=== PATIENT | male | born 1970 | race Caucasian/White ===

== ENCOUNTER → 2019-08-14 13:15 | Outpatient (CLI) | payer MEDICAID, SELFPAY ==
[2019-08-14 17:27] LABS: Hemoglobin 7.7 g/dL (13.0-16.5); Mean Corp Hgb Conc 30.8 g/dL (32-36); Mean Corpuscular Hgb 27.2 pg (27.0-32.0); Mean Corpuscular Volume 88.3 fL (80-94); Mean Platelet Vol. 11.1 fl (6.2-12.0); Platelet Count 224 K/mm3 (150-450); RBC Distribution Width CV 14.1 % (11.6-14.6); RBC Distribution Width SD 45.6 fl (35.1-43.9); Red Blood Count 2.83 M/mm3 (4.6-6.2); White Blood Count 7.7 K/mm3 (4.4-11.0)
[2019-08-14 17:51] LABS: Vitamin D,25 Hydroxy 19.1 ng/mL (29.95-100.01)
[2019-08-14 18:09] LABS: Albumin, Serum 2.4 g/dL (3.2-5.0); BUN 74 mg/dL (7-18); BUN/Creat Ratio 8.9 RATIO (10-20); Chloride 113 mmol/L (98-107); Creatinine, Serum 8.29 mg/dL (0.70-1.30); EST Glomerular Filtration Rate 7 mL/min (>60); Est Glom Filt Rate - Afr Amer 9 mL/min (>60); Ferritin 419 ng/mL (26-388); Glucose 91 mg/dL (74-106); Iron 36 ug/dL (65-175); Iron Binding Capacity,Total 151 ug/dL (250-450); Phosphorus 7.5 mg/dL (2.5-4.9); Potassium 6.1 mmol/L (3.5-5.1); Sodium Level 139 mmol/L (136-145)
== END ==
PROVIDERS: Visit Provider Internal Medicine Nephrology
DX: N18.5 Chronic kidney disease, stage 5 (principal); E55.9 Vitamin D deficiency, unspecified
CPT/HCPCS: 36415; 80069; 82306; 82728; 83540; 83550; 83970; 85027

== ENCOUNTER → 2019-08-15 | Outpatient (CLI) | payer MEDICAID, SELFPAY ==
[2019-08-15 12:51] LABS: Protein, Urine (Random) 621.5 mg/dL (<11.9); Protein:Creat Ratio 10552 mg/g CRE (0-200)
== END | disposition home or self-care (01) ==
LOC: LABSPEC 09:26
PROVIDERS: PCP Internal Medicine; Visit Provider Internal Medicine Nephrology
DX: N18.5 Chronic kidney disease, stage 5 (principal)
CPT/HCPCS: 82570; 84156

== ENCOUNTER → 2019-08-22 09:40 | Outpatient (CLI) | payer MEDICAID, SELFPAY ==
--- NOTE | 2019-08-22 09:43 | VDUE_ITS ---
Reason For Study: Pre op, CKD Right Arm Left Arm Right cephalic vein is compressible. Left cephalic vein is compressible. Right Cephalic Vein at the shoulder Left Cephalic Vein at the shoulder measures .51 x .53 cm. measures .64 x .67 cm. Right Cephalic Vein mid bicep measures .53 Left Cephalic Vein at mid bicep measures .67 x .6 cm. x .64 cm. Right Cephalic Vein above antecub Left Cephalic Vein above antecub measures .59 measures .45 x .51 cm. x .62 cm. Right Cephalic Vein below antecub Left Cephalic Vein below antecub measures .36 measures .29 x .3 cm. x .35 cm. Right Cephalic Vein in the forearm Left Cephalic Vein in the forearm measures .3 x .29 cm. measures .33 x .36 cm. Right Cephalic Vein at the wrist measures .13 Left Cephalic Vein at the wrist measures .31 x .16 cm. x .32 cm. Right basilic vein is compressible. Left basilic vein is compressible. Right Basilic Vein mid bicep measures .5 Basilic vein at bicep measures .4 x .4 cm. x .52 cm. Basilic vein above antecub measures .36 x .37 Right Basilic Vein above antecub measures .43 cm. x .43 cm. Basilic vein below antecub measures .15 x .16 Right Basilic Vein below antecub measures .14 cm. x .16 cm. Basilic vein in the forearm measures .16 Right Basilic Vein in the forearm x .16 cm. measures .27 x .29 cm. Basilic vein at the wrist measures .16 x .14 Right Basilic Vein at the wrist measures .25 cm. x .27 cm. Brachial Art .41 x .4 cm. Brachial Art .41 x .4 cm. Brachial Art 114.0 cm/s. Brachial Art 89.4 cm/s. Radial Art .19 x .22 cm. Radial Art .23 x .29 cm. Radial Art 112.2 cm/s. Radial Art 119.8 cm/s. Interpretation Summary Patent and compressible bilateral upper extremity cephalic and basilic veins with dimensions as noted. Small right cephalic vein at the wrist Small bilateral forearm basilic veins Adequate bilateral brachial artery diameter and flow. Adequate right radial artery slightly small on the left Ordering Physician: Osman Tarango Performed By: Nathan Ordoñez RVT ?
[2019-08-22 11:35] LABS: Albumin, Serum 2.3 g/dL (3.2-5.0); BUN 79 mg/dL (7-18); BUN/Creat Ratio 8.6 RATIO (10-20); Calcium,Total 7.4 mg/dL (8.5-10.1); Chloride 114 mmol/L (98-107); Creatinine, Serum 9.23 mg/dL (0.70-1.30); EST Glomerular Filtration Rate 7 mL/min (>60); Est Glom Filt Rate - Afr Amer 8 mL/min (>60); Glucose 126 mg/dL (74-106); Phosphorus 8.2 mg/dL (2.5-4.9); Potassium 6.6 mmol/L (3.5-5.1); Sodium Level 142 mmol/L (136-145)
[2019-08-22 11:55] LABS: Hepatitis B Surface Antigen Non-Reactive (Nonreactive)
== END ==
PROVIDERS: Internal Medicine Nephrology; PCP Internal Medicine; Referring Provider Surgery; Visit Provider Surgery
DX: Z01.818 Encounter for other preprocedural examination (principal); N18.5 Chronic kidney disease, stage 5; I77.0 Arteriovenous fistula, acquired
CPT/HCPCS: 36415; 80069; 87340; 93970

== ENCOUNTER 2019-08-22 13:29 | Inpatient (IN) | payer MEDICAID, SELFPAY ==
[2019-08-22] VITALS (21 sets, daily range): BP systolic 127–183; BP diastolic 38–87; PULSE 60–71; RESP 7–20; TEMP 36.4–36.6; O2SAT 13–99; BMI 49.3
--- NOTE | 2019-08-22 13:52 | EKG12_ITS ---
Test Reason : Blood Pressure : / mmHG Vent. Rate : 065 BPM Atrial Rate : 065 BPM P-R Int : 000 ms QRS Dur : 106 ms QT Int : 430 ms P-R-T Axes : 000 -34 048 degrees QTc Int : 447 ms Normal sinus rhythm Left axis deviation , LAHB Low voltage QRS Cannot rule out Anterior infarct , age undetermined Abnormal ECG Confirmed by ANJANA ALFORD ([id number]), map editor FAY PINTO ([id number]) on 08/26/2019 3:45:22 PM Referred By: RENAE Confirmed By:ANJANA ALFORD
--- NOTE | 2019-08-22 13:55 | NURSING ---
NO OLD EKGS
[2019-08-22 14:30] LABS: Anion Gap 7 (5-15); BUN 77 mg/dL (7-18); BUN/Creat Ratio 8.3 RATIO (10-20); Calcium,Total 7.5 mg/dL (8.5-10.1); Chloride 114 mmol/L (98-107); Creatinine, Serum 9.33 mg/dL (0.70-1.30); EST Glomerular Filtration Rate 6 mL/min (>60); Est Glom Filt Rate - Afr Amer 8 mL/min (>60); Estimated Creatinine Clearance 11.89 ml/min; Glucose 129 mg/dL (74-106); Sodium Level 140 mmol/L (136-145)
--- NOTE | 2019-08-22 14:30 | ED.RN ---
critical labs taken demond yang and reported to dr. ybarra
--- NOTE | 2019-08-22 14:38 | HP.PCM_ITS ---
History of Present Illness Date of Admission: 08/22/19 Chief Complaint: hyperkalemia The patient is a 49 year old M with a past medical history of hypertension, diabetes and CKD stage V. Patient has not yet on dialysis. Was admitted through the ED on 08/22/2019 on account of abnormal labs. Patient states his insurance broker tried admitted him last week because of elevated potassium but he did not want to come in as he felt fine. He had labs done 1 day prior to admission and was also referred to general surgery for vein mapping which he had done today. His insurance broker called him today because his labs done yesterday showed potassium of 6.6 and so she asked him to come into the ED. He had no complaints and felt very well. He denied any dizziness, lightheadedness, palpitations, chest pain, nausea or vomiting and did admit to chronic diarrhea which he does not know the cause of. In the ED, vitals were essentially stable. He was saturating at 97% on room air. Labs done showed potassium of 7 with creatinine of 9.33 and bicarb of 19 as well as chloride of 114. CBC was not done. He has been admitted to be managed for hyperkalemia and ESRD, needing emergent dialysis. [] Past Medical History Allergies No Known Allergies Allergy (Verified 08/22/19 13:34) Home Medications: Ambulatory Orders Medication Instructions Recorded Amlodipine [Norvasc] 10 mg PO DAILY 08/22/19 Aspirin [Aspir-Low] 81 mg PO DAILY 08/22/19 Calcium Acetate 2 PO TID 08/22/19 Carvedilol 25 mg PO BID 08/22/19 Ergocalciferol (Vitamin D2) 50,000 unit PO QWEEK 08/22/19 [Vitamin D2] Insulin Glargine,Hum.rec.anlog 10 unit SQ QHS 08/22/19 [Basaglar Kwikpen U-100] Insulin Lispro 2 - 16 unit SQ ACHS 08/22/19 Levothyroxine [Synthroid] 50 mcg PO DAILY 08/22/19 Pantoprazole Sodium 40 mg PO DAILY 08/22/19 Pregabalin [Lyrica] 100 mg PO BID 08/22/19 Sodium Bicarbonate 650 mg PO TID 08/22/19 hydrALAZINE [Apresoline] 25 mg PO TID 08/22/19 Surgical History: no surgical history Psychiatric History: No pertinent psych hx Lives: Alone Smoking Status: Never smoker Tobacco Use: Non-smoker Alcohol: None Drugs: None - *Family History Maternal History Items: No pertinent history Paternal History Items: No pertinent history Sibling History Items: Diabetes - sister has diabetes Review of Systems Constitutional: Denies: Chills, Fever, Malaise, Weakness, Weight Change Eyes: Denies: Blurred vision HEENT: Denies: Head Aches, Sinus Congestion, Sinus Drainage Cardiovascular: Denies: Chest Pain, Palpitations Respiratory: Denies: Cough, Shortness of Breath, Shortness of breath at rest, Shortness of breath upon exertion, Sputum production Gastrointestinal: Reports: Diarrhea - this is chronic. Denies: Abdominal Pain, Nausea, Vomiting Genitourinary: Denies: Dysuria Musculoskeletal: Denies: Joint Pain, Joint Tenderness Skin: Denies: Rash, Wounds Neurological: Denies: Numbness, Tingling, Focal weakness Psychiatric: Denies: Anxiety, Depression, Homicidal Ideations, Suicidal Ideations Hematologic/ Lymphatic: Denies: Easy Bruising, Easy Bleeding VTE Information - Inpt Only VTE Present on Admission: No VTE Pharm Prophylaxis ordered?: Yes - Physical Exam Vitals/I&O's: Vital Signs Temp Pulse Resp BP Pulse Ox 98 F 66 12 127/38 H 97 08/22/19 13:32 08/22/19 13:32 08/22/19 13:32 08/22/19 13:32 08/22/19 13:32 Oxygen Delivery Method Room Air Weight: 405 lb 3.354 oz Body Mass Index (BMI) 49.3 General: Alert, Oriented x3, Cooperative, No apparent distress, - - super morbid obesity HEENT: Atraumatic, PERRLA, EOMI, Normocephalic Oral: Dry Mucosa Neck: Supple, No JVD, Negative Carotid Bruits Lungs: Clear to auscultation, Normal air movement, No rhonchi, No wheeze, No rales Cardiovascular: Regular rate, Regular Rhythm, Normal S1, Normal S2, No murmurs Abdomen: Bowel Sounds Present, Soft, Non Tender, Non-Distended, No Hepato- splenomegaly Extremities: No clubbing, No cyanosis, No edema, Capillary Refill Less than 3 S econds Skin: No rashes, No breakdown Musculoskeletal: No Tenderness to Palpation of Joints or Extremities Lymphatic: No Cervical, Supraclavicular, or Inguinal Adenopathy Neurological: Cranial nerves II-XII grossly intact, Neuro grossly intact Psych/Mental Status: Normal Affect, Appropriate, Alert and oriented to time, place, person, mood and affect Laboratory Results 08/22/19 13:50: Sodium 140, Potassium 7.0 H*, Chloride 114 H, Carbon Dioxide 19.0 L, Anion Gap 7, BUN 77 H, Creatinine 9.33 H*, Estim Creat Clear Calc 11.89, Est GFR (MDRD) Af Amer 8 L, Est GFR (MDRD) Non-Af 6 L, BUN/Creatinine Ratio 8.3 L, Glucose 129 H, Calcium 7.5 L Current Medications Sodium Bicarbonate 50 meq/ (Dextrose) 1,050 mls @ 100 mls/hr IV .[id number] RASHIDA Stop: 08/23/19 00:59 Assessment/Plan 49-year-old admitted with complaint of abnormal labs and found to have hyperkalemia. 1. hyperkalemia * Potassium is 7. Potassium was 6.6 earlier today. * Has a history of CKD stage V and is due to have vein mapping which was done today. He has an old fistula in which was placed at [facility] but he has never used it. Is currently nonfunctional according to his insurance broker. * Patient given potassium depleting cocktail and Kayexalate in the ED. EKG showed junctional rhythm with no acute ST changes. * * Admit to ICU. Start consult placed to nephrology. I discussed the case with Dr. Shaw on phone and patient to get tunneled dialysis catheter today. We will keep n.p.o. * 2. ESRD * Patient's potassium is 9.33. He does have a history of CKD stage V and had a fistula put in at [facility] sometime back but it has never been used. He had vein mapping done today in anticipation of dialysis. However I think he has progressed to ESRD and needs emergent dialysis. * Nephrology consulted. * Will check kidney ultrasound. * on sodium bicarb * 3. Anemia: * Hemoglobin was 7.7 on 08/14/2019. * Iron panel showed elevated ferritin of 419 with low iron level of 36 and total iron-binding capacity which was low at 151. * This is indicative of anemia of chronic disease likely due to ESRD. * Will check CBC today. * 4. hypertension: On amlodipine and carvedilol as well as hydralazine. IV hydralazine PRN. 5. Type 2 diabetes mellitus: On Lantus 10 units nightly. Insulin sliding scale. Accu-Cheks AC at bedtime. 6. Hypothyroidism: On Synthroid DVT prophylaxis: Lovenox Code Visit Inpatient E&M: 19372 Init Hosp L3
[2019-08-22] MEDS: Albuterol 2.5 MG/3 ML VIAL.NEB. INHALATION (14:39)
--- NOTE | 2019-08-22 14:39 | ED.VISSUMM ---
- ER Visit Summary Date of Service: 08/22/19 Chief Complaint: [High potassium] History of Present Illness: The patient is a 49 M [presents the emergency department complaint of elevated potassium. 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 Patient has had some mild nausea today but otherwise really has no complaints. He is not currently on dialysis. Patient does have history of diabetes as well as hypertension and hypothyroidism. Patient denies any chest pain or shortness of breath.] Physical Examination: [HEENT-PERRLA, EOMI. Cranial nerves II through XII grossly intact. TMs clear. Mucous membranes moist. No adenopathy. Cardiovascular-regular rate and rhythm without murmur or ectopy Lungs-clear to auscultation, chest wall stable without crepitus or subcu emphysema Abdomen-normoactive bowel sounds, soft, nontender, no rebound or rigidity, no peritoneal signs. Extremities-intact ?4, normal range of motion, normal pulses, atraumatic] Test Results: [EKG obtained on arrival showed junctional rhythm with a ventricular rate of 65 bpm with no acute ST segment changes. No significantly peaked T waves noted. And no QT prolongation noted. Chemistries obtained showed an elevated potassium of 7.0. 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 Patient was started on calcium chloride as well as sodium bicarb as well as insulin and dextrose and Kayexalate. Patient also given an albuterol aerosol. Case was discussed with hospitalist will evaluate patient for admission to ICU] Treatment Plan: [Admit to ICU] Disposition: [Admit] Impression: [Hyperkalemia Chronic renal failure] This note was generated with [employer] software. It may contain incorrect words, spelling, and punctuation that were not noted in review of the chart prior to signing ED Disposition - Plan for ED Patient: Referrals: Laura Daly MD [Primary Care Provider] -
--- NOTE | 2019-08-22 14:43 | NURSING ---
ICU 1 KORAM HYPERKALEMIA, NIELS ON CKD
[2019-08-22] MEDS: Calcium Chloride 1 GM/10 ML Syringe IV (14:44)
[2019-08-22] MEDS: Dextrose 10%-Water 250 ML 999 ML IV (15:46)
[2019-08-22] MEDS: Heparin 10,000 UNITS/10 ML Vial 10000 UNITS (16:00)
[2019-08-22] MEDS: Bupiv/Epi 0.25% 30 ML Vial (16:01)
--- NOTE | 2019-08-22 16:01 | CON.PCM_ITS ---
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 Patient had elevated potassium of 7.0 as well as elevated creatinine 9.33. Patient states previously he had left lower arm fistula created several years ago: however he never needed to use it and currently it is nonfunctional. Patient never had dialysis. Patient denies feeling fatigued or any nausea/vomiting/abdominal pain. Past Medical History Allergies No Known Allergies Allergy (Verified 08/22/19 13:34) Home Medications: Ambulatory Orders Medication Instructions Recorded Amlodipine [Norvasc] 10 mg PO DAILY 08/22/19 Aspirin [Aspir-Low] 81 mg PO DAILY 08/22/19 Carvedilol 25 mg PO BID 08/22/19 Ergocalciferol (Vitamin D2) 50,000 unit PO WE 08/22/19 [Vitamin D2] Insulin Glargine,Hum.rec.anlog 10 unit SQ QHS 08/22/19 [Basaglar Kwikpen U-100] Insulin Lispro 15 unit SQ ACHS 08/22/19 Levothyroxine [Synthroid] 50 mcg PO DAILY 08/22/19 Pantoprazole Sodium 40 mg PO DAILY 08/22/19 Pregabalin [Lyrica] 100 mg PO BID 08/22/19 Sodium Bicarbonate 650 mg PO TID 08/22/19 hydrALAZINE [Apresoline] 25 mg PO TID 08/22/19 Surgical History: - - toe amputation Psychiatric History: No pertinent psych hx Lives: Alone Smoking Status: Never smoker Tobacco Use: Non-smoker, Secondhand Alcohol: None Drugs: None - *Family History Maternal History Items: No pertinent history Paternal History Items: No pertinent history Sibling History Items: Diabetes - sister has diabetes Review of Systems Constitutional: Denies: Anorexia, Fever Eyes: Denies: Blurred vision HEENT: Denies: Difficulty Swallowing Cardiovascular: Denies: Chest Pain Respiratory: Denies: Shortness of Breath Gastrointestinal: Denies: Abdominal Pain Genitourinary: Denies: Dysuria Psychiatric: Denies: Anxiety Hematologic/ Lymphatic: Denies: Easy Bleeding - Physical Exam Vitals/I&O's: Vital Signs Temp Pulse Resp BP Pulse Ox 98 F 71 16 127/38 H 97 08/22/19 13:32 08/22/19 14:39 08/22/19 14:39 08/22/19 13:32 08/22/19 13:32 Oxygen Delivery Method Room Air Weight: 405 lb 3.354 oz Body Mass Index (BMI) 49.3 General: Alert, Cooperative, No apparent distress HEENT: Atraumatic Neck: Supple, Trachea Midline Lungs: Normal air movement Cardiovascular: Regular rate Abdomen: Soft, Non Tender, Non-Distended Extremities: Edema, - - Right lower arm near the wrist, incision and previous fistula, no thrill Neurological: Cranial nerves II-XII grossly intact Psych/Mental Status: Normal Affect Laboratory Results 08/22/19 13:50: Sodium 140, Potassium 7.0 H*, Chloride 114 H, Carbon Dioxide 19.0 L, Anion Gap 7, BUN 77 H, Creatinine 9.33 H*, Estim Creat Clear Calc 11.89, Est GFR (MDRD) Af Amer 8 L, Est GFR (MDRD) Non-Af 6 L, BUN/Creatinine Ratio 8.3 L, Glucose 129 H, Calcium 7.5 L Current Medications Sodium Bicarbonate 50 meq/ (Dextrose) 1,050 mls @ 100 mls/hr IV .[id number] RASHIDA Stop: 08/23/19 00:59 Last Admin: 08/22/19 15:23 Dose: 100 mls/hr Documented by: Dextrose (Dextrose 10%-Water) 250 mls @ 999 mls/hr IV .Q16M PRN; Protocol PRN Reason: HYPOGLYCEMIA Last Admin: 08/22/19 15:46 Dose: 999 mls/hr Documented by: Sodium Chloride () 10 - 40 ml IV UD PRN PRN Reason: SALINE FLUSH Assessment/Plan 49-year-old male with acute kidney injury on chronic renal failure 1. Plan to place right tunneled dialysis catheter in the OR today. Did discuss the procedure with the patient including but not limited to risk of bleeding, infection, malfunction of the catheter need for replacement, injury to the vessel. Patient no further questions this time. Patient is scheduled for this afternoon. Poppy Robertson M.D. Pager: [phone] [facility] [address] [place] [address], [facility], [address] [place] [address] Office: [phone] Code Visit Inpatient E&M: 68359 Init Hosp L1
--- NOTE | 2019-08-22 16:09 | NURSING ---
S[facility]
[2019-08-22] MEDS: Insulin Lispro 5 UNIT in Syringe 0 ML IV (16:21)
[2019-08-22 16:30] LABS: Bedside Glucose 173 mg/dL (70-110)
[2019-08-22 16:50] LABS: Bedside Glucose 125 mg/dL (70-110)
--- NOTE | 2019-08-22 17:54 | PCM.OPRPT ---
Report of Operation Date of Procedure: 08/22/19 Pre-Operative Diagnosis: Chronic renal failure Post-Operative Diagnosis: Same Surgery/Procedure Performed:: Insertion of the right tunneled dialysis catheter Type of Anesthesia:: Local MAC Anesthesiologist: Rei Mena Special Medications: Ancef 3 g IV x1 Specimen's removed: None Estimated Blood Loss (mL): 10 cc Fluids Replaced: 700 cc Description of Procedure: After informed consent was given, the patient was brought to the operating room and placed in the supine position. Appropriate time out protocol was followed. He was then given IV conscious sedation for anesthesia. The patient's right upper chest and neck were then prepped with a surgical skin preparation and sterile surgical drapes were placed. After proper landmarks were ascertained, the skin at the upper right chest area was then infiltrated with 1:1 mixture of 1% lidocaine with epinephrine and 0.5% maricaine. A needle trocar was then inserted into the right internal jugular vein with ultrasound guidance-multiple vessels were viewed with u/s and the right IJ was chosen-- and there was good aspiration of venous blood. A wire was then threaded into the needle trocar and this was visualized under fluoroscopy to ensure that the wire was in the superior vena cava. Once this was done, then the needle trocar was removed. A small incision was made with an 11 blade knife at the wire entrance site. The dilator x2 with the introducer sheath attached was then placed over the wire into the right internal jugular vein via the Seldinger technique and this was visualized under fluoroscopy. Next the introducer and sheath were in proper position as visualized by fluoroscopy. The location of the cuffed was estimated on the skin, an incision was made with a 15 blade scalpel. The 14.5 Fr x23 cm Palindrome dual lumen (Lot [id number] reference [id number]) was tunneled from the chest incision to the right neck incision. The sheath was removed. The catheter was placed through the introducer and was positioned with its tip at the junction of the superior vena cava and the right atrium as visualized under fluoroscopy. The cuff of the catheter was in the subcutaneous tissue. The catheter flushed and kenia well with saline. Catheter was also flushed with 2 cc of 1-10,000 of heparin. Hemostasis was assured. Silver dressing was placed at the catheter exit site. Catheter was secured with 3-0 nylon sutures. The neck incision was sutured with interrupted 3-0 Vicryl interrupted sutures x2 and Steri-Strips were placed. A large OpSite was placed over the catheter site and a small OpSite over the neck incision. The patient tolerated the procedure well. Implants Used: 14.5 Fr x23 cm Palindrome dual lumen (Lot [id number] reference [id number]) Grafts/Implants Used: 14.5 Fr x23 cm Palindrome dual lumen (Lot [id number] reference [id number]) - Complications none Code Visit - Procedures Cardiovascular CF Procedures [id number]: [id number] Insert tunneled cv cath
--- NOTE | 2019-08-22 18:00 | RAD_ITS ---
STUDY: X-RAY CHEST REASON FOR EXAM: Male, 49 years old. HEMODIALYSIS CATH PLACEMENT, POST OP TECHNIQUE: Frontal view COMPARISON: None. FINDINGS: Right sided venous line with tip at the distal SVC. The lungs are not fully expanded. There is no demonstrated pleural abnormality. Mild cardiomegaly. Normal mediastinum and patel. Normal visualized pulmonary arteries. Normal visualized aortic arch and descending thoracic aorta. Normal visualized thoracic spine. Normal visualized ribs, clavicles, and shoulders. There is no demonstrated abnormality of the visualized soft tissue structures of the upper abdomen. RAD/CXR for Line Placement IMPRESSION: Mild cardiomegaly. Electronically Signed: Roland Recio DO at 18:46 EST Tel [phone], Service support ,
[2019-08-22 18:51] LABS: Bedside Glucose 123 mg/dL (70-110)
--- NOTE | 2019-08-22 21:17 | PCM.CONS.R ---
Consultation - Renal 08/22/19 PCP/ Referring MD: Requesting physician: [] Primary care physician: Laura Daly MD Reason for Consultation:: ESRD, hyperkalemia - History of Present Illness History of Present Illness: The patient is a 49 year old super morbidly obese M new to my practice with initial consult in office on 08/14/19 for CKD Stage 5 due to diabetes, hypertension. He relocated to [place] in February after kicked out of cousin's house in [place]. His renal care was at [facility]. He had a left forearm fistula placed by Dr. Bray in [place] that failed to mature. He is disabled due to morbid obesity and relies on his inserter promotional item to drive him to his dr larry, groceries and brick picker his prescriptions. This had delayed taking his prescriptions. Potassium elevated at 6.6 prior to admission. He refused to come in to ER because he states he felt fine. Creatinine at 6.8 on 05/15/19 with potassium 5.6. Lisinopril was discontinued. Creatinine on admit 9.33 with potassium of 7 and metabolic acidosis, hyperphosphatemia. He had no complaints and felt very well. He denied any dizziness, lightheadedness, palpitations, chest pain, nausea or vomiting. He is scheduled for tunneled dialysis catheter placement today and initiate dialysis tonight for emergent dialysis. - Allergies Allergies: Allergies No Known Allergies Allergy (Verified 08/22/19 13:34) - Current Medications Current Medications: Current Medications Albuterol Sulfate (Ventolin Aerosols) 2.5 mg INHALATION Q2H PRN PRN PRN Reason: SOB/Wheezing Amlodipine Besylate (Norvasc) 10 mg PO DAILY [facility] Aspirin (Ecotrin) 81 mg PO DAILYCM RASHIDA Carvedilol (Coreg) 25 mg PO BID [facility] Enoxaparin Sodium (Lovenox) 30 mg SC DAILY@0600 [facility] Ergocalciferol (Vitamin D) 50,000 unit PO WE RASHIDA Glucagon () 1 mg IM .X1 PRN PRN Reason: Hypoglycemia Hydralazine HCl (Apresoline) 25 mg PO TID RASHIDA Sodium Bicarbonate 50 meq/ (Dextrose) 1,050 mls @ 100 mls/hr IV .[id number] RASHIDA Stop: 08/23/19 00:59 Last Admin: 08/22/19 15:23 Dose: 100 mls/hr Documented by: Dextrose (Dextrose 10%-Water) 250 mls @ 999 mls/hr IV .Q16M PRN; Protocol PRN Reason: HYPOGLYCEMIA Insulin Glargine (Lantus (Bk)) 10 units SC QHS RASHIDA Insulin Human Lispro (Humalog Kwikpen ([facility])) 15 unit SC 0800,1200,1700 RASHIDA Insulin Human Lispro (Humalog Kwikpen ([facility])) 0 unit SC Q6 RASHIDA; Protocol Last Admin: 08/22/19 18:47 Dose: Not Given Documented by: Levothyroxine Sodium (Synthroid) 50 mcg PO DAILY@0600 R[facility] Pantoprazole Sodium (Protonix) 40 mg PO DAILY [facility] Pregabalin (Lyrica) 100 mg PO BID R[facility] Sodium Chloride () 10 - 40 ml IV UD PRN PRN Reason: SALINE FLUSH - Past Surgical History Surgical History: - - toe amputation, failed left forearm AVF - Social History Marital Status: Single Smoking Status: Never smoker Alcohol: None Drugs: None - Family History Maternal History Items: No pertinent history Paternal History Items: No pertinent history Sibling History Items: Diabetes - sister has diabetes Review of Systems Constitutional: Reports: Weakness, Fatigue. Denies: Anorexia, Chills, Fever Cardiovascular: Reports: Edema - mild. Denies: Chest Pain, Syncope Respiratory: Denies: Cough, Shortness of Breath Gastrointestinal: Denies: Abdominal Pain, Nausea, Vomiting Genitourinary: Denies: Dysuria Musculoskeletal: Denies: Arm Pain, Neck Pain Skin: Denies: Rash Neurological: Denies: Confusion, Tremor, Seizures Psychiatric: Reports: Depression. Denies: Anxiety Hematologic/ Lymphatic: Reports: Anemia - Physical Exam Vitals/I&O's: Vital Signs Temp Pulse Resp BP Pulse Ox 97.9 F 62 7 L 177/60 H 98 08/22/19 20:31 08/22/19 21:00 08/22/19 21:00 08/22/19 21:00 08/22/19 21:00 Oxygen Delivery Method Room Air Weight: 183.8 kg Body Mass Index (BMI) 49.3 Intake and Output for Last 24 Hours 08/20/19 08/21/19 08/22/19 23:59 23:59 23:59 Intake Total 250 / 250 Output Total 0 / 0 Balance 250 / 250 General: Alert, Oriented x3, Cooperative, No apparent distress HEENT: PERRLA, EOMI Oral: Dry Mucosa Neck: Supple Lungs: Clear to auscultation Cardiovascular: Regular rate, No rub noted Abdomen: Bowel Sounds Present, Soft, Non Tender, Obese Extremities: No edema Skin: No rashes Psych/Mental Status: Normal Affect, Appropriate, Alert and oriented to time, place, person, mood and affect Laboratory Results 08/22/19 13:50: Sodium 140, Potassium 7.0 H*, Chloride 114 H, Carbon Dioxide 19.0 L, Anion Gap 7, BUN 77 H, Creatinine 9.33 H*, Estim Creat Clear Calc 11.89, Est GFR (MDRD) Af Amer 8 L, Est GFR (MDRD) Non-Af 6 L, BUN/Creatinine Ratio 8.3 L, Glucose 129 H, Calcium 7.5 L 08/22/19 15:59: POC Glucose 173 H 08/22/19 16:44: POC Glucose 125 H 08/22/19 18:46: POC Glucose 123 H Clinical Impression(s) from Imaging Studies Chest X-Ray 08/22/19 18:00 IMPRESSION: Mild cardiomegaly. Electronically Signed: Roland Recio DO at 18:46 EST Tel [phone], Service support , Current Medications Albuterol Sulfate (Ventolin Aerosols) 2.5 mg INHALATION Q2H PRN PRN PRN Reason: SOB/Wheezing Amlodipine Besylate (Norvasc) 10 mg PO DAILY [facility] Aspirin (Ecotrin) 81 mg PO DAILYCM [facility] Carvedilol (Coreg) 25 mg PO BID [facility] Enoxaparin Sodium (Lovenox) 30 mg SC DAILY@0600 [facility] Ergocalciferol (Vitamin D) 50,000 unit PO WE RASHIDA Glucagon () 1 mg IM .X1 PRN PRN Reason: Hypoglycemia Hydralazine HCl (Apresoline) 25 mg PO TID RASHIDA Sodium Bicarbonate 50 meq/ (Dextrose) 1,050 mls @ 100 mls/hr IV .[id number] RASHIDA Stop: 08/23/19 00:59 Last Admin: 08/22/19 15:23 Dose: 100 mls/hr Documented by: Dextrose (Dextrose 10%-Water) 250 mls @ 999 mls/hr IV .Q16M PRN; Protocol PRN Reason: HYPOGLYCEMIA Insulin Glargine (Lantus (Bk)) 10 units SC QHS RASHIDA Insulin Human Lispro (Humalog Kwikpen (Bk)) 15 unit SC 0800,1200,1700 RASHIDA Insulin Human Lispro (Humalog Kwikpen (Bk)) 0 unit SC Q6 RASHIDA; Protocol Last Admin: 08/22/19 18:47 Dose: Not Given Documented by: Levothyroxine Sodium (Synthroid) 50 mcg PO DAILY@0600 R[facility] Pantoprazole Sodium (Protonix) 40 mg PO DAILY [facility] Pregabalin (Lyrica) 100 mg PO BID R[facility]IDA Sodium Chloride () 10 - 40 ml IV UD PRN PRN Reason: SALINE FLUSH Assessment/Plan 1. ESRD HD today and tomorrow after tunneled dialysis catheter placement. Will need outpt chronic dialysis arranged prior to discharge. Failed left AVF. Refer to Dr. Tarango for revision. VM done as outpt 2. Hyperkalemia correct with dialysis 3. Metabolic acidosis correct with dialysis 4. Hyperphosphatemia, PTH stable 5. iron def anemia iv iron with dialysis. prbc 6. DM2 7. HTN 8. Severe morbid obesity 9. Debilitation 10 Depression
[2019-08-22] MEDS: hydrALAZINE 25 MG Tablet PO (21:36)
[2019-08-22] MEDS: Carvedilol 25 MG Tablet PO (21:36)
[2019-08-22] MEDS: Pregabalin 50 MG Capsule 100 MG PO (21:39)
[2019-08-22 21:45] LABS: Bedside Glucose 110 mg/dL (70-110)
[2019-08-22 23:41] LABS: Bedside Glucose 106 mg/dL (70-110)
[2019-08-23] VITALS (25 sets, daily range): BP systolic 126–181; BP diastolic 50–99; PULSE 63–73; RESP 8–20; TEMP 36.3–36.8; O2SAT 93–98
[2019-08-23] MEDS: Metoprolol Tartrate 5 MG/5 ML Vial IV (02:12)
[2019-08-23] MEDS: 0.9% Saline Lock 10 ML Syringe IV ×2 (02:17→05:06)
[2019-08-23 04:19] LABS: Absolute Lymphocyte Count 0.93 X10^3/uL (0.83-4.51); Absolute Neutrophil Count 4.6 X10^3/uL (2.0-7.7); Basophil# 0.05 X10^3/uL; Basophil% 0.8 % (0-1); Eosinophil# 0.46 X10^3/uL; Hematocrit 21.1 % (40-54); Hemoglobin 6.7 g/dL (13.0-16.5); Lymphocyte # 0.93 X10^3/ul (4.0); Lymphocyte % 14.1 % (19-41); Mean Corp Hgb Conc 31.8 g/dL (32-36); Mean Corpuscular Hgb 28.2 pg (27.0-32.0); Mean Corpuscular Volume 88.7 fL (80-94); Mean Platelet Vol. 11.2 fl (6.2-12.0); Monocyte# 0.58 X10^3/uL; Monocyte% 8.8 % (0-10); NRBC Flagged by Analyzer 0 % (0-5); Neutrophil # 4.55 X10^3/uL (2.7-7.7); Neutrophil % 68.7 % (47-70); Platelet Count 143 K/mm3 (150-450); RBC Distribution Width CV 13.3 % (11.6-14.6); RBC Distribution Width SD 43.3 fl (35.1-43.9); Red Blood Count 2.38 M/mm3 (4.6-6.2); White Blood Count 6.6 K/mm3 (4.4-11.0)
[2019-08-23 04:36] LABS: Albumin, Serum 2.2 g/dL (3.2-5.0); BUN 53 mg/dL (7-18); BUN/Creat Ratio 7.9 RATIO (10-20); Calcium,Total 7.5 mg/dL (8.5-10.1); Chloride 108 mmol/L (98-107); Creatinine, Serum 6.73 mg/dL (0.70-1.30); EST Glomerular Filtration Rate 9 mL/min (>60); Est Glom Filt Rate - Afr Amer 11 mL/min (>60); Estimated Creatinine Clearance 16.04 ml/min; Glucose 114 mg/dL (74-106); Phosphorus 5.9 mg/dL (2.5-4.9); Potassium 4.7 mmol/L (3.5-5.1); Sodium Level 139 mmol/L (136-145)
[2019-08-23] MEDS: Levothyroxine 50 MCG Tablet PO (05:04)
[2019-08-23] MEDS: hydrALAZINE 25 MG Tablet PO ×3 (05:04→21:37)
[2019-08-23 05:16] LABS: Bedside Glucose 112 mg/dL (70-110)
[2019-08-23] MEDS: Aspirin E.C. 81 MG Tablet PO (08:19)
[2019-08-23] MEDS: Pantoprazole Sodium 40 MG Tablet PO (08:19)
[2019-08-23] MEDS: Pregabalin 50 MG Capsule 100 MG PO ×2 (08:23→21:37)
--- NOTE | 2019-08-23 09:02 | PN_ITS ---
Reason for Visit: Patient seen and examined. He had an uneventful night and had no complaints. He had tunnel dialysis catheter put in yesterday and had dialysis with removal of fluid. Hemoglobin dropped to 6.7 and he has been transfused with 1 unit of packed red blood cells. Labs and vitals reviewed. Potassium was 7 on admission and is down to 4.7 now. Creatinine is also down to 6.73. Vitals/I&O's: Vital Signs Temp Pulse Resp BP Pulse Ox 97.3 F L 64 16 158/62 H 97 08/23/19 07:56 08/23/19 08:00 08/23/19 07:56 08/23/19 07:56 08/23/19 07:56 Oxygen Delivery Method Room Air Weight: 393 lb 15.457 oz Body Mass Index (BMI) 49.3 Intake and Output for Last 24 Hours 08/21/19 08/22/19 08/23/19 23:59 23:59 23:59 Intake Total 1195 / 1195 956.67 / 956.67 Output Total 0 / 0 500 / 500 Balance 1195 / 1195 456.67 / 456.67 General: Alert, Oriented x3, Cooperative, No apparent distress, - - super morbid obesity HEENT: Atraumatic, PERRLA, EOMI, Normocephalic Oral: Dry Mucosa Neck: Supple, No JVD, Negative Carotid Bruits Lungs: Clear to auscultation, Normal air movement, No rhonchi, No wheeze, No rales Cardiovascular: Regular rate, Regular Rhythm, Normal S1, Normal S2, No murmurs Abdomen: Bowel Sounds Present, Soft, Non Tender, Non-Distended, No Hepato- splenomegaly Extremities: No clubbing, No cyanosis, No edema, Capillary Refill Less than 3 Seconds Skin: No rashes, No breakdown Musculoskeletal: No Tenderness to Palpation of Joints or Extremities,tunneled dialysis catheter in place on chest Lymphatic: No Cervical, Supraclavicular, or Inguinal Adenopathy Neurological: Cranial nerves II-XII grossly intact, Neuro grossly intact Psych/Mental Status: Normal Affect, Appropriate, Alert and oriented to time, place, person, mood and affect Laboratory Results 08/22/19 13:50: Sodium 140, Potassium 7.0 H*, Chloride 114 H, Carbon Dioxide 19.0 L, Anion Gap 7, BUN 77 H, Creatinine 9.33 H*, Estim Creat Clear Calc 11.89, Est GFR (MDRD) Af Amer 8 L, Est GFR (MDRD) Non-Af 6 L, BUN/Creatinine Ratio 8.3 L, Glucose 129 H, Calcium 7.5 L 08/22/19 15:59: POC Glucose 173 H 08/22/19 16:44: POC Glucose 125 H 08/22/19 18:46: POC Glucose 123 H 08/22/19 21:32: POC Glucose 110 08/22/19 23:36: POC Glucose 106 08/23/19 04:07: WBC 6.6, RBC 2.38 L, Hgb 6.7 L, Hct 21.1 L, MCV 88.7, MCH 28.2, MCHC 31.8 L, RDW Std Deviation 43.3, RDW Coeff of Baljit 13.3, Plt Count 143 L, MPV 11.2, Immature Gran % (Auto) 0.600, Neut % (Auto) 68.7, Lymph % (Auto) 14.1 L, [place] % (Auto) 8.8, Eos % (Auto) 7.0 H, Baso % (Auto) 0.8, Absolute Neuts (auto) 4.6, Absolute Lymphs (auto) 0.93, Nucleated RBC % 0 08/23/19 04:07: Sodium 139, Potassium 4.7, Chloride 108 H, Carbon Dioxide 26.0, BUN 53 H, Creatinine 6.73 H, Estim Creat Clear Calc 16.04, Est GFR (MDRD) Af Amer 11 L, Est GFR (MDRD) Non-Af 9 L, BUN/Creatinine Ratio 7.9 L, Glucose 114 H, Calcium 7.5 L, Phosphorus 5.9 H, Albumin 2.2 L 08/23/19 04:58: Blood Type A POSITIVE, Antibody Screen NEGATIVE, Crossmatch See Detail 08/23/19 04:59: Crossmatch See Detail 08/23/19 05:08: POC Glucose 112 H Diagnostic Data Chest X-Ray 08/22/19 18:00 IMPRESSION: Mild cardiomegaly. Electronically Signed: Roland Recio DO at 18:46 EST Tel [phone], Service support , Current Medications Albuterol Sulfate (Ventolin Aerosols) 2.5 mg INHALATION Q2H PRN PRN PRN Reason: SOB/Wheezing Amlodipine Besylate (Norvasc) 10 mg PO DAILY [facility] Aspirin (Ecotrin) 81 mg PO DAILYCM [facility] Last Admin: 08/23/19 08:19 Dose: 81 mg Documented by: Carvedilol (Coreg) 25 mg PO BID [facility] Last Admin: 08/22/19 21:36 Dose: 25 mg Documented by: Enoxaparin Sodium (Lovenox) 30 mg SC DAILY@0600 [facility] Last Admin: 08/23/19 05:09 Dose: Not Given Documented by: Ergocalciferol (Vitamin D) 50,000 unit PO [facility] Glucagon () 1 mg IM .X1 PRN PRN Reason: Hypoglycemia Hydralazine HCl (Apresoline) 25 mg PO TID [facility] Last Admin: 08/23/19 05:04 Dose: 25 mg Documented by: Hydralazine HCl (Apresoline Iv) 10 mg IV Q4H PRN PRN PRN Reason: SBP > 160 Dextrose (Dextrose 10%-Water) 250 mls @ 999 mls/hr IV .Q16M PRN; Protocol PRN Reason: HYPOGLYCEMIA Sodium Chloride () 500 mls @ 15 mls/hr IV PRN PRN PRN Reason: Blood Transfusion Insulin Glargine (Lantus (B[facility])) 10 units SC QHS [facility] Last Admin: 08/22/19 21:37 Dose: 10 u Documented by: Insulin Human Lispro (Humalog Kwikpen ([facility])) 15 unit SC 0800,1200,1700 [facility] Last Admin: 08/23/19 08:19 Dose: Not Given Documented by: Insulin Human Lispro (Humalog Kwikpen ([facility])) 0 unit SC Q6 [facility]; Protocol Last Admin: 08/23/19 05:09 Dose: Not Given Documented by: Levothyroxine Sodium (Synthroid) 50 mcg PO DAILY@0600 [facility] Last Admin: 08/23/19 05:04 Dose: 50 mcg Documented by: Metoprolol Tartrate (Lopressor (Beta Carlos)) 5 mg IV Q6H PRN PRN PRN Reason: SBP > 160, hold for HR < 60 Last Admin: 08/23/19 02:12 Dose: 5 mg Documented by: Pantoprazole Sodium (Protonix) 40 mg PO DAILY [facility] Last Admin: 08/23/19 08:19 Dose: 40 mg Documented by: Pregabalin (Lyrica) 100 mg PO BID [facility] Last Admin: 08/23/19 08:23 Dose: 100 mg Documented by: Sodium Chloride () 10 - 40 ml IV UD PRN PRN Reason: SALINE FLUSH Last Admin: 08/23/19 05:06 Dose: 20 ml Documented by: STROKE Vital Signs/Narrative: Vital Signs Temp Pulse Resp BP BP Pulse Ox 08/23/19 08:00 64 08/23/19 07:56 97.3 F L 65 16 158/62 H 97 08/23/19 07:00 64 13 157/58 H 93 08/23/19 06:56 97.6 F L 63 14 154/64 H 94 08/23/19 06:41 97.5 F L 64 12 150/71 H 97 08/23/19 06:00 63 8 L 149/61 H 97 08/23/19 05:04 64 153/62 H Medical Necessity - Tobacco Use Smoking Status: Never smoker Tobacco Use: Non-smoker, Secondhand Assessment/Plan 1. hyperkalemia due to ESRD * Potassium is down to 4.6 today. Had dialysis yesterday. * Nephrology on board. * 2. ESRD * Tunneled dialysis catheter emergently please yesterday he had 1 session of dialysis. * On bicarb drip. Will consider stopping today. * Nephrology on board. * Patient's potassium is 9.33. He does have a history of CKD stage V and had a fistula put in at [facility] sometime back but it has never been used. He had vein mapping done today in anticipation of dialysis. However I think he has progressed to ESRD and needs emergent dialysis. * Nephrology consulted. * Will check kidney ultrasound. * on sodium bicarb * 3. Acute on chronic Anemia: * Hb is down to 6.7 today; was 7.7 yesterday * Iron panel showed elevated ferritin of 419 with low iron level of 36 and total iron-binding capacity which was low at 151. * This is indicative of anemia of chronic disease likely due to ESRD. * being transfused one unit of PRBCs * will monitor Hb. * 4. hypertension: On amlodipine and carvedilol as well as hydralazine. IV hydralazine PRN. 5. Type 2 diabetes mellitus: On Lantus 10 units nightly. Insulin sliding scale. Accu-Cheks AC at bedtime. 6. Hypothyroidism: On Synthroid DVT prophylaxis: SCDs. DC lovenox o/a of anemia. Disposition: transfer to PCU today Code Visit Inpatient E&M: 31073 Subs Hosp L2
--- NOTE | 2019-08-23 09:51 | PCM.PN.SRG ---
Subjective: Patient did get dialysis last night and is getting dialysis again this morning. - Physical Exam Vitals/I&O's: Vital Signs Temp Pulse Resp BP Pulse Ox 97.3 F L 64 16 158/62 H 97 08/23/19 07:56 08/23/19 08:00 08/23/19 07:56 08/23/19 07:56 08/23/19 07:56 Oxygen Delivery Method Room Air Weight: 393 lb 15.457 oz Body Mass Index (BMI) 49.3 Intake and Output for Last 24 Hours 08/21/19 08/22/19 08/23/19 23:59 23:59 23:59 Intake Total 1195 / 1195 956.67 / 956.67 Output Total 0 / 0 500 / 500 Balance 1195 / 1195 456.67 / 456.67 General: Alert, Oriented x3, Cooperative, No apparent distress Abdomen: Soft, Non Tender, Non-Distended, Obese Skin: - - Right chest tunneled dialysis catheter in place and dressed. Laboratory Results 08/22/19 13:50: Sodium 140, Potassium 7.0 H*, Chloride 114 H, Carbon Dioxide 19.0 L, Anion Gap 7, BUN 77 H, Creatinine 9.33 H*, Estim Creat Clear Calc 11.89, Est GFR (MDRD) Af Amer 8 L, Est GFR (MDRD) Non-Af 6 L, BUN/Creatinine Ratio 8.3 L, Glucose 129 H, Calcium 7.5 L 08/22/19 15:59: POC Glucose 173 H 08/22/19 16:44: POC Glucose 125 H 08/22/19 18:46: POC Glucose 123 H 08/22/19 21:32: POC Glucose 110 08/22/19 23:36: POC Glucose 106 08/23/19 04:07: WBC 6.6, RBC 2.38 L, Hgb 6.7 L, Hct 21.1 L, MCV 88.7, MCH 28.2, MCHC 31.8 L, RDW Std Deviation 43.3, RDW Coeff of Baljit 13.3, Plt Count 143 L, MPV 11.2, Immature Gran % (Auto) 0.600, Neut % (Auto) 68.7, Lymph % (Auto) 14.1 L, Daniels % (Auto) 8.8, Eos % (Auto) 7.0 H, Baso % (Auto) 0.8, Absolute Neuts (auto) 4.6, Absolute Lymphs (auto) 0.93, Nucleated RBC % 0 08/23/19 04:07: Sodium 139, Potassium 4.7, Chloride 108 H, Carbon Dioxide 26.0, BUN 53 H, Creatinine 6.73 H, Estim Creat Clear Calc 16.04, Est GFR (MDRD) Af Amer 11 L, Est GFR (MDRD) Non-Af 9 L, BUN/Creatinine Ratio 7.9 L, Glucose 114 H, Calcium 7.5 L, Phosphorus 5.9 H, Albumin 2.2 L 08/23/19 04:58: Blood Type A POSITIVE, Antibody Screen NEGATIVE, Crossmatch See Detail 08/23/19 04:59: Crossmatch See Detail 08/23/19 05:08: POC Glucose 112 H Current Medications Albuterol Sulfate (Ventolin Aerosols) 2.5 mg INHALATION Q2H PRN PRN PRN Reason: SOB/Wheezing Amlodipine Besylate (Norvasc) 10 mg PO DAILY [facility]S [facility] Aspirin (Ecotrin) [facility] Last Admin: 08/23/19 08:19 Dose: 81 mg Documented by: Carvedilol (Coreg) 25 mg PO BID [facility] 234 BEDS AT [facility] Last Admin: 08/22/19 21:36 Dose: 25 mg Documented by: Ergocalciferol (Vitamin D) 50,000 unit PO WE COUNTS INCLUDE 234 BEDS AT [facility] Glucagon () 1 mg IM .X1 PRN PRN Reason: Hypoglycemia Hydralazine HCl (Apresoline) 25 mg PO TID [facility] 234 BEDS AT [facility] Last Admin: 08/23/19 05:04 Dose: 25 mg Documented by: Hydralazine HCl (Apresoline Iv) 10 mg IV Q4H PRN PRN PRN Reason: SBP > 160 Dextrose (Dextrose 10%-Water) 250 mls @ 999 mls/hr IV .Q16M PRN; Protocol PRN Reason: HYPOGLYCEMIA Sodium Chloride () 500 mls @ 15 mls/hr IV PRN PRN PRN Reason: Blood Transfusion Insulin Glargine (Lantus ([facility])) 10 units SC QHS COUNTS INCLUDE 234 BEDS AT [facility] Last Admin: 08/22/19 21:37 Dose: 10 u Documented by: Insulin Human Lispro (Humalog Kwikpen ([facility])) 15 unit SC 0800,1200,1700 COUNTS INCLUDE 234 BEDS AT [facility] Last Admin: 08/23/19 08:19 Dose: Not Given Documented by: Insulin Human Lispro (Humalog Kwikpen ([facility])) 0 unit SC Q6 [facility] 234 BEDS AT [facility]; Protocol Last Admin: 08/23/19 05:09 Dose: Not Given Documented by: Levothyroxine Sodium (Synthroid) 50 mcg PO DAILY@0600 [facility] 234 BEDS AT [facility] Last Admin: 08/23/19 05:04 Dose: 50 mcg Documented by: Metoprolol Tartrate (Lopressor (Beta Carlos)) 5 mg IV Q6H PRN PRN PRN Reason: SBP > 160, hold for HR < 60 Last Admin: 08/23/19 02:12 Dose: 5 mg Documented by: Pantoprazole Sodium (Protonix) 40 mg PO DAILY [facility] 234 BEDS AT [facility] Last Admin: 08/23/19 08:19 Dose: 40 mg Documented by: Pregabalin (Lyrica) 100 mg PO BID [facility] 234 BEDS AT [facility] Last Admin: 08/23/19 08:23 Dose: 100 mg Documented by: Sodium Chloride () 10 - 40 ml IV UD PRN PRN Reason: SALINE FLUSH Last Admin: 08/23/19 05:06 Dose: 20 ml Documented by: Medical Necessity - Tobacco Use Smoking Status: Never smoker Tobacco Use: Non-smoker, Secondhand Assessment/Plan 49-year-old male with acute kidney injury on chronic renal failure s/p tunneled dialysis catheter 1. Pt did receive dialysis last night with no issues and is receiving again this morning. Call with any further concerns. Poppy Robertson M.D. Pager: [phone] [facility] [address] [place] [address], [facility], [address] [place] [id number] Office: [phone]
--- NOTE | 2019-08-23 11:45 | CASEMGMT ---
SOCIAL WORK INFORMANT: MICHAEL STEINBERG REASON FOR REFERRAL: RESOURCES MET WITH PATIENT IN ROOM. INTRODUCED ROLE AND REASON FOR REFERRAL. INFORMED PATIENT THIS WORKER DISCUSSED PATIENT'S NEEDS WITH CASE MICHAEL LOPEZ AND WILL ASSIST WITH NEEDS FOR HOME GOING. PATIENT REPORTS LIVES HOME ALONE AND WISHES TO RETURN HOME UPON DISCHARGE. PATIENT REPORTS CONCERNS WITH TRANSPORTATION TO/FROM DIALYSIS. INFORMED PATIENT THAT THIS WORKER WILL FOLLOW UP WITH HOME HEALTH CLINICIAN THROUGH [facility] TO DISCUSS TRANSPORTATION NEEDS, MEALS ON WHEELS AND DME. INQUIRED ABOUT ADVANCED DIRECTIVES, PATIENT REPORTS BELIEVES TO HAVE THEM ALREADY COMPLETED. BLANK COPY PROVIDED ALONG WITH RACK CARD IF NEEDED AND INFORMED ABLE TO COMPLETE DURING ADMISSION. PATIENT STATES DOES NOT WANT PEOPLE CLEANING THE HOME, BUT WOULD BE OPEN TO SOMEONE COMING IN TO ASSIST WITH MEDICATIONS. INFORMED HOME HEALTH CLINICIAN WILL SET UP HOME HEALTH. PATIENT VERBALIZED UNDERSTANDING. CALL TO [facility]. WORKER UNABLE TO TRANSFER CALL TO PATIENT'S HOME HEALTH CLINICIAN, [facility] [place] WORKER REPORTS WILL SEND DETAILED MESSAGE TO [facility]EM[facility] TO UPDATE ON PATIENT'S NEEDS AND TO CALL THIS WORKER BACK. CALL BACK INFORMATION PROVIDED. AWAITING CALL BACK FROM PATIENT'S [facility] HOME HEALTH CLINICIAN AT THIS TIME. WILL CONTINUE TO FOLLOW. MONIKA DEGROOT, HOME HEALTH SPECIALIST.
--- NOTE | 2019-08-23 12:15 | CASEMGMT ---
Addendum entered by August Abrams 08/23/19 17:06: 1630: Call received from Karol @ [employer] [facility]. She states they have received the referral for OP dialysis and they are reviewing. She states they have received all the necessary paperwork needed at this time. She was provided with UTILITIES AND MAINTENANCE SUPERVISOR CM, Orin Hopkins's phone number to contact on Monday, as she will be the CM for pt at that time. 1654: Call received from [facility] ([facility]). They stated they are unable to accept pt at this time d/t capacity. Addendum entered by August Abrams 08/23/19 16:20: 1215: Referral packet also faxed to [facility] after on-line Portal referral completed. Hep B surface antigen results faxed as well as CXR confirmation of Tunneled dialysis catheter. Dialysis nurse at bedside states will draw Heb B core antibody and Heb B surface antibodies today as well. Original Note: RN CM JACKSCREW WORKER CM to room to meet with patient for initial transition planning/care coordination assessment. RN CM introduced self and role at [facility]. Pt voices understanding and consents to assessment at this time. Pt resting in bed in no distress at this time, receiving dialysis. Pt is A/O at this time and answers all questions appropriately. Care providers, pharmacy, and demographics verified/updated at this time. PCP: Dr Daly Specialists: Dr Colin Bhatti Pharmacy: [facility] Retail Insurance: [employer] Prescription Benefit: Yes Living Will/HPOA: Thinks he may have completed Healthcare POA paperwork, but he is not sure. States if he has, it is his sister, but states she is not doing well. Pt made aware if he wishes to complete new/updated POA paperwork that SW can assist with this. He states is now sure that he wishes to at this time. Instructed to ask talk with SW if he decides he wishes to do them. He voices understanding. LNOK: 2 siblings: brother and sister Living Arrangements: Lives alone in an apartment. States he is W/C bound--that he can stand/pivot, but otherwise gets around in a W/C. States he is able to bath/dress himself and manages home tasks. States if he needs any help, that his cyber forensics analyst or other people from the spiritism can help him. States his cyber forensics analyst assists with getting groceries. may be interested in Meals on Wheels if I can pick my own meals. has never applied for Waiver program and is not sure if he would want aide assistance even if he qualifies. States he would be agreeable to talking with SW to see what may be available and for resources. Transportation: Air Launch Weapons Technician or other people from his spiritism. States his cyber forensics analyst usually takes him to doctor appts, gets groceries for him, and picks up his prescriptions. States has used transportation services through [id number]. Pt states if he needs transportation to dialysis as early as Monday and if it is not able to be arranged through [employer], that I can find someone to take me if it is necessary, stating either his cyber forensics analyst or someone from the spiritism could take him. DME: Has: Glucometer, shower chair, BSC, Hospital bed, rails/grab bars, W/C. is interested in getting an electric W/C and that he has discussed this with his PCP. He states his PCP instructed him to talk with his Development And Housing Director. Pt states he has a Welder [employer] Fab through [employer] but he does not remember her name. [facility] Operator name is: Josiah Park [facility] agent states they will send an e-mail to Josiah Thompson to inform her pt has been admitted to [facility], but they stated they are not able to give this RN CM a phone number to contact her at. Pt states no need for further DME at this time. HHC/SNF: Hx of SNF in [place] but does not remember the name. has never had HHC in the past, but is interested in HHC at discharge. Given list of local HHC agencies in network with [facility]. Pt states no preference. Call placed to both [facility] and S and referral made. They were both made aware anticipate discharge date is Monday08/26/19. Referral packets faxed to both agencies. Awaiting call back with acceptance. Dialysis: Pt will need OP dialysis at discharge. Pt states no preference of dialysis centers, but prefers to come to [place] location. [facility] via On-line Portal. Call also placed to [facility] and spoke to [place]. She was made aware of new referral. She was also made aware pt may need assistance with transportation. She states they will inform their SW @ [facility] to see if she can assist. Pt wishes to return home and states has no concerns with going home at time of discharge. CM to follow for discharge planning/needs. Pt voices no further concerns/needs at this time. Advised pt to ask for CM if any further questions/concerns/needs arise. Voices understanding. PLAN: Home w/HHC. Awaiting acceptance from either [facility] or [facility]. New OP dialysis--referral has been sent to [facility]. SW referral: Spoke with DARREL Montano, and DARREL Jarquin. Meals on wheels, limited support, emotional support, transportation concerns, possible Waiver program/aide services, and may be interested in completing new AD. Arnav CHOU RN CM
[2019-08-23 12:16] LABS: Bedside Glucose 96 mg/dL (70-110)
[2019-08-23] MEDS: Acetaminophen 325 MG Tablet 650 MG PO (12:56)
[2019-08-23 13:15] LABS: Hepatitis B Surface Antibody Non-Reactive
[2019-08-23] MEDS: Heparin 10,000 UNITS/10 ML Vial IV (14:06)
[2019-08-23] MEDS: amLODIPine 10 MG Tablet PO (14:07)
[2019-08-23] MEDS: Carvedilol 25 MG Tablet PO ×2 (14:07→21:37)
--- NOTE | 2019-08-23 14:10 | DIALYSIS ---
HD X 3.5 HRS ON 2K BATH. RAN PT EVEN. VITALS STABLE THRU OUT. GIVEN #1 DOSE OF VENOFER FROM 10 DOSES ORDERED. RIJ CATH WITH GOOD FLOWS. REPORT TO [facility] [place]
--- NOTE | 2019-08-23 15:23 | NURSING ---
PATIENT TRANSFERRED TO PCU REPORT CALLED TO [facility] TECHNOLOGY PROFESSOR PT LEFT UNIT AT 1500
[2019-08-23 16:41] LABS: Bedside Glucose 83 mg/dL (70-110)
[2019-08-23 22:31] LABS: Bedside Glucose 96 mg/dL (70-110)
[2019-08-24] VITALS (14 sets, daily range): BP systolic 129–177; BP diastolic 34–66; PULSE 72–81; RESP 14–16; TEMP 36.6–37.3; O2SAT 93–99
[2019-08-24] MEDS: Levothyroxine 50 MCG Tablet PO (05:32)
[2019-08-24] MEDS: hydrALAZINE 25 MG Tablet PO ×2 (05:32→22:46)
[2019-08-24 08:02] LABS: Absolute Lymphocyte Count 1.03 X10^3/uL (0.83-4.51); Absolute Neutrophil Count 4.2 X10^3/uL (2.0-7.7); Basophil# 0.04 X10^3/uL; Basophil% 0.6 % (0-1); Eosinophil# 0.31 X10^3/uL; Hematocrit 22.7 % (40-54); Hemoglobin 7.2 g/dL (13.0-16.5); Lymphocyte # 1.03 X10^3/ul (4.0); Lymphocyte % 16.7 % (19-41); Mean Corp Hgb Conc 31.7 g/dL (32-36); Mean Corpuscular Hgb 27.9 pg (27.0-32.0); Mean Platelet Vol. 11.6 fl (6.2-12.0); Monocyte# 0.54 X10^3/uL; Monocyte% 8.8 % (0-10); NRBC Flagged by Analyzer 0 % (0-5); Neutrophil # 4.22 X10^3/uL (2.7-7.7); Neutrophil % 68.6 % (47-70); Platelet Count 146 K/mm3 (150-450); RBC Distribution Width CV 13.1 % (11.6-14.6); Red Blood Count 2.58 M/mm3 (4.6-6.2); White Blood Count 6.2 K/mm3 (4.4-11.0)
[2019-08-24 08:21] LABS: BUN 34 mg/dL (7-18); BUN/Creat Ratio 6.2 RATIO (10-20); Calcium,Total 7.4 mg/dL (8.5-10.1); Chloride 109 mmol/L (98-107); Creatinine, Serum 5.47 mg/dL (0.70-1.30); EST Glomerular Filtration Rate 12 mL/min (>60); Est Glom Filt Rate - Afr Amer 14 mL/min (>60); Estimated Creatinine Clearance 19.74 ml/min; Glucose 92 mg/dL (74-106); Potassium 4.5 mmol/L (3.5-5.1); Sodium Level 141 mmol/L (136-145)
[2019-08-24 08:46] LABS: Bedside Glucose 87 mg/dL (70-110)
[2019-08-24 10:40] LABS: Hepatitis B Core Ab Total Negative (Negative)
[2019-08-24] MEDS: Pantoprazole Sodium 40 MG Tablet PO (11:05)
[2019-08-24] MEDS: Pregabalin 50 MG Capsule 100 MG PO ×2 (11:05→22:49)
[2019-08-24] MEDS: Carvedilol 25 MG Tablet PO ×2 (11:05→22:46)
[2019-08-24] MEDS: Folic Acid/Vitamin B Comp W-C 1 Capsule 1 CAP PO (11:14)
[2019-08-24] MEDS: Calcium Acetate 667 MG Capsule PO ×2 (11:21→17:18)
[2019-08-24 11:55] LABS: Bedside Glucose 101 mg/dL (70-110)
--- NOTE | 2019-08-24 11:57 | PN_ITS ---
Subjective: Patient seen and examined. He had an uneventful night. He had dialysis yesterday with removal of 900 mls of fluid. Patient does not yet have a raudel lysis chair set up in the outpatient community and also does not have transport set up. Labs and vitals reviewed. Globin is 7.2 today. He received 1 unit of packed red blood cells yesterday. Vitals/I&O's: Vital Signs Temp Pulse Resp BP Pulse Ox 99.1 F 72 15 158/48 H 93 08/24/19 11:18 08/24/19 11:18 08/24/19 11:18 08/24/19 11:18 08/24/19 11:18 Oxygen Delivery Method Room Air Weight: 396 lb 13.313 oz Body Mass Index (BMI) 49.3 Intake and Output for Last 24 Hours 08/22/19 08/23/19 08/24/19 23:59 23:59 23:59 Intake Total 1195 / 1195 1866.67 / 1866.67 240 / 240 Output Total 0 / 0 1250 / 1250 900 / 900 Balance 1195 / 1195 616.67 / 616.67 -660 / -660 General: Alert, Oriented x3, Cooperative, No apparent distress, - - super morbid obesity HEENT: Atraumatic, PERRLA, EOMI, Normocephalic Oral: Dry Mucosa Neck: Supple, No JVD, Negative Carotid Bruits Lungs: Clear to auscultation, Normal air movement, No rhonchi, No wheeze, No rales Cardiovascular: Regular rate, Regular Rhythm, Normal S1, Normal S2, No murmurs Abdomen: Bowel Sounds Present, Soft, Non Tender, Non-Distended, No Hepato- splenomegaly Extremities: No clubbing, No cyanosis, No edema, Capillary Refill Less than 3 Seconds Skin: No rashes, No breakdown Musculoskeletal: No Tenderness to Palpation of Joints or Extremities,tunneled dialysis catheter in place on chest Lymphatic: No Cervical, Supraclavicular, or Inguinal Adenopathy Neurological: Cranial nerves II-XII grossly intact, Neuro grossly intact Psych/Mental Status: Normal Affect, Appropriate, Alert and oriented to time, place, person, mood and affect Laboratory Results 08/23/19 12:13: POC Glucose 96 08/23/19 12:20: Hep Bs Antibody Non-Reactive 08/23/19 12:20: Hep B Core Total Ab Negative 08/23/19 16:32: POC Glucose 83 08/23/19 21:40: POC Glucose 96 08/24/19 06:24: WBC 6.2, RBC 2.58 L, Hgb 7.2 L, Hct 22.7 L, MCV 88.0, MCH 27.9, MCHC 31.7 L, RDW Std Deviation 42.0, RDW Coeff of Baljit 13.1, Plt Count 146 L, MPV 11.6, Immature Gran % (Auto) 0.300, Neut % (Auto) 68.6, Lymph % (Auto) 16.7 L, Brooks % (Auto) 8.8, Eos % (Auto) 5.0, Baso % (Auto) 0.6, Absolute Neuts (auto) 4.2, Absolute Lymphs (auto) 1.03, Nucleated RBC % 0 08/24/19 06:24: Sodium 141, Potassium 4.5, Chloride 109 H, Carbon Dioxide 25.0, BUN 34 H, Creatinine 5.47 H, Estim Creat Clear Calc 19.74, Est GFR (MDRD) Af Amer 14 L, Est GFR (MDRD) Non-Af 12 L, BUN/Creatinine Ratio 6.2 L, Glucose 92, Calcium 7.4 L, Phosphorus 5.0 H, Albumin 2.0 L 08/24/19 08:35: POC Glucose 87 08/24/19 11:16: POC Glucose 101 Current Medications Acetaminophen (Tylenol) 650 mg PO Q6H PRN PRN PRN Reason: HEADACHE Last Admin: 08/23/19 12:56 Dose: 650 mg Documented by: Albuterol Sulfate (Ventolin Aerosols) 2.5 mg INHALATION Q2H PRN PRN PRN Reason: SOB/Wheezing Amlodipine Besylate (Norvasc) 10 mg PO DAILY [facility] Last Admin: 08/23/19 14:07 Dose: 10 mg Documented by: Calcium Acetate (Phoslo Gel Cap) 667 mg PO TIDCM [facility] Last Admin: 08/24/19 11:21 Dose: 667 mg Documented by: Carvedilol (Coreg) 25 mg PO BID [facility] Last Admin: 08/24/19 11:05 Dose: 25 mg Documented by: Ergocalciferol (Vitamin D) 50,000 unit PO WE [facility] Glucagon () 1 mg IM .X1 PRN PRN Reason: Hypoglycemia Hydralazine HCl (Apresoline) 25 mg PO TID [facility] Last Admin: 08/24/19 05:32 Dose: 25 mg Documented by: Hydralazine HCl (Apresoline Iv) 10 mg IV Q4H PRN PRN PRN Reason: SBP > 160 Dextrose (Dextrose 10%-Water) 250 mls @ 999 mls/hr IV .Q16M PRN; Protocol PRN Reason: HYPOGLYCEMIA Sodium Chloride () 500 mls @ 15 mls/hr IV PRN PRN PRN Reason: Blood Transfusion Insulin Glargine (Lantus ([facility])) 10 units SC QHS [facility] Last Admin: 08/23/19 21:41 Dose: Not Given Documented by: Insulin Human Lispro (Humalog Kwikpen ([facility])) 15 unit SC 0800,1200,1700 [facility] Last Admin: 08/24/19 08:40 Dose: Not Given Documented by: Insulin Human Lispro (Humalog Kwikpen ([facility])) 0 unit SC ACHS [facility]; Protocol Last Admin: 08/24/19 11:17 Dose: Not Given Documented by: Levothyroxine Sodium (Synthroid) 50 mcg PO DAILY@0600 [facility] Last Admin: 08/24/19 05:32 Dose: 50 mcg Documented by: Metoprolol Tartrate (Lopressor (Beta Carlos)) 5 mg IV Q6H PRN PRN PRN Reason: SBP > 160, hold for HR < 60 Last Admin: 08/23/19 02:12 Dose: 5 mg Documented by: Multivit/Ca Carb/B Cmplx/FA/Prenat (Nephrocaps, Renaphro) 1 capsule PO DAILY [facility] Last Admin: 08/24/19 11:14 Dose: 1 capsule Documented by: Pantoprazole Sodium (Protonix) 40 mg PO DAILY [facility] Last Admin: 08/24/19 11:05 Dose: 40 mg Documented by: Pregabalin (Lyrica) 100 mg PO BID [facility] Last Admin: 08/24/19 11:05 Dose: 100 mg Documented by: Sodium Chloride () 10 - 40 ml IV UD PRN PRN Reason: SALINE FLUSH Last Admin: 08/23/19 05:06 Dose: 20 ml Documented by: STROKE Vital Signs/Narrative: Vital Signs Temp Pulse Resp BP Pulse Ox 02/15/20 11:18 99.1 F 72 15 158/48 H 93 08/24/19 08:44 98.8 F 81 14 133/46 H 93 Medical Necessity - Tobacco Use Smoking Status: Never smoker Tobacco Use: Non-smoker, Secondhand Assessment/Plan 1. hyperkalemia due to ESRD * Potassium is down to 4.5 today. Resolved with dialysis. * Nephrology on board. * 2. ESRD * has had 2 sessions of dialysis. * nephrology on board * was initially on bicarb drip, which has now been dc'd/ * on oral bicarb supplement * 3. Acute on chronic Anemia: * s/p transfusion of 1 unit of PRBC. Hb today is 7.2. * will monitor * due to ESRD * will monitor H&H * 4. hypertension: On amlodipine and carvedilol as well as hydralazine. IV hydralazine PRN. 5. Type 2 diabetes mellitus: On Lantus 10 units nightly. Insulin sliding scale. Accu-Cheks AC at bedtime. 6. Hypothyroidism: On Synthroid DVT prophylaxis: SCDs. DC lovenox o/a of anemia. Dispostion: * Patient is does not have a chair set up in an outpatient dialysis unit and also does not have transportation. This is being arranged by case management. Until that is set up, patient cannot be discharged home. Code Visit Inpatient E&M: 20686 Subs Hosp L2
--- NOTE | 2019-08-24 12:22 | CM.UR ---
Dr. Shaw asked if patient could be discharged today. contacted [facility] however was told I would have to wait for admission team to return on Monday. Dr. Shaw is concerned about non-compliance. Concerned that patient will have transportation to dialysis. Explained that we can talk to [facility] regarding getting rides. Also explained that the nurse has talked to him and he will consider going to a SNF. Dr. Shaw said that she talked to Dr. Escobar and that he will just have to stay until Monday. Riki Kerr RN, [facility].
--- NOTE | 2019-08-24 14:30 | PN.RENAL_ITS ---
Subjective: Denied any complaints of shortness of breath, nausea, vomiting, chest pain. Patient has been tolerating his hemodialysis. Await placement for chronic hemodialysis as outpatient along with transportation. We will arrange for third hemodialysis treatment later today. - Physical Exam Vitals/I&O's: Vital Signs Temp Pulse Resp BP Pulse Ox 99.1 F 72 15 158/48 H 93 08/24/19 11:18 08/24/19 11:18 08/24/19 11:18 08/24/19 11:18 08/24/19 11:18 Oxygen Delivery Method Room Air Weight: 180 kg Body Mass Index (BMI) 49.3 Intake and Output for Last 24 Hours 08/22/19 08/23/19 08/24/19 23:59 23:59 23:59 Intake Total 1195 / 1195 1866.67 / 1866.67 960 / 960 Output Total 0 / 0 1250 / 1250 900 / 900 Balance 1195 / 1195 616.67 / 616.67 60 / 60 General: Alert, Oriented x3, Cooperative, No apparent distress Lungs: Clear to auscultation Cardiovascular: Regular rate Abdomen: Bowel Sounds Present, Soft, Obese Extremities: No edema Psych/Mental Status: Alert and oriented to time, place, person, mood and affect Laboratory Results 08/23/19 12:20: Hep B Core Total Ab Negative 08/23/19 16:32: POC Glucose 83 08/23/19 21:40: POC Glucose 96 08/24/19 06:24: WBC 6.2, RBC 2.58 L, Hgb 7.2 L, Hct 22.7 L, MCV 88.0, MCH 27.9, MCHC 31.7 L, RDW Std Deviation 42.0, RDW Coeff of Baljit 13.1, Plt Count 146 L, MPV 11.6, Immature Gran % (Auto) 0.300, Neut % (Auto) 68.6, Lymph % (Auto) 16.7 L, Hale % (Auto) 8.8, Eos % (Auto) 5.0, Baso % (Auto) 0.6, Absolute Neuts (auto) 4.2, Absolute Lymphs (auto) 1.03, Nucleated RBC % 0 08/24/19 06:24: Sodium 141, Potassium 4.5, Chloride 109 H, Carbon Dioxide 25.0, BUN 34 H, Creatinine 5.47 H, Estim Creat Clear Calc 19.74, Est GFR (MDRD) Af Amer 14 L, Est GFR (MDRD) Non-Af 12 L, BUN/Creatinine Ratio 6.2 L, Glucose 92, Calcium 7.4 L, Phosphorus 5.0 H, Albumin 2.0 L 08/24/19 08:35: POC Glucose 87 08/24/19 11:16: POC Glucose 101 Current Medications Acetaminophen (Tylenol) 650 mg PO Q6H PRN PRN PRN Reason: HEADACHE Last Admin: 08/23/19 12:56 Dose: 650 mg Documented by: Albuterol Sulfate (Ventolin Aerosols) 2.5 mg INHALATION Q2H PRN PRN PRN Reason: SOB/Wheezing Amlodipine Besylate (Norvasc) 10 mg PO DAILY [facility] Last Admin: 08/23/19 14:07 Dose: 10 mg Documented by: Calcium Acetate (Phoslo Gel Cap) 667 mg PO TIDCM [facility] Last Admin: 08/24/19 11:21 Dose: 667 mg Documented by: Carvedilol (Coreg) 25 mg PO BID [facility] Last Admin: 08/24/19 11:05 Dose: 25 mg Documented by: Ergocalciferol (Vitamin D) 50,000 unit PO [facility] Glucagon () 1 mg IM .X1 PRN PRN Reason: Hypoglycemia Hydralazine HCl (Apresoline) 25 mg PO TID [facility] Last Admin: 08/24/19 05:32 Dose: 25 mg Documented by: Hydralazine HCl (Apresoline Iv) 10 mg IV Q4H PRN PRN PRN Reason: SBP > 160 Dextrose (Dextrose 10%-Water) 250 mls @ 999 mls/hr IV .Q16M PRN; Protocol PRN Reason: HYPOGLYCEMIA Sodium Chloride () 500 mls @ 15 mls/hr IV PRN PRN PRN Reason: Blood Transfusion Insulin Glargine (Lantus ([facility])) 10 units SC QHS [facility] Last Admin: 08/23/19 21:41 Dose: Not Given Documented by: Insulin Human Lispro (Humalog Kwikpen ([facility])) 15 unit SC 0800,1200,1700 [facility] Last Admin: 08/24/19 13:37 Dose: Not Given Documented by: Insulin Human Lispro (Humalog Kwikpen ([facility])) 0 unit SC ACHS [facility]; Protocol Last Admin: 08/24/19 11:17 Dose: Not Given Documented by: Levothyroxine Sodium (Synthroid) 50 mcg PO DAILY@0600 [facility] Last Admin: 08/24/19 05:32 Dose: 50 mcg Documented by: Metoprolol Tartrate (Lopressor (Beta Carlos)) 5 mg IV Q6H PRN PRN PRN Reason: SBP > 160, hold for HR < 60 Last Admin: 08/23/19 02:12 Dose: 5 mg Documented by: Multivit/Ca Carb/B Cmplx/FA/Prenat (Nephrocaps, Renaphro) 1 capsule PO DAILY [facility] Last Admin: 08/24/19 11:14 Dose: 1 capsule Documented by: Pantoprazole Sodium (Protonix) 40 mg PO DAILY [facility] Last Admin: 08/24/19 11:05 Dose: 40 mg Documented by: Pregabalin (Lyrica) 100 mg PO BID [facility] Last Admin: 08/24/19 11:05 Dose: 100 mg Documented by: Sodium Chloride () 10 - 40 ml IV UD PRN PRN Reason: SALINE FLUSH Last Admin: 08/23/19 05:06 Dose: 20 ml Documented by: Medical Necessity - Tobacco Use Smoking Status: Never smoker Tobacco Use: Non-smoker, Secondhand Assessment/Plan 1. ESRD HD today #3. Tolerated hemodialysis well past 2 days. Await arrangements for outpatient hemodialysis at [facility]. Will need outpt chronic dialysis arranged prior to discharge. Failed left AVF. Refer to Dr. Tarango for revision. VM done as outpt 2. Hyperkalemia due to renal failure resolved 3. Metabolic acidosis resolved 4. Hyperphosphatemia, start binders 5. iron def anemia iv iron with dialysis. prbc 6. DM2 primary care management 7. HTN stable 8. Severe morbid obesity 9. Debilitation 10 Depression Discussed with primary team, nursing staff.
[2019-08-24 17:30] LABS: Bedside Glucose 114 mg/dL (70-110)
[2019-08-24 22:45] LABS: Bedside Glucose 106 mg/dL (70-110)
[2019-08-24] MEDS: Heparin 10,000 UNITS/10 ML Vial 10000 UNITS IV (22:46)
[2019-08-25] VITALS (13 sets, daily range): BP systolic 148–195; BP diastolic 46–78; PULSE 69–80; RESP 16–17; TEMP 36.7–36.9; O2SAT 94–97
[2019-08-25] MEDS: Levothyroxine 50 MCG Tablet PO (05:13)
[2019-08-25] MEDS: hydrALAZINE 25 MG Tablet PO ×3 (05:13→21:27)
[2019-08-25 05:52] LABS: Absolute Lymphocyte Count 1.01 X10^3/uL (0.83-4.51); Absolute Neutrophil Count 4.1 X10^3/uL (2.0-7.7); Basophil# 0.03 X10^3/uL; Basophil% 0.5 % (0-1); Eosinophil# 0.25 X10^3/uL; Eosinophils% 4.1 % (0-5); Hematocrit 23.4 % (40-54); Hemoglobin 7.3 g/dL (13.0-16.5); Lymphocyte # 1.01 X10^3/ul (4.0); Lymphocyte % 16.6 % (19-41); Mean Corp Hgb Conc 31.2 g/dL (32-36); Mean Corpuscular Hgb 27.5 pg (27.0-32.0); Mean Corpuscular Volume 88.3 fL (80-94); Mean Platelet Vol. 11.5 fl (6.2-12.0); Monocyte# 0.65 X10^3/uL; Monocyte% 10.7 % (0-10); NRBC Flagged by Analyzer 0 % (0-5); Neutrophil # 4.12 X10^3/uL (2.7-7.7); Neutrophil % 67.6 % (47-70); Platelet Count 125 K/mm3 (150-450); RBC Distribution Width CV 12.8 % (11.6-14.6); RBC Distribution Width SD 41.3 fl (35.1-43.9); Red Blood Count 2.65 M/mm3 (4.6-6.2); White Blood Count 6.1 K/mm3 (4.4-11.0)
[2019-08-25 06:38] LABS: Anion Gap 6 (5-15); BUN 26 mg/dL (7-18); BUN/Creat Ratio 5.8 RATIO (10-20); Calcium,Total 7.6 mg/dL (8.5-10.1); Chloride 106 mmol/L (98-107); Creatinine, Serum 4.51 mg/dL (0.70-1.30); EST Glomerular Filtration Rate 15 mL/min (>60); Est Glom Filt Rate - Afr Amer 18 mL/min (>60); Estimated Creatinine Clearance 23.94 ml/min; Glucose 119 mg/dL (74-106); Potassium 4.3 mmol/L (3.5-5.1); Sodium Level 139 mmol/L (136-145)
[2019-08-25] MEDS: Calcium Acetate 667 MG Capsule PO ×3 (09:19→16:28)
[2019-08-25] MEDS: Carvedilol 25 MG Tablet PO ×2 (09:19→21:27)
[2019-08-25] MEDS: Pregabalin 50 MG Capsule 100 MG PO ×2 (09:20→21:31)
[2019-08-25] MEDS: Pantoprazole Sodium 40 MG Tablet PO (09:21)
[2019-08-25] MEDS: Folic Acid/Vitamin B Comp W-C 1 Capsule 1 CAP PO (09:21)
[2019-08-25] MEDS: amLODIPine 10 MG Tablet PO (09:21)
[2019-08-25 10:01] LABS: Bedside Glucose 126 mg/dL (70-110)
--- NOTE | 2019-08-25 12:02 | PCM.PN.HOSP ---
Subjective: Patient seen and examined. He has no complaints this morning. He had an anxiety attack overnight. He however felt better this morning. He denied fever, chills, nausea or vomiting or diarrhea. He had dialysis yesterday. Patient now says that he wants to go to a rehab facility as he was unable to walk. Vitals/I&O's: Vital Signs Temp Pulse Resp BP Pulse Ox 98.4 F 78 17 157/46 H 94 08/25/19 09:00 08/25/19 09:00 08/25/19 09:00 08/25/19 09:00 08/25/19 09:00 Oxygen Delivery Method Room Air Weight: 389 lb 12.436 oz Body Mass Index (BMI) 49.3 Intake and Output for Last 24 Hours 08/23/19 08/24/19 08/25/19 23:59 23:59 23:59 Intake Total 1866.67 / 1866.67 1620 / 1620 240 / 240 Output Total 1250 / 1250 1900 / 1900 900 / 900 Balance 616.67 / 616.67 -280 / -280 -660 / -660 General: Alert, Oriented x3, Cooperative, No apparent distress, - - super morbid obesity HEENT: Atraumatic, PERRLA, EOMI, Normocephalic Oral: Dry Mucosa Neck: Supple, No JVD, Negative Carotid Bruits Lungs: Clear to auscultation, Normal air movement, No rhonchi, No wheeze, No rales Cardiovascular: Regular rate, Regular Rhythm, Normal S1, Normal S2, No murmurs Abdomen: Bowel Sounds Present, Soft, Non Tender, Non-Distended, No Hepato-splenomegaly Extremities: No clubbing, No cyanosis, No edema, Capillary Refill Less than 3 Seconds Skin: No rashes, No breakdown Musculoskeletal: No Tenderness to Palpation of Joints or Extremities,tunneled dialysis catheter in place on chest Lymphatic: No Cervical, Supraclavicular, or Inguinal Adenopathy Neurological: Cranial nerves II-XII grossly intact, Neuro grossly intact Psych/Mental Status: Normal Affect, Appropriate, Alert and oriented to time, place, person, mood and affect Laboratory Results 08/24/19 17:14: POC Glucose 114 H 08/24/19 22:42: POC Glucose 106 08/25/19 05:10: Sodium 139, Potassium 4.3, Chloride 106, Carbon Dioxide 27.0, Anion Gap 6, BUN 26 H, Creatinine 4.51 H, Estim Creat Clear Calc 23.94, Est GFR (MDRD) Af Amer 18 L, Est GFR (MDRD) Non-Af 15 L, BUN/Creatinine Ratio 5.8 L, Glucose 119 H, Calcium 7.6 L 08/25/19 05:10: WBC 6.1, RBC 2.65 L, Hgb 7.3 L, Hct 23.4 L, MCV 88.3, MCH 27.5, MCHC 31.2 L, RDW Std Deviation 41.3, RDW Coeff of Baljit 12.8, Plt Count 125 L, MPV 11.5, Immature Gran % (Auto) 0.500, Neut % (Auto) 67.6, Lymph % (Auto) 16.6 L, Cook % (Auto) 10.7 H, Eos % (Auto) 4.1, Baso % (Auto) 0.5, Absolute Neuts (auto) 4.1, Absolute Lymphs (auto) 1.01, Nucleated RBC % 0 08/25/19 08:56: POC Glucose 126 H Diagnostic Data Chest X-Ray 08/22/19 18:00 IMPRESSION: Mild cardiomegaly. Electronically Signed: Roland Recio DO at 18:46 EST Tel [phone], Service support , Current Medications Acetaminophen (Tylenol) 650 mg PO Q6H PRN PRN PRN Reason: HEADACHE Last Admin: 08/23/19 12:56 Dose: 650 mg Documented by: Albuterol Sulfate (Ventolin Aerosols) 2.5 mg INHALATION Q2H PRN PRN PRN Reason: SOB/Wheezing Amlodipine Besylate (Norvasc) 10 mg PO DAILY [facility] Last Admin: 08/25/19 09:21 Dose: 10 mg Documented by: Calcium Acetate (Phoslo Gel Cap) 667 mg PO TIDCM [facility] Last Admin: 08/25/19 09:19 Dose: 667 mg Documented by: Carvedilol (Coreg) 25 mg PO BID [facility] Last Admin: 08/25/19 09:19 Dose: 25 mg Documented by: Ergocalciferol (Vitamin D) 50,000 unit PO WE [facility] Glucagon () 1 mg IM .X1 PRN PRN Reason: Hypoglycemia Hydralazine HCl (Apresoline) 25 mg PO TID [facility] Last Admin: 08/25/19 05:13 Dose: 25 mg Documented by: Hydralazine HCl (Apresoline Iv) 10 mg IV Q4H PRN PRN PRN Reason: SBP > 160 Dextrose (Dextrose 10%-Water) 250 mls @ 999 mls/hr IV .Q16M PRN; Protocol PRN Reason: HYPOGLYCEMIA Sodium Chloride () 500 mls @ 15 mls/hr IV PRN PRN PRN Reason: Blood Transfusion Insulin Glargine (Lantus (Bk)) 10 units SC QHS [facility] Last Admin: 08/24/19 22:47 Dose: Not Given Documented by: Insulin Human Lispro (Humalog Kwikpen (Bk)) 15 unit SC 0800,1200,1700 [facility] Last Admin: 08/25/19 08:59 Dose: Not Given Documented by: Insulin Human Lispro (Humalog Kwikpen (Bk)) 0 unit SC ACHS [facility]; Protocol Last Admin: 08/25/19 08:59 Dose: Not Given Documented by: Levothyroxine Sodium (Synthroid) 50 mcg PO DAILY@0600 [facility] Last Admin: 08/25/19 05:13 Dose: 50 mcg Documented by: Metoprolol Tartrate (Lopressor (Beta Carlos)) 5 mg IV Q6H PRN PRN PRN Reason: SBP > 160, hold for HR < 60 Last Admin: 08/23/19 02:12 Dose: 5 mg Documented by: Multivit/Ca Carb/B Cmplx/FA/Prenat (Nephrocaps, Renaphro) 1 capsule PO DAILY [facility] Last Admin: 08/25/19 09:21 Dose: 1 capsule Documented by: Pantoprazole Sodium (Protonix) 40 mg PO DAILY [facility] Last Admin: 08/25/19 09:21 Dose: 40 mg Documented by: Pregabalin (Lyrica) 100 mg PO BID [facility] Last Admin: 08/25/19 09:20 Dose: 100 mg Documented by: Sodium Chloride () 10 - 40 ml IV UD PRN PRN Reason: SALINE FLUSH Last Admin: 08/23/19 05:06 Dose: 20 ml Documented by: STROKE Vital Signs/Narrative: Vital Signs Temp Pulse Resp BP Pulse Ox 08/25/19 09:00 98.4 F 78 17 157/46 H 94 Medical Necessity - Tobacco Use Smoking Status: Never smoker Tobacco Use: Non-smoker, Secondhand Assessment/Plan 1. hyperkalemia due to ESRD Potassium is down to 4.3 today. Resolved with dialysis. Nephrology on board. 2. ESRD has had 3 sessions of dialysis. nephrology on board on oral bicarb supplement 3. Acute on chronic Anemia: s/p transfusion of 1 unit of PRBC. Hb today is 7.23 will monitor due to ESRD will monitor H&H; transfuse if Hb<7 4. hypertension: On amlodipine and carvedilol as well as hydralazine. IV hydralazine PRN.BP fairly controlled. BP aim is <130/80 5. Type 2 diabetes mellitus: On Lantus 10 units nightly. Insulin sliding scale. Accu-Cheks AC at bedtime. 6. Hypothyroidism: On Synthroid DVT prophylaxis: SCDs. DC lovenox o/a of anemia. Disposition: Patient is does not have a chair set up in an outpatient dialysis unit and also does not have transportation. This is being arranged by case management. Until that is set up, patient cannot be discharged home. Patient is however now saying he wants to go to a rehab facility, as he was not able to walk with PT. Code Visit Inpatient E&M: 92752 Subs Hosp L2
[2019-08-25 12:30] LABS: Bedside Glucose 125 mg/dL (70-110)
[2019-08-25] MEDS: 0.9% Saline Lock 10 ML Syringe IV ×2 (14:39→21:28)
[2019-08-25 16:35] LABS: Bedside Glucose 119 mg/dL (70-110)
[2019-08-26] VITALS (13 sets, daily range): BP systolic 133–176; BP diastolic 44–68; PULSE 69–74; RESP 15–18; TEMP 36.3–37.1; O2SAT 93–94
[2019-08-26 01:30] LABS: Bedside Glucose 121 mg/dL (70-110)
[2019-08-26 05:08] LABS: Anion Gap 8 (5-15); BUN 30 mg/dL (7-18); BUN/Creat Ratio 5.7 RATIO (10-20); Calcium,Total 7.9 mg/dL (8.5-10.1); Chloride 106 mmol/L (98-107); Creatinine, Serum 5.22 mg/dL (0.70-1.30); EST Glomerular Filtration Rate 13 mL/min (>60); Est Glom Filt Rate - Afr Amer 15 mL/min (>60); Estimated Creatinine Clearance 20.68 ml/min; Glucose 118 mg/dL (74-106); Potassium 4.2 mmol/L (3.5-5.1); Sodium Level 140 mmol/L (136-145)
[2019-08-26] MEDS: Levothyroxine 50 MCG Tablet PO (05:16)
[2019-08-26] MEDS: hydrALAZINE 25 MG Tablet PO (05:16)
[2019-08-26 06:45] LABS: Bedside Glucose 107 mg/dL (70-110)
[2019-08-26] MEDS: Calcium Acetate 667 MG Capsule PO (08:07)
[2019-08-26 08:20] LABS: Bedside Glucose 102 mg/dL (70-110)
[2019-08-26] MEDS: Folic Acid/Vitamin B Comp W-C 1 Capsule 1 CAP PO (09:57)
[2019-08-26] MEDS: Carvedilol 25 MG Tablet PO ×2 (09:57→21:24)
[2019-08-26] MEDS: Pregabalin 50 MG Capsule 100 MG PO ×2 (09:58→21:50)
[2019-08-26] MEDS: amLODIPine 10 MG Tablet PO (09:59)
[2019-08-26] MEDS: Pantoprazole Sodium 40 MG Tablet PO (09:59)
--- NOTE | 2019-08-26 10:00 | CASEMGMT ---
Addendum entered by Orin Hopkins 08/26/19 11:07: This RN CM received schedule letter for pt's dialysis with a chair time of MWF at 1210. Original to pt and copy to chart at this time. Pt aware of monday to be first date of OP dialysis and pt states he will set up provide a ride at this time and states no concerns with doing this at this time. Pt is updated that [facility] can take pt at this time and that this RN CM will notify them of discharge, voices understanding. Pt voices no further questions/concerns/needs at this time. Cherie RN MARYAN Addendum entered by rOin Hopkins 08/26/19 10:04: Per note from Dr. Escobar and César RN MARYAN, pt was interested in SNF over the weekend. This RN CM to room and list of in-network SNF's provided to pt but pt declines SNF at this time and states 'I am strong enough to go home.' Pt states that he should be able to set up [id number] for his first dialysis OP. Cherie RN MARYAN Original Note: Call to [place] at [facility] and she states that she is working on chair time for pt at this time and that pt's insurance approval is still pending at this time. [place] states she will call this RN CM back when either of these is obtained. Dr. Shaw then states to this RN CM that pt will have a chair time MWF at 1130. This RN CM to update pt so that pt can work on ride for monday for his first OP dialysis treatment, voices understanding. Dr. Shaw states that she will dialyze pt today and then he can be discharged once insurance approves pt's OP dialysis. Call to [facility] and they state they are able to take pt at discharge for SN, PT/OT at this time. This RN CM to call [place] back when discharge finalized, voices understanding. Cherie SERRANO CM
--- NOTE | 2019-08-26 10:10 | PCM.PN.REN ---
- Physical Exam Vitals/I&O's: Vital Signs Temp Pulse Resp BP Pulse Ox 98.7 F 72 16 170/68 H 93 08/26/19 08:14 08/26/19 08:14 08/26/19 08:14 08/26/19 08:14 08/26/19 08:14 Oxygen Delivery Method Room Air Weight: 177.9 kg Body Mass Index (BMI) 49.3 Intake and Output for Last 24 Hours 08/24/19 08/25/19 08/26/19 23:59 23:59 23:59 Intake Total 1620 / 1620 1200 / 1320 210 / 210 Output Total 1900 / 1900 900 / 900 700 / 700 Balance -280 / -280 300 / 420 -490 / -490 Laboratory Results 08/23/19 04:59: Crossmatch See Detail 08/25/19 12:06: POC Glucose 125 H 08/25/19 16:25: POC Glucose 119 H 08/25/19 21:24: POC Glucose 121 H 08/26/19 04:10: Sodium 140, Potassium 4.2, Chloride 106, Carbon Dioxide 26.0, Anion Gap 8, BUN 30 H, Creatinine 5.22 H, Estim Creat Clear Calc 20.68, Est GFR (MDRD) Af Amer 15 L, Est GFR (MDRD) Non-Af 13 L, BUN/Creatinine Ratio 5.7 L, Glucose 118 H, Calcium 7.9 L 08/26/19 06:42: POC Glucose 107 08/26/19 08:03: POC Glucose 102 Current Medications Acetaminophen (Tylenol) 650 mg PO Q6H PRN PRN PRN Reason: HEADACHE Last Admin: 08/23/19 12:56 Dose: 650 mg Documented by: Albuterol Sulfate (Ventolin Aerosols) 2.5 mg INHALATION Q2H PRN PRN PRN Reason: SOB/Wheezing Amlodipine Besylate (Norvasc) 10 mg PO DAILY [facility] Last Admin: 08/26/19 09:59 Dose: 10 mg Documented by: Calcium Acetate (Phoslo Gel Cap) 667 mg PO TIDCM [facility] Last Admin: 08/26/19 08:07 Dose: 667 mg Documented by: Carvedilol (Coreg) 25 mg PO BID [facility] Last Admin: 08/26/19 09:57 Dose: 25 mg Documented by: Ergocalciferol (Vitamin D) 50,000 unit PO WE [facility] Glucagon () 1 mg IM .X1 PRN PRN Reason: Hypoglycemia Hydralazine HCl (Apresoline) 25 mg PO TID [facility] Last Admin: 08/26/19 05:16 Dose: 25 mg Documented by: Hydralazine HCl (Apresoline Iv) 10 mg IV Q4H PRN PRN PRN Reason: SBP > 160 Dextrose (Dextrose 10%-Water) 250 mls @ 999 mls/hr IV .Q16M PRN; Protocol PRN Reason: HYPOGLYCEMIA Sodium Chloride () 500 mls @ 15 mls/hr IV PRN PRN PRN Reason: Blood Transfusion Insulin Glargine (Lantus (Bkc)) 10 units SC QHS [facility] Last Admin: 08/25/19 21:28 Dose: Not Given Documented by: Insulin Human Lispro (Humalog Kwikpen (Bkc)) 15 unit SC 0800,1200,1700 [facility] Last Admin: 08/26/19 08:03 Dose: Not Given Documented by: Insulin Human Lispro (Humalog Kwikpen (Bkc)) 0 unit SC ACHS [facility]; Protocol Last Admin: 08/26/19 08:03 Dose: Not Given Documented by: Levothyroxine Sodium (Synthroid) 50 mcg PO DAILY@0600 [facility] Last Admin: 08/26/19 05:16 Dose: 50 mcg Documented by: Metoprolol Tartrate (Lopressor (Beta Carlos)) 5 mg IV Q6H PRN PRN PRN Reason: SBP > 160, hold for HR < 60 Last Admin: 08/23/19 02:12 Dose: 5 mg Documented by: Multivit/Ca Carb/B Cmplx/FA/Prenat (Nephrocaps, Renaphro) 1 capsule PO DAILY [facility] Last Admin: 08/26/19 09:57 Dose: 1 capsule Documented by: Pantoprazole Sodium (Protonix) 40 mg PO DAILY [facility] Last Admin: 08/26/19 09:59 Dose: 40 mg Documented by: Pregabalin (Lyrica) 100 mg PO BID [facility] Last Admin: 08/26/19 09:58 Dose: 100 mg Documented by: Sodium Chloride () 10 - 40 ml IV UD PRN PRN Reason: SALINE FLUSH Last Admin: 08/25/19 21:28 Dose: 20 ml Documented by: Medical Necessity - Tobacco Use Smoking Status: Never smoker Tobacco Use: Non-smoker, Secondhand
--- NOTE | 2019-08-26 10:10 | PCM.PN.REN ---
Subjective: Denies chest pain or shortness of breath. Patient stating he is going home instead of to rehab. Last dialysis was Monday without incident. Patient has chronic dialysis arranged at [facility] Monday, Monday, Fridays at 11:30 AM. Await approval from care source for outpatient dialysis. We will arrange hemodialysis for today prior to discharge. - Physical Exam Vitals/I&O's: Vital Signs Temp Pulse Resp BP Pulse Ox 98.7 F 72 16 170/68 H 93 08/26/19 08:14 08/26/19 08:14 08/26/19 08:14 08/26/19 08:14 08/26/19 08:14 Oxygen Delivery Method Room Air Weight: 177.9 kg Body Mass Index (BMI) 49.3 Intake and Output for Last 24 Hours 08/24/19 08/25/19 08/26/19 23:59 23:59 23:59 Intake Total 1620 / 1620 1200 / 1320 210 / 210 Output Total 1900 / 1900 900 / 900 700 / 700 Balance -280 / -280 300 / 420 -490 / -490 General: Alert, Oriented x3, Cooperative, No apparent distress Lungs: Clear to auscultation Cardiovascular: Regular rate Abdomen: Bowel Sounds Present, Soft, Non Tender, Non-Distended, Obese Extremities: - - Mild pedal edema Psych/Mental Status: Normal Affect, Appropriate, Alert and oriented to time, place, person, mood and affect Laboratory Results 08/23/19 04:59: Crossmatch See Detail 08/25/19 12:06: POC Glucose 125 H 08/25/19 16:25: POC Glucose 119 H 08/25/19 21:24: POC Glucose 121 H 08/26/19 04:10: Sodium 140, Potassium 4.2, Chloride 106, Carbon Dioxide 26.0, Anion Gap 8, BUN 30 H, Creatinine 5.22 H, Estim Creat Clear Calc 20.68, Est GFR (MDRD) Af Amer 15 L, Est GFR (MDRD) Non-Af 13 L, BUN/Creatinine Ratio 5.7 L, Glucose 118 H, Calcium 7.9 L 08/26/19 06:42: POC Glucose 107 08/26/19 08:03: POC Glucose 102 Current Medications Acetaminophen (Tylenol) 650 mg PO Q6H PRN PRN PRN Reason: HEADACHE Last Admin: 08/23/19 12:56 Dose: 650 mg Documented by: Albuterol Sulfate (Ventolin Aerosols) 2.5 mg INHALATION Q2H PRN PRN PRN Reason: SOB/Wheezing Amlodipine Besylate (Norvasc) 10 mg PO DAILY [facility] Last Admin: 08/26/19 09:59 Dose: 10 mg Documented by: Calcium Acetate (Phoslo Gel Cap) 667 mg PO TIDCM [facility] Last Admin: 08/26/19 08:07 Dose: 667 mg Documented by: Carvedilol (Coreg) 25 mg PO BID [facility] Last Admin: 08/26/19 09:57 Dose: 25 mg Documented by: Ergocalciferol (Vitamin D) 50,000 unit PO [facility] Glucagon () 1 mg IM .X1 PRN PRN Reason: Hypoglycemia Hydralazine HCl (Apresoline) 25 mg PO TID [facility] Last Admin: 08/26/19 05:16 Dose: 25 mg Documented by: Hydralazine HCl (Apresoline Iv) 10 mg IV Q4H PRN PRN PRN Reason: SBP > 160 Dextrose (Dextrose 10%-Water) 250 mls @ 999 mls/hr IV .Q16M PRN; Protocol PRN Reason: HYPOGLYCEMIA Sodium Chloride () 500 mls @ 15 mls/hr IV PRN PRN PRN Reason: Blood Transfusion Insulin Glargine (Lantus (Bkc)) 10 units SC QHS [facility] Last Admin: 08/25/19 21:28 Dose: Not Given Documented by: Insulin Human Lispro (Humalog Kwikpen (Bkc)) 15 unit SC 0800,1200,1700 [facility] Last Admin: 08/26/19 08:03 Dose: Not Given Documented by: Insulin Human Lispro (Humalog Kwikpen (Bkc)) 0 unit SC ACHS [facility]; Protocol Last Admin: 08/26/19 08:03 Dose: Not Given Documented by: Levothyroxine Sodium (Synthroid) 50 mcg PO DAILY@0600 [facility] Last Admin: 08/26/19 05:16 Dose: 50 mcg Documented by: Metoprolol Tartrate (Lopressor (Beta Carlos)) 5 mg IV Q6H PRN PRN PRN Reason: SBP > 160, hold for HR < 60 Last Admin: 08/23/19 02:12 Dose: 5 mg Documented by: Multivit/Ca Carb/B Cmplx/FA/Prenat (Nephrocaps, Renaphro) 1 capsule PO DAILY [facility] Last Admin: 08/26/19 09:57 Dose: 1 capsule Documented by: Pantoprazole Sodium (Protonix) 40 mg PO DAILY [facility] Last Admin: 08/26/19 09:59 Dose: 40 mg Documented by: Pregabalin (Lyrica) 100 mg PO BID [facility] Last Admin: 08/26/19 09:58 Dose: 100 mg Documented by: Sodium Chloride () 10 - 40 ml IV UD PRN PRN Reason: SALINE FLUSH Last Admin: 08/25/19 21:28 Dose: 20 ml Documented by: Medical Necessity - Tobacco Use Smoking Status: Never smoker Tobacco Use: Non-smoker, Secondhand Assessment/Plan 1. ESRD HD today. Has chronic spot at [facility] [place] unit Monday, Monday, Monday. #3. Refer to Dr. Tarango for revision. 2. iron def anemia iv iron with dialysis. 3. DM2 primary care management 4. HTN stable 5. Severe morbid obesity 6. Debilitation 7. Hyperphosphatemia continue phosphate binders
--- NOTE | 2019-08-26 11:01 | CM.ED ---
SOCIAL WORK RECEIVED CALL FROM CANDIDA WITH [facility]. PER CANDIDA, SPOKE WITH PATIENT THIS MORNING AND DISCUSSED OPTIONS FOR TRANSPORTATION TO AND FROM DIALYSIS. PATIENT WILL UTILIZE [id number] AND DJFS. [facility] ATTEMPTED TO DISCUSS WAIVER AND PATIENT DECLINED NEEDS FOR WAIVER. [facility] WILL BE FOLLOWING UP WITH PATIENT ONCE HOME TO ENSURE TRANSPORTATION IS ARRANGED. Phylicia ZAMORA, FAMILY CONSUMER SCIENTIST, SERVICE CENTER COORDINATOR.
[2019-08-26 11:26] LABS: Bedside Glucose 125 mg/dL (70-110)
--- NOTE | 2019-08-26 12:09 | PN_ITS ---
Patient Problems: Active and Suspected Problems Diabetes mellitus type 2 in obese (Acute) Metabolic acidosis (Acute) Hyperkalemia (Acute) ESRD (end stage renal disease) on dialysis (Acute) Reason for Visit: Follow-up on NIELS Subjective: Patient was seen and examined. He denied any new complaints. Discussed with nephrology, patient would have dialysis today. Patient's dialysis will be later and he would like to discharge in a.m. Denies any chest pain or dizziness or palpitations. Objective: Physical exam: Vitals/I&O's: Vital Signs Temp Pulse Resp BP Pulse Ox 98.7 F 72 16 170/68 H 93 08/26/19 08:14 08/26/19 08:14 08/26/19 08:14 08/26/19 08:14 08/26/19 08:14 Oxygen Delivery Method Room Air Weight: 177.9 kg Body Mass Index (BMI) 49.3 Intake and Output for Last 24 Hours 08/24/19 08/25/19 08/26/19 23:59 23:59 23:59 Intake Total 1620 / 1620 1200 / 1320 410 / 410 Output Total 1900 / 1900 900 / 900 700 / 700 Balance -280 / -280 300 / 420 -290 / -290 General: Alert, Oriented x3, Cooperative, No apparent distress, - - Morbidly obese HEENT: Atraumatic, PERRLA, EOMI, Normocephalic Oral: Moist Mucosa Neck: Supple, - - right sided tunneled dialysis catheter Lungs: Clear to auscultation, Normal air movement Cardiovascular: Regular rate, Regular Rhythm, Normal S1, Normal S2, No murmurs Abdomen: Bowel Sounds Present, Soft, Non Tender, Non-Distended, No Hepato- splenomegaly Extremities: Edema - bilateral pedal edema +1-2 Skin: No rashes, No breakdown Musculoskeletal: No Tenderness to Palpation of Joints or Extremities Lymphatic: No Cervical, Supraclavicular, or Inguinal Adenopathy Neurological: Cranial nerves II-XII grossly intact, Neuro grossly intact Psych/Mental Status: Normal Affect, Appropriate Laboratory Results 08/23/19 04:59: Crossmatch See Detail 08/25/19 12:06: POC Glucose 125 H 08/25/19 16:25: POC Glucose 119 H 08/25/19 21:24: POC Glucose 121 H 08/26/19 04:10: Sodium 140, Potassium 4.2, Chloride 106, Carbon Dioxide 26.0, Anion Gap 8, BUN 30 H, Creatinine 5.22 H, Estim Creat Clear Calc 20.68, Est GFR (MDRD) Af Amer 15 L, Est GFR (MDRD) Non-Af 13 L, BUN/Creatinine Ratio 5.7 L, Glucose 118 H, Calcium 7.9 L 08/26/19 06:42: POC Glucose 107 08/26/19 08:03: POC Glucose 102 08/26/19 11:23: POC Glucose 125 H Current Medications Acetaminophen (Tylenol) 650 mg PO Q6H PRN PRN PRN Reason: HEADACHE Last Admin: 08/23/19 12:56 Dose: 650 mg Documented by: Albuterol Sulfate (Ventolin Aerosols) 2.5 mg INHALATION Q2H PRN PRN PRN Reason: SOB/Wheezing Amlodipine Besylate (Norvasc) 10 mg PO DAILY [facility] Last Admin: 08/26/19 09:59 Dose: 10 mg Documented by: Calcium Acetate (Phoslo Gel Cap) 667 mg PO TIDCM [facility] Last Admin: 08/26/19 11:50 Dose: Not Given Documented by: Carvedilol (Coreg) 25 mg PO BID [facility] Last Admin: 08/26/19 09:57 Dose: 25 mg Documented by: Ergocalciferol (Vitamin D) 50,000 unit PO [facility] Glucagon () 1 mg IM .X1 PRN PRN Reason: Hypoglycemia Hydralazine HCl (Apresoline) 25 mg PO TID [facility] Last Admin: 08/26/19 05:16 Dose: 25 mg Documented by: Hydralazine HCl (Apresoline Iv) 10 mg IV Q4H PRN PRN PRN Reason: SBP > 160 Dextrose (Dextrose 10%-Water) 250 mls @ 999 mls/hr IV .Q16M PRN; Protocol PRN Reason: HYPOGLYCEMIA Sodium Chloride () 500 mls @ 15 mls/hr IV PRN PRN PRN Reason: Blood Transfusion Insulin Glargine (Lantus ([facility])) 10 units SC QHS [facility] Last Admin: 08/25/19 21:28 Dose: Not Given Documented by: Insulin Human Lispro (Humalog Kwikpen ([facility])) 15 unit SC 0800,1200,1700 [facility] Last Admin: 08/26/19 11:50 Dose: Not Given Documented by: Insulin Human Lispro (Humalog Kwikpen (Bkc)) 0 unit SC ACHS [facility]; Protocol Last Admin: 08/26/19 11:50 Dose: Not Given Documented by: Levothyroxine Sodium (Synthroid) 50 mcg PO DAILY@0600 [facility] Last Admin: 08/26/19 05:16 Dose: 50 mcg Documented by: Metoprolol Tartrate (Lopressor (Beta Carlos)) 5 mg IV Q6H PRN PRN PRN Reason: SBP > 160, hold for HR < 60 Last Admin: 08/23/19 02:12 Dose: 5 mg Documented by: Multivit/Ca Carb/B Cmplx/FA/Prenat (Nephrocaps, Renaphro) 1 capsule PO DAILY [facility] Last Admin: 08/26/19 09:57 Dose: 1 capsule Documented by: Pantoprazole Sodium (Protonix) 40 mg PO DAILY [facility] Last Admin: 08/26/19 09:59 Dose: 40 mg Documented by: Pregabalin (Lyrica) 100 mg PO BID [facility] Last Admin: 08/26/19 09:58 Dose: 100 mg Documented by: Sodium Chloride () 10 - 40 ml IV UD PRN PRN Reason: SALINE FLUSH Last Admin: 08/25/19 21:28 Dose: 20 ml Documented by: STROKE Vital Signs/Narrative: Vital Signs Temp Pulse Resp BP Pulse Ox 08/26/19 08:14 98.7 F 72 16 170/68 H 93 Medical Necessity - Tobacco Use Smoking Status: Never smoker Tobacco Use: Non-smoker, Secondhand Assessment/Plan All Active Problems Diabetes mellitus type 2 in obese (Acute) Metabolic acidosis (Acute) Hyperkalemia (Acute) ESRD (end stage renal disease) on dialysis (Acute) 1. Hyperkalemia, h/o CKD stage V, now ESRD, resolved after dialysis 2. ESRD, new to HD, s/p Right tunneled dialysis catheter, outpatient dialysis arranged. Dialysis today and subsequently - 3. Acute on CKD, s/p 1 unit pRBC, repeat CBCD in am 4. Hypertension, fairly uncontrolled, on amlodipine 10mg, carvedilol 85 mg twice daily, hydralazine 25 mg 3 times daily We will increase hydralazine to 50 mg 3 times daily, continue to monitor blood pressure 5. Type 2 DM , blood sugars are controlled on Lantus 10 units nightly, blood glucose checks with insulin sliding scale 6. Hypothyroidism, continue on Synthroid 7. DVT prophylaxis with SCDs Code Visit Inpatient E&M: 58341 Subs Hosp L2
[2019-08-26 16:55] LABS: Bedside Glucose 120 mg/dL (70-110)
--- NOTE | 2019-08-26 19:51 | DIALYSIS ---
hemodialysis completed x 4 hrs. no fluid removal. Access via right chest tunneled HD cath. Pt abisai well. See HD flowsheet on chart.
[2019-08-26] MEDS: Heparin 10,000 UNITS/10 ML Vial IV (21:25)
[2019-08-26] MEDS: hydrALAZINE 50 MG Tablet PO (21:29)
[2019-08-26 21:35] LABS: Bedside Glucose 101 mg/dL (70-110)
[2019-08-27 02:53] VITALS: PULSE 72
[2019-08-27 03:20] VITALS: BP 151/76; PULSE 74; RESP 18; TEMP 36.9; O2SAT 94
[2019-08-27 05:25] VITALS: BP 158/70; PULSE 73; RESP 18; TEMP 36.8; O2SAT 93
[2019-08-27 05:29] VITALS: BP 158/70; PULSE 73
[2019-08-27] MEDS: Levothyroxine 50 MCG Tablet PO (05:29)
[2019-08-27] MEDS: hydrALAZINE 50 MG Tablet PO (05:29)
[2019-08-27 06:03] LABS: Absolute Lymphocyte Count 1.02 X10^3/uL (0.83-4.51); Absolute Neutrophil Count 4.8 X10^3/uL (2.0-7.7); Basophil# 0.05 X10^3/uL; Basophil% 0.7 % (0-1); Eosinophil# 0.44 X10^3/uL; Eosinophils% 6.3 % (0-5); Hematocrit 22.6 % (40-54); Hemoglobin 7.2 g/dL (13.0-16.5); Lymphocyte # 1.02 X10^3/ul (4.0); Lymphocyte % 14.5 % (19-41); Mean Corp Hgb Conc 31.9 g/dL (32-36); Mean Corpuscular Volume 87.9 fL (80-94); Mean Platelet Vol. 11.2 fl (6.2-12.0); Monocyte# 0.65 X10^3/uL; Monocyte% 9.2 % (0-10); NRBC Flagged by Analyzer 0 % (0-5); Neutrophil # 4.83 X10^3/uL (2.7-7.7); Neutrophil % 68.6 % (47-70); Platelet Count 125 K/mm3 (150-450); RBC Distribution Width CV 12.6 % (11.6-14.6); RBC Distribution Width SD 40.8 fl (35.1-43.9); Red Blood Count 2.57 M/mm3 (4.6-6.2)
[2019-08-27 06:32] LABS: Albumin, Serum 2.1 g/dL (3.2-5.0); BUN 18 mg/dL (7-18); BUN/Creat Ratio 4.9 RATIO (10-20); Calcium,Total 7.6 mg/dL (8.5-10.1); Chloride 104 mmol/L (98-107); Creatinine, Serum 3.67 mg/dL (0.70-1.30); EST Glomerular Filtration Rate 19 mL/min (>60); Est Glom Filt Rate - Afr Amer 23 mL/min (>60); Estimated Creatinine Clearance 29.42 ml/min; Glucose 98 mg/dL (74-106); Phosphorus 3.4 mg/dL (2.5-4.9); Potassium 3.7 mmol/L (3.5-5.1); Sodium Level 140 mmol/L (136-145)
[2019-08-27 07:05] VITALS: PULSE 77
[2019-08-27 07:15] VITALS: BP 148/58; PULSE 75; RESP 16; TEMP 37.1; O2SAT 96
--- NOTE | 2019-08-27 07:17 | DCINST_ITS ---
- Discharge Diagnoses Current Active Problems: Current Active and Chronic Problems Diabetes mellitus type 2 in obese (Acute) Metabolic acidosis (Acute) Hyperkalemia (Acute) ESRD (end stage renal disease) on dialysis (Acute) Reason(s) for Visit for Discharge Instructions: Hyperkalemia You will use the following diet at home:: Renal (restricted protein/sodium) Your food should be the consistency of: Regular Your liquids should be the consistency of: Regular/Thin Discharge Activity: Return to Normal Activity Instructions: Hemodialysis, Eating a Low Potassium Diet, Hyperkalemia Additional Instructions: Take all your medications as prescribed. Follow-up with dialysis as scheduled. Allergies/Adverse Reactions: Allergies No Known Allergies Allergy (Verified 08/22/19 13:34) Medications to take at Discharge Amlodipine [Norvasc] 10 mg PO DAILY 08/22/19 Aspirin [Aspir-Low] 81 mg PO DAILY 08/22/19 Carvedilol 25 mg PO BID 08/22/19 Ergocalciferol (Vitamin D2) [Vitamin D2] 50,000 unit PO WE 08/22/19 Insulin Glargine,Hum.rec.anlog [Basaglar Kwikpen U-100] 10 unit SQ QHS 08/22/19 Insulin Lispro 15 unit SQ ACHS 08/22/19 Levothyroxine [Synthroid] 50 mcg PO DAILY 08/22/19 Pantoprazole Sodium 40 mg PO DAILY 08/22/19 Pregabalin [Lyrica] 100 mg PO BID 08/22/19 Calcium Acetate [Phoslo Gel Cap] 667 mg PO TIDCM 30 Days #90 cap 08/27/19 Folic Acid/Vitamin B Comp W-C [Nephrocaps, Renaphro] 1 cap PO DAILY 30 Days #30 cap 08/27/19 hydrALAZINE [Apresoline] 50 mg PO TID 30 Days #90 tab 08/27/19 The following prescriptions were given: hydrALAZINE [Apresoline] 50 mg PO TID 30 Days #90 tab [facility]: [id number] Folic Acid/Vitamin B Comp W-C [Nephrocaps, Renaphro] 1 cap PO DAILY 30 Days #30 cap [facility] Calcium Acetate [Phoslo Gel Cap] 667 mg PO TIDCM 30 Days #90 cap Transmission Status: Pending to [facility] Primary Care Physician: Laura Daly MD [Primary Care Provider] - Please follow up with your Primary Care Physician in: within 1-2 weeks Test Results: Test results from this visit will be discussed in further detail at your follow- up appointment, if applicable. Please Follow Up With: Laura Daly MD Please Follow Up With: Osman Tarango MD When: as scheduled or within 2 weeks Proposed Discharge Date: 08/27/19
--- NOTE | 2019-08-27 07:23 | DS.PCM_ITS ---
Discharge Date and Diagnosis Date of Admission: 08/22/19 Date of Discharge: 08/27/19 - Primary Discharge Diagnosis Active and Suspected Problems Hyperkalemia NIELS/ESRD, new to HD Uncontrolled Hypertension - Secondary Discharge Diagnosis CKD stage V Hypothyroidism Hypertension Type 2 DM Hospital Course and Treatment Imaging Results: Clinical Impression(s) from Imaging Studies Chest X-Ray 08/22/19 18:00 IMPRESSION: Mild cardiomegaly. Electronically Signed: Roland Recio DO at 18:46 EST Tel [phone], Service support , Nephrology Operations: None Procedures: - - tunneled dialysis catheter Summary of Care Provided: The patient is a 49 year old M with past medical history of hypertension, type II DM, CKD stage V, not yet on dialysis who was admitted on 08/22/19 on account of abnormal labs. Patient had previously seen general surgery for vein mapping as his previous fistula was not working. He was admitted with an outpatient potassium level of 6.6. His potassium on admission was 7. His creatinine was 9.33, bicarb was 19, chloride was 114. Patient received emergent dialysis after getting a tunneled dialysis catheter. He continued to receive 3 more hemodialysis sessions in the hospital making a total of 4. Patient had an outpatient dialysis chair established for him. His potassium at discharge was 3.7. He received 1 unit of packed RBC for hemoglobin that dropped to 6.7. Subsequently, his hemoglobin stayed stable at 7.2. His hepatitis B panel was negative. Patient had his blood pressure medications changed. He was discharged on increased dose of hydralazine 50 mg 3 times daily as well as amlodipine and carvedilol. He will follow-up with general surgery as scheduled. Subjective: On the day of discharge, patient was seen and examined. He had no new complaints. No acute events overnight. Objective: Physical exam: General: Alert, Oriented x3, Cooperative, No apparent distress, - - Morbidly obese HEENT: Atraumatic, PERRLA, EOMI, Normocephalic Oral: Moist Mucosa Neck: Supple, - - right sided tunneled dialysis catheter Lungs: Clear to auscultation, Normal air movement Cardiovascular: Regular rate, Regular Rhythm, Normal S1, Normal S2, No murmurs Abdomen: Bowel Sounds Present, Soft, Non Tender, Non-Distended, No Hepato- splenomegaly Extremities: Edema - bilateral pedal edema +1-2 Skin: No rashes, No breakdown Musculoskeletal: No Tenderness to Palpation of Joints or Extremities Lymphatic: No Cervical, Supraclavicular, or Inguinal Adenopathy Neurological: Cranial nerves II-XII grossly intact, Neuro grossly intact Psych/Mental Status: Normal Affect, Appropriate - Physical Exam Vitals/I&O's: Vital Signs Temp Pulse Resp BP Pulse Ox 98.2 F 73 18 158/70 H 93 08/27/19 05:25 08/27/19 05:29 08/27/19 05:25 08/27/19 05:29 08/27/19 05:25 Oxygen Delivery Method Room Air Weight: 176.7 kg Body Mass Index (BMI) 49.3 Intake and Output for Last 24 Hours 08/25/19 08/26/19 08/27/19 23:59 23:59 23:59 Intake Total 1200 / 1320 560 / 560 50 / 50 Output Total 900 / 900 1500 / 1500 0 / 0 Balance 300 / 420 -940 / -940 50 / 50 Laboratory Results 08/23/19 04:59: Crossmatch See Detail 08/23/19 12:20: Hep Bs Antigen Pending 08/26/19 08:03: POC Glucose 102 08/26/19 11:23: POC Glucose 125 H 08/26/19 16:50: POC Glucose 120 H 08/26/19 21:21: POC Glucose 101 08/27/19 05:40: WBC 7.0, RBC 2.57 L, Hgb 7.2 L, Hct 22.6 L, MCV 87.9, MCH 28.0, MCHC 31.9 L, RDW Std Deviation 40.8, RDW Coeff of Baljit 12.6, Plt Count 125 L, MPV 11.2, Immature Gran % (Auto) 0.700, Neut % (Auto) 68.6, Lymph % (Auto) 14.5 L, [place] % (Auto) 9.2, Eos % (Auto) 6.3 H, Baso % (Auto) 0.7, Absolute Neuts (auto) 4.8, Absolute Lymphs (auto) 1.02, Nucleated RBC % 0 08/27/19 05:40: Sodium 140, Potassium 3.7, Chloride 104, Carbon Dioxide 30.0, BUN 18, Creatinine 3.67 H, Estim Creat Clear Calc 29.42, Est GFR (MDRD) Af Amer 23 L, Est GFR (MDRD) Non-Af 19 L, BUN/Creatinine Ratio 4.9 L, Glucose 98, Calcium 7.6 L, Phosphorus 3.4, Albumin 2.1 L Current Medications Acetaminophen (Tylenol) 650 mg PO Q6H PRN PRN PRN Reason: HEADACHE Last Admin: 08/23/19 12:56 Dose: 650 mg Documented by: Albuterol Sulfate (Ventolin Aerosols) 2.5 mg INHALATION Q2H PRN PRN PRN Reason: SOB/Wheezing Amlodipine Besylate (Norvasc) 10 mg PO DAILY [facility] Last Admin: 08/26/19 09:59 Dose: 10 mg Documented by: Calcium Acetate (Phoslo Gel Cap) 667 mg PO TIDCM [facility] Last Admin: 08/26/19 17:03 Dose: Not Given Documented by: Carvedilol (Coreg) 25 mg PO BID [facility] Last Admin: 08/26/19 21:24 Dose: 25 mg Documented by: Ergocalciferol (Vitamin D) 50,000 unit PO [facility] Glucagon () 1 mg IM .X1 PRN PRN Reason: Hypoglycemia Hydralazine HCl (Apresoline Iv) 10 mg IV Q4H PRN PRN PRN Reason: SBP > 160 Hydralazine HCl (Apresoline) 50 mg PO TID [facility] Last Admin: 08/27/19 05:29 Dose: 50 mg Documented by: Dextrose (Dextrose 10%-Water) 250 mls @ 999 mls/hr IV .Q16M PRN; Protocol PRN Reason: HYPOGLYCEMIA Sodium Chloride () 500 mls @ 15 mls/hr IV PRN PRN PRN Reason: Blood Transfusion Insulin Glargine (Lantus (Bkc)) 10 units SC QHS [facility] Last Admin: 08/26/19 21:47 Dose: Not Given Documented by: Insulin Human Lispro (Humalog Kwikpen (Bkc)) 15 unit SC 0800,1200,1700 [facility] Last Admin: 08/26/19 17:03 Dose: Not Given Documented by: Insulin Human Lispro (Humalog Kwikpen (Bkc)) 0 unit SC ACHS [facility]; Protocol Last Admin: 08/26/19 21:47 Dose: Not Given Documented by: Levothyroxine Sodium (Synthroid) 50 mcg PO DAILY@0600 [facility] Last Admin: 08/27/19 05:29 Dose: 50 mcg Documented by: Metoprolol Tartrate (Lopressor (Beta Carlos)) 5 mg IV Q6H PRN PRN PRN Reason: SBP > 160, hold for HR < 60 Last Admin: 08/23/19 02:12 Dose: 5 mg Documented by: Multivit/Ca Carb/B Cmplx/FA/Prenat (Nephrocaps, Renaphro) 1 capsule PO DAILY [facility] Last Admin: 08/26/19 09:57 Dose: 1 capsule Documented by: Pantoprazole Sodium (Protonix) 40 mg PO DAILY [facility] Last Admin: 08/26/19 09:59 Dose: 40 mg Documented by: Pregabalin (Lyrica) 100 mg PO BID [facility] Last Admin: 08/26/19 21:50 Dose: 100 mg Documented by: Sodium Chloride () 10 - 40 ml IV UD PRN PRN Reason: SALINE FLUSH Last Admin: 08/25/19 21:28 Dose: 20 ml Documented by: Discharge Diet: Low fat/ Low Cholesterol, 2000 mg Sodium Diet, Carb Control Diet Discharge Activity: Return to Normal Activity Home Medications: Medications to take at Discharge Amlodipine [Norvasc] 10 mg PO DAILY 08/22/19 Aspirin [Aspir-Low] 81 mg PO DAILY 08/22/19 Carvedilol 25 mg PO BID 08/22/19 Ergocalciferol (Vitamin D2) [Vitamin D2] 50,000 unit PO WE 08/22/19 Insulin Glargine,Hum.rec.anlog [Basaglar Kwikpen U-100] 10 unit SQ QHS 08/22/19 Insulin Lispro 15 unit SQ ACHS 08/22/19 Levothyroxine [Synthroid] 50 mcg PO DAILY 08/22/19 Pantoprazole Sodium 40 mg PO DAILY 08/22/19 Pregabalin [Lyrica] 100 mg PO BID 08/22/19 Calcium Acetate [Phoslo Gel Cap] 667 mg PO TIDCM 30 Days #90 cap 08/27/19 Folic Acid/Vitamin B Comp W-C [Nephrocaps, Renaphro] 1 cap PO DAILY 30 Days #30 cap 08/27/19 hydrALAZINE [Apresoline] 50 mg PO TID 30 Days #90 tab 08/27/19 Following Prescrptions Were Given to Patient: hydrALAZINE [Apresoline] 50 mg PO TID 30 Days #90 tab Transmission Status: Received by [facility] Folic Acid/Vitamin B Comp W-C [Nephrocaps, Renaphro] 1 cap PO DAILY 30 Days #30 cap Transmission Status: Received by [facility] Calcium Acetate [Phoslo Gel Cap] 667 mg PO TIDCM 30 Days #90 cap Transmission Status[facility] Primary Care Physician: Laura Daly MD [Primary Care Provider] - Please follow up with your Primary Care Physician in: within 1-2 weeks Please Follow Up With: Laura Daly MD Please Follow Up With: Osman Tarango MD When: as scheduled or within 2 weeks Patient Instructions: Hemodialysis, Hyperkalemia, Eating a Low Potassium Diet Disposition: Home Minutes spent on discharge:: 40 Patient Condition:: Stable Medical Necessity - Tobacco Use Smoking Status: Never smoker Tobacco Use: Non-smoker, Secondhand Meaningful Use Info Meaningful Use Diagnoses (Choose all that apply): None applicable Code Visit Inpatient E&M: 35587 Disch Hosp
[2019-08-27] MEDS: Calcium Acetate 667 MG Capsule PO (08:15)
[2019-08-27 08:40] LABS: Bedside Glucose 106 mg/dL (70-110)
--- NOTE | 2019-08-27 09:58 | PHA.DC.MC ---
Pharmacy Service has performed discharge medication reconciliation and counseling for this patient. 1. NEPHROCAP 1 CAPSULE PO DAILY 2. CALCIUM ACETATE 667MG PO TIDCM The patient's discharge medication list was reviewed for discrepancies and discrepancies were resolved. Home Medications Amlodipine [Norvasc] 10 mg PO DAILY 08/22/19 Aspirin [Aspir-Low] 81 mg PO DAILY 08/22/19 Carvedilol 25 mg PO BID 08/22/19 Ergocalciferol (Vitamin D2) [Vitamin D2] 50,000 unit PO WE 08/22/19 Insulin Glargine,Hum.rec.anlog [Basaglar Kwikpen U-100] 10 unit SQ QHS 08/22/19 Insulin Lispro 15 unit SQ ACHS 08/22/19 Levothyroxine [Synthroid] 50 mcg PO DAILY 08/22/19 Pantoprazole Sodium 40 mg PO DAILY 08/22/19 Pregabalin [Lyrica] 100 mg PO BID 08/22/19 Calcium Acetate [Phoslo Gel Cap] 667 mg PO TIDCM 30 Days #90 cap 08/27/19 Folic Acid/Vitamin B Comp W-C [Nephrocaps, Renaphro] 1 cap PO DAILY 30 Days #30 cap 08/27/19 hydrALAZINE [Apresoline] 50 mg PO TID 30 Days #90 tab 08/27/19 The patient was counseled on the following discharge medications and changes in medications for homegoing were reviewed. The Reason for Use, instructions for use, and potential side effects were reviewed for all new medications. The patient's questions regarding all of their medications were answered. The patient was able to verbally demonstrate an understanding of their discharge medications.
--- NOTE | 2019-08-27 10:07 | CASEMGMT ---
Addendum entered by Orin Hopkins 08/27/19 10:10: Call to [place] at [facility] and she is aware of pt discharge. She states that financials are still 'pending' but pt is end stage and admissions already sent schedule letter to this RN CM which usually means that pt is set up and ready to go. [place] states she will notify this RN CM once she gets the official ok. Pt states that he has his ride set up for dialysis tomorrow and that HHC is set to come out on . Cherie SERRANO CM Original Note: Call to [facility] to notify of pt discharge and D/C instructions and last progress note faxed to [facility] at this time. Cherie SERRANO CM
[2019-08-27] MEDS: amLODIPine 10 MG Tablet PO (10:31)
[2019-08-27] MEDS: Carvedilol 25 MG Tablet PO (10:31)
[2019-08-27] MEDS: Pantoprazole Sodium 40 MG Tablet PO (10:33)
[2019-08-27 10:34] LABS: Hepatitis B Surface Antigen Non-Reactive (Nonreactive)
[2019-08-27] MEDS: Folic Acid/Vitamin B Comp W-C 1 Capsule 1 CAP PO (10:34)
[2019-08-27] MEDS: Pregabalin 50 MG Capsule 100 MG PO (10:37)
== END 2019-08-27 11:44 | disposition home health service (06) | DRG 468 ==
LOC: ED 14:21 → ICU 14:52 → PCU 08-23 14:57
PROVIDERS: Internal Medicine Nephrology; Surgery; Admitting Provider Student in an Organized Health Care Education/Training Program; Emergency Provider Emergency Medicine; PCP Internal Medicine; Visit Provider Internal Medicine
PROC: 0JH63XZ Insertion of Tunneled Vascular Access Device into Chest Subcutaneous Tissue and Fascia, Percutaneous Approach (ICD-10-PCS; principal; 2019-08-22 16:30)
DX: E11.22 Type 2 diabetes mellitus with diabetic chronic kidney disease (principal); I12.0 Hypertensive chronic kidney disease with stage 5 chronic kidney disease or end stage renal disease; N17.9 Acute kidney failure, unspecified; E87.5 Hyperkalemia; N18.6 End stage renal disease; E03.9 Hypothyroidism, unspecified; Z68.42 Body mass index [BMI] 45.0-49.9, adult; D50.9 Iron deficiency anemia, unspecified; E66.01 Morbid (severe) obesity due to excess calories; E87.2 Acidosis; E83.39 Other disorders of phosphorus metabolism; F32.9 Major depressive disorder, single episode, unspecified; R53.81 Other malaise; T82.898A Other specified complication of vascular prosthetic devices, implants and grafts, initial encounter; Z79.4 Long term (current) use of insulin; Z01.818 Encounter for other preprocedural examination; I77.0 Arteriovenous fistula, acquired
CPT/HCPCS: 36415; 71045; 76000; 80048; 80069; 82962; 85025; 86704; 86706; 86850; 86900; 86901; 86920; 86922; 87340; 90937; 93005; 93970; 94640; 97110; 97162; 97166; 97530; 97535; 97802; 97803; 99285; J1756; J7030; P9016; A4216; G0257

== ENCOUNTER 2019-09-26 09:39 | Emergency (ER) | payer MEDICAID, SELFPAY ==
[2019-09-26 09:12] VITALS: BMI 49.3
[2019-09-26 09:40] VITALS: BP 77/67; PULSE 73; RESP 15; TEMP 36.8; O2SAT 100; BMI 44.1
[2019-09-26 09:46] VITALS: BP 112/76; PULSE 72; RESP 16; O2SAT 100
--- NOTE | 2019-09-26 09:46 | RAD_ITS ---
STUDY: X-RAY CHEST REASON FOR EXAM: Male, 49 years old. WEAKNESS TECHNIQUE: Single AP portable view of the chest. COMPARISON: Comparison is made with prior study dated August 22, 2019. FINDINGS: A right-sided double-J catheter seen with the tip in the proximal portion of the superior vena cava. This is unchanged. Stable elevation of the right hemidiaphragm. There is no demonstrated pleural abnormality. There is mild cardiac enlargement. Normal mediastinum and patel. Normal visualized pulmonary arteries. Normal visualized aortic arch and descending thoracic aorta. Normal visualized thoracic spine. Normal visualized ribs, clavicles, and shoulders. There is no demonstrated abnormality of the visualized soft tissue structures of the upper abdomen. RAD/Chest 1 View (Portable) IMPRESSION: No acute abnormality is seen. There has been no change since prior study. Electronically Signed: Triston Bermudez, at 10:22 EDT , Service support ,
--- NOTE | 2019-09-26 09:47 | EKG12_ITS ---
Test Reason : Blood Pressure : / mmHG Vent. Rate : 067 BPM Atrial Rate : 067 BPM P-R Int : 172 ms QRS Dur : 110 ms QT Int : 472 ms P-R-T Axes : 062 001 061 degrees QTc Int : 498 ms Normal sinus rhythm Prolonged QT Abnormal ECG Confirmed by ANJANA ALFORD ([id number]), mapping editor MARCIAL FREITAS ([id number]) on 09/30/2019 11:04:29 AM Referred By: SLIM Confirmed By:ANJANA ALFORD
--- NOTE | 2019-09-26 09:51 | ED.DCSUM_ITS ---
History of Present Illness Chief Complaint: Hypotension Narrative: Patient was seen in the outpatient environment by his surgeon for possible new fistula, he was found to be hypotensive. He felt lightheaded and dizzy. He tells me that when he sits in his wheelchair for long periods of time he does get lightheaded and dizzy, he has a history of chronic orthostasis, he was transported to the office and had to sit in the chair for prolonged period of time. He has no fever chills. He has no chest pain or shortness of breath. He has no cough or congestion. Past Medical History - Allergies and Home Meds Allergies/Adverse Reactions: Allergies No Known Allergies Allergy (Verified 09/26/19 11:35) Primary Care Physician: Laura Daly MD [Primary Care Provider] - Past Medical History: - - Patient has a significant past medical history, he has end-stage renal disease hypertension hypercholesterolemia. It was reviewed in his chart. Surgical History: - - toe amputation, failed left forearm AVF Smoking Status: Never smoker - Family History Maternal Family History: Reports: No pertinent history Paternal Family History: Reports: No pertinent history Sibling Family History: Reports: Diabetes - sister has diabetes Review of Systems General: Denies: Fever Eyes: Denies: Visual changes - bilaterally ENT: Denies: Rhinorrhea, Sore throat Cardiovascular: Denies: Chest pain, Palpitations, Heart racing Respiratory: Denies: Dyspnea, Cough Gastrointestinal: Denies: Abdominal pain, Nausea, Vomiting Genitourinary: Denies: Dysuria Musculoskeletal: Denies: Myalgias, Arthralgias Skin: Denies: Rash Neurological: Reports: - - Lightheadedness. No vertigo or disequilibrium Hematologic: Denies: Easy bruising Physical Exam Vital Signs/Narrative: Vital Signs Temp Pulse Resp BP Pulse Ox 09/26/19 09:46 72 16 112/76 100 09/26/19 09:40 98.3 F 73 15 77/67 L 100 General: Well nourished Eyes: Negative for: Pale conjunctiva ENT: Moist mucous membranes Neck: Supple Cardiovascular: Regular rate, Regular rhythm Respiratory: No distress, CTA bilaterally Abdomen: Soft, Nontender Back: Nontender. Negative for: Normal Inspection Extremities: Negative for: Nontender, No edema Skin: Normal color. Negative for: Pallor Neurological: Normal Strength, Normal Sensation Psychological: Normal affect Diagnostic/Tx/Re-eval - Rhythm Strip Rhythm Strip: Sinus Rhythm Rate: 67 Ectopy: None - EKG Initial EKG Interpretation: Sinus Rhythm, - - Normal sinus rhythm. Normal VT. Prolonged QTc interval. Nonspecific ST changes. Interpreted by emergency doctor. - Medical Decision Making Patient was given gentle hydration. He significantly improved his blood pressure is back to normal he appears well and he has a normal work-up. He tells me this is chronic and recurrent for him and wants to be discharged. He appears quite reliable I am comfortable with his discharge. If anything worsens he is to return. Patient was seen by me during peak influenza as well as the coronavirus outbreak. It is an epidemic. It is in National state of emergency. Emergency departments are full. The hospitals are full. There is quite a bit of a risk in all patients presenting to the emergency department. However per [facility] protocol all attempts were made by myself as well as the staff to keep the contamination level down. I was fully mask and gloved the entire time in the patient's presence. Patient may benefit from more testing however at this time it would be riskier to either get more testing or to get admitted to the hospital. The patient has normal vital signs appears well and can get the rest of the testing done in the outpatient environment which would be much safer for the patient. ED Disposition - Plan for ED Patient: Disposition: Home or Assisted Living Diagnosis: Orthostatic hypotension Instructions: HYPOTENSION, Orthostatic Referrals: Laura Daly MD [Primary Care Provider] - 3-5 Days
[2019-09-26 10:00] VITALS: BP 119/75; PULSE 68; RESP 19; O2SAT 100
[2019-09-26 10:11] LABS: Absolute Lymphocyte Count 1.97 X10^3/uL (0.83-4.51); Basophil# 0.05 X10^3/uL; Basophil% 0.5 % (0-1); Eosinophils% 3.3 % (0-5); Hematocrit 31.2 % (40-54); Hemoglobin 10.1 g/dL (13.0-16.5); Lymphocyte # 1.97 X10^3/ul (4.0); Lymphocyte % 21.5 % (19-41); Mean Corp Hgb Conc 32.4 g/dL (32-36); Mean Corpuscular Hgb 28.5 pg (27.0-32.0); Mean Corpuscular Volume 87.9 fL (80-94); Monocyte# 0.72 X10^3/uL; Monocyte% 7.9 % (0-10); NRBC Flagged by Analyzer 0 % (0-5); Neutrophil # 5.99 X10^3/uL (2.7-7.7); Neutrophil % 65.5 % (47-70); Platelet Count 144 K/mm3 (150-450); RBC Distribution Width CV 14.9 % (11.6-14.6); RBC Distribution Width SD 46.8 fl (35.1-43.9); Red Blood Count 3.55 M/mm3 (4.6-6.2); White Blood Count 9.2 K/mm3 (4.4-11.0)
[2019-09-26 10:25] LABS: ALB/GLOB Ratio 0.5 RATIO (0.9-2.4); AST(SGOT) 36 U/L (15-37); Alanine Aminotransfer ALT/SGPT 47 U/L (16-61); Albumin, Serum 2.8 g/dL (3.2-5.0); Alkaline Phosphatase 112 U/L (45-117); Anion Gap 11 (5-15); BUN 35 mg/dL (7-18); BUN/Creat Ratio 8.2 RATIO (10-20); Calcium,Total 8.4 mg/dL (8.5-10.1); Chloride 100 mmol/L (98-107); Creatinine, Serum 4.26 mg/dL (0.70-1.30); EST Glomerular Filtration Rate 16 mL/min (>60); Est Glom Filt Rate - Afr Amer 19 mL/min (>60); Estimated Creatinine Clearance 23.97 ml/min; Globulin 5.1 g/dL (2.2-4.2); Glucose 188 mg/dL (74-106); Potassium 3.3 mmol/L (3.5-5.1); Protein, Total 7.9 g/dL (6.4-8.2); Sodium Level 137 mmol/L (136-145)
[2019-09-26 11:00] VITALS: BP 189/81; PULSE 64; RESP 20; O2SAT 90
[2019-09-26 12:17] VITALS: BP 161/71; PULSE 80; RESP 18; O2SAT 96
== END 2019-09-26 12:37 | disposition home or self-care (01) ==
PROVIDERS: Emergency Provider Emergency Medicine; PCP Internal Medicine
DX: I95.1 Orthostatic hypotension (principal); I12.0 Hypertensive chronic kidney disease with stage 5 chronic kidney disease or end stage renal disease; N18.6 End stage renal disease; Z99.2 Dependence on renal dialysis; E78.00 Pure hypercholesterolemia, unspecified; Z79.82 Long term (current) use of aspirin; Z79.899 Other long term (current) drug therapy
CPT/HCPCS: 71045; 80053; 85025; 93005; 99283; J7030; J7050; A4216

== ENCOUNTER 2019-12-04 09:06 | Observation (INO) | payer MEDICAID, SELFPAY ==
[2019-12-04] VITALS (16 sets, daily range): BP systolic 146–221; BP diastolic 44–98; PULSE 76–89; RESP 10–18; TEMP 36.5–36.9; O2SAT 93–100; BMI 44.4; BMI 46.0
--- NOTE | 2019-12-04 09:18 | CT_ITS ---
STUDY: CT BRAIN WITHOUT CONTRAST REASON FOR EXAM: Male, 49 years old. Pt stated difficulty swallowing, hx thyroiditis, hypothyroidism, htn, reflux RADIATION DOSAGE (If Supplied By Facility): CTDIvol = ( 60.81 ) mGy, DLP = ( 1135.50 ) mGycm TECHNIQUE: Transaxial CT imaging of the brain was performed without administration of intravenous contrast material. Individualized dose optimization techniques were used for this CT. COMPARISON: No relevant priors. FINDINGS: Multiple small calcific densities are seen within the scalp. Normal calvarium. Normal size ventricles and extra-axial spaces for the patient''s age. Normal white matter tracts of the cerebral hemispheres. Normal basal ganglia and thalami. Normal brainstem. Normal cerebellum. There is no intracranial hemorrhage. There are no findings of an acute ischemic infarction. Normal visualized paranasal sinuses. CT/Brain/Head without Contrast IMPRESSION: Normal unenhanced CT scan of the brain. Multiple rounded calcific densities are seen within the scalp. Electronically Signed: Triston Bermudez, at 10:50 EDT , Service support ,
--- NOTE | 2019-12-04 09:18 | CT_ITS ---
STUDY: CT CHEST WITHOUT CONTRAST REASON FOR EXAM: Male, 49 years old. Pt stated difficulty swallowing, hx thyroiditis, hypothyroidism, htn, rel flux RADIATION DOSAGE (If Supplied By Facility): CTDIvol = ( 24.62 ) mGy, DLP = ( 1084.81 ) mGycm TECHNIQUE: Transaxial imaging was performed without the administration of intravenous contrast material. Multiplanar coronal and sagittal images were reformatted. Individualized dose optimization techniques were used for this CT. COMPARISON: None. FINDINGS: A right-sided catheter is seen with the tip in the superior vena cava. The lungs are normal. There is no demonstrated pleural abnormality. There are calcifications of the coronary arteries. Normal mediastinum. Normal hilar regions. Normal unenhanced pulmonary arteries. There is atherosclerotic calcification of the aortic arch . Normal osseous structures. There is no demonstrated abnormality of the visualized upper abdomen. CT/Chest without Contrast IMPRESSION: Normal unenhanced CT Chest examination. Electronically Signed: Triston Bermudez, at 10:52 EDT , Service support ,
--- NOTE | 2019-12-04 09:18 | EKG12_ITS ---
Test Reason : NEURO SX Blood Pressure : / mmHG Vent. Rate : 080 BPM Atrial Rate : 080 BPM P-R Int : 174 ms QRS Dur : 106 ms QT Int : 440 ms P-R-T Axes : 058 -58 062 degrees QTc Int : 507 ms Normal sinus rhythm Left anterior fascicular block Possible Anterolateral infarct , age undetermined Prolonged QT Abnormal ECG Confirmed by ANJANA ALFORD ([id number]), mapping editor FAY PINTO ([id number]) on 12/09/2019 10:54:33 AM Referred By: ARUN Confirmed By:ANJANA ALFORD
--- NOTE | 2019-12-04 09:19 | ED.DCSUM_ITS ---
History of Present Illness Chief Complaint: Neuro S/Sx Detail of Chief Complaint: Difficulty swallowing Informant: Patient Onset: Days - 2 days Current Severity: Mild Maximum Severity: Moderate Narrative: Patient reports difficulty swallowing for the past 2 days. He states it feels like food is getting caught and he cannot swallow it down. He does not necessarily furthers anything stuck in his throat. He has not been able to take his medication the past 2 days because of this. He has chronic neuropathy in his arms and legs and denies any change in his chronic paresthesias. He denies any new weakness. He denies fever, chills, or recent illness. He is on dialysis and had to end his dialysis session early 2 days ago. He is due for dialysis again today. - Past Medical History (1) Diabetes mellitus type 2 in obese Status: Chronic (2) ESRD (end stage renal disease) on dialysis Status: Chronic Past Medical History - Allergies and Home Meds Allergies/Adverse Reactions: Allergies No Known Allergies Allergy (Verified 09/26/19 11:35) Primary Care Physician: Laura Daly MD [Primary Care Provider] - Prior records reviewed: Yes Surgical History: - - toe amputation, failed left forearm AVF Smoking Status: Never smoker - Family History Maternal Family History: Reports: No pertinent history Paternal Family History: Reports: No pertinent history Sibling Family History: Reports: Diabetes - sister has diabetes Review of Systems General: Denies: Chills, Fever Eyes: Denies: Visual changes - bilaterally ENT: Denies: Bilateral ear pain Cardiovascular: Denies: Chest pain Respiratory: Denies: Dyspnea, Cough Gastrointestinal: Denies: Abdominal pain, Nausea, Vomiting, Diarrhea Genitourinary: Denies: Dysuria Musculoskeletal: Denies: Extremity Pain Skin: Denies: Rash Neurological: Reports: Parasthesia - Chronic paresthesias secondary to neuropathy. Denies: Headache Allergy: Denies: Uticaria Physical Exam Vital Signs/Narrative: Vital Signs Temp Pulse Resp BP Pulse Ox 12/04/19 09:08 98.4 F 89 18 187/57 H 100 12/04/19 09:06 98.4 F 89 18 187/57 H 100 Inital Vital Signs reviewed: Yes General: Well nourished, Well developed Head: Normocephalic ENT: Moist mucous membranes, - - Tolerating secretions at this time. Speaks with a strong voice. Neck: Supple Cardiovascular: Regular rate, Regular rhythm Respiratory: No distress, CTA bilaterally Abdomen: Soft, Nontender Neurological: Alert, Oriented x3, - - Strength and sensation in the extremities. No facial droop. Normal sensation. Psychological: Normal affect Diagnostic/Tx/Re-eval Impressions Brain CT 12/04/19 09:18 IMPRESSION: Normal unenhanced CT scan of the brain. Multiple rounded calcific densities are seen within the scalp. Electronically Signed: Triston Bermudez, at 10:50 EDT , Service support , Chest CT 12/04/19 09:18 IMPRESSION: Normal unenhanced CT Chest examination. Electronically Signed: Triston Bermudez, at 10:52 EDT , Service support , Soft Tissue Neck CT 12/04/19 09:19 IMPRESSION: Atherosclerotic calcifications as described. A right-sided catheter is seen within the superior vena cava. Electronically Signed: Triston Bermudez, at 11:00 EDT , Service support , 12/04/19 09:18 Brain/Head without Contrast [CT] Stat CT Chest [Chest without Contrast] [CT] Stat 12/04/19 09:19 CT Neck [Soft Tissue Neck without Contr] [CT] Stat Laboratory Results 12/04/19 12/04/19 12/04/19 09:30 09:30 09:30 WBC 9.6 RBC 4.33 L Hgb 12.4 L Hct 37.8 L MCV 87.3 MCH 28.6 MCHC 32.8 RDW Std Deviation 44.2 H RDW Coeff of Baljit 13.9 Plt Count 301 MPV 9.6 Immature Gran % (Auto) 1.000 H Neut % (Auto) 72.8 H Lymph % (Auto) 17.1 L [place] % (Auto) 7.1 Eos % (Auto) 1.5 Baso % (Auto) 0.5 Absolute Neuts (auto) 7.0 Absolute Lymphs (auto) 1.64 Nucleated RBC % 0 Sodium 138 Potassium 3.6 Chloride 101 Carbon Dioxide 26.0 Anion Gap 11 BUN 37 H Creatinine 7.15 H Estim Creat Clear Calc 14.28 Est GFR (MDRD) Af Amer 11 L Est GFR (MDRD) Non-Af 9 L BUN/Creatinine Ratio 5.2 L Glucose 149 H Calcium 9.2 POC Glucose 148 H - EKG Initial EKG Interpretation: Sinus Rhythm - Sinus at 80 with no acute ischemia. - Medical Decision Making After I left the room to enter the patient's orders he told the nurse that he had just come from the [facility] where he had an MRI of his brain. I was able to get reports from MRI and MRA of his brain that was performed this morning. There is a suspected high-grade focal stenosis of the left SOLAR PROJECT MANAGER P1 P2 segment with distal reconstitution. There is no evidence of acute infarct. I spoke with Dr. Hooper, neurology at [facility]. He reviewed the images. He states that because there is reconstitution and collateral flow this is not the cause of the patient's current symptoms. He does not feel the patient needs to be transferred to their facility. He will require admission for a swallow evaluation and further work-up. It was noted by nursing staff that the patient does have evidence of sleep apnea while here in the emergency room. This may be contributing to the patient's headaches that he has been complaining of as well. ED Disposition - Plan for ED Patient: Disposition: Acute Care Hospital [facility] Diagnosis: Difficulty swallowing Referrals: Laura Daly MD [Primary Care Provider] -
--- NOTE | 2019-12-04 09:19 | CT_ITS ---
STUDY: CT SOFT TISSUE NECK WITHOUT CONTRAST REASON FOR EXAM: Male, 49 years old. Pt stated difficulty swallowing, hx thyroiditis, hypothyroidism, htn, relflux RADIATION DOSAGE (If Supplied By Facility): CTDIvol = ( 15.12 ) mGy, DLP = ( 436.12 ) mGycm TECHNIQUE: The patient was scanned in a multi-detector CT scanner. High resolution transaxial imaging was performed without the administration of intravenous contrast material. Sagittal and coronal images were reconstructed. Individualized dose optimization techniques were used for this CT. COMPARISON: None. FINDINGS: Dense atherosclerotic calcifications of the vertebral arteries as well as the carotid arteries bilaterally. Normal bilateral parotid glands. Normal bilateral economic history teacher spaces. Normal bilateral parapharyngeal spaces. Normal bilateral carotid spaces. Normal bilateral sublingual and submandibular glands and spaces. Normal visualized nasopharynx. Normal retropharyngeal space. Normal perivertebral space. Normal visualized bilateral faucial tonsils. The visualized tongue, tongue base and oropharynx are normal. There are minimally enlarged lymph nodes of the neck, with preservation of normal hunter architecture, consistent with a reactive lymph hyperplasia. There is no demonstrated solid or cystic mass lesion. Normal epiglottis, bilateral vallecula and hypopharynx. The pre-epiglottic and paraglottic adipose spaces are normal. Normal visualized bilateral piriform sinuses, aryepiglottic folds, vocal cords, and arytenoid-cricoid articulations. Normal subglottic trachea. Normal bilateral lobes of the thyroid gland. Normal visualized pulmonary apices. Normal visualized paranasal sinuses. Normal visualized cervical spine. CT/Soft Tissue Neck without Contr IMPRESSION: Atherosclerotic calcifications as described. A right-sided catheter is seen within the superior vena cava. Electronically Signed: Triston Bermudez, at 11:00 EDT , Service support ,
[2019-12-04 09:35] LABS: Absolute Lymphocyte Count 1.64 X10^3/uL (0.83-4.51); Basophil# 0.05 X10^3/uL; Basophil% 0.5 % (0-1); Bedside Glucose 148 mg/dL (70-110); Eosinophil# 0.14 X10^3/uL; Eosinophils% 1.5 % (0-5); Hematocrit 37.8 % (40-54); Hemoglobin 12.4 g/dL (13.0-16.5); Lymphocyte # 1.64 X10^3/ul (4.0); Lymphocyte % 17.1 % (19-41); Mean Corp Hgb Conc 32.8 g/dL (32-36); Mean Corpuscular Hgb 28.6 pg (27.0-32.0); Mean Corpuscular Volume 87.3 fL (80-94); Mean Platelet Vol. 9.6 fl (6.2-12.0); Monocyte# 0.68 X10^3/uL; Monocyte% 7.1 % (0-10); NRBC Flagged by Analyzer 0 % (0-5); Neutrophil # 6.98 X10^3/uL (2.7-7.7); Neutrophil % 72.8 % (47-70); Platelet Count 301 K/mm3 (150-450); RBC Distribution Width CV 13.9 % (11.6-14.6); RBC Distribution Width SD 44.2 fl (35.1-43.9); Red Blood Count 4.33 M/mm3 (4.6-6.2); White Blood Count 9.6 K/mm3 (4.4-11.0)
[2019-12-04 09:52] LABS: Anion Gap 11 (5-15); BUN 37 mg/dL (7-18); BUN/Creat Ratio 5.2 RATIO (10-20); Calcium,Total 9.2 mg/dL (8.5-10.1); Chloride 101 mmol/L (98-107); Creatinine, Serum 7.15 mg/dL (0.70-1.30); EST Glomerular Filtration Rate 9 mL/min (>60); Est Glom Filt Rate - Afr Amer 11 mL/min (>60); Estimated Creatinine Clearance 14.28 ml/min; Glucose 149 mg/dL (74-106); Potassium 3.6 mmol/L (3.5-5.1); Sodium Level 138 mmol/L (136-145)
--- NOTE | 2019-12-04 11:46 | NURSING ---
1115 CALLED 'S OFFICE AND LEFT MESSAGE [id number] CALLED TRANSFER LINE AND THEY WILL [facility] ADMINISTRATOR
--- NOTE | 2019-12-04 12:47 | NURSING ---
PCU DIFFICULTY SWALLOWING OBS VALDO
--- NOTE | 2019-12-04 13:53 | HP.PCM_ITS ---
<Silva Curtis - Last Filed: 12/04/19 14:24> Problem List (1) Difficulty swallowing Status: Acute (2) Diabetes mellitus type 2 in obese Status: Chronic (3) ESRD (end stage renal disease) on dialysis Status: Chronic (4) Hypertension Status: Chronic (5) GERD (gastroesophageal reflux disease) Status: Chronic (6) Hypothyroidism Status: Chronic History of Present Illness Date of Admission: 12/04/19 Chief Complaint: Difficulty swallowing. The patient is a 49 year old M who presents emergency room due to difficulty swallowing. Patient reports this began suddenly last Monday. He states he ate popcorn earlier in the day without difficulty and later that day was unable to swallow. He states he tried different textures and it does not make a difference. He denies painful swallowing. He is able to get some liquids down after multiple attempts. He denies recent weight loss. Patient reports intermittent headache for 1 week prior to onset of difficulty swallowing. He states pain was on the right side of his head from his hinduism and extending to the back of his head. He reports the right side of his face and head was painful to touch. Patient also reports voice changes and states he has had trouble talking which today is improved. He denies history of difficulty swallowing. Patient reports chronic GERD however it is well treated with PPI. He has a past medical history of end-stage renal disease, hypertension, hypothyroidism, type 2 diabetes mellitus, GERD, morbid obesity. Past Medical History Past Medical History (Chronic Problems): Chronic Problems Hypertension (Chronic) GERD (gastroesophageal reflux disease) (Chronic) Hypothyroidism (Chronic) Diabetes mellitus type 2 in obese (Chronic) ESRD (end stage renal disease) on dialysis (Chronic) Allergies No Known Allergies Allergy (Verified 09/26/19 11:35) Home Medications: Ambulatory Orders Medication Instructions Recorded Aspirin [Aspir-Low] 81 mg PO DAILY 08/22/19 Carvedilol 25 mg PO BID 08/22/19 Ergocalciferol (Vitamin D2) 50,000 unit PO WE 08/22/19 [Vitamin D2] Insulin Glargine,Hum.rec.anlog 10 unit SQ QHS 08/22/19 [Basaglar Kwikpen U-100] Insulin Lispro unit SQ ACHS 08/22/19 Levothyroxine [Synthroid] 50 mcg PO DAILY 08/22/19 Pantoprazole Sodium 40 mg PO DAILY 08/22/19 Pregabalin [Lyrica] 100 mg PO BID 08/22/19 Surgical History: - - toe amputation, failed left forearm AVF, dental Psychiatric History: No pertinent psych hx Lives: Alone Smoking Status: Never smoker Tobacco Use: Non-smoker Alcohol: None Drugs: None - *Family History Maternal History Items: COPD Paternal History Items: - - Never knew my father Sibling History Items: Diabetes - sister has diabetes Review of Systems Constitutional: Denies: Chills, Fever, Weight Change HEENT: Reports: Difficulty Swallowing, Head Aches. Denies: Sinus Congestion, Sinus Drainage, Sore Throat Cardiovascular: Denies: Chest Pain, Palpitations Respiratory: Denies: Cough, Shortness of breath at rest, Sputum production Gastrointestinal: Denies: Abdominal Pain, Nausea, Vomiting Genitourinary: Denies: Dysuria Musculoskeletal: Denies: Joint Pain, Joint Tenderness Skin: Denies: Rash, Wounds Neurological: Denies: Numbness, Tingling, Focal weakness Psychiatric: Denies: Anxiety, Depression, Homicidal Ideations, Suicidal Ideations Hematologic/ Lymphatic: Denies: Easy Bruising, Easy Bleeding VTE Information - Inpt Only VTE Present on Admission: No VTE Mechan Device Prophylaxis: None VTE Pharm Prophylaxis ordered?: Yes Patient Problems: Active and Suspected Problems Difficulty swallowing (Acute) - Physical Exam Vitals/I&O's: Vital Signs Temp Pulse Resp BP Pulse Ox 98.1 F 80 16 154/98 H 100 12/04/19 13:26 12/04/19 13:26 12/04/19 13:26 12/04/19 13:26 12/04/19 13:26 Oxygen Flow Rate (L/min) 2 Oxygen Delivery Method Room Air Weight: 348 lb 9.6 oz Body Mass Index (BMI) 46.0 Finger Stick Blood Glucose 148 General: Alert, Oriented x3, Cooperative HEENT: Atraumatic, PERRLA, EOMI, Normocephalic, - - Left eye exotropia, present at Oral: Dry Mucosa Neck: Supple, No JVD, Negative Carotid Bruits Lungs: Clear to auscultation, Normal air movement, - - Right chest temporary dialysis catheter Cardiovascular: Regular rate, Regular Rhythm, Normal S1, Normal S2, No murmurs Abdomen: Bowel Sounds Present, Soft, Non Tender Extremities: No clubbing, No cyanosis, No edema, Capillary Refill Less than 3 Seconds Skin: No rashes, No breakdown Musculoskeletal: No Tenderness to Palpation of Joints or Extremities Neurological: Cranial nerves II-XII grossly intact, Neuro grossly intact Psych/Mental Status: Normal Affect, Appropriate Laboratory Results 12/04/19 09:30: WBC 9.6, RBC 4.33 L, Hgb 12.4 L, Hct 37.8 L, MCV 87.3, MCH 28.6, MCHC 32.8, RDW Std Deviation 44.2 H, RDW Coeff of Baljit 13.9, Plt Count 301, MPV 9.6, Immature Gran % (Auto) 1.000 H, Neut % (Auto) 72.8 H, Lymph % (Auto) 17.1 L , [place] % (Auto) 7.1, Eos % (Auto) 1.5, Baso % (Auto) 0.5, Absolute Neuts (auto) 7.0, Absolute Lymphs (auto) 1.64, Nucleated RBC % 0 12/04/19 09:30: Sodium 138, Potassium 3.6, Chloride 101, Carbon Dioxide 26.0, Anion Gap 11, BUN 37 H, Creatinine 7.15 H, Estim Creat Clear Calc 14.28, Est GFR (MDRD) Af Amer 11 L, Est GFR (MDRD) Non-Af 9 L, BUN/Creatinine Ratio 5.2 L, Glucose 149 H, Calcium 9.2 12/04/19 09:30: POC Glucose 148 H Current Medications Sodium Chloride () 250 mls @ 15 mls/hr IV .[id number] PRN PRN Reason: Saline Flush Sodium Chloride () 250 mls @ 15 mls/hr IV .[id number] PRN PRN Reason: Additional IVPB Infusion Sodium Chloride () 10 - 40 ml IV UD PRN PRN Reason: SALINE FLUSH Assessment/Plan All Active Problems Difficulty swallowing (Acute) 1. Dysphagia-unclear etiology. MRA/MRI of brain completed today by [facility] due to thunderclap headache. Impression read as no evidence of acute infarction, intracranial hemorrhage or intracranial mass lesion. 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 Suspected high-grade focal stenosis l eft REINFORCING STEEL ERECTOR P1/P2 segment with distal reconstitution. ER physician spoke with [facility] neurology who states that because there is reconstitution and collateral flow, this is likely not the cause of patient's current symptoms and there was no acute infarct on MRI. Speech therapy consulted. Failed bedside swallow eval. Esophagram ordered. N.p.o. pending further swallow eval. Chest CT normal. Soft tissue neck CT unremarkable. 2. End-stage renal disease-follows with Dr. Shaw. Right chest temporary dialysis catheter placed recently. 3. Type 2 diabetes [id number] with sliding scale insulin. Continue home scheduled insulin regimen. Check hemoglobin A1c. 4. Hypertension-elevated on admission. 5. Hypothyroidism-continue Synthroid regimen. 6. Morbid obesity- encouraged diet and lifestyle modifications. 7. GERD- continue PPI. DVT prophylaxis- heparin sc This patient was seen by YELITZA Fernandez under the supervision of Dr. Verduzco. <Rei Verduzco - Last Filed: 12/04/19 14:52> History of Present Illness The patient is a 49 year old M reports trouble swallowing since this past Monday. States that it started after he ate popcorn and then without trouble swallowing. States that he is not even been able to tolerate liquids. States that he feels that something getting stuck. Patient's history is can inconsistent because he stated that he had some Salsberry steak in the midst of this and felt he just got stuck. Is never had anything like this before. Stated when he came in here he is having trouble talking where he was stuttering but had no other focal deficits. Patient had an MRI performed at as outpatient and there was some narrowing but the emergency room physician spoke with neurologist at [facility] and stated that would not of been contributing to his symptoms. Patient had MRI as outpatient for migraines which she gets commonly particular with dialysis. [] Past Medical History Allergies No Known Allergies Allergy (Verified 09/26/19 11:35) Surgical History: - Psychiatric History: No pertinent psych hx Lives: Alone Smoking Status: Never smoker Tobacco Use: Non-smoker Alcohol: None Drugs: None - *Family History Maternal History Items: COPD Paternal History Items: - Sibling History Items: Diabetes Review of Systems Constitutional: Denies: Chills, Fever, Weight Change HEENT: Reports: Difficulty Swallowing, Head Aches. Denies: Sinus Congestion, Sinus Drainage, Sore Throat Cardiovascular: Denies: Chest Pain Respiratory: Denies: Cough, Shortness of breath at rest, Sputum production Gastrointestinal: Denies: Abdominal Pain, Nausea, Vomiting Genitourinary: Denies: Dysuria Musculoskeletal: Denies: Joint Pain, Joint Tenderness Skin: Denies: Rash, Wounds Neurological: Denies: Focal weakness, Numbness, Tingling Psychiatric: Denies: Anxiety, Depression, Homicidal Ideations, Suicidal Ideations Hematologic/ Lymphatic: Denies: Easy Bruising, Easy Bleeding Comment: All review of systems were negative except as mentioned above in the history of present illness and the other review of systems. VTE Information - Inpt Only VTE Present on Admission: No VTE Mechan Device Prophylaxis: None VTE Pharm Prophylaxis ordered?: Yes - Physical Exam Vitals/I&O's: Vital Signs Temp Pulse Resp BP Pulse Ox 36.7 C 78 16 154/98 H 100 12/04/19 13:26 12/04/19 13:57 12/04/19 13:26 12/04/19 13:26 12/04/19 13:26 Oxygen Flow Rate (L/min) 2 Oxygen Delivery Method Room Air Weight: 158.122 kg Body Mass Index (BMI) 46.0 Finger Stick Blood Glucose 148 General: Alert, Cooperative HEENT: Atraumatic, Normocephalic, - Oral: Dry Mucosa Neck: No JVD, No Nodes Lungs: Clear to auscultation, Normal air movement, - Cardiovascular: Regular rate, Regular Rhythm, Normal S1, Normal S2, No murmurs Abdomen: Bowel Sounds Present, Soft, Non Tender Extremities: No edema, No Calf Tenderness Skin: No rashes, No breakdown Neurological: Cranial nerves II-XII grossly intact, Deep Tendon Reflexes 2+/4 and Symmetrical Psych/Mental Status: Normal Affect, Appropriate Laboratory Results 12/04/19 09:30: WBC 9.6, RBC 4.33 L, Hgb 12.4 L, Hct 37.8 L, MCV 87.3, MCH 28.6, MCHC 32.8, RDW Std Deviation 44.2 H, RDW Coeff of Baljit 13.9, Plt Count 301, MPV 9.6, Immature Gran % (Auto) 1.000 H, Neut % (Auto) 72.8 H, Lymph % (Auto) 17.1 L , [place] % (Auto) 7.1, Eos % (Auto) 1.5, Baso % (Auto) 0.5, Absolute Neuts (auto) 7.0, Absolute Lymphs (auto) 1.64, Nucleated RBC % 0 12/04/19 09:30: Sodium 138, Potassium 3.6, Chloride 101, Carbon Dioxide 26.0, Anion Gap 11, BUN 37 H, Creatinine 7.15 H, Estim Creat Clear Calc 14.28, Est GFR (MDRD) Af Amer 11 L, Est GFR (MDRD) Non-Af 9 L, BUN/Creatinine Ratio 5.2 L, Glucose 149 H, Calcium 9.2 12/04/19 09:30: POC Glucose 148 H Current Medications Aspirin (Ecotrin) 81 mg PO DAILY@0800 RASHIDA Carvedilol (Coreg) 25 mg PO BID RASHIDA Dextrose (D50w Syringe) 0 gm IV X1 PRN; Protocol PRN Reason: Hypoglycemia Ergocalciferol (Vitamin D) 50,000 unit PO WE RASHIDA Glucagon () 1 mg IM .X1 PRN PRN Reason: Hypoglycemia Sodium Chloride () 250 mls @ 15 mls/hr IV .[id number] PRN PRN Reason: Saline Flush Sodium Chloride () 250 mls @ 15 mls/hr IV .[id number] PRN PRN Reason: Additional IVPB Infusion Insulin Glargine (Lantus (Bkc)) 10 units SC QHS RASHIDA Insulin Human Lispro (Humalog Kwikpen (Bkc)) 0 unit SC TIDAC RASHIDA; Protocol Levothyroxine Sodium (Synthroid) 50 mcg PO DAILY@0600 RASHIDA Pantoprazole Sodium (Protonix) 40 mg PO DAILY RASHIDA Pregabalin (Lyrica) 100 mg PO BID RASHIDA Sodium Chloride () 10 - 40 ml IV UD PRN PRN Reason: SALINE FLUSH Assessment/Plan Patient seen and examined independently. Data reviewed. I agree with the above note by the nurse practitioner. 1. Dysphagia: I doubt any kind of neurologic process is contributing to this as he has no other focal deficits. Patient states he had some trouble speaking earlier but is having more stuttering and may been more anxiety induced. It sounds more mechanical such as something in his esophagus whether not to be stricture or some irritation. No evidence of any thrush so I doubt patient would have Sangeeta esophagitis. Plan is for the patient to see speech therapy and perform an esophagram. May need to have general surgery see him for possible EGD. 2. End-stage renal disease: Sees Dr. Shaw. Patient is on dialysis every Monday. He is due for his dialysis today and discussed with Dr. Shaw. 3. Advanced care planning: Patient wishes to be full CODE STATUS. OBSV E&M: 24901 Initial observation care L3
[2019-12-04] MEDS: Ketorolac 15 MG/ML Vial IV (15:36)
[2019-12-04] MEDS: 0.9% Saline Lock 10 ML Syringe IV ×2 (15:37→21:44)
--- NOTE | 2019-12-04 16:10 | CON.PCM_ITS ---
Consultation - Renal 12/04/19 PCP/ Referring MD: Requesting physician: [] Primary care physician: Dr. Laura Daly MD Reason for Consultation:: ESRD HD MWF - History of Present Illness History of Present Illness: The patient is a 49 year old obese M with ESRD due to diabetes, hypertension started HD during last hospitalization in August 2019 with TDC admitted as observation from ER for difficulty swallowing liquids or pills since Monday morning prior to dialysis. He has been incapacitated from his severe migraines, unable to tolerate his dialysis. He has been shortening his treatments and skipping treatments. He was referred to [facility] headache clinic with Dr. Rei Alves DO who started him on amitriptyline 10mg qhs, depakote 500mg qhs and rizatriptan/naratriptan for migraines. He had an MRI/MRA ordered by [facility]. CT head, neck done in ED as well. Reports/findings noted. Labs reviewed. HD today on 3K. - Allergies Allergies: Allergies No Known Allergies Allergy (Verified 09/26/19 11:35) - Current Medications Current Medications: Current Medications Carvedilol (Coreg) 25 mg PO BID [facility] Dextrose (D50w Syringe) 0 gm IV X1 PRN; Protocol PRN Reason: Hypoglycemia Ergocalciferol (Vitamin D) 50,000 unit PO WE [facility] Glucagon () 1 mg IM .X1 PRN PRN Reason: Hypoglycemia Sodium Chloride () 250 mls @ 15 mls/hr IV .[id number] PRN PRN Reason: Saline Flush Sodium Chloride () 250 mls @ 15 mls/hr IV .[id number] PRN PRN Reason: Additional IVPB Infusion Insulin Glargine (Lantus (Bkc)) 10 units SC QHS [facility] Insulin Human Lispro (Humalog Kwikpen (Bkc)) 0 unit SC TIDAC [facility]; Protocol Levothyroxine Sodium (Synthroid) 50 mcg PO DAILY@0600 [facility] Pantoprazole Sodium (Protonix) 40 mg PO DAILY [facility] Pregabalin (Lyrica) 100 mg PO BID [facility] Sodium Chloride () 10 - 40 ml IV UD PRN PRN Reason: SALINE FLUSH Last Admin: 12/04/19 15:37 Dose: 10 ml Documented by: - Past Medical History Past Medical History (Chronic Problems): Chronic Problems Hypertension (Chronic) GERD (gastroesophageal reflux disease) (Chronic) Hypothyroidism (Chronic) Diabetes mellitus type 2 in obese (Chronic) ESRD (end stage renal disease) on dialysis (Chronic) - Past Surgical History Surgical History: - - Social History Smoking Status: Never smoker Alcohol: None Drugs: None - Family History Maternal History Items: COPD Paternal History Items: - Sibling History Items: Diabetes Review of Systems Constitutional: Reports: Anorexia, Weakness. Denies: Chills, Fever HEENT: Reports: Difficulty Swallowing, Head Aches Cardiovascular: Denies: Chest Pain Respiratory: Denies: Cough, Shortness of Breath Gastrointestinal: Reports: Nausea. Denies: Vomiting Musculoskeletal: Denies: Joint swelling Skin: Denies: Rash Neurological: Reports: Balance problems, - - gen weakness chronic, uses wheelchair Psychiatric: Reports: Anxiety, Depression Hematologic/ Lymphatic: Reports: Anemia Patient Problems: Active and Suspected Problems Difficulty swallowing (Acute) - Physical Exam Vitals/I&O's: Vital Signs Temp Pulse Resp BP Pulse Ox 98.1 F 78 16 154/98 H 100 12/04/19 13:26 12/04/19 13:57 12/04/19 13:26 12/04/19 13:26 12/04/19 13:26 Oxygen Flow Rate (L/min) 2 Oxygen Delivery Method Room Air Weight: 158.122 kg Body Mass Index (BMI) 46.0 Finger Stick Blood Glucose 148 General: Alert, Oriented x3, Cooperative, - - in discomfort from headache Oral: Dry Mucosa Lungs: Clear to auscultation Cardiovascular: Regular rate Abdomen: Bowel Sounds Present, Soft, Non Tender, Obese Extremities: No edema Musculoskeletal: Muscle Wasting - BLE Psych/Mental Status: - - in pain from [place], Alert and oriented to time, place, person, mood and affect Laboratory Results 12/04/19 09:30: WBC 9.6, RBC 4.33 L, Hgb 12.4 L, Hct 37.8 L, MCV 87.3, MCH 28.6, MCHC 32.8, RDW Std Deviation 44.2 H, RDW Coeff of Baljit 13.9, Plt Count 301, MPV 9.6, Immature Gran % (Auto) 1.000 H, Neut % (Auto) 72.8 H, Lymph % (Auto) 17.1 L , Howard % (Auto) 7.1, Eos % (Auto) 1.5, Baso % (Auto) 0.5, Absolute Neuts (auto) 7.0, Absolute Lymphs (auto) 1.64, Nucleated RBC % 0 12/04/19 09:30: Sodium 138, Potassium 3.6, Chloride 101, Carbon Dioxide 26.0, Anion Gap 11, BUN 37 H, Creatinine 7.15 H, Estim Creat Clear Calc 14.28, Est GFR (MDRD) Af Amer 11 L, Est GFR (MDRD) Non-Af 9 L, BUN/Creatinine Ratio 5.2 L, Glucose 149 H, Calcium 9.2 12/04/19 09:30: POC Glucose 148 H Clinical Impression(s) from Imaging Studies Brain CT 12/04/19 09:18 IMPRESSION: Normal unenhanced CT scan of the brain. Multiple rounded calcific densities are seen within the scalp. Electronically Signed: Triston Bermudez at 10:50 EDT , Service support , Chest CT 12/04/19 09:18 IMPRESSION: Normal unenhanced CT Chest examination. Electronically Signed: Triston Bermudez at 10:52 EDT , Service support , Soft Tissue Neck CT 12/04/19 09:19 IMPRESSION: Atherosclerotic calcifications as described. A right-sided catheter is seen within the superior vena cava. Electronically Signed: Triston Bermudez at 11:00 EDT , Service support , Current Medications Carvedilol (Coreg) 25 mg PO BID [facility] Dextrose (D50w Syringe) 0 gm IV X1 PRN; Protocol PRN Reason: Hypoglycemia Ergocalciferol (Vitamin D) 50,000 unit PO WE [facility] Glucagon () 1 mg IM .X1 PRN PRN Reason: Hypoglycemia Sodium Chloride () 250 mls @ 15 mls/hr IV .[id number] PRN PRN Reason: Saline Flush Sodium Chloride () 250 mls @ 15 mls/hr IV .[id number] PRN PRN Reason: Additional IVPB Infusion Insulin Glargine (Lantus (Bkc)) 10 units SC QHS R[facility]IDA Insulin Human Lispro (Humalog Kwikpen (Bkc)) 0 unit SC TIDAC R[facility]IDA; Protocol Levothyroxine Sodium (Synthroid) 50 mcg PO DAILY@0600 [facility] Pantoprazole Sodium (Protonix) 40 mg PO DAILY [facility] Pregabalin (Lyrica) 100 mg PO BID [facility] Sodium Chloride () 10 - 40 ml IV UD PRN PRN Reason: SALINE FLUSH Last Admin: 12/04/19 15:37 Dose: 10 ml Documented by: Assessment/Plan All Active Problems Difficulty swallowing (Acute) 1/ ESRD HD today and qMWF 2. Severe migraines followed by [facility] clinic 3. Dysphagia w/u per primary service 4. HTN BP elevated, unable to swallow medications 5. Anemia hgb stable >11. Hold DEEDEE on dialysis 6. Hyperphosphatemia likely due to not taking binders. Check phos. Has not eaten since Monday
[2019-12-04] MEDS: Aspirin 300 MG Suppository RECTAL (16:58)
[2019-12-04 17:05] LABS: Bedside Glucose 88 mg/dL (70-110)
[2019-12-04 18:58] LABS: Phosphorus 5.3 mg/dL (2.5-4.9)
[2019-12-04] MEDS: Heparin 10,000 UNITS/10 ML Vial IV (20:30)
--- NOTE | 2019-12-04 20:36 | DIALYSIS ---
HD X 4 HRS OFF 36 MIN EARLY DUE TO VENOUS CHAMBER WITH CLOTS AND HIGH TMP. +200ML uf PT C/O HEADACHE POST TX. SUSANA SERRANO AWARE vitals stable
[2019-12-04 21:26] LABS: Bedside Glucose 86 mg/dL (70-110)
[2019-12-04] MEDS: hydrALAZINE 20 MG/ML Vial 5 MG IV (21:44)
[2019-12-05] VITALS (14 sets, daily range): BP systolic 133–181; BP diastolic 48–76; PULSE 81–99; RESP 16–19; TEMP 36.8–37; O2SAT 94–97; BMI 46.0
[2019-12-05] MEDS: hydrALAZINE 20 MG/ML Vial 5 MG IV ×2 (04:00→15:45)
[2019-12-05] MEDS: 0.9% Saline Lock 10 ML Syringe IV ×4 (04:00→17:14)
[2019-12-05 06:41] LABS: Bedside Glucose 89 mg/dL (70-110)
--- NOTE | 2019-12-05 08:00 | RAD_ITS ---
STUDY: X-RAY - ESOPHAGUS (BARIUM SWALLOW) WITH FLUOROSCOPY REASON FOR EXAM: Male, 49 years old. DIFFICULTY SWALLOWING, DISCOMFORT IN THROAT TECHNIQUE: 10 view(s) of the esophagus were obtained following swallowing of barium. FLUOROSCOPY TIME (if supplied): (1:20) minutes/seconds COMPARISON: None. FINDINGS: There is no demonstrated esophageal foreign body. The esophagus is dilated. There is irregular peristaltic activity of the entire esophagus. There is evidence of gastroesophageal reflux. Findings suggestive of chalasia of the distal gastroesophageal. Normal visualized aortic arch and descending thoracic aorta. Normal visualized pulmonary parenchyma. Normal visualized junction. Osseous structures of the thorax. RAD/Esophagus Single Contrast IMPRESSION: Decreased peristaltic activity of the esophagus with the gastroesophageal reflux. Chalasia of the distal esophagus should be ruled out. Electronically Signed: Triston Bermudez, at 10:11 EDT , Service support ,
[2019-12-05] MEDS: dexAMETHasone 10 MG/ML Vial IV (10:13)
--- NOTE | 2019-12-05 11:52 | PN.RENAL_ITS ---
Patient Problems: Active and Suspected Problems Difficulty swallowing (Acute) Subjective: still with migraines, remains NPO. Barium swallow showed chalasia - Physical Exam Vitals/I&O's: Vital Signs Temp Pulse Resp BP Pulse Ox 98.6 F 81 16 156/48 H 95 12/05/19 09:42 12/05/19 09:42 12/05/19 09:42 12/05/19 09:42 12/05/19 09:42 Oxygen Flow Rate (L/min) 2 Oxygen Delivery Method Room Air Weight: 152.6 kg Body Mass Index (BMI) 46.0 Finger Stick Blood Glucose 148 Intake and Output for Last 24 Hours 12/03/19 12/04/19 12/05/19 23:59 23:59 23:59 Intake Total 100 / 100 0 / 0 Balance 100 / 100 0 / 0 General: Alert, Oriented x3, - Lungs: Clear to auscultation Cardiovascular: Regular rate Extremities: No edema Psych/Mental Status: Depressed, Alert and oriented to time, place, person, mood and affect Laboratory Results 12/04/19 09:30: Phosphorus 5.3 H 12/04/19 16:57: POC Glucose 88 12/04/19 21:17: POC Glucose 86 12/05/19 06:37: POC Glucose 89 Current Medications Carvedilol (Coreg) 25 mg PO BID [facility] Last Admin: 12/05/19 11:01 Dose: Not Given Documented by: Dextrose (D50w Syringe) 0 gm IV X1 PRN; Protocol PRN Reason: Hypoglycemia Ergocalciferol (Vitamin D) 50,000 unit PO [facility] Last Admin: 12/04/19 17:06 Dose: Not Given Documented by: Glucagon () 1 mg IM .X1 PRN PRN Reason: Hypoglycemia Hydralazine HCl (Apresoline Iv) 5 mg IV Q6H PRN PRN PRN Reason: for SBP>170 Last Admin: 12/05/19 04:00 Dose: 5 mg Documented by: Sodium Chloride () 250 mls @ 15 mls/hr IV .[id number] PRN PRN Reason: Saline Flush Sodium Chloride () 250 mls @ 15 mls/hr IV .[id number] PRN PRN Reason: Additional IVPB Infusion Insulin Glargine (Lantus (Bkc)) 10 units SC QHS [facility] Last Admin: 12/04/19 21:42 Dose: Not Given Documented by: Insulin Human Lispro (Humalog Kwikpen (Bkc)) 0 unit SC TIDAC [facility]; Protocol Last Admin: 12/05/19 06:38 Dose: Not Given Documented by: Levothyroxine Sodium (Synthroid) 50 mcg PO DAILY@0600 [facility] Last Admin: 12/05/19 05:27 Dose: Not Given Documented by: Ondansetron HCl (Zofran) 4 mg IV Q6H PRN PRN PRN Reason: NAUSEA Pantoprazole Sodium (Protonix) 40 mg PO DAILY [facility] Last Admin: 12/05/19 11:01 Dose: Not Given Documented by: Pregabalin (Lyrica) 100 mg PO BID [facility] Last Admin: 12/05/19 11:01 Dose: Not Given Documented by: Promethazine HCl (Phenergan) 6.25 mg IV Q6H PRN PRN PRN Reason: NAUSEA/VOMITING Sodium Chloride () 10 - 40 ml IV UD PRN PRN Reason: SALINE FLUSH Last Admin: 12/05/19 10:13 Dose: 10 ml Documented by: Medical Necessity - Tobacco Use Smoking Status: Never smoker Tobacco Use: Non-smoker Assessment/Plan All Active Problems Difficulty swallowing (Acute) 1/ ESRD HD qMWF. Dialyzed last night 2. Severe migraines followed by [facility] headache clinic. Resume depakote, amitriptyline when taking po 3. Dysphagia w/u per primary service. Barium swallow today showed chalasia 4. HTN BP elevated, unable to swallow medications 5. Anemia hgb stable
[2019-12-05] MEDS: Ondansetron 4 MG/2 ML Vial IV (12:41)
[2019-12-05 12:46] LABS: Bedside Glucose 135 mg/dL (70-110)
--- NOTE | 2019-12-05 14:18 | PN_ITS ---
<Raffi Thompson - Last Filed: 12/05/19 14:18> Patient Problems: Active and Suspected Problems Difficulty swallowing (Acute) Reason for Visit: swallowing difficulty Subjective: Pt with decreased peristalsis on swallow study. He c/o nausea and migraine. No SOB/cough/fever/chills. Vitals/I&O's: Vital Signs Temp Pulse Resp BP Pulse Ox 98.6 F 81 16 156/48 H 95 12/05/19 09:42 12/05/19 09:42 12/05/19 09:42 12/05/19 09:42 12/05/19 09:42 Oxygen Flow Rate (L/min) 2 Oxygen Delivery Method Room Air Weight: 336 lb 6.806 oz Body Mass Index (BMI) 46.0 Finger Stick Blood Glucose 148 Intake and Output for Last 24 Hours 12/03/19 12/04/19 12/05/19 23:59 23:59 23:59 Intake Total 100 / 100 0 / 0 Balance 100 / 100 0 / 0 General: Alert, Oriented x3, Cooperative HEENT: Atraumatic, PERRLA, EOMI, Normocephalic Neck: Supple, No JVD, Negative Carotid Bruits Lungs: Clear to auscultation, Normal air movement Cardiovascular: Regular rate, No murmurs Abdomen: Bowel Sounds Present, Soft, Non Tender Extremities: No edema, Capillary Refill Less than 3 Seconds Skin: No rashes, No breakdown Musculoskeletal: No Tenderness to Palpation of Joints or Extremities Neurological: Cranial nerves II-XII grossly intact Psych/Mental Status: Normal Affect, Appropriate, Alert and oriented to time, place, person, mood and affect Laboratory Results 12/04/19 09:30: Phosphorus 5.3 H 12/04/19 16:57: POC Glucose 88 12/04/19 21:17: POC Glucose 86 12/05/19 06:37: POC Glucose 89 12/05/19 12:36: POC Glucose 135 H Current Medications Carvedilol (Coreg) 25 mg PO BID [facility] Last Admin: 12/05/19 11:01 Dose: Not Given Documented by: Dextrose (D50w Syringe) 0 gm IV X1 PRN; Protocol PRN Reason: Hypoglycemia Ergocalciferol (Vitamin D) 50,000 unit PO WE [facility] Last Admin: 12/04/19 17:06 Dose: Not Given Documented by: Glucagon () 1 mg IM .X1 PRN PRN Reason: Hypoglycemia Hydralazine HCl (Apresoline Iv) 5 mg IV Q6H PRN PRN PRN Reason: for SBP>170 Last Admin: 12/05/19 04:00 Dose: 5 mg Documented by: Sodium Chloride () 250 mls @ 15 mls/hr IV .[id number] PRN PRN Reason: Saline Flush Sodium Chloride () 250 mls @ 15 mls/hr IV .[id number] PRN PRN Reason: Additional IVPB Infusion Insulin Glargine (Lantus ([facility])) 10 units SC QHS [facility] Last Admin: 12/04/19 21:42 Dose: Not Given Documented by: Insulin Human Lispro (Humalog Kwikpen ([facility])) 0 unit SC TIDAC [facility]; Protocol Last Admin: 12/05/19 12:58 Dose: Not Given Documented by: Levothyroxine Sodium (Synthroid) 50 mcg PO DAILY@0600 [facility] Last Admin: 12/05/19 05:27 Dose: Not Given Documented by: Ondansetron HCl (Zofran) 4 mg IV Q6H PRN PRN PRN Reason: NAUSEA Last Admin: 12/05/19 12:41 Dose: 4 mg Documented by: Pantoprazole Sodium (Protonix) 40 mg PO DAILY [facility] Last Admin: 12/05/19 11:01 Dose: Not Given Documented by: Pregabalin (Lyrica) 100 mg PO BID [facility] Last Admin: 12/05/19 11:01 Dose: Not Given Documented by: Promethazine HCl (Phenergan) 6.25 mg IV Q6H PRN PRN PRN Reason: NAUSEA/VOMITING Sodium Chloride () 10 - 40 ml IV UD PRN PRN Reason: SALINE FLUSH Last Admin: 12/05/19 12:41 Dose: 10 ml Documented by: Medical Necessity - Tobacco Use Smoking Status: Never smoker Tobacco Use: Non-smoker Assessment/Plan All Active Problems Difficulty swallowing (Acute) 1. Difficulty swallowing - o/p MRI brain neg for stroke. Decreased peristalsis on imaging today. ST following. No suspicion for aspiration pna at this time. Pt has been made NPO today due to severe dysphagia. Pt will need o/p referral to GI. Probable chalasia unclear etiology. 2. Severe, recurrent Migraine- received IV decadron, toradol, antiemetics. this is complicated by inability to have PO intake at this time. Pt is supposed to be on depakote, elavil as o/p/.. He follows migraine specialist as an o/p. 3. DMt2 with morbid obesity - SSI, lantus. 4. ESRD - dialysis per Dr. Shaw. 5. Hypothyroidism - synthroid 6. GERD - PPI. 7. HTN - prn hydralazine DVT ppx: heparin This patient was seen by Raffi Thompson PA-C under the supervision of Dr. Verduzco <Rei Verduzco - Last Filed: 12/05/19 15:11> Vitals/I&O's: Vital Signs Temp Pulse Resp BP Pulse Ox 37.0 C 81 16 156/48 H 95 12/05/19 09:42 12/05/19 09:42 12/05/19 09:42 12/05/19 09:42 12/05/19 09:42 Oxygen Flow Rate (L/min) 2 Oxygen Delivery Method Room Air Weight: 152.6 kg Body Mass Index (BMI) 46.0 Finger Stick Blood Glucose 148 Intake and Output for Last 24 Hours 12/03/19 12/04/19 12/05/19 23:59 23:59 23:59 Intake Total 100 / 100 0 / 0 Balance 100 / 100 0 / 0 General: Alert, Cooperative HEENT: Atraumatic, Normocephalic Lungs: Clear to auscultation, Normal air movement, No rhonchi, No wheeze Cardiovascular: Regular rate, No murmurs Abdomen: Bowel Sounds Present, Soft, Non Tender Extremities: No edema, No Calf Tenderness Psych/Mental Status: Normal Affect, Appropriate Laboratory Results 12/04/19 09:30: Phosphorus 5.3 H 12/04/19 16:57: POC Glucose 88 12/04/19 21:17: POC Glucose 86 12/05/19 06:37: POC Glucose 89 12/05/19 12:36: POC Glucose 135 H Current Medications Carvedilol (Coreg) 25 mg PO BID [facility] Last Admin: 12/05/19 11:01 Dose: Not Given Documented by: Dextrose (D50w Syringe) 0 gm IV X1 PRN; Protocol PRN Reason: Hypoglycemia Ergocalciferol (Vitamin D) 50,000 unit PO WE [facility] Last Admin: 12/04/19 17:06 Dose: Not Given Documented by: Glucagon () 1 mg IM .X1 PRN PRN Reason: Hypoglycemia Heparin Sodium (Porcine) (Heparin Na) 5,000 unit SC Q8 [facility] Hydralazine HCl (Apresoline Iv) 5 mg IV Q6H PRN PRN PRN Reason: for SBP>170 Last Admin: 12/05/19 04:00 Dose: 5 mg Documented by: Sodium Chloride () 250 mls @ 15 mls/hr IV .[id number] PRN PRN Reason: Saline Flush Sodium Chloride () 250 mls @ 15 mls/hr IV .[id number] PRN PRN Reason: Additional IVPB Infusion Pantoprazole Sodium 40 mg/ (Sodium Chloride) 110 mls @ 330 mls/hr IV Q24 [facility] Insulin Glargine (Lantus (Bkc)) 10 units SC QHS [facility] Last Admin: 12/04/19 21:42 Dose: Not Given Documented by: Insulin Human Lispro (Humalog Kwikpen (Bkc)) 0 unit SC TIDAC [facility]; Protocol Last Admin: 12/05/19 12:58 Dose: Not Given Documented by: Levothyroxine Sodium (Synthroid) 50 mcg PO DAILY@0600 [facility] Last Admin: 12/05/19 05:27 Dose: Not Given Documented by: Ondansetron HCl (Zofran) 4 mg IV Q6H PRN PRN PRN Reason: NAUSEA Last Admin: 12/05/19 12:41 Dose: 4 mg Documented by: Pregabalin (Lyrica) 100 mg PO BID [facility] Last Admin: 12/05/19 11:01 Dose: Not Given Documented by: Promethazine HCl (Phenergan) 6.25 mg IV Q6H PRN PRN PRN Reason: NAUSEA/VOMITING Sodium Chloride () 10 - 40 ml IV UD PRN PRN Reason: SALINE FLUSH Last Admin: 12/05/19 12:41 Dose: 10 ml Documented by: Assessment/Plan Patient seen and examined independently. Data reviewed. I agree with the above note by the physician horticultural nursery assistant. 1. Dysphagia: * I doubt any kind of neurologic process is contributing to this as he has no other focal deficits. Patient states he had some trouble speaking earlier but is having more stuttering and may been more anxiety induced. * Esophogram showed possible chalasia at distal esophagus * Initiate SL NTG before meals to see if helps 2. Migraine * has been started on Depakote and amytriptiline by his headache neurologist, Dr. Alves. * Will give 1 x dose of 10 g of dexamethasone. 3. End-stage renal disease: Sees Dr. Shaw. Patient is on dialysis every Monday. He is due for his dialysis today and discussed with Dr. Shaw. 4. Advanced care planning: Patient wishes to be full CODE STATUS. OBSV E&M: [id number] Subsequent observation care L2
--- NOTE | 2019-12-05 14:19 | SP.MBSS_ITS ---
Primary/Secondary Diagnosis: pharyngoesophageal dysphagia (R13.12) Referring Physician: Dr. Jina Verduzco Medical History: Patient is a 49/m with pmhx of DM2, HTN, ESRD, GERD, and hypothyroidism. Patient presented to [facility] ED on 12/04/2019 with difficult swallowing. Patient reported no change in swallowing function given different viscosities of PO intake. Patient denies pain with swallowing. Patient is edentulous and does not wear dentures at home. Patient's voice is hoarse with patient reporting recent change in vocal quality with difficulty swallowing. Reason for Referral: difficulty swallowing Current Diet: NPO Dentition: Edentulous Mental Status: WNL Respiratory Status: oxygenating on room air Previous Modified Barium Swallow: N/A Study Findings: This patient was seen for a Modified Barium Swallow on 12/05/2019. This study was recorded in the lateral view and images were sent to PACs for storage.The following consistencies were presented to this patient for analysis of oropharyngeal swallow function: thin liquid, nectar thick liquid, pudding, and a cookie. Oral Phase Labial seal: no labial escape Tongue control during bolus hold: escape to lateral buccal cavity/floor of mouth Bolus preparation/mastication: disorganized chewing/mashing with solid pieces of bolus unchewed Bolus transport/lingual motion: slowed tongue motion Oral residue: residue collection on oral structures Pharyngeal Phase Initiation of pharyngeal swallow: bolus head in pyriforms Soft palate elevation: no bolus between soft palate and pharyngeal wall Laryngeal elevation: partial superior movement of thyroid cartilage/partial approximation of arytenoids cartilage to epiglottic petiole Anterior hyoid excursion:partial anterior movement Epiglottic movement: complete inversion Laryngeal vestibule closure at height of swallow: incomplete; narrow column of air/contrast in laryngeal vestibule none Pharyngeal stripping wave: present-diminished Pharyngoesophageal segment opening: minimal distension and minimal duration; marked obstruction of flow Tongue base retraction: narrow column of contrast between tongue base and posterior pharyngeal wall Pharyngeal residue: collection of residue within or on pharyngeal structures Esophageal Phase Esophageal bolus clearance in the upright position:esophageal retention with retrograde backflow through pharyngoesophageal segment (PES) Penetration-Aspiration Scale 1 = does not enter airway 2 = enters airway/above vocal folds/ejected 3 = enters airway/above vocal folds/not ejected 4 = enters airway/contacts vocal folds/ejected 5 = enters airway/contacts vocal folds/not ejected 6 = enters airway/below vocal folds/ejected 7 = enters airway/below vocal folds/not ejected despite effort 8 = enters airway/below vocal folds/no effort Penetration-Aspiration Scale Score: 1) thin liquids via teaspoon = 1 2) thin liquids via small single sip from cup = 2 3) thin liquids via large single sip from cup = 2 4) thin liquids via sequential sips from cup= 8 5) nectar thick liquids via single small sip from cup = 8 6) honey thick liquids via single small sip from cup= 5 7) pudding = 5 8) thin liquids via sequential sips via straw = 8 9) cookie= 8 Diagnosis: moderate-severe pharyngoesophageal dysphagia (R13.14) Impression: Patient presented with silent aspiration of thin liquids, nectar liquids and Monica Doone cookie from refuxed contents pooling and coming back up through pharyngoesophageal segment with all three. Highly suspect esophageal dysmotility (Barium x-ray pending). Despite whole piece of Monica Doone cookie spilling to valleculae, patient reported no sensation of food getting stuck. Patient found to take multiple swallows to clear pharyngeal residue with almost all trials times unsuccessfully as food and liquid were not moving with gravity rather noting to reflux up through pharyngoesophageal segment. Will recommend NPO status with plan to follow up with re-assessment of swallow function. Recommendations Diet: NPO Need for Skilled Speech Therapy Services: continued skilled ST intervention recommended to determine presence/degree of aspiration and determine least restrictive means of hydration/nutrition without aspiration. ADDITIONAL COMMENTS/RECOMMENDATIONS: Results of Modified Barium Swallow (MBS) study reviewed with the patient following evaluation with patient demonstrating understanding and agreement with plan.
[2019-12-05 16:10] LABS: Bedside Glucose 161 mg/dL (70-110)
[2019-12-05] MEDS: Nitroglycerin (INPATIENT USE) 0.4 MG TAB.SUBL SUBLINGUAL (17:23)
[2019-12-05] MEDS: Heparin Injection (Vial) 5,000 UNIT/ML VIAL 5000 UNIT SC (21:43)
[2019-12-05 21:51] LABS: Bedside Glucose 175 mg/dL (70-110)
[2019-12-06] VITALS (19 sets, daily range): BP systolic 101–172; BP diastolic 51–93; PULSE 69–94; RESP 16–18; TEMP 36.5–36.8; O2SAT 93–100; BMI 46.0
[2019-12-06] MEDS: Heparin Injection (Vial) 5,000 UNIT/ML VIAL 5000 UNIT SC ×3 (05:24→21:41)
[2019-12-06 06:46] LABS: Anion Gap 15 (5-15); BUN 33 mg/dL (7-18); BUN/Creat Ratio 5.4 RATIO (10-20); Calcium,Total 8.8 mg/dL (8.5-10.1); Chloride 98 mmol/L (98-107); Creatinine, Serum 6.12 mg/dL (0.70-1.30); EST Glomerular Filtration Rate 10 mL/min (>60); Est Glom Filt Rate - Afr Amer 13 mL/min (>60); Estimated Creatinine Clearance 16.68 ml/min; Glucose 158 mg/dL (74-106); Sodium Level 136 mmol/L (136-145)
[2019-12-06] MEDS: Nitroglycerin (INPATIENT USE) 0.4 MG TAB.SUBL SUBLINGUAL ×2 (06:50→12:31)
[2019-12-06 06:55] LABS: Bedside Glucose 140 mg/dL (70-110)
[2019-12-06] MEDS: 0.9% Saline Lock 10 ML Syringe IV ×3 (09:10→17:13)
[2019-12-06] MEDS: Ondansetron 4 MG/2 ML Vial IV ×2 (09:10→17:13)
--- NOTE | 2019-12-06 11:55 | CASEMGMT ---
According to the [facility] website, the following are in-network tertiary facilities: [facility], [facility], [place], [facility], [facility], [place], [facility], and . Cherie SERRANO CM
[2019-12-06 12:56] LABS: Bedside Glucose 134 mg/dL (70-110)
--- NOTE | 2019-12-06 13:08 | PCM.PN.HOSP ---
<Raffi Thompson - Last Filed: 12/06/19 13:08> Patient Problems: Active and Suspected Problems Difficulty swallowing (Acute) Reason for Visit: dysphagia Subjective: Pt resting comfortably in bed NAD. Migraine resolved this AM. Still some residual nausea. No cough or SOB. No fever/chills. Pt failed swallow test with ST today after nitro. Vitals/I&O's: Vital Signs Temp Pulse Resp BP Pulse Ox 98.0 F 91 17 144/68 H 96 12/06/19 08:55 12/06/19 12:31 12/06/19 08:55 12/06/19 12:31 12/06/19 08:55 Oxygen Flow Rate (L/min) 2 Oxygen Delivery Method Room Air Weight: 321 lb 10.471 oz Body Mass Index (BMI) 46.0 Finger Stick Blood Glucose 148 Intake and Output for Last 24 Hours 12/04/19 12/05/19 12/06/19 23:59 23:59 23:59 Intake Total 100 / 100 110 / 110 Output Total 0 / 0 0 / 0 Balance 100 / 100 110 / 110 General: Alert, Oriented x3, Cooperative HEENT: Atraumatic, PERRLA, EOMI, Normocephalic Neck: Supple, No JVD, Negative Carotid Bruits Lungs: Clear to auscultation, Normal air movement Cardiovascular: Regular rate, No murmurs Abdomen: Bowel Sounds Present, Soft, Non Tender, Obese Extremities: No edema, Capillary Refill Less than 3 Seconds Skin: No rashes, No breakdown Musculoskeletal: No Tenderness to Palpation of Joints or Extremities Neurological: Cranial nerves II-XII grossly intact Psych/Mental Status: Normal Affect, Appropriate Laboratory Results 12/05/19 16:03: POC Glucose 161 H 12/05/19 21:45: POC Glucose 175 H 12/06/19 06:01: Sodium 136, Potassium 4.0, Chloride 98, Carbon Dioxide 23.0, Anion Gap 15, BUN 33 H, Creatinine 6.12 H, Estim Creat Clear Calc 16.68, Est GFR (MDRD) Af Amer 13 L, Est GFR (MDRD) Non-Af 10 L, BUN/Creatinine Ratio 5.4 L, Glucose 158 H, Calcium 8.8 12/06/19 06:43: POC Glucose 140 H 12/06/19 11:24: POC Glucose 134 H Current Medications Carvedilol (Coreg) 25 mg PO BID [facility] Last Admin: 12/06/19 08:49 Dose: Not Given Documented by: Dextrose (D50w Syringe) 0 gm IV X1 PRN; Protocol PRN Reason: Hypoglycemia Ergocalciferol (Vitamin D) 50,000 unit PO WE [facility] Last Admin: 12/04/19 17:06 Dose: Not Given Documented by: Glucagon () 1 mg IM .X1 PRN PRN Reason: Hypoglycemia Heparin Sodium (Porcine) (Heparin Na) 5,000 unit SC Q8 [facility] Last Admin: 12/06/19 05:24 Dose: 5,000 unit Documented by: Hydralazine HCl (Apresoline Iv) 5 mg IV Q6H PRN PRN PRN Reason: for SBP>170 Last Admin: 12/05/19 15:45 Dose: 5 mg Documented by: Sodium Chloride () 250 mls @ 15 mls/hr IV .[id number] PRN PRN Reason: Saline Flush Sodium Chloride () 250 mls @ 15 mls/hr IV .[id number] PRN PRN Reason: Additional IVPB Infusion Pantoprazole Sodium 40 mg/ (Sodium Chloride) 110 mls @ 330 mls/hr IV Q24 [facility] Last Admin: 12/06/19 11:25 Dose: 330 mls/hr Documented by: Insulin Glargine (Lantus (Bkc)) 10 units SC QHS [facility] Last Admin: 12/05/19 21:49 Dose: Not Given Documented by: Insulin Human Lispro (Humalog Kwikpen (Bkc)) 0 unit SC TIDAC [facility]; Protocol Last Admin: 12/06/19 11:24 Dose: Not Given Documented by: Levothyroxine Sodium (Synthroid) 50 mcg PO DAILY@0600 [facility] Last Admin: 12/06/19 05:26 Dose: Not Given Documented by: Nitroglycerin (Nitrostat) 0.4 mg SUBLINGUAL TIDAC [facility] Last Admin: 12/06/19 12:31 Dose: 0.4 mg Documented by: Ondansetron HCl (Zofran) 4 mg IV Q6H PRN PRN PRN Reason: NAUSEA Last Admin: 12/06/19 09:10 Dose: 4 mg Documented by: Pregabalin (Lyrica) 100 mg PO BID [facility] Last Admin: 12/06/19 08:49 Dose: Not Given Documented by: Promethazine HCl (Phenergan) 6.25 mg IV Q6H PRN PRN PRN Reason: NAUSEA/VOMITING Sodium Chloride () 10 - 40 ml IV UD PRN PRN Reason: SALINE FLUSH Last Admin: 12/06/19 11:26 Dose: 10 ml Documented by: STROKE Vital Signs/Narrative: Vital Signs Pulse BP 12/06/19 12:31 91 144/68 H Medical Necessity - Tobacco Use Smoking Status: Never smoker Tobacco Use: Non-smoker Assessment/Plan All Active Problems Difficulty swallowing (Acute) 1. Difficulty swallowing - o/p MRI brain neg for stroke. Decreased peristalsis on imaging today. ST following. No suspicion for aspiration pna at this time. Pt has been made NPO today due to severe dysphagia. Pt will need referral to GI i/p vs o/p to be determined. Probable chalasia unclear etiology. -Pt states GI saw him at [facility] 3-4 years ago and he was diagnosed with nerve dysfunction of the distal esophagus. -trial nitro pre meals -consult neuro -NPO day # 2 -unable to obtain NCS/EMG here as inpatient. 2. Severe, recurrent Migraine - Migraine from yesterday is resolved. this is complicated by inability to have PO intake at this time. Pt is supposed to be on depakote, elavil as o/p, however he remains npo so he cannot restart these at this time. He follows migraine specialist as an o/p. 3. DMt2 with morbid obesity - SSI. hold lantus (npo) 4. ESRD - dialysis per Dr. Shaw. 5. Hypothyroidism - synthroid 6. GERD - PPI. 7. HTN - prn hydralazine DVT ppx: heparin This patient was seen by Raffi Thompson PA-C under the supervision of Dr. Verduzco <Rei Verduzco - Last Filed: 12/06/19 13:26> Vitals/I&O's: Vital Signs Temp Pulse Resp BP Pulse Ox 36.7 C 91 17 144/68 H 96 12/06/19 08:55 12/06/19 12:31 12/06/19 08:55 12/06/19 12:31 12/06/19 08:55 Oxygen Flow Rate (L/min) 2 Oxygen Delivery Method Room Air Weight: 145.9 kg Body Mass Index (BMI) 46.0 Finger Stick Blood Glucose 148 Intake and Output for Last 24 Hours 12/04/19 12/05/19 12/06/19 23:59 23:59 23:59 Intake Total 100 / 100 110 / 110 130 / 130 Output Total 0 / 0 0 / 0 Balance 100 / 100 110 / 110 130 / 130 General: Alert, Cooperative, - - seak voice HEENT: Atraumatic, Normocephalic Lungs: Clear to auscultation, Normal air movement, No rhonchi, No wheeze Cardiovascular: Regular rate, Regular Rhythm, Normal S1, Normal S2 Abdomen: Bowel Sounds Present, Soft, Non Tender, Non-Distended Laboratory Results 12/05/19 16:03: POC Glucose 161 H 12/05/19 21:45: POC Glucose 175 H 12/06/19 06:01: Sodium 136, Potassium 4.0, Chloride 98, Carbon Dioxide 23.0, Anion Gap 15, BUN 33 H, Creatinine 6.12 H, Estim Creat Clear Calc 16.68, Est GFR (MDRD) Af Amer 13 L, Est GFR (MDRD) Non-Af 10 L, BUN/Creatinine Ratio 5.4 L, Glucose 158 H, Calcium 8.8 12/06/19 06:43: POC Glucose 140 H 12/06/19 11:24: POC Glucose 134 H Current Medications Carvedilol (Coreg) 25 mg PO BID [facility] Last Admin: 12/06/19 08:49 Dose: Not Given Documented by: Dextrose (D50w Syringe) 0 gm IV X1 PRN; Protocol PRN Reason: Hypoglycemia Ergocalciferol (Vitamin D) 50,000 unit PO WE [facility] Last Admin: 12/04/19 17:06 Dose: Not Given Documented by: Glucagon () 1 mg IM .X1 PRN PRN Reason: Hypoglycemia Heparin Sodium (Porcine) (Heparin Na) 5,000 unit SC Q8 [facility] Last Admin: 12/06/19 05:24 Dose: 5,000 unit Documented by: Hydralazine HCl (Apresoline Iv) 5 mg IV Q6H PRN PRN PRN Reason: for SBP>170 Last Admin: 12/05/19 15:45 Dose: 5 mg Documented by: Sodium Chloride () 250 mls @ 15 mls/hr IV .[id number] PRN PRN Reason: Saline Flush Sodium Chloride () 250 mls @ 15 mls/hr IV .[id number] PRN PRN Reason: Additional IVPB Infusion Pantoprazole Sodium 40 mg/ (Sodium Chloride) 110 mls @ 330 mls/hr IV Q24 [facility] Last Infusion: 12/06/19 11:50 Dose: Infused Documented by: Insulin Human Lispro (Humalog Kwikpen (Bkc)) 0 unit SC TIDAC [facility]; Protocol Last Admin: 12/06/19 11:24 Dose: Not Given Documented by: Levothyroxine Sodium (Synthroid) 50 mcg PO DAILY@0600 [facility] Last Admin: 12/06/19 05:26 Dose: Not Given Documented by: Nitroglycerin (Nitrostat) 0.4 mg SUBLINGUAL TIDAC [facility] Last Admin: 12/06/19 12:31 Dose: 0.4 mg Documented by: Ondansetron HCl (Zofran) 4 mg IV Q6H PRN PRN PRN Reason: NAUSEA Last Admin: 12/06/19 09:10 Dose: 4 mg Documented by: Pregabalin (Lyrica) 100 mg PO BID [facility] Last Admin: 12/06/19 08:49 Dose: Not Given Documented by: Promethazine HCl (Phenergan) 6.25 mg IV Q6H PRN PRN PRN Reason: NAUSEA/VOMITING Sodium Chloride () 10 - 40 ml IV UD PRN PRN Reason: SALINE FLUSH Last Admin: 12/06/19 11:26 Dose: 10 ml Documented by: STROKE Vital Signs/Narrative: Vital Signs Pulse BP 12/06/19 12:31 91 144/68 H 12/06/19 11:00 91 Assessment/Plan Patient seen and examined independently. Data reviewed. I agree with the above note by the physician dietary assistant. 1. Dysphagia: I am now concerned, given his silent aspiration, that there maybe something neurologic occurring (ALS, etc.) Esophogram showed possible chalasia at distal esophagus Initiate SL NTG before meals to see if helps continue speech therapy continue NPO unable to do EMG/NCT at this time at this facility 2. Migraine has been started on Depakote and amytriptiline by his headache neurologist, Dr. Alves. Improved after decadron, he is concerned it may recur with HD. 3. End-stage renal disease: Sees Dr. Shaw. Patient is on dialysis every Monday. He is due for his dialysis today and discussed with Dr. Shaw. 4. Advanced care planning: Patient wishes to be full CODE STATUS. Inpatient E&M: 54046 Subs Hosp L2
--- NOTE | 2019-12-06 13:51 | PCM.PN.REN ---
Patient Problems: Active and Suspected Problems Difficulty swallowing (Acute) Subjective: still not able to swallow pills, water, or even his saliva since Monday last week. Occasional cough. Denied SOB, edema. No effect with sl nitro. Will need transferred for management of chalasia. Migraine headache stable. Seen at start of dialysis. - Physical Exam Vitals/I&O's: Vital Signs Temp Pulse Resp BP Pulse Ox 98.0 F 91 17 144/68 H 96 12/06/19 08:55 12/06/19 12:31 12/06/19 08:55 12/06/19 12:31 12/06/19 08:55 Oxygen Flow Rate (L/min) 2 Oxygen Delivery Method Room Air Weight: 145.9 kg Body Mass Index (BMI) 46.0 Finger Stick Blood Glucose 148 Intake and Output for Last 24 Hours 12/04/19 12/05/19 12/06/19 23:59 23:59 23:59 Intake Total 100 / 100 110 / 110 130 / 130 Output Total 0 / 0 0 / 0 Balance 100 / 100 110 / 110 130 / 130 General: Alert, Oriented x3, Cooperative Neck: Supple Lungs: Clear to auscultation Cardiovascular: Regular rate Abdomen: Soft, Obese Extremities: No edema Musculoskeletal: Muscle Wasting, - - gen weakness Neurological: - - no tremor Psych/Mental Status: Normal Affect, Appropriate, Alert and oriented to time, place, person, mood and affect Laboratory Results 12/05/19 16:03: POC Glucose 161 H 12/05/19 21:45: POC Glucose 175 H 12/06/19 06:01: Sodium 136, Potassium 4.0, Chloride 98, Carbon Dioxide 23.0, Anion Gap 15, BUN 33 H, Creatinine 6.12 H, Estim Creat Clear Calc 16.68, Est GFR (MDRD) Af Amer 13 L, Est GFR (MDRD) Non-Af 10 L, BUN/Creatinine Ratio 5.4 L, Glucose 158 H, Calcium 8.8 12/06/19 06:43: POC Glucose 140 H 12/06/19 11:24: POC Glucose 134 H Current Medications Carvedilol (Coreg) 25 mg PO BID [facility] Last Admin: 12/06/19 08:49 Dose: Not Given Documented by: Dextrose (D50w Syringe) 0 gm IV X1 PRN; Protocol PRN Reason: Hypoglycemia Ergocalciferol (Vitamin D) 50,000 unit PO WE [facility] Last Admin: 12/04/19 17:06 Dose: Not Given Documented by: Glucagon () 1 mg IM .X1 PRN PRN Reason: Hypoglycemia Heparin Sodium (Porcine) (Heparin Na) 5,000 unit SC Q8 [facility] Last Admin: 12/06/19 05:24 Dose: 5,000 unit Documented by: Hydralazine HCl (Apresoline Iv) 5 mg IV Q6H PRN PRN PRN Reason: for SBP>170 Last Admin: 12/05/19 15:45 Dose: 5 mg Documented by: Sodium Chloride () 250 mls @ 15 mls/hr IV .[id number] PRN PRN Reason: Saline Flush Sodium Chloride () 250 mls @ 15 mls/hr IV .[id number] PRN PRN Reason: Additional IVPB Infusion Pantoprazole Sodium 40 mg/ (Sodium Chloride) 110 mls @ 330 mls/hr IV Q24 [facility] Last Infusion: 12/06/19 11:50 Dose: Infused Documented by: Insulin Human Lispro (Humalog Kwikpen (Bkc)) 0 unit SC TIDAC [facility]; Protocol Last Admin: 12/06/19 11:24 Dose: Not Given Documented by: Levothyroxine Sodium (Synthroid) 50 mcg PO DAILY@0600 [facility] Last Admin: 12/06/19 05:26 Dose: Not Given Documented by: Nitroglycerin (Nitrostat) 0.4 mg SUBLINGUAL TIDAC [facility] Last Admin: 12/06/19 12:31 Dose: 0.4 mg Documented by: Ondansetron HCl (Zofran) 4 mg IV Q6H PRN PRN PRN Reason: NAUSEA Last Admin: 12/06/19 09:10 Dose: 4 mg Documented by: Pregabalin (Lyrica) 100 mg PO BID [facility] Last Admin: 12/06/19 08:49 Dose: Not Given Documented by: Promethazine HCl (Phenergan) 6.25 mg IV Q6H PRN PRN PRN Reason: NAUSEA/VOMITING Sodium Chloride () 10 - 40 ml IV UD PRN PRN Reason: SALINE FLUSH Last Admin: 12/06/19 11:26 Dose: 10 ml Documented by: Medical Necessity - Tobacco Use Smoking Status: Never smoker Tobacco Use: Non-smoker Assessment/Plan All Active Problems Difficulty swallowing (Acute) 1/ ESRD HD qMWF. Dialysis initiated 2. Severe migraines followed by [facility] headache clinic. Resume depakote when taking po. Suggest holding amitriptyline started by headache clinic for migraines due to anticholinergic effect. 3. Dysphagia persists, failed swallow eval with ST. Barium swallow with chalasia 4. HTN BP stable 5. Anemia hgb stable
--- NOTE | 2019-12-06 15:00 | NURSING ---
Per dialysis nurse, wait to give prn Apresoline since she may be able to bring blood pressure down with dialysis.
[2019-12-06] MEDS: SUMAtriptan 6 MG/0.5 ML Vial SC (17:13)
[2019-12-06] MEDS: Heparin 10,000 UNITS/10 ML Vial 1000 UNITS IV (17:21)
[2019-12-06] MEDS: Heparin 10,000 UNITS/10 ML Vial IV (17:22)
--- NOTE | 2019-12-06 18:19 | DIALYSIS ---
HD ordered 4.5hrs, tx stopped 1.5hrs early at 1755, only ran 3 hours, was tolerating tx well then after 1.5hrs of tx headache worsened, became nauseated, soon hypotensive, c/o dizziness and was diaphoretic, gave fluid bolus's, received Zofran and Imitrex at 1720, reported feeling slightly better but patient insisted he come off tx due to feeling so unwell, encouraged patient to continue tx as he was feeling slightly better and still had 1.5hrs left, pt refused, UF -400mL (gain of 400mL), accessed via right chest tunneled dialysis catheter, Heparin used to close ports post tx, Venofer given, Dr. Shaw updated, next tx planned for Monday
--- NOTE | 2019-12-06 18:30 | NURSING ---
Offered PRN rectal Tylenol for headache. Patient refused. Resting in bed.
[2019-12-06 19:01] LABS: Bedside Glucose 110 mg/dL (70-110)
--- NOTE | 2019-12-06 21:39 | NURSING ---
Addendum entered by Nery Leblanc 12/06/19 22:50: At this time, no Neurologist has beamed in yet to see pt. on SOC. Original Note: SOC called this charge nurse to begin Neuro consult for pt. SOC camera in room tested and appeared to be working. Doctor to be on SOC shortly to see pt.
[2019-12-06 21:55] LABS: Bedside Glucose 101 mg/dL (70-110)
--- NOTE | 2019-12-07 00:10 | NURSING ---
Dr. Hammond [place] [facility] [place] the patient. Recommends IV Decadron for patients migraines since he is NPO. For speech therapy to reevaluate in the morning to see if we need to consider a feeding tube or some type of nutrition. Also needs to follow up with neurologist at [facility]. Patient will also need to have a nerve conduction study performed. Notified Dr. Patel that she will be putting in a note of her recommendations.
[2019-12-07 02:59] VITALS: PULSE 80
[2019-12-07 04:00] VITALS: BP 152/67; PULSE 82; RESP 18; TEMP 36.7; O2SAT 99
[2019-12-07] MEDS: Heparin Injection (Vial) 5,000 UNIT/ML VIAL 5000 UNIT SC (05:57)
[2019-12-07 06:49] VITALS: PULSE 84
[2019-12-07 06:55] LABS: Bedside Glucose 95 mg/dL (70-110)
[2019-12-07 07:00] LABS: Anion Gap 12 (5-15); BUN 24 mg/dL (7-18); BUN/Creat Ratio 4.6 RATIO (10-20); Calcium,Total 8.6 mg/dL (8.5-10.1); Chloride 98 mmol/L (98-107); Creatinine, Serum 5.19 mg/dL (0.70-1.30); EST Glomerular Filtration Rate 13 mL/min (>60); Est Glom Filt Rate - Afr Amer 15 mL/min (>60); Estimated Creatinine Clearance 19.67 ml/min; Glucose 94 mg/dL (74-106); Potassium 3.6 mmol/L (3.5-5.1); Sodium Level 135 mmol/L (136-145)
[2019-12-07 07:27] VITALS: BMI 46.0
[2019-12-07] MEDS: 0.9% Saline Lock 10 ML Syringe IV ×3 (07:33→12:04)
[2019-12-07] MEDS: Ondansetron 4 MG/2 ML Vial IV (07:33)
--- NOTE | 2019-12-07 08:32 | RAD_ITS ---
STUDY: X-RAY CHEST REASON FOR EXAM: Male, 49 years old. FEEDING TUBE PLACEMENT TECHNIQUE: Frontal view COMPARISON: September 26, 2019. FINDINGS: Stable right-sided dual-lumen venous catheter. Nasogastric tube extends into the stomach. The lungs are clear and expanded. There is no demonstrated pleural abnormality. Normal size heart. Normal mediastinum and patel. Normal visualized pulmonary arteries. Normal visualized aortic arch and descending thoracic aorta. Normal visualized thoracic spine. Normal visualized ribs, clavicles, and shoulders. There is no demonstrated abnormality of the visualized soft tissue structures of the upper abdomen. RAD/Chest 1 View (Portable) IMPRESSION: Normal x-ray examination of the chest. Electronically Signed: Roland Recio DO at 10:06 EDT Tel [phone], Service support ,
[2019-12-07 09:03] VITALS: BP 151/60; PULSE 79; RESP 18; TEMP 36.6; O2SAT 97
[2019-12-07 11:35] LABS: Bedside Glucose 88 mg/dL (70-110)
[2019-12-07 11:39] VITALS: BP 150/62; PULSE 80; RESP 18; TEMP 36.6; O2SAT 96
--- NOTE | 2019-12-07 11:47 | NURSING ---
This RN called and gave report to ZACH Walker at [facility]
--- NOTE | 2019-12-07 15:04 | DS.PCM_ITS ---
<Raffi Thompson - Last Filed: 12/07/19 15:04> Discharge Date and Diagnosis Date of Admission: 12/04/19 Date of Discharge: 12/07/19 - Primary Discharge Diagnosis Acute Problems: Severe dysphagia, chalasia ESRD Recurrent severe migraines Hyperphosphatemia Hypothyroidism DMt2 with morbid obesity GERD HTN - Secondary Discharge Diagnosis Chronic Problems: Chronic Problems Hypertension (Chronic) GERD (gastroesophageal reflux disease) (Chronic) Hypothyroidism (Chronic) Diabetes mellitus type 2 in obese (Chronic) ESRD (end stage renal disease) on dialysis (Chronic) Hospital Course and Treatment Imaging Results: 12/07/19 08:32 CXR [Chest 1 View (Portable)] [RAD] Stat CT/Brain/Head without Contrast IMPRESSION: Normal unenhanced CT scan of the brain. Multiple rounded calcific densities are seen within the scalp. CT/Chest without Contrast IMPRESSION: Normal unenhanced CT Chest examination. CT/Soft Tissue Neck without Contr IMPRESSION: Atherosclerotic calcifications as described. A right-sided catheter is seen within the superior vena cava. RAD/Esophagus Single Contrast IMPRESSION: Decreased peristaltic activity of the esophagus with the gastroesophageal reflux. Chalasia of the distal esophagus should be ruled out. Modified barium swallow Diagnosis: moderate-severe pharyngoesophageal dysphagia (R13.14) Impression: Patient presented with silent aspiration of thin liquids, nectar liquids and Monica Doone cookie from refuxed contents pooling and coming back up through pharyngoesophageal segment with all three. Highly suspect esophageal dysmotility (Barium x-ray pending). Despite whole piece of Monica Doone cookie spilling to valleculae, patient reported no sensation of food getting stuck. Patient found to take multiple swallows to clear pharyngeal residue with almost all trials times unsuccessfully as food and liquid were not moving with gravity rather noting to reflux up through pharyngoesophageal segment. Will recommend NPO status with plan to follow up with re-assessment of swallow function. Recommendations Diet: NPO Consults: Nephrology - Colin Operations: None Procedures: Dialysis Summary of Care Provided: Hospital Course: The patient is a 49 year old M with pmhx of ESRD, DMt2 with morbid obesity, severe recurrent migraines, HTN, hypothyroidism, GERD who presented to the ER with c/o dysphagia. THis had started suddenly the Monday prior to admission. He could not swallow liquids or solids. He had an outpatient MRI of the brain which did not show stroke. He continued to be unable to eat and came to the ER. He had a CT brain negative for acute process, CT chest normal, CT neck showing some atherosclerotic calcifications. He had no evidence of aspiration pna. He was ad mitted to the PCU. Speech therapy was consulted. A modified barium swallow and video swallow study were performed. These demonstrated silent aspiration with all intake. They demonstrated decreased peristalsis of the distal esophagus, reflux, chalasia. He was trialed on SL nitro with no change in his ability to swallow. Neurology was consulted. Neuro felt that he may have an underlying motor neuron dysfunction. It was recommended that he be transferred for inpatient evaluation by neuro and GI. He was seen at [facility] in the past for severe migraines that recur with dialysis. He also had reported that he had an upper scope with a GI doc with [facility] at [facility] that showed some form of nerve disorder of the esophagus. He was agreeable to tx to [facility]. Also of note: migraines did recur with dialysis. He is supposed to be on PO amitriptyline and depakote as an outpatient for migraine. He was given dexamethasone and imitrex at different times for migraine each with full resolution. Our neuro consult recommended IV keppra 500 mg daily x 2-3 days then bid. He cannot have any PO intake at this point, limiting his options. A dobhoff was placed and nutrition ordered to start today. He was accepted at [facility] and was discharged in stable condition. This patient was seen by Raffi Thompson PA-C under the supervision of Dr. Verduzco [] - Physical Exam Vitals/I&O's: Vital Signs Temp Pulse Resp BP Pulse Ox 97.9 F 80 18 150/62 H 96 12/07/19 11:39 12/07/19 11:39 12/07/19 11:39 12/07/19 11:39 12/07/19 11:39 Oxygen Flow Rate (L/min) 2 Oxygen Delivery Method Room Air Weight: 326 lb 11.601 oz Body Mass Index (BMI) 46.0 Finger Stick Blood Glucose 148 Intake and Output for Last 24 Hours 12/05/19 12/06/19 12/07/19 23:59 23:59 23:59 Intake Total 110 / 110 540 / 540 165 / 165 Output Total 0 / 0 300 / 300 Balance 110 / 110 240 / 240 165 / 165 General: Alert, Oriented x3, Cooperative HEENT: Atraumatic, PERRLA, EOMI, Normocephalic Neck: Supple, No JVD, Negative Carotid Bruits Lungs: Clear to auscultation, Normal air movement Cardiovascular: Regular rate, No murmurs Abdomen: Bowel Sounds Present, Soft, Non Tender, Obese Extremities: No edema, Capillary Refill Less than 3 Seconds Skin: No rashes, No breakdown Musculoskeletal: No Tenderness to Palpation of Joints or Extremities Neurological: Cranial nerves II-XII grossly intact Psych/Mental Status: Normal Affect, Appropriate, Alert and oriented to time, place, person, mood and affect Laboratory Results 12/06/19 17:05: POC Glucose 110 12/06/19 21:48: POC Glucose 101 12/07/19 05:41: Sodium 135 L, Potassium 3.6, Chloride 98, Carbon Dioxide 25.0, Anion Gap 12, BUN 24 H, Creatinine 5.19 H, Estim Creat Clear Calc 19.67, Est GFR (MDRD) Af Amer 15 L, Est GFR (MDRD) Non-Af 13 L, BUN/Creatinine Ratio 4.6 L, Glucose 94, Calcium 8.6 12/07/19 06:46: POC Glucose 95 12/07/19 11:28: POC Glucose 88 Discharge Diet: - - as directed by receiving facility Discharge Activity: - - as directed by receiving facility Home Medications: Medications to take at Discharge Aspirin [Aspir-Low] 81 mg PO DAILY 08/22/19 Carvedilol 25 mg PO BID 08/22/19 Ergocalciferol (Vitamin D2) [Vitamin D2] 50,000 unit PO WE 08/22/19 Insulin Glargine,Hum.rec.anlog [Basaglar Kwikpen U-100] 10 unit SQ QHS 08/22/19 Insulin Lispro unit SQ ACHS 08/22/19 Levothyroxine [Synthroid] 50 mcg PO DAILY 08/22/19 Pantoprazole Sodium 40 mg PO DAILY 08/22/19 Pregabalin [Lyrica] 100 mg PO BID 08/22/19 Primary Care Physician: Laura Daly MD [Primary Care Provider] - Please follow up with your Primary Care Physician in: as directed by receiving facility Please Follow Up With: Corry Shaw DO - Nephrology When: as directed Please Follow Up With: LISA neuro - Re: migraines When: as directed Disposition: Acute care Hospital Minutes spent on discharge:: 40 Patient Condition:: Stable Medical Necessity - Tobacco Use Smoking Status: Never smoker Tobacco Use: Non-smoker Meaningful Use Info Meaningful Use Diagnoses (Choose all that apply): None applicable <Rei Verduzco - Last Filed: 12/07/19 15:35> Discharge Date and Diagnosis - Secondary Discharge Diagnosis Chronic Problems: Chronic Problems Hypertension (Chronic) GERD (gastroesophageal reflux disease) (Chronic) Hypothyroidism (Chronic) Diabetes mellitus type 2 in obese (Chronic) ESRD (end stage renal disease) on dialysis (Chronic) Hospital Course and Treatment Imaging Results: 12/07/19 08:32 CXR [Chest 1 View (Portable)] [RAD] Stat Operations: None Procedures: Dialysis Summary of Care Provided: Patient seen and examined independently. Data reviewed. I agree with the above note by the physician workforce development assistant. The patient is a 49 year old M presents with odynophagia. Patient was stating that he was having trouble eating certain foods and liquids. Patient was brought in for further evaluation of that. Patient had an esophagram showed some dilation concerning for achalasia. Patient was seen by speech therapy as well and patient underwent a cookie swallow and there was concern for silent aspiration and recommended n.p.o. Patient was complaining of headaches which she has had for some period of time and recently saw a neurologist for that and had been prescribed medication the patient states he was unable to take them because of his trouble swallowing. Patient was seen in consultation by the tele-neurologist group SOC who is concerned for an upper motor neuron disease and recommended in face neurologist. Call was placed to [facility] and did agree to accept him. A Dobbhoff tube was placed by myself today. Risks and benefits were explained to the patient and patient tolerated the procedure well and a follow-up x-ray showed that the tube was in his stomach. Tube feeds were initiated. Concern is the patient may have a motor neuron disease, such as ALS. We were unable to perform an nerve conduction test or an EMG here as we do not have the neurology backup to read the test. Will be determined by the neurology team at the accepting facility if some test such as Adderall or other test would be necessary. [] - Physical Exam Vitals/I&O's: Vital Signs Temp Pulse Resp BP Pulse Ox 36.6 C 80 18 150/62 H 96 12/07/19 11:39 12/07/19 11:39 12/07/19 11:39 12/07/19 11:39 12/07/19 11:39 Oxygen Flow Rate (L/min) 2 Oxygen Delivery Method Room Air Weight: 148.2 kg Body Mass Index (BMI) 46.0 Finger Stick Blood Glucose 148 Intake and Output for Last 24 Hours 12/05/19 12/06/19 12/07/19 23:59 23:59 23:59 Intake Total 110 / 110 540 / 540 165 / 165 Output Total 0 / 0 300 / 300 Balance 110 / 110 240 / 240 165 / 165 General: Alert, Cooperative, - - hypophonic voice HEENT: Atraumatic, Normocephalic Neck: No Nodes, Trachea Midline Lungs: Clear to auscultation, Normal air movement, No rhonchi, No wheeze Cardiovascular: Regular rate, Regular Rhythm, Normal S1, Normal S2, No murmurs Abdomen: Bowel Sounds Present, Soft, Non Tender, Non-Distended Psych/Mental Status: Normal Affect, Appropriate Laboratory Results 12/06/19 17:05: POC Glucose 110 12/06/19 21:48: POC Glucose 101 12/07/19 05:41: Sodium 135 L, Potassium 3.6, Chloride 98, Carbon Dioxide 25.0, Anion Gap 12, BUN 24 H, Creatinine 5.19 H, Estim Creat Clear Calc 19.67, Est GFR (MDRD) Af Amer 15 L, Est GFR (MDRD) Non-Af 13 L, BUN/Creatinine Ratio 4.6 L, Glucose 94, Calcium 8.6 12/07/19 06:46: POC Glucose 95 12/07/19 11:28: POC Glucose 88 Discharge Diet: - Discharge Activity: - Disposition: Acute care Hospital Patient Condition:: Stable Medical Necessity - Tobacco Use Smoking Status: Never smoker Tobacco Use: Non-smoker Inpatient E&M: [id number] Disch Hosp Procedures: Other Procedure - See Report - Dobhoff placement.
== END 2019-12-07 09:57 | disposition short-term general hospital (02) ==
LOC: ED 12:38 → PCU 17:13
PROVIDERS: Internal Medicine Nephrology; Physician Assistant; Emergency Provider Emergency Medicine; PCP Internal Medicine
DX: R13.10 Dysphagia, unspecified (principal); K21.9 Gastro-esophageal reflux disease without esophagitis; E03.9 Hypothyroidism, unspecified; E11.22 Type 2 diabetes mellitus with diabetic chronic kidney disease; N18.6 End stage renal disease; I12.0 Hypertensive chronic kidney disease with stage 5 chronic kidney disease or end stage renal disease; E66.01 Morbid (severe) obesity due to excess calories; F41.9 Anxiety disorder, unspecified; F32.9 Major depressive disorder, single episode, unspecified; D64.9 Anemia, unspecified; G43.909 Migraine, unspecified, not intractable, without status migrainosus; Z68.41 Body mass index [BMI] 40.0-44.9, adult; Z79.82 Long term (current) use of aspirin; Z79.4 Long term (current) use of insulin; Z99.2 Dependence on renal dialysis; Z79.899 Other long term (current) drug therapy
CPT/HCPCS: 36415; 70450; 70490; 71045; 71250; 74220; 74230; 80048; 82962; 84100; 85025; 90937; 92526; 92611; 93005; 96365; 96366; 96367; 96372; 96375; 96376; 97802; 99218; 99285; J1756; J7030; A4216; G0257; G0378; J2405; J3030

== ENCOUNTER 2019-12-23 08:38 | Emergency (ER) | payer MEDICAID, SELFPAY ==
[2019-12-23 08:39] VITALS: BP 212/130; PULSE 108; RESP 24; TEMP 36.7; O2SAT 97; BMI 43.1
--- NOTE | 2019-12-23 08:54 | CT_ITS ---
STUDY: CT ABDOMEN AND PELVIS WITHOUT CONTRAST REASON FOR EXAM: Male, 49 years old. ABD PAIN SINCE YESTERDAY, N/V, RECENT HOSPITALIZATION AT [facility], HTN, DB, END STAGE RENAL DZ RADIATION DOSAGE (If Supplied By Facility): CTDIvol = ( 24.18 ) mGy, DLP = ( 1425.68 ) mGycm TECHNIQUE: Transaxial images were obtained from the dome of the diaphragm to the symphysis pubis without oral contrast, and without intravenous contrast. Sagittal and coronal images were reconstructed. Individualized dose optimization techniques were used for this CT. COMPARISON: None. FINDINGS: The visualized lung bases are unremarkable. Coronary artery calcification. Normal liver. There are multiple small gallstones. Normal spleen. Normal pancreas. There is a small, circumscribed, smooth, low attenuation right adrenal mass, consistent with an adrenal adenoma. It measures 2.3 cm. Normal left adrenal gland. Normal right kidney. Normal left kidney. Mild bilateral perinephric stranding. Dense calcification of the intrarenal arterial branches. There is a small hiatal hernia. Normal small intestine. Normal colon. The appendix is visualized and appears normal. There is diffuse dense atherosclerotic calcification of the abdominal aorta and its major visceral branches, without a demonstrated aneurysm. Normal inferior vena cava. Normal retroperitoneum. Mild degree of diffuse bladder wall thickening. Is evidence of prior ventral hernia repair with mesh. There is a residual small umbilical hernia containing fat. There are degenerative changes of the visualized lumbar spine. CT/Abdomen/Pelvis without Cont IMPRESSION: Extensive vascular calcification as described. Findings suggestive of a 2.3 cm adenoma in the right adrenal gland. Multiple small gallstones. Status post ventral hernia repair with a residual small umbilical hernia containing fat. Electronically Signed: Triston Bermudez, at 9:59 EDT , Service support ,
--- NOTE | 2019-12-23 08:56 | ED.VIS.GI ---
History of Present Illness Chief Complaint: Abd Pain Narrative: Patient presenting for evaluation secondary to abdominal pain. Patient reports that he was recently admitted to this hospital and then transferred to the [facility] secondary to esophageal dysmotility. He was discharged on Monday. Patient reports that he was doing well at home, but then since yesterday he has been dealing with generalized abdominal pain that predominates on the right. He states that it is a continuous type abdominal pain that has no exacerbating relieving factors but has been associated with nausea and vomiting. He reports that he has had around 2-3 loose stools since yesterday. He denies any fevers. Patient denies any history of abdominal surgeries. He is on dialysis, receives dialysis Monday, has an appointment scheduled for later today. Apparently the patient was diagnosed as having gastroparesis and was recommended to go to correction upon his discharge from [facility], but he declined. Review of systems otherwise negative. Past Medical History - Allergies and Home Meds Allergies/Adverse Reactions: Allergies No Known Allergies Allergy (Verified 12/23/19 08:46) Primary Care Physician: Laura Daly MD [Primary Care Provider] - Prior records reviewed: Yes Past Medical History: - - Hypertension, GERD, hypothyroidism, end-stage renal disease on dialysis Surgical History: - Smoking Status: Never smoker - Family History Maternal Family History: Reports: COPD Paternal Family History: Reports: - Sibling Family History: Reports: Diabetes Review of Systems All systems negative except as indicated General: Reports: Malaise Eyes: Denies: Visual changes - bilaterally, Diplopia ENT: Denies: Rhinorrhea, Sore throat Cardiovascular: Denies: Chest pain, Palpitations Respiratory: Denies: Dyspnea, Cough, Dyspnea on exertion Gastrointestinal: Reports: Abdominal pain, Nausea, Vomiting, Diarrhea Genitourinary: Denies: Dysuria, Hematuria, Frequency Musculoskeletal: Denies: Back pain, Extremity Pain Skin: Denies: Rash, Wounds Neurological: Denies: Headache, Weakness, Numbness Physical Exam Vital Signs/Narrative: Vital Signs Temp Pulse Resp BP Pulse Ox 12/23/19 08:39 98.0 F 108 H 24 H 212/130 H 97 Inital Vital Signs reviewed: Yes General: Well nourished, Well developed, Obese Head: Normocephalic, Atraumatic Eyes: Perrl, EOMI ENT: Moist mucous membranes, No rhinorrhea Neck: Supple, Nontender Cardiovascular: Regular rhythm, Tachycardia, Murmur Respiratory: No distress, CTA bilaterally, - - Right anterior dialysis port is present with a mild amount of blood on the dressing, no evidence of surrounding erythema, induration, or fluctuance Abdomen: Soft, Tender - Diffuse nonlocalizing. Negative for: Guarding, Rebound tenderness Extremities: Nontender, No edema Skin: Normal color, No rash, Diaphoresis Neurological: Alert, Oriented x3, Cranial nerves II-XII grossly intact, Normal Strength, Normal Sensation Psychological: Normal affect, Normal Mood Diagnostic/Tx/Re-eval Clinical Impression(s) from Imaging Studies Abdomen/Pelvis CT 12/23/19 08:54 IMPRESSION: Extensive vascular calcification as described. Findings suggestive of a 2.3 cm adenoma in the right adrenal gland. Multiple small gallstones. Status post ventral hernia repair with a residual small umbilical hernia containing fat. Electronically Signed: Triston Bhagatshasta, at 9:59 EDT , Service support , Laboratory Data 12/23/19 12/23/19 12/23/19 08:45 08:45 08:45 WBC 9.2 RBC 4.24 L Hgb 12.3 L Hct 38.0 L MCV 89.6 MCH 29.0 MCHC 32.4 RDW Std Deviation 43.8 RDW Coeff of Baljit 13.4 Plt Count 172 MPV 9.9 Immature Gran % (Auto) 0.800 Neut % (Auto) 77.3 H Lymph % (Auto) 14.2 L [place] % (Auto) 6.0 Eos % (Auto) 1.2 Baso % (Auto) 0.5 Absolute Neuts (auto) 7.1 Absolute Lymphs (auto) 1.30 Nucleated RBC % 0 Sodium 140 Potassium 4.3 Chloride 107 Carbon Dioxide 26.0 Anion Gap 7 BUN 38 H Creatinine 7.23 H Estim Creat Clear Calc 14.12 Est GFR (MDRD) Af Amer 10 L Est GFR (MDRD) Non-Af 9 L BUN/Creatinine Ratio 5.3 L Glucose 221 H Lactic Acid 1.8 Calcium 9.4 Total Bilirubin 0.50 AST 37 ALT 19 Alkaline Phosphatase 84 Total Protein 8.1 Albumin 3.1 L Globulin 5.0 H Albumin/Globulin Ratio 0.6 L Lipase 487 H - Medical Decision Making Patient presented secondary to abdominal pain nausea and vomiting. IV was established patient was given morphine and Reglan. CBC unremarkable, chemistry demonstrates no significant electrolyte derangements but does show elevated creatinine consistent with the patient's end-stage renal disease. Lipase was modestly elevated in the [address] abdomen and pelvis was obtained which demonstrates significant vascular calcifications, but no of her evidence of obstructive or acute inflammatory process. Repeat evaluation of the patient 1030 shows symptomatic improvement. Patient at this point feels stable enough to go home, and states that he feels he can tolerate p.o. Patient potentially is still having issues with intermittent gastroparesis, so I will send him home with regular dosages of Reglan to be taken. Patient will follow-up with primary care as needed. He understands signs and symptoms for which to return. ED Disposition - Plan for ED Patient: Disposition: Home or Assisted Living Diagnosis: Gastroparesis, Abdominal pain Instructions: ED Diabetic Gastroparesis Prescriptions: Metoclopramide [Reglan] 10 mg PO 4X/DAY PRN #20 tab PRN Reason: Headache Prescription Printed Referrals: Laura Daly MD [Primary Care Provider] - 2 Days
[2019-12-23 09:01] LABS: Absolute Neutrophil Count 7.1 X10^3/uL (2.0-7.7); Basophil# 0.05 X10^3/uL; Basophil% 0.5 % (0-1); Eosinophil# 0.11 X10^3/uL; Eosinophils% 1.2 % (0-5); Hemoglobin 12.3 g/dL (13.0-16.5); Lymphocyte % 14.2 % (19-41); Mean Corp Hgb Conc 32.4 g/dL (32-36); Mean Corpuscular Volume 89.6 fL (80-94); Mean Platelet Vol. 9.9 fl (6.2-12.0); Monocyte# 0.55 X10^3/uL; NRBC Flagged by Analyzer 0 % (0-5); Neutrophil # 7.07 X10^3/uL (2.7-7.7); Neutrophil % 77.3 % (47-70); Platelet Count 172 K/mm3 (150-450); RBC Distribution Width CV 13.4 % (11.6-14.6); RBC Distribution Width SD 43.8 fl (35.1-43.9); Red Blood Count 4.24 M/mm3 (4.6-6.2); White Blood Count 9.2 K/mm3 (4.4-11.0)
[2019-12-23] MEDS: morphine 8 MG/ML Syringe IV (09:05)
[2019-12-23] MEDS: Metoclopramide 10 MG/2 ML Vial IV (09:05)
[2019-12-23 09:19] LABS: Lactic Acid 1.8 mmol/L (0.4-1.9)
[2019-12-23 09:20] LABS: ALB/GLOB Ratio 0.6 RATIO (0.9-2.4); AST(SGOT) 37 U/L (15-37); Alanine Aminotransfer ALT/SGPT 19 U/L (16-61); Albumin, Serum 3.1 g/dL (3.2-5.0); Alkaline Phosphatase 84 U/L (45-117); Anion Gap 7 (5-15); BUN 38 mg/dL (7-18); BUN/Creat Ratio 5.3 RATIO (10-20); Calcium,Total 9.4 mg/dL (8.5-10.1); Chloride 107 mmol/L (98-107); Creatinine, Serum 7.23 mg/dL (0.70-1.30); EST Glomerular Filtration Rate 9 mL/min (>60); Est Glom Filt Rate - Afr Amer 10 mL/min (>60); Estimated Creatinine Clearance 14.12 ml/min; Glucose 221 mg/dL (74-106); Lipase 487 U/L (73-393); Potassium 4.3 mmol/L (3.5-5.1); Protein, Total 8.1 g/dL (6.4-8.2); Sodium Level 140 mmol/L (136-145)
--- NOTE | 2019-12-23 10:40 | CM.ED ---
Social Work Assessment Emergency Department Date and Time of Referral: 12/23/2019 @ 10:15am Referred By: Nursing staff. Date and time of Intervention: 12/23/2019 @ 10:40am Reason for Referral: Resources, patient ability to care for self. History obtained from: Chart, patient, nursing staff. Household composition: Patient lives alone in a 1-story home with ramp to enter. Patient?s family dynamics and status: Patient has two siblings that check in with patient often. Patient does lives at home alone and is W/C bound. Patient states to have all needed medical equipment already set up within the home and to have no concerns for ability to meet own needs. Pertinent Medical History: Patient recently started on dialysis on MWF that started in Aug. Patient with multiple medical complications. Financial Status: Unemployed, disability. Transportation: [employer] or family or mandaeism. Programs/Agencies Involved: Home health through [facility] that is active, [facility] for Dialysis, [employer] helps with grocery shopping and transportation as needed. Care source senior case manager, patient unsure of name. Children Services/Legal Issues: None Mental Health History: Reports history of depression. Denies active counseling services. No history of inpatient psychiatric placements. Denies any suicidal thoughts, plans, intents. Does state to not want to live like this. Patient states to want to live for family, friends, and mandaeism and is demonstrating forward thinking when speaking about getting better. Patient counseled on lethal means and states that there are no firearms in the home. Substance Use History: Denies Family/Social Stressors: Main stressor for patient at this time is poor health and being in pain. Support Systems: Islam and family. Advanced Directives: Patient believes to have completed Health Care Power of Manager General and patient sister if HCPOA, no documents noted to be on file. Patient asked to bring copies to hospital if possible. ASSESSMENT: Introduced self and home health care social worker role. Patient agreeable to speaking with this home health care social worker. Patient states no concerns on returning to home alone with continues dialysis on MWF. This home health care social worker broached nursing/medical team concern with patient ability to care for self at home. Patient states I am feeling better and can care for myself. Patient is not agreeable to long term placement of further community resources. Patient is pleasant with this home health care social worker and does present as depressed. Patient states to feel safe at home and to have family checking in with patient. Active support and listening provided. PLAN: Discharge to home alone with continues community resources. Updated medical team on social work assessment. No other services requested or indicated. Melissa FRANK, [facility]
[2019-12-23 10:55] VITALS: RESP 18
== END 2019-12-23 12:00 | disposition home or self-care (01) ==
PROVIDERS: Emergency Provider Emergency Medicine; PCP Internal Medicine
DX: K31.84 Gastroparesis (principal); I12.0 Hypertensive chronic kidney disease with stage 5 chronic kidney disease or end stage renal disease; N18.6 End stage renal disease; Z99.2 Dependence on renal dialysis; E66.9 Obesity, unspecified; K21.9 Gastro-esophageal reflux disease without esophagitis; E03.9 Hypothyroidism, unspecified; Z79.82 Long term (current) use of aspirin; Z79.899 Other long term (current) drug therapy
CPT/HCPCS: 74176; 80053; 83605; 83690; 85025; 96374; 96375; 99285; A4216

== ENCOUNTER 2020-01-08 14:29 | Day surgery (SDC) | payer MEDICAID, SELFPAY ==
[2020-01-08 14:19] VITALS: BMI 43.1
--- NOTE | 2020-01-08 14:44 | HP.PCM_ITS ---
Problem List (1) Problem with dialysis access Status: Acute Qualifiers: History and Physical Date of Admission: 01/08/20 MR#: [id number] Acct: [id number] Name: JENA SCHAFFER Rep #: [id number] : 1970 Provider: Dr. Malcolm Tarango MD Age/Sex: 49/M Location: [facility] Status: Signed Intake Intake Visit Reasons: Amb Documentation Chief Complaint: abn labs Allergies No Known Allergies Allergy (Verified 01/08/20 14:19) [facility] Medical History (Updated 01/08/20 @ 14:[address] Osman Tarango MD) Problem with dialysis access (Acute) Difficulty swallowing (Acute) Hypertension (Chronic) GERD (gastroesophageal reflux disease) (Chronic) Hypothyroidism (Chronic) Diabetes mellitus type 2 in obese (Chronic) ESRD (end stage renal disease) on dialysis (Chronic) Social History (Updated 01/08/20 @ 14:[address] Osman Tarango MD) Smoking Status: Never smoker HPI HPI HPI: JENA SCHAFFER, is a 49 M who presents to the office today for urgent surgical consultation for malfunctioning right internal jugular tunneled dialysis catheters. Patient is referred by his dialysis center for urgent replacement of tunneled dialysis catheter. The patient apparently was not able to get dialyzed today nor previously on Monday 2 days ago or previously 6 days ago completely on that dialysis session. He had right internal jugular tunneled dialysis catheters placed August 22, 2019. A request has been made for urgent replacement. HPI HPI HPI: JENA SCHAFFER, is a 49 M who presents to the office today for Exam Const General: cooperative, no acute distress Nutritional Appearance: obese morbidly obese Orientation: alert, awake Resp Effort & Inspection: normal respiratory effort Auscultation: clear to auscultation bilaterally Cardio Rate: regular rate GI Other: Obese I am not able to detect any internal organs Extrem General: edema Psych Affect: normal affect Assessment & Plan Problems 1. Problem with dialysis access, initial encounter T82.040E Plan Problem with dialysis access. I propose for the patient attempt placement of a left internal jugular tunnel dialysis catheters. This is successful I would plan removal of the right internal jugular tunneled dialysis catheters. Because of the urgent need we will add him on to surgery. This will need to go after hours with emergency call staff tonight. We will proceed with urgent Covid-19 testing. The patient is aware that the [facility] is currently reporting a low local incidence. Osman Tarango MD Coding Level of Care Code Attention Automatic Bow Maker Machine Tender Diagnoses Problem with dialysis access, initial encounter T82.898A ??Encounter type: initial encounter 01/08/20 1443 <Electronically signed by Osman villegas MD> Date _ Osman Tarango MD I have re-examined the patient. There are no clinical changes since date of exam. Procedure Criteria COVID Risk Discussion: This is considered a emergent procedure. The patient has been notified regarding COVID-19 pandemic. As noted the [facility] is reporting a low local incidence. We will proceed with testing and urgent procedure as noted. Osman Tarango M.D., F.A.C.S.
[2020-01-08 14:50] VITALS: BP 118/55; PULSE 77; RESP 16; TEMP 36.7; O2SAT 99; BMI 43.1
[2020-01-08] MEDS: Lactated Ringers 1,000 ML 100 ML IV (15:04)
[2020-01-08 15:16] LABS: Bedside Glucose 184 mg/dL (70-110)
[2020-01-08] MEDS: Cefazolin 2 GM in 0.9% Normal Saline 100 ML IV (17:42)
[2020-01-08] MEDS: Heparin 10,000 UNITS/10 ML Vial 10000 UNITS (18:15)
[2020-01-08] MEDS: Bupivacaine Mpf 0.5% 30 ML VIAL (18:15)
--- NOTE | 2020-01-08 18:56 | PCM.DC.GS ---
Discharge Diet: Renal Diet Discharge Activity: May Not Shower Lifting Restrictions: 10 pounds Call your doctor if your incision/area has: Continuous Slow Oozing, Sudden Increased Bleeding, Increased Pain/ Swelling, Increased Redness, Foul Smelling Discharge Call your doctor if you observe: Fever of 101 or Higher Suture Line Care: Avoid Pulling/Pushing, Avoid Pinching/Bending Additional Dressing/Incision Instructions:: The dialysis center will help with dressing changes as needed Allergies/Adverse Reactions: Allergies No Known Allergies Allergy (Verified 01/08/20 14:19) Medications to take at Discharge Aspirin [Aspir-Low] 81 mg PO DAILY 08/22/19 Carvedilol 25 mg PO BID 08/22/19 Insulin Glargine,Hum.rec.anlog [Basaglar Kwikpen U-100] 10 unit SQ QHS 08/22/19 Insulin Lispro 0 - 4 unit SQ ACHS 08/22/19 Levothyroxine [Synthroid] 50 mcg PO DAILY 08/22/19 Pregabalin [Lyrica] 25 mg PO BID 08/22/19 Amitriptyline HCl [Elavil] 50 mg PO QHS 12/23/19 Calcium Acetate 2 tab PO TID 12/23/19 Metoclopramide HCl [Reglan] 5 mg PO BID 12/23/19 Metoclopramide [Reglan] 10 mg PO 4X/DAY PRN #20 tab 12/23/19 Pantoprazole Granules [Protonix Granules for Suspension] 40 mg PO BID 12/23/19 Polyethylene Glycol 3350 [Miralax] 17 gm PO BID PRN 12/23/19 Pravastatin [Pravachol] 40 mg PO QODAY 12/23/19 Rizatriptan Benzoate [Rizatriptan] 10 mg PO DAILY 12/23/19 Valproic Acid (As Sodium Salt) [Valproic Acid] 250 mg PO BID 12/23/19 Hydrocodone Bitart/Apap 5-325 [Sanford 5MG-325MG] 1 tablet PO Q6H PRN PRN 2 Days #5 tablet 01/08/20 fluoxetine 10 mg capsule 20 mg PO DAILY cap 01/08/20 The following prescriptions were given: Hydrocodone Bitart/Apap 5-325 [Sanford 5MG-325MG] 1 tablet PO Q6H PRN PRN 2 Days #5 tablet PRN Reason: Pain Transmission Status: Sent to [facility] Primary Care Physician: Laura Daly MD [Primary Care Provider] - Test Results: Test results from this visit will be discussed in further detail at your follow-up appointment, if applicable. Please Follow Up With: Osman Tarango MD - [phone]
--- NOTE | 2020-01-08 18:57 | OP.PCM_ITS ---
Problem List (1) Problem with dialysis access Status: Acute Qualifiers: Report of Operation Date of Procedure: 01/08/20 Pre-Operative Diagnosis: Problem with right internal jugular tunneled dialysis catheter is nonfunctional Post-Operative Diagnosis: Thrombosed right internal jugular tunneled dialysis catheters Surgery/Procedure Performed:: Placement of left internal jugular tunneled d ialysis catheters 23 cm palindrome pre-curved catheter. Lot number: [id number]. Ref: [id number]. Expiry date 02/14/2024. Removal right internal jugular tunneled dialysis catheters Description of Surgical Findings:: Timeout and informed consent was obtained. 49-year-old gentleman was taken to the operating place upon the table underwent monitored anesthesia care Ancef 2 g given intravenously preoperatively bilateral neck and chest sterilely prepped and draped tape strapping was performed of the chest bilaterally and attempt to help provide exposure to the patient's morbid obesity. Ultrasound was used to identify the left internal jugular vein which was deeply placed. Under ultrasound guidance 1% lidocaine mixed 50-50 with 0.5% Marcaine was used as a local anesthetic. Throughout the entire procedure total 23 cc was used. Then under ultrasound guidance a micropuncture needle was inserted in the left internal jugular vein followed by Seldinger wire advancement. Fluoroscopy demonstrated good positioning. Local was instilled down upon the left chest wall and exit site was selected a 23 cm pre-curved palindrome catheter was advanced from the chest to the neck site. Then I exchanged out for an 035 J- wire. Serial dilatation was performed over the J-wire and this was somewhat difficult due to the patient's thick neck and somewhat flexibility of the J- wire. Fluoroscopy was generously used to confirm correct positioning. Then the sheath dilator was placed over the J-wire and great care was taken to assure that it advanced across the midline. The dilator was removed the wire was removed the cath was advanced through the sheath the sheath was split inspection revealed that the catheter it extended over into the right subclavian so then the cath was withdrawn a bit an 035 angled Glidewire was advanced through the catheter and into the S VC and then through the atrium into the end inferior vena cava. This allowed then for advancement of the catheter over the Glidewire into the correct position in the SVC. The wire was removed. The catheter was positioned to be in good curvilinear line and then it was aspirated with saline and then flushed with saline and flushed with 2 cc of heparinized saline per channel. The neck site was closed interrupted 5-0 Vicryl subdermal stitch. The cath was secured to skin with 3-0 nylon. Steri-Strips were placed to the neck for Telfa OpSite silver dressing applied to the chest site and Telfa OpSite inspection now to the right chest. The cuff was palpated was marked local was instilled a transverse incision was created sharp blunt dissection was then used to identify the cuff. This was circumferentially dissected free. With direct pressure held upon the tunnel site the catheter was withdrawn from the right IJ. There was minimal bleeding and no air entrapment. The catheter was amputated for proximal distal removal. The counterincision was closed with interrupted 5- 0 Vicryl subdermal stitch. Steri-Strips Telfa OpSite dressing applied to both that and the exit site. Sponge and instrument and needle counts were reported to the surgeon to be correct. Blood loss was minimal. He tolerated the procedure well. He was taken to the recovery area in satisfactory addition without apparent complication. Stat upright portable chest x-ray is pending. Osman Tarango M.D., F.A.C.S. Type of Anesthesia:: Local MAC Anesthesiologist: Cordell Hinton
[2020-01-08 19:03] VITALS: BP 118/55; BP 142/55; PULSE 61; RESP 16; TEMP 36.2; O2SAT 97
[2020-01-08 19:08] VITALS: BP 101/42; BP 118/55; PULSE 58; RESP 16; O2SAT 96
--- NOTE | 2020-01-08 19:10 | RAD_ITS ---
STUDY: X-RAY CHEST REASON FOR EXAM: Male, 49 years old. DIALYSIS CATH PLACEMENT TECHNIQUE: Single AP portable view of the chest. COMPARISON: December 07, 2019 FINDINGS: Central catheter on the left extends to the superior vena cava. The lungs are clear and expanded. There is no demonstrated pleural abnormality. There is mild cardiac enlargement. Normal mediastinum and patel. Normal visualized pulmonary arteries. Normal visualized aortic arch and descending thoracic aorta. Normal visualized thoracic spine. Normal visualized ribs, clavicles, and shoulders. There is no demonstrated abnormality of the visualized soft tissue structures of the upper abdomen. RAD/Chest 1 View (Portable) IMPRESSION: Central catheter placement. No pneumothorax. Electronically Signed: Easton New MD at 19:27 EDT , Service support ,
[2020-01-08 19:13] VITALS: BP 113/55; BP 118/55; PULSE 58; RESP 16; O2SAT 96
[2020-01-08 19:18] VITALS: BP 106/48; BP 118/55; PULSE 57; RESP 16; TEMP 36.2; O2SAT 97
[2020-01-08 20:22] VITALS: BP 105/41; BP 118/55; PULSE 64; RESP 16; TEMP 36.2; O2SAT 96
== END 2020-01-08 20:23 | disposition home or self-care (01) ==
LOC: SDC 14:30 → AC 14:32
PROVIDERS: PCP Internal Medicine; Referring Provider Surgery; Visit Provider Surgery
PROC: (CPT 36558; principal; 2020-01-08 15:00)
DX: T82.868A Thrombosis due to vascular prosthetic devices, implants and grafts, initial encounter (principal); Y82.9 Unspecified medical devices associated with adverse incidents; Y92.9 Unspecified place or not applicable; Z11.59 Encounter for screening for other viral diseases; E11.22 Type 2 diabetes mellitus with diabetic chronic kidney disease; I12.0 Hypertensive chronic kidney disease with stage 5 chronic kidney disease or end stage renal disease; N18.6 End stage renal disease; Z99.2 Dependence on renal dialysis; E03.9 Hypothyroidism, unspecified; K21.9 Gastro-esophageal reflux disease without esophagitis; E66.01 Morbid (severe) obesity due to excess calories; F41.9 Anxiety disorder, unspecified; F32.9 Major depressive disorder, single episode, unspecified; Z79.4 Long term (current) use of insulin; Z79.82 Long term (current) use of aspirin; Z79.899 Other long term (current) drug therapy
CPT/HCPCS: 36558; 36589; 71045; 76000; 82962; 87635; C9803; G2023; C1769; J2405; U0003

== ENCOUNTER 2020-01-28 06:52 | Day surgery (SDC) | payer MEDICAID, SELFPAY ==
[2020-01-28] VITALS (9 sets, daily range): BP systolic 71–153; BP diastolic 26–65; PULSE 80–96; RESP 16; TEMP 36.1–36.2; O2SAT 95–100; BMI 44.4
[2020-01-28 07:28] LABS: Hematocrit 33.4 % (40-54); Hemoglobin 10.5 g/dL (13.0-16.5); Mean Corp Hgb Conc 31.4 g/dL (32-36); Mean Corpuscular Hgb 30.1 pg (27.0-32.0); Mean Corpuscular Volume 95.7 fL (80-94); Mean Platelet Vol. 10.5 fl (6.2-12.0); Platelet Count 170 K/mm3 (150-450); RBC Distribution Width CV 14.5 % (11.6-14.6); Red Blood Count 3.49 M/mm3 (4.6-6.2); White Blood Count 7.5 K/mm3 (4.4-11.0)
[2020-01-28 07:40] LABS: Bedside Glucose 197 mg/dL (70-110)
[2020-01-28 07:42] LABS: Anion Gap 9 (5-15); BUN 44 mg/dL (7-18); BUN/Creat Ratio 7.5 RATIO (10-20); Calcium,Total 8.6 mg/dL (8.5-10.1); Chloride 105 mmol/L (98-107); Creatinine, Serum 5.85 mg/dL (0.70-1.30); EST Glomerular Filtration Rate 11 mL/min (>60); Est Glom Filt Rate - Afr Amer 13 mL/min (>60); Glucose 209 mg/dL (74-106); Potassium 4.5 mmol/L (3.5-5.1); Sodium Level 142 mmol/L (136-145)
[2020-01-28] MEDS: 0.9% Normal Saline 1,000 ML 15 ML IV (08:18)
--- NOTE | 2020-01-28 10:33 | HP.PCM_ITS ---
Problem List (1) Problem with dialysis access Status: Acute Qualifiers: Encounter type: initial encounter History of Present Illness Date of Admission: 01/28/20 The patient is a 49 year old M who presents today because of recurrent problems with yet a new set of tunneled hemodialysis catheters. Previously I was asked to change out right internal jugular tunneled dialysis catheters and I placed new left internal jugular tunneled dialysis catheters. Admittedly that procedure was very difficult secondary to the patient's body habitus and difficulty in getting the catheter to direct into the SVC. Unfortunately as the first set of catheters these catheters apparently are partially thrombosed. The patient states when they were initially placed they function very well. Unfortunately I suspect that this is secondary to inadequate flushing and maintenance. As a secondary note the patient is in need of creation of a fistula. He claims that he previously has had an attempt adequate fistula creation left forearm radiocephalic but that failed. As noted below it appears that the left upper arm cephalic vein should be adequate. On my review of the study however the veins appear to be deeply placed. [facility] [address] [place] [address]. [place] [address] Saphenous Vein Mapping, Bilat 08/22/19 0955 MR#: [id number] Acct: [id number] Name: JENA SCHAFFER Rep #:[id number] : 1970 49 From: Osman bourgeois MD Attending Dr: Osman Tarango MD atus: REG CLI Ordering Dr: Osman Tarango MD Date: 08/22/19 Location: [facility] Sex: M C Admitted: Reason For Study: Pre op, CKD Right Arm Left Arm Right cephalic vein is compressible. Left cephalic vein is compressible. Right Cephalic Vein at the shoulder Left Cephalic Vein at the shoulder measures .51 x .53 cm. measures .64 x .67 cm. Right Cephalic Vein mid bicep measures .53 Left Cephalic Vein at mid bicep measures .67 x .6 cm. x .64 cm. Right Cephalic Vein above antecub Left Cephalic Vein above antecub measures .59 measures .45 x .51 cm. x .62 cm. Right Cephalic Vein below antecub Left Cephalic Vein below antecub measures .36 measures .29 x .3 cm. x .35 cm. Right Cephalic Vein in the forearm Left Cephalic Vein in the forearm measures .3 x .29 cm. measures .33 x .36 cm. Right Cephalic Vein at the wrist measures .13 Left Cephalic Vein at the wrist measures .31 x .16 cm. x .32 cm. Right basilic vein is compressible. Left basilic vein is compressible. Right Basilic Vein mid bicep measures .5 Basilic vein at bicep measures .4 x .4 cm. x .52 cm. Basilic vein above antecub measures .36 x .37 Right Basilic Vein above antecub measures .43 cm. x .43 cm. Basilic vein below antecub measures .15 x .16 Right Basilic Vein below antecub measures .14 cm. x .16 cm. Basilic vein in the forearm measures .16 Right Basilic Vein in the forearm x .16 cm. measures .27 x .29 cm. Basilic vein at the wrist measures .16 x .14 Right Basilic Vein at the wrist measures .25 cm. x .27 cm. Brachial Art .41 x .4 cm. Brachial Art .41 x .4 cm. Brachial Art 114.0 cm/s. Brachial Art 89.4 cm/s. Radial Art .19 x .22 cm. Radial Art .23 x .29 cm. Radial Art 112.2 cm/s. Radial Art 119.8 cm/s. Interpretation Summary Patent and compressible bilateral upper extremity cephalic and basilic veins with dimensions as noted. Small right cephalic vein at the wrist Small bilateral forearm basilic veins Adequate bilateral brachial artery diameter and flow. Adequate right radial artery slightly small on the left Ordering Physician: Osman Tarango Performed By: Nathan Ordoñez RVT ? 08/22/19 1040 Date _ Osman Tarango MD Past Medical History Past Medical History (Chronic Problems): Chronic Problems (Last Reviewed 01/08/20 @ 14:18 by Carrie Rondon) Hypertension (Chronic) GERD (gastroesophageal reflux disease) (Chronic) Hypothyroidism (Chronic) Diabetes mellitus type 2 in obese (Chronic) ESRD (end stage renal disease) on dialysis (Chronic) Medical History: Medical History (Last Reviewed 01/08/20 @ 14:18 by Carrie Rondon) Problem with dialysis access (Acute) T82.898A Difficulty swallowing (Acute) R13.10 Hypertension (Chronic) I10 GERD (gastroesophageal reflux disease) (Chronic) K21.9 Hypothyroidism (Chronic) E03.9 Diabetes mellitus type 2 in obese (Chronic) E11.69, E66.9 ESRD (end stage renal disease) on dialysis (Chronic) N18.6, Z99.2 Allergies No Known Allergies Allergy (Verified 01/28/20 07:23) Home Medications: Ambulatory Orders Medication Instructions Recorded Aspirin [Aspir-Low] 81 mg PO DAILY 08/22/19 Carvedilol 25 mg PO BID 08/22/19 Insulin Glargine,Hum.rec.anlog 10 unit SQ QHS 08/22/19 [Basaglar Kwikpen U-100] Insulin Lispro 0 - 4 unit SQ ACHS 08/22/19 Levothyroxine [Synthroid] 50 mcg PO DAILY 08/22/19 Pregabalin [Lyrica] 100 mg PO BID 08/22/19 Amitriptyline HCl [Elavil] 50 mg PO QHS 12/23/19 Calcium Acetate 2 tab PO TID 12/23/19 Metoclopramide HCl [Reglan] 5 mg PO BID 12/23/19 Metoclopramide [Reglan] 10 mg PO 4X/DAY PRN #20 tab 12/23/19 Pantoprazole Granules [Protonix 40 mg PO BID 12/23/19 Granules for Suspension] Polyethylene Glycol 3350 [Miralax] 17 gm PO BID PRN 12/23/19 Pravastatin [Pravachol] 40 mg PO QODAY 12/23/19 Rizatriptan Benzoate [Rizatriptan] 10 mg PO PRN PRN 12/23/19 fluoxetine 10 mg capsule 20 mg PO DAILY cap 01/08/20 Ondansetron [Zofran] 8 mg PO Q12H PRN PRN 01/27/20 Loperamide [Imodium] 2 mg PO 01/28/20 Surgical History: Surgical History (Last Reviewed 01/08/20 @ 14:19 by Carrie Rondon) S/P dialysis catheter insertion Z95.828, Z99.2 Status post amputation of toe of left foot Z89.422 Surgical History: - Psychiatric History: No pertinent psych hx Smoking Status: Never smoker Tobacco Use: Non-smoker - *Family History Maternal History Items: COPD Paternal History Items: - Sibling History Items: Diabetes Review of Systems Constitutional: Denies: Chills, Fever, Night Sweats Cardiovascular: Denies: Chest Pressure Respiratory: Denies: Cough, Shortness of Breath Gastrointestinal: Denies: Abdominal Pain, Melena Endocrine: Denies: Change in Body Habitus VTE Information - Inpt Only VTE Present on Admission: No - Physical Exam Vitals/I&O's: Vital Signs Temp Pulse Resp BP Pulse Ox 97.1 F L 84 16 153/65 H 100 01/28/20 07:25 01/28/20 09:00 01/28/20 07:25 01/28/20 09:00 01/28/20 07:25 Oxygen Delivery Method Room Air Weight: 337 lb 1.388 oz Body Mass Index (BMI) 44.4 Finger Stick Blood Glucose 148 General: Alert, Oriented x3, Cooperative, No apparent distress Oral: Moist Mucosa Neck: Supple Lungs: Clear to auscultation, Normal air movement Cardiovascular: Regular rate, Regular Rhythm, - - Left chest indwelling tunneled IJ dialysis catheters. Right anterior chest evidence of previous skin incis ions with some eschar from previous catheters Abdomen: Soft, - - Morbidly obese, unable to check in internal organs Musculoskeletal: - - Legs appear to be wasted Neurological: - - Normal cognition Psych/Mental Status: Normal Affect Laboratory Results 01/28/20 07:10: COVID-19 ([facility]) Negative 01/28/20 07:18: WBC 7.5, RBC 3.49 L, Hgb 10.5 L, Hct 33.4 L, MCV 95.7 H, MCH 30.1, MCHC 31.4 L, RDW Std Deviation 50.0 H, RDW Coeff of Baljit 14.5, Plt Count 170, MPV 10.5 01/28/20 07:18: Sodium 142, Potassium 4.5, Chloride 105, Carbon Dioxide 28.0, Anion Gap 9, BUN 44 H, Creatinine 5.85 H, Est GFR (MDRD) Af Amer 13 L, Est GFR (MDRD) Non-Af 11 L, BUN/Creatinine Ratio 7.5 L, Glucose 209 H, Calcium 8.6 01/28/20 07:34: POC Glucose 197 H Current Medications Cefazolin Sodium 2 gm/ Sodium (Chloride) 110 mls @ 150 mls/hr IV PREOP ONE Stop: 01/28/20 12:03 Sodium Chloride () 1,000 mls @ 15 mls/hr IV .Q48H RASHIDA Last Admin: 01/28/20 08:18 Dose: 15 mls/hr Documented by: Assessment/Plan All Active Problems (Last Reviewed 01/08/20 @ 14:18 by Carrie Rondon) Problem with dialysis access (Acute) Difficulty swallowing (Acute) I recommend to the patient today that we remove his left internal jugular tunneled dialysis catheters and attempt placement of new right internal jugular tunneled dialysis catheters. Because of the skin disruption right anterior chest I will likely have to use a longer catheter on the right. In addition today I have discussed with him future placement of a arteriovenous fistula. I would propose for him a transposed left upper arm cephalic vein to brachial artery AV fistula creation. Additionally have discussed technique, benefit, risk, alternatives. We will schedule and he will return at that time for fistula creation. Osman Tarango M.D., F.A.C.S.
--- NOTE | 2020-01-28 10:42 | DCINST_ITS ---
Discharge Diet: Renal Diet Discharge Activity: May Not Shower Lifting Restrictions: 10 pounds Call your doctor if your incision/area has: Continuous Slow Oozing, Sudden Increased Bleeding, Increased Pain/ Swelling, Increased Redness, Foul Smelling Discharge Call your doctor if you observe: Fever of 101 or Higher Additional Dressing/Incision Instructions:: Dressing care as per dialysis center Additional Instructions: Additional office appointment will be scheduled subsequent to the creation of your left upper arm transposed cephalic vein to brachial artery AV fistula Allergies/Adverse Reactions: Allergies No Known Allergies Allergy (Verified 01/28/20 07:23) Medications to take at Discharge Aspirin [Aspir-Low] 81 mg PO DAILY 08/22/19 Carvedilol 25 mg PO BID 08/22/19 Insulin Glargine,Hum.rec.anlog [Basaglar Kwikpen U-100] 10 unit SQ QHS 08/22/19 Insulin Lispro 0 - 4 unit SQ ACHS 08/22/19 Levothyroxine [Synthroid] 50 mcg PO DAILY 08/22/19 Pregabalin [Lyrica] 100 mg PO BID 08/22/19 Amitriptyline HCl [Elavil] 50 mg PO QHS 12/23/19 Calcium Acetate 2 tab PO TID 12/23/19 Metoclopramide HCl [Reglan] 5 mg PO BID 12/23/19 Metoclopramide [Reglan] 10 mg PO 4X/DAY PRN #20 tab 12/23/19 Pantoprazole Granules [Protonix Granules for Suspension] 40 mg PO BID 12/23/19 Polyethylene Glycol 3350 [Miralax] 17 gm PO BID PRN 12/23/19 Pravastatin [Pravachol] 40 mg PO QODAY 12/23/19 Rizatriptan Benzoate [Rizatriptan] 10 mg PO PRN PRN 12/23/19 fluoxetine 10 mg capsule 20 mg PO DAILY cap 01/08/20 Ondansetron [Zofran] 8 mg PO Q12H PRN PRN 01/27/20 Loperamide [Imodium] 2 mg PO 01/28/20 Primary Care Physician: Laura Daly MD [Primary Care Provider] - Test Results: Test results from this visit will be discussed in further detail at your follow- up appointment, if applicable. Please Follow Up With: Osman Tarango MD - [phone]
[2020-01-28] MEDS: Cefazolin 2 GM in 0.9% Normal Saline 100 ML IV (10:45)
[2020-01-28] MEDS: Bupivacaine Mpf 0.5% 30 ML VIAL (11:06)
[2020-01-28] MEDS: Heparin 10,000 UNITS/10 ML Vial 10000 UNITS (11:40)
--- NOTE | 2020-01-28 11:44 | PCM.OPRPT ---
Problem List (1) Problem with dialysis access Status: Acute Qualifiers: Encounter type: initial encounter Report of Operation Date of Procedure: 01/28/20 Pre-Operative Diagnosis: Problem with left internal jugular tunneled dialysis catheter Post-Operative Diagnosis: Same Surgery/Procedure Performed:: Right internal jugular 19 cm straight palindrome catheter placement. Reference #[id number], Lot #[id number] expiry date 04/05/2023. Removal of left internal jugular tunneled dialysis catheter. Description of Surgical Findings:: 49-year-old gentleman stick now from placement table underwent anesthesia care. Ancef 3 g given intravenous preoperatively. The neck and chest were sterilely prepped and draped. Throughout the procedure 26 cc of 0.5% Marcaine mixed 50-50 1 1% lidocaine was used as local anesthetic. Under ultrasound guidance local was instilled in the right neck then under ultrasound guidance micropuncture needle was inserted right internal jugular vein micropuncture wire was inserted unfortunately a significant amount of scar tissue on the right neck getting a sheath dilator over the wire was difficult I then used the package J-wire that became pink so I had to get an 035 Magic wire. Local was instilled down upon the right anterior chest wall of the 19 cm long straight palindrome catheter double-lumen was tunneled from the chest to the neck site. Then with effort serial dilatation was performed over the wire significant scar tissue was encountered causing disruption to the dilators. I was finally able to get the sheath dilator inserted. The the dilator wire was removed. The catheter advanced through the sheath. The sheath was split the catheter was positioned to be close to the SVC atrial junction. Great care was taken to inspected and had a good curvilinear position. It aspirated very easily it was flushed with saline and then with 3-1/2 cc of heparinized saline per channel. Silver impregnated dressings applied counts correct blood loss minimal he tolerated that for the procedure well Local was now instilled with the exit catheter was on the right chest. I then remove the suture and gently pull traction on that catheter. Because of the fairly recent placement of the catheter that could be removed as the Dacron and not become fully incorporated. Direct pressure was held throughout the removal process there was no air entrapment. Pressure was held until hemostasis was intact and dressings applied. Sponge and instrument and needle counts reported surgical correct Specimens none. Drains none. Blood loss minimal. The patient was taken to the recovery area in satisfactory edition without apparent complication. Stat portable chest x-ray is pending. Osman Tarango M.D., F.A.C.S. Type of Anesthesia:: Local MAC Anesthesiologist: Ravi Bowling
--- NOTE | 2020-01-28 12:07 | RAD_ITS ---
STUDY: X-RAY CHEST REASON FOR EXAM: Male, 49 years old. Post dialysis cath insertion in OR TECHNIQUE: 2 AP portable views COMPARISON: 01/08/2020 FINDINGS: Right subclavian dialysis catheter is in place, tip is in the distal SVC. No pneumothorax or acute pulmonary process. The lungs are clear and expanded. There is no demonstrated pleural abnormality. Normal size heart. Normal mediastinum and patel. Normal visualized pulmonary arteries. Normal visualized aortic arch and descending thoracic aorta. Normal visualized thoracic spine. Normal visualized ribs, clavicles, and shoulders. There is no demonstrated abnormality of the visualized soft tissue structures of the upper abdomen. RAD/Chest 1 View (Portable) IMPRESSION: Normal x-ray examination of the chest. Right subclavian dialysis catheter has been placed, no complications Electronically Signed: Avi Treviño MD at 12:23 EDT , Service support ,
== END 2020-01-28 13:38 | disposition home or self-care (01) ==
LOC: SDC 06:52 → AC 06:54
PROVIDERS: Anesthesiology; PCP Internal Medicine; Referring Provider Surgery; Visit Provider Surgery
PROC: (CPT 36558; principal; 2020-01-28 11:20)
DX: T82.898A Other specified complication of vascular prosthetic devices, implants and grafts, initial encounter (principal); Y82.8 Other medical devices associated with adverse incidents; E11.22 Type 2 diabetes mellitus with diabetic chronic kidney disease; I12.0 Hypertensive chronic kidney disease with stage 5 chronic kidney disease or end stage renal disease; N18.6 End stage renal disease; E03.9 Hypothyroidism, unspecified; K21.9 Gastro-esophageal reflux disease without esophagitis; E66.9 Obesity, unspecified; Z68.41 Body mass index [BMI] 40.0-44.9, adult; Z79.899 Other long term (current) drug therapy; Z79.4 Long term (current) use of insulin; Z79.82 Long term (current) use of aspirin; R13.10 Dysphagia, unspecified; E78.00 Pure hypercholesterolemia, unspecified; F41.9 Anxiety disorder, unspecified
CPT/HCPCS: 00532; 36558; 36589; 36415; 71045; 76000; 80048; 82962; 85027; 87635; J7030; J7040; C1769; U0003

== ENCOUNTER 2020-02-07 05:27 | Day surgery (SDC) | payer MEDICAID, SELFPAY ==
[2020-01-28 07:25] VITALS: BMI 44.4
[2020-02-07] VITALS (8 sets, daily range): BP systolic 81–139; BP diastolic 36–88; PULSE 77–88; RESP 16–18; TEMP 36.2–36.7; O2SAT 94–100; BMI 44.4
--- NOTE | 2020-02-07 05:33 | PCM.HP.BLA ---
Problem List (1) Problem with dialysis access Status: Acute Qualifiers: History and Physical Date of Admission: 02/07/20 Problem List (1) Problem with dialysis access Status: Acute Qualifiers: Encounter type: initial encounter History of Present Illness Date of Admission: 01/28/20 The patient is a 49 year old M who presents today because of recurrent problems with yet a new set of tunneled hemodialysis catheters. Previously I was asked to change out right internal jugular tunneled dialysis catheters and I placed new left internal jugular tunneled dialysis catheters. Admittedly that procedure was very difficult secondary to the patient's body habitus and difficulty in getting the catheter to direct into the SVC. Unfortunately as the first set of catheters these catheters apparently are partially thrombosed. The patient states when they were initially placed they function very well. Unfortunately I suspect that this is secondary to inadequate flushing and maintenance. As a secondary note the patient is in need of creation of a fistula. He claims that he previously has had an attempt adequate fistula creation left forearm radiocephalic but that failed. As noted below it appears that the left upper arm cephalic vein should be adequate. On my review of the study however the veins appear to be deeply placed. [facility] [address] [place] [address] Saphenous Vein Mapping, Bilat 08/22/19 0955 MR#: [id number] Acct: [id number] Name: JENA SCHAFFER Rep #: [id number] : 1970 49 From: Osman Tarango MD Attending Dr: Osman Tarango MD Status: REG CLI Ordering Dr: Osman Tarango MD Date: 08/22/19 Location: [facility] Sex: M C Admitted: Reason For Study: Pre op, CKD Right Arm Left Arm Right cephalic vein is compressible. Left cephalic vein is compressible. Right Cephalic Vein at the shoulder Left Cephalic Vein at the shoulder measures .51 x .53 cm. measures .64 x .67 cm. Right Cephalic Vein mid bicep measures .53 Left Cephalic Vein at mid bicep measures .67 x .6 cm. x .64 cm. Right Cephalic Vein above antecub Left Cephalic Vein above antecub measures .59 measures .45 x .51 cm. x .62 cm. Right Cephalic Vein below antecub Left Cephalic Vein below antecub measures .36 measures .29 x .3 cm. x .35 cm. Right Cephalic Vein in the forearm Left Cephalic Vein in the forearm measures .3 x .29 cm. measures .33 x .36 cm. Right Cephalic Vein at the wrist measures .13 Left Cephalic Vein at the wrist measures .31 x .16 cm. x .32 cm. Right basilic vein is compressible. Left basilic vein is compressible. Right Basilic Vein mid bicep measures .5 Basilic vein at bicep measures .4 x .4 cm. x .52 cm. Basilic vein above antecub measures .36 x .37 Right Basilic Vein above antecub measures .43 cm. x .43 cm. Basilic vein below antecub measures .15 x .16 Right Basilic Vein below antecub measures .14 cm. x .16 cm. Basilic vein in the forearm measures .16 Right Basilic Vein in the forearm x .16 cm. measures .27 x .29 cm. Basilic vein at the wrist measures .16 x .14 Right Basilic Vein at the wrist measures .25 cm. x .27 cm. Brachial Art .41 x .4 cm. Brachial Art .41 x .4 cm. Brachial Art 114.0 cm/s. Brachial Art 89.4 cm/s. Radial Art .19 x .22 cm. Radial Art .23 x .29 cm. Radial Art 112.2 cm/s. Radial Art 119.8 cm/s. Interpretation Summary Patent and compressible bilateral upper extremity cephalic and basilic veins with dimensions as noted. Small right cephalic vein at the wrist Small bilateral forearm basilic veins Adequate bilateral brachial artery diameter and flow. Adequate right radial artery slightly small on the left Ordering Physician: Osman Tarango Performed By: Nathan Ordoñez, RVT ? 08/22/19 1040 Date Osman Tarango MD Past Medical History Past Medical History (Chronic Problems): Chronic Problems (Last Reviewed 01/08/20 @ 14:18 by Carrie Rondon) Hypertension (Chronic) GERD (gastroesophageal reflux disease) (Chronic) Hypothyroidism (Chronic) Diabetes mellitus type 2 in obese (Chronic) ESRD (end stage renal disease) on dialysis (Chronic) Medical History: Medical History (Last Reviewed 01/08/20 @ 14:18 by Carrie Rondon) Problem with dialysis access (Acute) T82.898A Difficulty swallowing (Acute) R13.10 Hypertension (Chronic) I10 GERD (gastroesophageal reflux disease) (Chronic) K21.9 Hypothyroidism (Chronic) E03.9 Diabetes mellitus type 2 in obese (Chronic) E11.69, E66.9 ESRD (end stage renal disease) on dialysis (Chronic) N18.6, Z99.2 Allergies No Known Allergies Allergy (Verified 01/28/20 07:23) Home Medications: Ambulatory Orders Medication Instructions Recorded Aspirin [Aspir-Low] 81 mg PO DAILY 08/22/19 Carvedilol 25 mg PO BID 08/22/19 Insulin Glargine,Hum.rec.anlog 10 unit SQ QHS 08/22/19 [Basaglar Kwikpen U-100] Insulin Lispro 0 - 4 unit SQ ACHS 08/22/19 Levothyroxine [Synthroid] 50 mcg PO DAILY 08/22/19 Pregabalin [Lyrica] 100 mg PO BID 08/22/19 Amitriptyline HCl [Elavil] 50 mg PO QHS 12/23/19 Calcium Acetate 2 tab PO TID 12/23/19 Metoclopramide HCl [Reglan] 5 mg PO BID 12/23/19 Metoclopramide [Reglan] 10 mg PO 4X/DAY PRN #20 tab 12/23/19 Pantoprazole Granules [Protonix 40 mg PO BID 12/23/19 Granules for Suspension] Polyethylene Glycol 3350 [Miralax] 17 gm PO BID PRN 12/23/19 Pravastatin [Pravachol] 40 mg PO QODAY 12/23/19 Rizatriptan Benzoate [Rizatriptan] 10 mg PO PRN PRN 12/23/19 fluoxetine 10 mg capsule 20 mg PO DAILY cap 01/08/20 Ondansetron [Zofran] 8 mg PO Q12H PRN PRN 01/27/20 Loperamide [Imodium] 2 mg PO 01/28/20 Surgical History: Surgical History (Last Reviewed 01/08/20 @ 14:19 by Carrie Rondon) S/P dialysis catheter insertion Z95.828, Z99.2 Status post amputation of toe of left foot Z89.422 Surgical History: - Psychiatric History: No pertinent psych hx Smoking Status: Never smoker Tobacco Use: Non-smoker - *Family History Maternal History Items: COPD Paternal History Items: - Sibling History Items: Diabetes Review of Systems Constitutional: Denies: Chills, Fever, Night Sweats Cardiovascular: Denies: Chest Pressure Respiratory: Denies: Cough, Shortness of Breath Gastrointestinal: Denies: Abdominal Pain, Melena Endocrine: Denies: Change in Body Habitus VTE Information - Inpt Only VTE Present on Admission: No - Physical Exam Vitals/I&O's: Vital Signs Temp Pulse Resp BP Pulse Ox 97.1 F L 84 16 153/65 H 100 01/28/20 07:25 01/28/20 09:00 01/28/20 07:25 01/28/20 09:00 01/28/20 07:25 Oxygen Delivery Method Room Air Weight: 337 lb 1.388 oz Body Mass Index (BMI) 44.4 Finger Stick Blood Glucose 148 General: Alert, Oriented x3, Cooperative, No apparent distress Oral: Moist Mucosa Neck: Supple Lungs: Clear to auscultation, Normal air movement Cardiovascular: Regular rate, Regular Rhythm, - - Left chest indwelling tunneled IJ dialysis catheters. Right anterior chest evidence of previous skin incisions with some eschar from previous catheters Abdomen: Soft, - - Morbidly obese, unable to check in internal organs Musculoskeletal: - - Legs appear to be wasted Neurological: - - Normal cognition Psych/Mental Status: Normal Affect Laboratory Results 01/28/20 07:10: COVID-19 ([facility]) Negative 01/28/20 07:18: WBC 7.5, RBC 3.49 L, Hgb 10.5 L, Hct 33.4 L, MCV 95.7 H, MCH 30.1, MCHC 31.4 L, RDW Std Deviation 50.0 H, RDW Coeff of Baljit 14.5, Plt Count 170, MPV 10.5 01/28/20 07:18: Sodium 142, Potassium 4.5, Chloride 105, Carbon Dioxide 28.0, Anion Gap 9, BUN 44 H, Creatinine 5.85 H, Est GFR (MDRD) Af Amer 13 L, Est GFR (MDRD) Non-Af 11 L, BUN/Creatinine Ratio 7.5 L, Glucose 209 H, Calcium 8.6 01/28/20 07:34: POC Glucose 197 H Current Medications Cefazolin Sodium 2 gm/ Sodium (Chloride) 110 mls @ 150 mls/hr IV PREOP ONE Stop: 01/28/20 12:03 Sodium Chloride () 1,000 mls @ 15 mls/hr IV .Q48H RASHIDA Last Admin: 01/28/20 08:18 Dose: 15 mls/hr Documented by: Assessment/Plan All Active Problems (Last Reviewed 01/08/20 @ 14:18 by Carrie Rondon) Problem with dialysis access (Acute) Difficulty swallowing (Acute) I recommend to the patient today that we remove his left internal jugular tunneled dialysis catheters and attempt placement of new right internal jugular tunneled dialysis catheters. Because of the skin disruption right anterior chest I will likely have to use a longer catheter on the right. In addition today I have discussed with him future placement of a arteriovenous fistula. I would propose for him a transposed left upper arm cephalic vein to brachial artery AV fistula creation. Additionally have discussed technique, benefit, risk, alternatives. We will schedule and he will return at that time for fistula creation. Osman Tarango M.D., F.A.C.S. The patient presents now for planned transposition left upper extremity cephalic vein to brachial artery AV fistula creation for hemodialysis. He has been a very difficult tunneled catheter access. Last week he underwent a removal of left internal jugular tunneled dialysis catheters and replacement on the right. He had previously had catheters on the right. This is his third set of catheters. He has had an opportunity to ask and have questions answered. We will proceed as noted. Osman Tarango M.D., F.A.C.S. Procedure Criteria Procedure Type: Elective COVID Risk Discussion: The surgeon/proceduralist and patient have discussed in detail the risk of exposure to and/or potential harm posed by the COVID-19 virus with having a surgery/procedure at this time versus the risk of delaying the surgery/procedure. It is not possible to know either the risk of delaying the surgery or procedure or chance of getting an infection with perfect accuracy, but a joint decision was made between the patient and the surgeon/proceduralist to proceed at this time with the scheduled surgery/procedure as indicated on the consent form.
[2020-02-07 06:06] LABS: Bedside Glucose 185 mg/dL (70-110)
[2020-02-07 06:07] LABS: Hematocrit 32.6 % (40-54); Hemoglobin 10.4 g/dL (13.0-16.5); Mean Corp Hgb Conc 31.9 g/dL (32-36); Mean Corpuscular Hgb 30.1 pg (27.0-32.0); Mean Corpuscular Volume 94.5 fL (80-94); Platelet Count 171 K/mm3 (150-450); RBC Distribution Width CV 14.4 % (11.6-14.6); RBC Distribution Width SD 48.8 fl (35.1-43.9); Red Blood Count 3.45 M/mm3 (4.6-6.2)
[2020-02-07] MEDS: Lactated Ringers 1,000 ML 100 ML IV (06:15)
[2020-02-07 06:21] LABS: Anion Gap 7 (5-15); BUN 35 mg/dL (7-18); BUN/Creat Ratio 5.5 RATIO (10-20); Calcium,Total 8.7 mg/dL (8.5-10.1); Chloride 103 mmol/L (98-107); Creatinine, Serum 6.33 mg/dL (0.70-1.30); EST Glomerular Filtration Rate 10 mL/min (>60); Est Glom Filt Rate - Afr Amer 12 mL/min (>60); Estimated Creatinine Clearance 15.95 ml/min; Glucose 200 mg/dL (74-106); Potassium 3.8 mmol/L (3.5-5.1); Sodium Level 138 mmol/L (136-145)
--- NOTE | 2020-02-07 06:54 | DCINST_ITS ---
Discharge Diet: Renal Diet Discharge Activity: May Not Drive - for 2-3 days or while taking narcotic pain medications., May Take a Tub Bath - in 5 days. Lifting Restrictions: 5 pounds Keep extremity elevated above heart level: - - Keep arm elevated above the heart level for 3 days. Additional Activity Instructions:: Exercise hand vigorously with a stress ball. Call your doctor if your incision/area has: Continuous Slow Oozing, Sudden Increased Bleeding - apply pressure and call your doctor., Increased Pain/ Swelling, Increased Redness, Foul Smelling Discharge Call your doctor if you observe: Fever of 101 or Higher Suture Line Care: Avoid Pulling/Pushing, Avoid Pinching/Bending Cleanse incision/area with: Keep Dressing Clean & Dry Additional Dressing/Incision Instructions:: Change or remove dressing in one day. May protect with a gauze bandaid. Allergies/Adverse Reactions: Allergies No Known Allergies Allergy (Verified 02/07/20 05:44) Medications to take at Discharge RX: Aspirin [Aspir-Low] 81 mg PO DAILY 08/22/19 RX: Carvedilol 25 mg PO BID 08/22/19 RX: Insulin Glargine,Hum.rec.anlog [Basaglar Kwikpen U-100] 10 unit SQ QHS 08/22/19 RX: Insulin Lispro 0 - 4 unit SQ ACHS 08/22/19 RX: Levothyroxine [Synthroid] 50 mcg PO DAILY 08/22/19 RX: Pregabalin [Lyrica] 100 mg PO BID 08/22/19 RX: Amitriptyline HCl [Elavil] 50 mg PO QHS 12/23/19 RX: Calcium Acetate 2 tab PO TID 12/23/19 RX: Metoclopramide HCl [Reglan] 5 mg PO BID 12/23/19 RX: Metoclopramide [Reglan] 10 mg PO 4X/DAY PRN #20 tab 12/23/19 RX: Pantoprazole Granules [Protonix Granules for Suspension] 40 mg PO BID 12/23/19 RX: Polyethylene Glycol 3350 [Miralax] 17 gm PO BID PRN 12/23/19 RX: Pravastatin [Pravachol] 40 mg PO QODAY 12/23/19 RX: Rizatriptan Benzoate [Rizatriptan] 10 mg PO PRN PRN 12/23/19 fluoxetine 10 mg capsule 20 mg PO DAILY cap 01/08/20 RX: Ondansetron [Zofran] 8 mg PO Q12H PRN PRN 01/27/20 RX: Loperamide [Imodium] 2 mg PO PRN PRN 01/28/20 Rizatriptan Benzoate [Maxalt] 10 mg PO .X1 PRN 01/30/20 Primary Care Physician: Laura Daly MD [Primary Care Provider] - Test Results: Test results from this visit will be discussed in further detail at your follow- up appointment, if applicable. Please Follow Up With: Osman Tarango MD - [phone] When: Call to make an appointment for follow up in approx 10 days
[2020-02-07] MEDS: Heparin Injection (Vial) 5,000 UNIT/ML VIAL 5000 UNIT (08:07)
[2020-02-07] MEDS: Bupivacaine Mpf 0.5% 30 ML VIAL (09:57)
--- NOTE | 2020-02-07 10:12 | OP.PCM_ITS ---
Problem List (1) Problem with dialysis access Status: Acute Qualifiers: Report of Operation Date of Procedure: 02/07/20 Pre-Operative Diagnosis: Stage V chronic renal failure need of arteriovenous hemodialysis access Post-Operative Diagnosis: Same Surgery/Procedure Performed:: Left upper arm brachiocephalic arteriovenous fistula creation with transposition of the cephalic vein Description of Surgical Findings:: Informed consent was obtained. 50-year-old gent was taken out from placement table underwent monitored anesthesia care. The left upper extremity was sterilely prepped and draped. 1% lidocaine mixed 50-50 with 0.5% Marcaine was used as local anesthetic total 30 cc was used. 0.5% lidocaine was used as local aesthetic and 20 cc was used. Ultrasound was used to map the course of the left upper arm cephalic vein. Local was instilled. A longitudinal incision was made. The vein was sharply dissected free. Side branches secured with 4-0 Vi cryl ligatures and hemoclips. Having completely mobilized the vein I marked the anterior surface. Irrigated it after ligating it at the antecubital space with 3-0 Vicryl. Repaired a couple [place] with 7-0 Prolene.. I now be in good position measured the distance. Irrigate with a heparinized saline. Then I skate immediately at the antecubital area to find the brachial artery. Sharp and blunt dissection was used to dissect this free unfortunately this artery was of very poor caliber being densely calcified. I free the adequate dissection. I then used a tunneler tunneling from the antecubital area up to the shoulder area. I then tunneled the vein from the shoulder down to the antecubital spot. Irrigated and made sure that there were no twists. The patient then received 10,000's of heparin. Peripheral vascular clamps were placed on the brachial artery and 11 blade was used to make an arteriotomy which was extended with Rojas scissors as it crunched through the calcific disease in the wall of the vessel. The vein was slightly spatulated and the side anastomosis was created with a running 7-0 Prolene. Clamps were released hemostasis was obtained with several simple sutures of 7-0 Prolene. FloSeal was placed to further assist. The patient received 30 mg of protamine. Hand was inspected to be viable used a couple Doppler systems nodes were sure that there was good radial and ulnar pulsatile flow. There appeared to be good flow within the fistula. I then closed the wound with deep layer multiple interrupted 3-0 Vicryl in a running septic or 4-0 Monocryl. Steri-Strips Telfa roll gauze [place] wrap applied. Sponge and instrument and needle counts reported to certainly be correct. Specimens none. Drains none. Blood loss 150 cc. He was taken to the recovery area in satisfactory edition no apparent complications Osman Taragno M.D., F.A.C.S. Type of Anesthesia:: Local MAC Anesthesiologist: Javi Orlando
== END 2020-02-07 12:14 | disposition home or self-care (01) ==
LOC: SDC 05:27 → AC 05:28
PROVIDERS: PCP Internal Medicine; Referring Provider Surgery; Visit Provider Surgery
PROC: (CPT 36818; principal; 2020-02-07 07:15)
DX: T82.898A Other specified complication of vascular prosthetic devices, implants and grafts, initial encounter (principal); E11.22 Type 2 diabetes mellitus with diabetic chronic kidney disease; I12.0 Hypertensive chronic kidney disease with stage 5 chronic kidney disease or end stage renal disease; N18.6 End stage renal disease; Z99.2 Dependence on renal dialysis; K21.9 Gastro-esophageal reflux disease without esophagitis; E11.69 Type 2 diabetes mellitus with other specified complication; E66.9 Obesity, unspecified; Z68.41 Body mass index [BMI] 40.0-44.9, adult; E03.9 Hypothyroidism, unspecified; F41.9 Anxiety disorder, unspecified; F32.9 Major depressive disorder, single episode, unspecified; Z79.4 Long term (current) use of insulin; Z79.82 Long term (current) use of aspirin; Z79.899 Other long term (current) drug therapy
CPT/HCPCS: 01780; 36818; 80048; 82962; 85027; J7120

== ENCOUNTER 2020-02-18 06:11 | Day surgery (SDC) | payer MEDICAID, SELFPAY ==
[2020-02-13 08:26] VITALS: BMI 44.4
[2020-02-18] VITALS (7 sets, daily range): BP systolic 101–121; BP diastolic 34–48; PULSE 80–88; RESP 16–18; TEMP 36.3–36.8; O2SAT 94–100; BMI 43.5
--- NOTE | 2020-02-18 06:25 | HP.PCM_ITS ---
Problem List (1) Problem with dialysis access Status: Acute Qualifiers: Encounter type: subsequent encounter Qualified Code(s): T82.898D - Other specified complication of vascular prosthetic devices, implants and grafts, subsequent encounter History and Physical Date of Admission: 02/18/20 Intake Visit Reasons: recheck fistula--cant come sooner d/t transport Chief Complaint: recheck fistula--decreased bruit/thrill Mail Sorter And Delivery Required: No Is patient in pain?: No Allergies No Known Allergies Allergy (Verified 02/13/20 08:26) Medications Aspirin [Aspir-Low] 81 mg PO DAILY 08/22/19 [History Confirmed 02/13/20] Carvedilol 25 mg PO BID 08/22/19 [History Confirmed 02/13/20] Insulin Glargine,Hum.rec.anlog [Basaglar Kwikpen U-100] 10 unit SQ QHS 08/22/19 [History Confirmed 02/13/20] Insulin Lispro 0 - 4 unit SQ ACHS 08/22/19 [History Confirmed 02/13/20] Levothyroxine [Synthroid] 50 mcg PO DAILY 08/22/19 [History Confirmed 02/13/20] Pregabalin [Lyrica] 100 mg PO BID 08/22/19 [History Confirmed 02/13/20] Amitriptyline HCl [Elavil] 50 mg PO QHS 12/23/19 [History Confirmed 02/13/20] Calcium Acetate 2 tab PO TID 12/23/19 [History Confirmed 02/13/20] Metoclopramide HCl [Reglan] 5 mg PO BID 12/23/19 [History Confirmed 02/13/20] Metoclopramide [Reglan] 10 mg PO 4X/DAY PRN #20 tab 12/23/19 [Rx Confirmed 02/13/20] Pantoprazole Granules [Protonix Granules for Suspension] 40 mg PO BID 12/23/19 [History Confirmed 02/13/20] Polyethylene Glycol 3350 [Miralax] 17 gm PO BID PRN 12/23/19 [History Confirmed 02/13/20] Pravastatin [Pravachol] 40 mg PO QODAY 12/23/19 [History Confirmed 02/13/20] Rizatriptan Benzoate [Rizatriptan] 10 mg PO PRN PRN 12/23/19 [History Confirmed 02/13/20] fluoxetine 10 mg capsule 20 mg PO DAILY cap 01/08/20 [History Confirmed 02/13/20] Ondansetron [Zofran] 8 mg PO Q12H PRN PRN 01/27/20 [History Confirmed 02/13/20] Loperamide [Imodium] 2 mg PO PRN PRN 01/28/20 [History Confirmed 02/13/20] Rizatriptan Benzoate [Maxalt] 10 mg PO .X1 PRN 01/30/20 [History Confirmed 02/13/20] PFSH Medical History Problem with dialysis access (Acute) Difficulty swallowing (Acute) Hypertension (Chronic) GERD (gastroesophageal reflux disease) (Chronic) Hypothyroidism (Chronic) Diabetes mellitus type 2 in obese (Chronic) ESRD (end stage renal disease) on dialysis (Chronic) Surgical History (Updated 02/13/20 @ 08:26 by Oralia Pizarro) Hx of arteriovenostomy for renal dialysis (Acute ~01/2020) S/P dialysis catheter insertion (Acute) Status post amputation of toe of left foot (Acute) Social History (Updated 02/13/20 @ 08:[address] Osman Tarango MD) Smoking Status: Never smoker HPI HPI HPI: JENA SCHAFFER, is a 50 M who presents to the office today for ongoing surgical follow-up regarding potential for hemodialysis access creation. The patient had a difficult left upper semi-transposed cephalic vein to brachial artery AV fistula creation on February 07, 2020. Seemingly everything was solid at that point. It is of note that the artery was extremely calcified and difficult to suture. We were alerted by the dialysis center that the fistula appeared to be nonfunctioning. He presents today and that is indeed the case. He has had a remote attempt at a left forearm AV fistula creation at [facility] in [place] and that also failed. He has had difficult to place tunneled dialysis catheters with currently a right IJ catheter with intermittent flow. He routinely is moderately hypotensive. HPI HPI HPI: JENA SCHAFFER, is a 50 M who presents to the office today for Exam Const General: no acute distress Nutritional Appearance: obese morbidly obese Eyes General: appearance normal, both eyes and all related structures Chest Chest palpation & inspection: normal inspection of the chest Resp Effort & Inspection: normal respiratory effort Auscultation: clear to auscultation bilaterally Cardio Rate: regular rate Rhythm: regular rhythm GI Palpation: soft Extrem Other: Left upper arm incision clean dry healing well. No pulse thrill or bruit within the fistula. Ultrasound Doppler inspection reveals no color flow. Left brachial artery pulses difficult to feel. Left radial pulse 0 Assessment & Plan Problems 1. Problem with dialysis access, initial encounter T82.504D Plan Obtaining arteriovenous hemodialysis access for this patient remains extraordinarily challenging. The left upper arm cephalic vein appeared to be of adequate caliber. It appeared to lie nicely within the tunnel. The anastomotic suturing was indeed extraordinarily challenging but appeared to be widely patent. This is a very early failure of the fistula. On vein mapping that we had been performed August 22, 2019 he does have an intact left upper arm basilic vein. With all of the challenges his hand I believe it is important to try to get AV access in him sooner than what a fistula will mature. He has no radial pulse. He is relatively hypotensive chronically. I propose for him a left forearm loop AV graft. I would anticipate utilizing basilic vein outflow. I recognize that the arterial anastomosis again will be challenging with likely a very calcified artery. No guarantees of success have been offered. If this is functional then it will facilitate basilic vein maturation for potential future use. He has had an opportunity to ask and have questions answered. We will schedule and proceed at his discretion. Copy: Dr. Corry Tarango M.D., F.A.C.S. Coding Level of Care Code Global Post Op Diagnoses Problem with dialysis access, initial encounter T82.477P I have re-examined the patient. There are no clinical changes since date of exam. Procedure Criteria Procedure Type: Elective COVID Risk Discussion: The surgeon/proceduralist and patient have discussed in detail the risk of exposure to and/or potential harm posed by the COVID-19 virus with having a surgery/procedure at this time versus the risk of delaying the surgery/ procedure. It is not possible to know either the risk of delaying the surgery or procedure or chance of getting an infection with perfect accuracy, but a joint decision was made between the patient and the surgeon/proceduralist to proceed at this time with the scheduled surgery/procedure as indicated on the consent form.
--- NOTE | 2020-02-18 06:25 | PCM.DC.FIST ---
Discharge Diet: Renal Diet Discharge Activity: May Not Drive - for 2-3 days or while taking narcotic pain medications., May Take a Tub Bath - in 5 days. Lifting Restrictions: 5 pounds Keep extremity elevated above heart level: - - Keep arm elevated above the heart level for 3 days. Additional Activity Instructions:: Exercise hand vigorously with a stress ball. Call your doctor if your incision/area has: Continuous Slow Oozing, Sudden Increased Bleeding - apply pressure and call your doctor., Increased Pain/ Swelling, Increased Redness, Foul Smelling Discharge Call your doctor if you observe: Fever of 101 or Higher Suture Line Care: Avoid Pulling/Pushing, Avoid Pinching/Bending Cleanse incision/area with: Keep Dressing Clean & Dry Additional Dressing/Incision Instructions:: Change or remove dressing in two days. May protect with a gauze bandaid. Allergies/Adverse Reactions: Allergies No Known Allergies Allergy (Verified 02/13/20 08:26) Medications to take at Discharge Aspirin [Aspir-Low] 81 mg PO DAILY 08/22/19 Carvedilol 25 mg PO BID 08/22/19 Insulin Glargine,Hum.rec.anlog [Basaglar Kwikpen U-100] 10 unit SQ QHS 08/22/19 Insulin Lispro 0 - 4 unit SQ ACHS 08/22/19 Levothyroxine [Synthroid] 50 mcg PO DAILY 08/22/19 Pregabalin [Lyrica] 100 mg PO BID 08/22/19 Amitriptyline HCl [Elavil] 50 mg PO QHS 12/23/19 Calcium Acetate 2 tab PO TID 12/23/19 Metoclopramide HCl [Reglan] 5 mg PO BID 12/23/19 Metoclopramide [Reglan] 10 mg PO 4X/DAY PRN #20 tab 12/23/19 Pantoprazole Granules [Protonix Granules for Suspension] 40 mg PO BID 12/23/19 Polyethylene Glycol 3350 [Miralax] 17 gm PO BID PRN 12/23/19 Pravastatin [Pravachol] 40 mg PO QODAY 12/23/19 fluoxetine 10 mg capsule 20 mg PO DAILY cap 01/08/20 Ondansetron [Zofran] 8 mg PO Q12H PRN PRN 01/27/20 Loperamide [Imodium] 2 mg PO PRN PRN 01/28/20 Rizatriptan Benzoate [Maxalt] 10 mg PO .X1 PRN 01/30/20 Orders to be completed after discharge: Basic Metabolic Profile (BMP) Time Frame: 02/18/20, Facility: [facility], Location: Laboratory CBC-Complete Blood Cnt No Diff Time Frame: 02/18/20, Facility: [facility], Location: Laboratory Primary Care Physician: Laura Daly MD [Primary Care Provider] - Test Results: Test results from this visit will be discussed in further detail at your follow-up appointment, if applicable. Please Follow Up With: Osman Tarango MD - [phone] When: Office appt in approximately 10-14 days
[2020-02-18 06:55] LABS: Hematocrit 37.4 % (40-54); Hemoglobin 11.3 g/dL (13.0-16.5); Mean Corp Hgb Conc 30.2 g/dL (32-36); Mean Corpuscular Hgb 29.6 pg (27.0-32.0); Mean Corpuscular Volume 97.9 fL (80-94); Mean Platelet Vol. 10.8 fl (6.2-12.0); Platelet Count 190 K/mm3 (150-450); RBC Distribution Width CV 14.6 % (11.6-14.6); RBC Distribution Width SD 50.6 fl (35.1-43.9); Red Blood Count 3.82 M/mm3 (4.6-6.2); White Blood Count 11.8 K/mm3 (4.4-11.0)
[2020-02-18 07:00] LABS: Bedside Glucose 262 mg/dL (70-110)
[2020-02-18] MEDS: 0.9% Normal Saline 1,000 ML 30 ML IV (07:11)
[2020-02-18 07:13] LABS: Anion Gap 14 (5-15); BUN 22 mg/dL (7-18); BUN/Creat Ratio 4.1 RATIO (10-20); Calcium,Total 8.6 mg/dL (8.5-10.1); Chloride 98 mmol/L (98-107); Creatinine, Serum 5.33 mg/dL (0.70-1.30); EST Glomerular Filtration Rate 12 mL/min (>60); Est Glom Filt Rate - Afr Amer 15 mL/min (>60); Estimated Creatinine Clearance 18.95 ml/min; Glucose 265 mg/dL (74-106); Potassium 3.6 mmol/L (3.5-5.1); Sodium Level 138 mmol/L (136-145)
[2020-02-18] MEDS: Cefazolin 2 GM in 0.9% Normal Saline 100 ML IV (08:11)
[2020-02-18] MEDS: Bupivacaine Mpf 0.5% 30 ML VIAL (09:00)
[2020-02-18] MEDS: Heparin Injection (Vial) 5,000 UNIT/ML VIAL 5000 UNIT (10:00)
--- NOTE | 2020-02-18 10:18 | PCM.OPRPT ---
Problem List (1) Problem with dialysis access Status: Acute Qualifiers: Encounter type: subsequent encounter Qualified Code(s): T82.898D - Other specified complication of vascular prosthetic devices, implants and grafts, subsequent encounter Report of Operation Date of Procedure: 02/18/20 Pre-Operative Diagnosis: Acutely thrombosed left upper arm transposed cephalic vein to brachial artery AV fistula Post-Operative Diagnosis: Same Surgery/Procedure Performed:: Left upper extremity forearm 4 to 7 mm PTFE brachial to basilic arteriovenous hemodialysis graft placement Description of Surgical Findings:: Timeout and informed consent was obtained. 50-year-old gentleman was taken to the operating place upon the table. He received 2 g of Ancef intravenously. The left upper extremity was sterilely prepped and draped. Ultrasound was used to identify the left antecubital brachial artery and basilic vein. Transverse incision was made distal to the antecubital crease. Sharp and blunt dissection was utilized to identify the brachial artery and basilic vein at this level. It is of note that 23 cc of 1% lidocaine mixed 50-50 with 0.5% Marcaine and 8 cc of 0.5% lidocaine as local anesthetic. The brachial artery is markedly calcified and dissection was tedious dissecting around it. Side branches secured with hemoclips. The vein was identified at the antecubital space and the bifurcation of the cephalic vein which was ligated. Adequate length of the basilic vein was achieved. Then the 4 to 7 mm 45 cm piece of PTFE was measured. A counterincision was made in the volar aspect of the distal forearm after local was instilled. Subcutaneous pocket created. A curved 6 mm [place] tunneler was used to tunnel the 4 to 7 mm graft. He had removable rings at the apex and I removed a total of 8 rings for on either side. The patient then received 12,000 units of heparin. Peripheral vascular clamps were placed on the brachial artery. A 11 blade was used to make an arteriotomy which was extended with Rojas scissors. The graft was slightly spatulated. A end-to-side arterial anastomosis was created with a CV 7 [place]-Sylvester suture. At the completion there appeared to be excellent positioning of the [place]-Sylvester graft and good flow. That graft then was irrigated with heparinized saline. Similarly the venous end was inspected the basilic vein was secured with bulldog clamps a 11 blade was used to make an arteriotomy which was extended with Rojas scissors. The 7 mm side of the [place]-Sylvester graft was spatulated and again a end-to-side anastomosis created this time with a CV 8 [place]-Sylvester suture. At the completion clamps were removed there was good flow through the graft. The patient received 20 mg of protamine as reversal. Surgicel was used to topically assist with hemostasis and then it was removed. The graft appeared to have an absolutely wonderful positioning at the antecubital space and forearm. There was a thrill that was palpable. Both wounds were closed with deep layers of interrupted 3-0 Vicryl and then a running septic or 4-0 Monocryl. Steri-Strips Telfa OpSite dressings applied. Sponge and instrument and needle counts were reported the surgeon be correct. Blood loss 100 cc. Specimens none. Drains none. Blood loss 100 cc. The patient was taken to the recovery area in satisfactory addition without apparent complication Osman Tarango M.D., F.A.C.S. Type of Anesthesia:: Local MAC Anesthesiologist: Javi Orlando
--- NOTE | 2020-02-18 11:58 | SUR.PHASEII ---
DRESSINGS DRY AND INTACT. BRUIT NOTED TO FISTULA SITE.
== END 2020-02-18 12:09 | disposition home or self-care (01) ==
LOC: SDC 06:11 → AC 06:13
PROVIDERS: PCP Internal Medicine; Referring Provider Surgery; Visit Provider Surgery
PROC: (CPT 36819; principal; 2020-02-18 08:30)
DX: T82.868A Thrombosis due to vascular prosthetic devices, implants and grafts, initial encounter (principal); E11.22 Type 2 diabetes mellitus with diabetic chronic kidney disease; I12.0 Hypertensive chronic kidney disease with stage 5 chronic kidney disease or end stage renal disease; N18.6 End stage renal disease; Z99.2 Dependence on renal dialysis; E11.69 Type 2 diabetes mellitus with other specified complication; E66.01 Morbid (severe) obesity due to excess calories; Z68.41 Body mass index [BMI] 40.0-44.9, adult; E78.00 Pure hypercholesterolemia, unspecified; K21.9 Gastro-esophageal reflux disease without esophagitis; E03.9 Hypothyroidism, unspecified; F41.9 Anxiety disorder, unspecified; F32.9 Major depressive disorder, single episode, unspecified; Z86.73 Personal history of transient ischemic attack (TIA), and cerebral infarction without residual deficits; Z79.4 Long term (current) use of insulin; Z79.82 Long term (current) use of aspirin; Z79.899 Other long term (current) drug therapy
CPT/HCPCS: 01844; 36819; 36415; 80048; 82962; 85027; J7030

== ENCOUNTER 2020-03-11 15:25 | Emergency (ER) | payer MEDICAID, SELFPAY ==
[2020-02-27 07:22] VITALS: BMI 43.5
[2020-03-11 15:27] VITALS: BP 112/84; PULSE 82; RESP 16; TEMP 36.9; O2SAT 100; BMI 48.2
[2020-03-11 16:06] LABS: Absolute Lymphocyte Count 2.13 X10^3/uL (0.83-4.51); Absolute Neutrophil Count 6.4 X10^3/uL (2.0-7.7); Basophil# 0.07 X10^3/uL; Basophil% 0.7 % (0-1); Eosinophil# 0.48 X10^3/uL; Eosinophils% 4.9 % (0-5); Hematocrit 34.4 % (40-54); Hemoglobin 10.7 g/dL (13.0-16.5); Lymphocyte # 2.13 X10^3/ul (4.0); Lymphocyte % 21.7 % (19-41); Mean Corp Hgb Conc 31.1 g/dL (32-36); Mean Corpuscular Hgb 30.1 pg (27.0-32.0); Mean Corpuscular Volume 96.6 fL (80-94); Mean Platelet Vol. 10.9 fl (6.2-12.0); Monocyte# 0.69 X10^3/uL; NRBC Flagged by Analyzer 0 % (0-5); Neutrophil # 6.35 X10^3/uL (2.7-7.7); Neutrophil % 64.6 % (47-70); Platelet Count 145 K/mm3 (150-450); RBC Distribution Width CV 14.6 % (11.6-14.6); RBC Distribution Width SD 50.6 fl (35.1-43.9); Red Blood Count 3.56 M/mm3 (4.6-6.2); White Blood Count 9.8 K/mm3 (4.4-11.0)
--- NOTE | 2020-03-11 16:07 | ED.VISSUMM ---
- ER Visit Summary Date of Service: 03/11/20 Chief Complaint: Sent in by the dialysis center for evaluation of his left forearm vascular dialysis graft. History of Present Illness: The patient is a 50 M history of diabetes, hypertension and end-stage renal disease for which she gets dialysis. Did have a dialysis run today but was not full. Had a full run on Monday. Patient was sent in to have his left forearm dialysis graft evaluated. Osman Tarango the patient's vascular surgeon called me and wanted me run screening labs in the patient. He did come down the emergency department evaluated the patient himself in the room. And also requested I get some type of blood sample from the left forearm vascular graft. Physical Examination: Middle-aged male no acute distress vital signs are stable and afebrile. Patient does not look septic or toxic. HEENT exam unremarkable. Moist with membranes. Neck nontender. Lungs clear to auscultation. Heart regular rhythm no murmur rate about 80. Abdomen soft nontender normal bowel sounds no peritoneal signs. Right chest wall he has a tunneled Vas-Cath. There is no signs of redness or drainage. No cellulitis. Extremities moves all 4. Calves are nontender. Neurologically is awake and alert with no focal motor deficits. Left forearm he has a vascular dialysis graft. Surgical incisions are dry and clean. Well-healing. There is no cellulitis. Is not warm to the touch. It does have a thrill. He is got normal sound effects technician strength in his left hand. There is no cellulitis or lymphangitic streaking. There is no axillary lymphadenopathy. Clinically to me this does not seem to be infected. Test Results: CBC shows Emergency Department Course and Treatment: Both myself and Dr. Osman Tarango evaluated the patient. The left forearm graft does not clinically appear to be infected. Is scheduled to have vascular surgery at [facility] next week. Treatment Plan: [] Disposition: Discharge Impression: Evaluation of left forearm dialysis graft to rule out infection History of end-stage renal disease dialysis History of diabetes This note was generated with [employer] software. It may contain incorrect words, spelling, and punctuation that were not noted in review of the chart prior to signing ED Disposition - Plan for ED Patient: Referrals: Laura Daly MD [Primary Care Provider] -
--- NOTE | 2020-03-11 16:08 | PCM.CONS.GEN ---
Problem List (1) Problem with dialysis access Status: Acute Qualifiers: Encounter type: initial encounter Qualified Code(s): T82.898A - Other specified complication of vascular prosthetic devices, implants and grafts, initial encounter Reason for Consult Date of Consultation: 03/11/20 History of Present Illness: The patient is a 50 year old M who I have been asked to see by the dialysis center urgently over the possibility of an infected left forearm loop AV graft which I placed for him on February 18, 2020. Mr. Silver has been very difficult for me. We have placed tunneled hemodialysis catheters for him on the right and then on the left than on the right. Very soon after placement they have had diminished flow rates despite being seemingly correctly placed. I did a left upper extremity fistula for him and very soon of the postoperative. It failed. I performed a left forearm loop AV graft for him and very soon in the postoperative. It also thrombosed. I have educated the patient and the dialysis center that for what ever reason my techniques are not being effective for this patient and I have requested help and requested that he be referred to a tertiary center for vascular access consultation and assistance. The patient states that he does have an appointment upcoming at [facility] next week. We were contacted today by the dialysis center concerned that the left forearm loop graft which is thrombosed was acutely infected. There was concern over pinkness and warmth at the site. The patient denies fever or chills or pain. He particularly has not noticed any change. He notes some arm swelling but then he pulled to the left posterior shoulder area as the site of concern to him. He is not noting or complaining of any significant change at the graft site since I have seen him last in the office. Past Medical History Past Medical History (Chronic Problems): Chronic Problems (Last Reviewed 02/27/20 @ 10:03 by Carrie Rondon) Hypertension (Chronic) GERD (gastroesophageal reflux disease) (Chronic) Hypothyroidism (Chronic) Diabetes mellitus type 2 in obese (Chronic) ESRD (end stage renal disease) on dialysis (Chronic) Medical History: Medical History (Last Reviewed 02/27/20 @ 10:03 by Carrie Rondon) Problem with dialysis access (Acute) T82.898A Difficulty swallowing (Acute) R13.10 Hypertension (Chronic) I10 GERD (gastroesophageal reflux disease) (Chronic) K21.9 Hypothyroidism (Chronic) E03.9 Diabetes mellitus type 2 in obese (Chronic) E11.69, E66.9 ESRD (end stage renal disease) on dialysis (Chronic) N18.6, Z99.2 Allergies No Known Allergies Allergy (Verified 03/11/20 15:26) Home Medications: Ambulatory Orders Medication Instructions Recorded Amitriptyline HCl [Elavil] 25 mg PO QHS 03/11/20 Aspirin [Aspirin, Baby] 81 mg PO DAILY@0800 03/11/20 Calcium Acetate 667 mg PO 4X/DAY 03/11/20 Carvedilol 3.125 mg PO BID 03/11/20 Fluoxetine [Prozac] 10 mg PO DAILY 03/11/20 Insulin Glargine,Hum.rec.anlog 10 unit SQ QHS 03/11/20 [Lantus Solostar] Insulin Lispro [Humalog Kwikpen] 0 unit SQ TIDCM 03/11/20 Levothyroxine [Synthroid] 50 mcg PO DAILY 03/11/20 Midodrine HCl 5 mg PO BID 03/11/20 Pantoprazole Sodium [Protonix] 40 mg PO DAILY 03/11/20 Pregabalin [Lyrica] 100 mg PO BID 03/11/20 Rizatriptan Benzoate [Rizatriptan] 1 - 2 tab PO DAILY 03/11/20 Surgical History: Surgical History (Last Reviewed 02/27/20 @ 10:03 by Carrie Rondon) Hx of arteriovenostomy for renal dialysis Onset Date: ~01/2020 Z99.2 S/P dialysis catheter insertion Z95.828, Z99.2 Status post amputation of toe of left foot Z89.422 Surgical History: - Psychiatric History: No pertinent psych hx Smoking Status: Never smoker - *Family History Maternal History Items: COPD Paternal History Items: - Sibling History Items: Diabetes - Physical Exam Vitals/I&O's: Vital Signs Temp Pulse Resp BP Pulse Ox 98.4 F 82 16 112/84 H 100 03/11/20 15:27 03/11/20 15:27 03/11/20 15:27 03/11/20 15:27 03/11/20 15:27 Oxygen Delivery Method Room Air Weight: 365 lb 4.895 oz Body Mass Index (BMI) 48.2 Finger Stick Blood Glucose 148 Extremities: - - . Left upper extremity demonstrates a healed longitudinal incision left upper arm at the site of the previous cephalic vein harvesting. Shows evidence of healed transverse incision at the antecubital space and in the distal volar forearm at the site of the recent PTFE AV graft placement. There is very minimal amount of generalized pink discoloration of the left forearm between the 2 limbs of graft. There is no significant redness. There is certainly no redness at the incision sites. There is slight warmth but no tenderness. There is no drainage. There is no axillary adenopathy. Laboratory Results 03/11/20 15:50: WBC 9.8, RBC 3.56 L, Hgb 10.7 L, Hct 34.4 L, MCV 96.6 H, MCH 30.1, MCHC 31.1 L, RDW Std Deviation 50.6 H, RDW Coeff of Baljit 14.6, Plt Count 145 L, MPV 10.9, Immature Gran % (Auto) 1.100 H, Neut % (Auto) 64.6, Lymph % (Auto) 21.7, [place] % (Auto) 7.0, Eos % (Auto) 4.9, Baso % (Auto) 0.7, Absolute Neuts (auto) 6.4, Absolute Lymphs (auto) 2.13, Nucleated RBC % 0 03/11/20 15:50: Sodium Pending, Potassium Pending, Chloride Pending, Carbon Dioxide Pending, Anion Gap Pending, BUN Pending, Creatinine Pending, Est GFR (MDRD) Af Amer Pending, Est GFR (MDRD) Non-Af Pending, BUN/Creatinine Ratio Pending, Glucose Pending, Calcium Pending Assessment/Plan All Active Problems (Last Reviewed 02/27/20 @ 10:03 by Carrie Rondon) Problem with dialysis access (Acute) Difficulty swallowing (Acute) I have evaluated the patient in addition to emergency room physician Dr. Stephen Munroe. Neither he nor I are finding signs that would suggest acute suppurative infection. Laboratory is pending. I have proposed an attempt at a percutaneous aspiration of the thrombosed graft for material to be sent for Gram stain ADULT EDUCATION INSTRUCTOR. Otherwise at this point I would anticipate conservative follow-up. I have educated the patient that removal of the graft is and not something that is taken lightly. A arterial repair would be required and this could lead to stenosis or hand ischemia. It is additionally feasible that vein would need to be harvested for the repair. I would definitely not recommend additional intervention on this arm unless absolutely clinically indicated. I am not seeing those clinical indications at this time. Regarding the patient's poor flows in his tunneled dialysis catheters. As mentioned earlier in this consultation I have placed tunneled catheters for him and there have been almost immediate difficulties with their return. I am suspicious that he has an otherwise undiagnosed coagulopathy. I have requested of the dialysis center that we seek tertiary assistance as I do not have confidence that further intervention locally will succeed in a long-term outcome. As noted the patient does have a tertiary level referral in place and an appointment next week. The patient has had an opportunity to ask and have questions answered. Laboratories pending. I will be re-notified if additional surgical consultation is required. I appreciate the opportunity of assisting with her surgical care. Osman Tarango M.D., F.A.C.S. Addendum: It is evident that the CBC is normal with a normal white count and no shift. I believe that this correlates with my clinical exam findings of no graft infection. I do not particularly believe that IV antibiotics are required at this time. I would await blood cultures that were obtained at the dialysis center and potential graft culture tonight. Dr. Corry Shaw did contact me by phone. I have suggested to her that I do not feel comfortable repetitively placing dialysis catheters with them nonfunctioning. I did describe that we have notified the dialysis center weeks ago of my recommendation for tertiary referral for assistance. Dr. Shaw states that she was only notified today. She states that she will look for center for catheter placement and I would believe that this would be in the patient's best interest.
--- NOTE | 2020-03-11 16:10 | ED.RN ---
LET PLACED TO LEFT FOREARM AV-FISTULA PER DR. ESPINOZA'S REQUEST.
[2020-03-11 16:33] LABS: Anion Gap 4 (5-15); BUN 45 mg/dL (7-18); BUN/Creat Ratio 6.8 RATIO (10-20); Calcium,Total 8.5 mg/dL (8.5-10.1); Chloride 106 mmol/L (98-107); Creatinine, Serum 6.66 mg/dL (0.70-1.30); EST Glomerular Filtration Rate 10 mL/min (>60); Est Glom Filt Rate - Afr Amer 11 mL/min (>60); Estimated Creatinine Clearance 15.16 ml/min; Glucose 180 mg/dL (74-106); Potassium 6.9 mmol/L (3.5-5.1); Sodium Level 136 mmol/L (136-145)
--- NOTE | 2020-03-11 16:57 | EKG12_ITS ---
Test Reason : Blood Pressure : / mmHG Vent. Rate : 069 BPM Atrial Rate : 069 BPM P-R Int : 170 ms QRS Dur : 102 ms QT Int : 436 ms P-R-T Axes : 050 -47 061 degrees QTc Int : 467 ms Normal sinus rhythm Left anterior fascicular block Possible Anterolateral infarct , age undetermined Abnormal ECG Confirmed by SYLVIA LOPEZ, TODD ([id number]), acquisitions editor TEETEE NG ([id number]) on 03/17/2020 8:01:52 AM Referred By: ALEXIS Confirmed By:EB WARD MD
[2020-03-11] MEDS: Dextrose 50%-Water 25 GM/50 ML DISP.SYRIN IV (17:17)
[2020-03-11] MEDS: Albuterol 2.5 MG/3 ML VIAL.NEB. INHALATION (17:17)
[2020-03-11] MEDS: Insulin Lispro 5 UNIT in Syringe 0 ML 3 UNIT IV (17:18)
[2020-03-11] MEDS: Sodium Bicarbonate 8.4% 50 ML Syringe 50 MEQ IV (17:18)
[2020-03-11 17:20] VITALS: PULSE 72; RESP 16
--- NOTE | 2020-03-11 17:39 | NURSING ---
CALLED [facility], TALKED TO MELQUIADES. FAXED FACESHEET
[2020-03-11 18:15] VITALS: BP 93/35; PULSE 82; RESP 15; O2SAT 98
== END 2020-03-11 19:15 | disposition short-term general hospital (02) ==
LOC: ED 15:52
PROVIDERS: Emergency Provider Emergency Medicine; PCP Internal Medicine
DX: T82.868A Thrombosis due to vascular prosthetic devices, implants and grafts, initial encounter (principal); E11.22 Type 2 diabetes mellitus with diabetic chronic kidney disease; I12.0 Hypertensive chronic kidney disease with stage 5 chronic kidney disease or end stage renal disease; N18.6 End stage renal disease; Z99.2 Dependence on renal dialysis; K21.9 Gastro-esophageal reflux disease without esophagitis; E03.9 Hypothyroidism, unspecified; E11.69 Type 2 diabetes mellitus with other specified complication; E66.9 Obesity, unspecified; Z68.42 Body mass index [BMI] 45.0-49.9, adult; Z79.4 Long term (current) use of insulin; Z79.82 Long term (current) use of aspirin; Z79.899 Other long term (current) drug therapy
CPT/HCPCS: 80048; 85025; 87070; 87075; 87205; 93005; 94640; 96365; 96375; 99285; A4216; J0610

== ENCOUNTER → 2020-03-18 | Outpatient (CLI) | payer MEDICAID, SELFPAY ==
[2020-03-11 15:27] VITALS: BMI 48.2
[2020-03-18 13:51] LABS: Potassium 5.4 mmol/L (3.5-5.1)
== END | disposition home or self-care (01) ==
LOC: LABSPEC 12:42
PROVIDERS: PCP Internal Medicine; Referring Provider Internal Medicine Nephrology; Visit Provider Internal Medicine Nephrology
DX: E87.5 Hyperkalemia (principal); N18.6 End stage renal disease
CPT/HCPCS: 84132

== ENCOUNTER → 2020-04-27 | Outpatient (CLI) | payer MEDICAID, SELFPAY ==
[2020-04-27 15:42] LABS: Potassium 5.3 mmol/L (3.5-5.1)
== END | disposition home or self-care (01) ==
PROVIDERS: Internal Medicine Nephrology
DX: E87.5 Hyperkalemia (principal)
CPT/HCPCS: 84132

== ENCOUNTER → 2020-05-20 | Outpatient (CLI) | payer MEDICAID, SELFPAY ==
[2020-05-20 13:07] LABS: Potassium 5.3 mmol/L (3.5-5.1)
== END | disposition home or self-care (01) ==
LOC: LABSPEC 12:30
PROVIDERS: PCP Internal Medicine; Referring Provider Internal Medicine Nephrology; Visit Provider Internal Medicine Nephrology
DX: E87.5 Hyperkalemia (principal)
CPT/HCPCS: 84132

== ENCOUNTER 2020-08-18 09:21 | Inpatient (IN) | payer MEDICAID, SELFPAY ==
[2020-08-18] VITALS (9 sets, daily range): BP systolic 160–220; BP diastolic 49–74; PULSE 80–87; RESP 14–18; TEMP 36.6–36.8; O2SAT 93–100; BMI 57.6; BMI 51.2; BMI 51.3
--- NOTE | 2020-08-18 09:47 | CT_ITS ---
STUDY: CT ABDOMEN AND PELVIS WITHOUT CONTRAST REASON FOR EXAM: Male, 50 years old. ABD PAIN SINCE LAST NIGHT, N/V, HTN, GERD, DB, ESRD-ON DIALYSIS, HX-ARTERIOVENOSTOMY RADIATION DOSAGE (If Supplied By Facility): CTDIvol = ( 36.75 ) mGy, DLP = ( 2130.24 ) mGycm TECHNIQUE: Transaxial images were obtained from the dome of the diaphragm to the symphysis pubis without oral contrast, and without intravenous contrast. Sagittal and coronal images were reconstructed. Individualized dose optimization techniques were used for this CT. COMPARISON: Comparison is made with prior study dated 12/23/2019. FINDINGS: The visualized lung bases are unremarkable. Coronary artery calcification. Normal liver. There are multiple small gallstones. Normal spleen. Normal pancreas. There is a small, circumscribed, smooth, low attenuation right adrenal mass, consistent with an adrenal adenoma. It measures 2.3 cm. Normal left adrenal gland. Mild degree of right hydronephrosis in the right hydroureter due to a 4 mm calculus at the right ureterovesical junction. Normal left kidney. Extensive vascular calcification of the renal arteries and intrarenal branches. Normal visualized stomach. Normal small intestine. There are multiple colonic diverticula consistent with diverticulosis. The appendix is visualized and appears normal. There is diffuse atherosclerotic calcification of the abdominal aorta and major visceral branches., without a demonstrated aneurysm. Normal inferior vena cava. Normal retroperitoneum. The urinary bladder is empty. There is evidence of a marked degree of diffuse bladder wall thickening. Evidence of prior ventral hernia repair utilizing mesh. There are diffuse degenerative changes of the visualized lumbar spine. Marked in degree of dextroscoliosis. CT/Abdomen/Pel W ORAL Cont Only IMPRESSION: Mild degree of right hydronephrosis and hydroureter due to a 4 mm calculus at the right ureterovesical junction. Extensive vascular calcification. Empty urinary bladder with diffuse bladder wall thickening. Multiple small gallstones. Marked degree of dextroscoliosis. Electronically Signed: Triston Bermudez MD at 13:36 EST , Service support ,
--- NOTE | 2020-08-18 09:47 | EKG12_ITS ---
Test Reason : Blood Pressure : / mmHG Vent. Rate : 079 BPM Atrial Rate : 079 BPM P-R Int : 160 ms QRS Dur : 102 ms QT Int : 440 ms P-R-T Axes : 065 -33 055 degrees QTc Int : 504 ms Normal sinus rhythm Left axis deviation Possible Anterolateral infarct , age undetermined Prolonged QT Abnormal ECG Confirmed by HAYES LOPEZ, ELIZABETH ([id number]), story editor TEETEE NG ([id number]) on 08/20/2020 10:28:56 AM Referred By: BARB Confirmed By:ELIZABETH KOO MD
--- NOTE | 2020-08-18 09:48 | ED.VISSUMM ---
- ER Visit Summary Date of Service: 08/18/20 Chief Complaint: [Abdominal pain] History of Present Illness: The patient is a 50 M [Zentz to the emergency department complaint of abdominal pain that started yesterday around 6 PM. Pain came on somewhat suddenly. Has had multiple episodes of nausea and vomiting and states that he is just mostly thrown up bile at this time. Patient does have history of gastroparesis. Patient is a diabetic and is on dialysis. He states his last dialysis was yesterday and essentially had a full session. He describes some dysuria but only makes urine about once every 2 days or so. He denies any fevers. He has had no abdominal surgeries in the past. Patient denies any chest pain or shortness of breath. Denies recent illness otherwise.] Physical Examination: [HEENT-PERRLA, EOMI. Cranial nerves II through XII grossly intact. TMs clear. Mucous membranes moist. No adenopathy. Cardiovascular-regular rate and rhythm without murmur or ectopy Lungs-clear to auscultation, chest wall stable without crepitus or subcu emphysema Abdomen-normoactive bowel sounds, soft. Patient has tenderness palpation over the epigastric region with some guarding. There is no rebound, rigidity, or peritoneal signs. Patient is morbidly obese. Extremities-intact ?4, normal range of motion, normal pulses, atraumatic] Test Results: [EKG obtained arrival shows sinus rhythm with a ventricular rate of 79 bpm with slightly prolonged QT and nothing else significant noted. CBC with differential showed a white count of 15.2, hemoglobin 10, hematocrit 31, placed 220. Chemistries show sodium 135, potassium 5.0, chloride 92, CO2 26, glucose 403, BUN 32 and creatinine 5.46. Troponin is less than 0.015. Lactate was 3.0. Urinalysis was positive for nitrites as well as greater than 100 WBCs and +3 bacteria. Gastroccult obtained was positive. CT scan of the abdomen pelvis showed a 4 mm ureteral stone at the right UVJ with hydronephrosis and hydroureter. Patient also has had some bladder wall thickening.] Emergency Department Course and Treatment: [Patient was medicated with Dilaudid and Zofran. Patient also given Reglan as for continued nausea and vomiting. Patient was started on Rocephin 2 g IV. I did start patient on Protonix. I discussed case with urology and will discuss with hospitalist to evaluate for admission.] Treatment Plan: [Admit] Disposition: [Admit] Impression: [Urolithiasis UTI] Sepsis-severe Gastritis This note was generated with [employer] dictation software. It may contain incorrect words, spelling, and punctuation that were not noted in review of the chart prior to signing ED Disposition - Plan for ED Patient: Referrals: Laura Daly MD [Primary Care Provider] -
[2020-08-18] MEDS: Ondansetron 4 MG/2 ML Vial IV (10:03)
[2020-08-18] MEDS: Morphine 4 MG/ML Syringe IV (10:03)
[2020-08-18 10:05] LABS: Absolute Lymphocyte Count 0.56 X10^3/uL (0.83-4.51); Absolute Neutrophil Count 14.1 X10^3/uL (2.0-7.7); Basophil# 0.04 X10^3/uL; Basophil% 0.3 % (0-1); Hematocrit 31.3 % (40-54); Hemoglobin 10.3 g/dL (13.0-16.5); Lymphocyte # 0.56 X10^3/ul (4.0); Lymphocyte % 3.7 % (19-41); Mean Corp Hgb Conc 32.9 g/dL (32-36); Mean Corpuscular Hgb 29.9 pg (27.0-32.0); Mean Platelet Vol. 10.6 fl (6.2-12.0); Monocyte# 0.37 X10^3/uL; Monocyte% 2.4 % (0-10); NRBC Flagged by Analyzer 0 % (0-5); Neutrophil # 14.11 X10^3/uL (2.7-7.7); Neutrophil % 92.6 % (47-70); POSITIVE DIFFERENTIAL YES; Platelet Count 220 K/mm3 (150-450); RBC Distribution Width CV 13.1 % (11.6-14.6); RBC Distribution Width SD 42.6 fl (35.1-43.9); Red Blood Count 3.44 M/mm3 (4.6-6.2); White Blood Count 15.2 K/mm3 (4.4-11.0)
[2020-08-18 10:08] LABS: Differential Indicated SCAN CRITERIA MET
[2020-08-18 10:22] LABS: ALB/GLOB Ratio 0.6 RATIO (0.9-2.4); AST(SGOT) 12 U/L (15-37); Alanine Aminotransfer ALT/SGPT 12 U/L (16-61); Alkaline Phosphatase 113 U/L (45-117); Anion Gap 12 (5-15); BUN 32 mg/dL (7-18); BUN/Creat Ratio 5.9 RATIO (10-20); Calcium,Total 8.9 mg/dL (8.5-10.1); Chloride 97 mmol/L (98-107); Creatinine, Serum 5.46 mg/dL (0.70-1.30); EST Glomerular Filtration Rate 12 mL/min (>60); Est Glom Filt Rate - Afr Amer 14 mL/min (>60); Globulin 5.2 g/dL (2.2-4.2); Glucose 403 mg/dL (74-106); Lipase 142 U/L (73-393); Protein, Total 8.2 g/dL (6.4-8.2); Sodium Level 135 mmol/L (136-145)
[2020-08-18] MEDS: Metoclopramide 10 MG/2 ML Vial IV (10:42)
[2020-08-18 11:03] LABS: Mucous, Urine 0 SEEN /hpf (<or=2+)
[2020-08-18 11:06] LABS: Color, Urine Brown (Yellow); Glucose, Dipstick 100 mg/dl (Normal); Ketone-Dipstick 15 mg/dl (Negative); Leukocyte Esterase-Dipstick 500 /ul (Negative); Nitrite-Dipstick Positive (Negative); Occult Blood-Urine 250 /ul (Negative); Protein-Dipstick 500 mg/dl (Negative); Urine Bilirubin Dipstick Negative (Negative); Urine Clarity Cloudy (Clear); Urine Urobilinogen Normal (Normal)
[2020-08-18 11:22] LABS: Bacteria 3+ /hpf (None Seen); Red Blood Cells-Urine 10-25 SEEN /hpf (0-5); Squamous Epithelial Cells - UA 0-5 SEEN /hpf (0-5); White Blood Cells >100 SEEN /hpf (0-5)
[2020-08-18] MEDS: HYDROmorphone 1 MG/ML Syringe IV ×3 (13:23→20:12)
--- NOTE | 2020-08-18 13:48 | ED.RN ---
pt unable to verify insulin doses. states he hasn't taken any for months.
--- NOTE | 2020-08-18 13:49 | HP.PCM_ITS ---
Problem List (1) Severe sepsis due to UTI Status: Acute (2) Obstruction of right ureteropelvic junction due to stone Status: Acute (3) Hydronephrosis of right kidney Status: Acute (4) Problem with dialysis access Status: Acute Qualifiers: Encounter type: initial encounter Qualified Code(s): T82.898A - Other specified complication of vascular prosthetic devices, implants and grafts, initial encounter (5) Difficulty swallowing Status: Acute (6) Hypertension Status: Chronic (7) GERD (gastroesophageal reflux disease) Status: Chronic (8) Hypothyroidism Status: Chronic (9) Diabetes mellitus type 2 in obese Status: Chronic (10) ESRD (end stage renal disease) on dialysis Status: Chronic History of Present Illness Date of Admission: 08/18/20 Chief Complaint: Abdominal pain right-sided with nausea and vomiting since last night The patient is a 50 year old M with multiple comorbid including diabetes mellitus type 2, ESRD on hemodialysis came to ER with abdominal pain since last night along with nausea and vomiting, multiple times. Abdominal pain started around right hypochondriac region with radiation to right groin, colicky nature, 10/10 intensity associated with nausea and vomiting. Vomiting is mainly gastric type. Patient denies fever or chills. CT abdomen and pelvis without contrast was done and reported mild degree of right hydronephrosis and hydroureter due to former calculus at the right UV junction. Empty urinary bladder with diffuse bladder wall thickening. Triage vitals recorded was blood pressure 220/49, heart rate 83 per minute, respiratory rate 14 pulse ox 95% on room air. Basic labs shows leukocytosis with left shift, lactic acid 3.0, glucose 103, BUN/creatinine high as patient is on hemodialysis. Sodium 135, K5.0. Patient had hemodialysis yesterday. Past Medical History Past Medical History (Chronic Problems): Chronic Problems (Last Reviewed 02/27/20 @ 10:03 by Carrie Rondon) Hypertension (Chronic) GERD (gastroesophageal reflux disease) (Chronic) Hypothyroidism (Chronic) Diabetes mellitus type 2 in obese (Chronic) ESRD (end stage renal disease) on dialysis (Chronic) Medical History: Medical History (Last Reviewed 02/27/20 @ 10:03 by Carrie Rondon) Problem with dialysis access (Acute) T82.898A Difficulty swallowing (Acute) R13.10 Hypertension (Chronic) I10 GERD (gastroesophageal reflux disease) (Chronic) K21.9 Hypothyroidism (Chronic) E03.9 Diabetes mellitus type 2 in obese (Chronic) E11.69, E66.9 ESRD (end stage renal disease) on dialysis (Chronic) N18.6, Z99.2 Allergies No Known Allergies Allergy (Verified 03/11/20 15:26) Home Medications: Ambulatory Orders Medication Instructions Recorded Amitriptyline HCl [Elavil] 25 mg PO QHS 03/11/20 Aspirin [Aspirin, Baby] 81 mg PO DAILY@0800 03/11/20 Calcium Acetate 667 mg PO 4X/DAY 03/11/20 Fluoxetine [Prozac] 10 mg PO DAILY 03/11/20 Insulin Glargine,Hum.rec.anlog 10 unit SQ QHS 03/11/20 [Lantus Solostar] Insulin Lispro [Humalog Kwikpen] 0 unit SQ TIDCM 03/11/20 Levothyroxine [Synthroid] 50 mcg PO DAILY 03/11/20 Midodrine HCl 5 mg PO BID 03/11/20 Pantoprazole Sodium [Protonix] 40 mg PO DAILY 03/11/20 Pregabalin [Lyrica] 100 mg PO BID 03/11/20 Rizatriptan Benzoate [Rizatriptan] 1 - 2 tab PO DAILY 03/11/20 Metoclopramide [Reglan] 5 mg PO BID 08/18/20 Surgical History: Surgical History (Last Reviewed 02/27/20 @ 10:03 by Carrie Rondon) Hx of arteriovenostomy for renal dialysis Onset Date: ~01/2020 Z99.2 S/P dialysis catheter insertion Z95.828, Z99.2 Status post amputation of toe of left foot Z89.422 Surgical History: - Psychiatric History: No pertinent psych hx Smoking Status: Never smoker - *Family History Maternal History Items: COPD Paternal History Items: - Sibling History Items: Diabetes Review of Systems Constitutional: Reports: Weakness, Fatigue, - - Morbid obesity. Denies: Chills, Fever, Weight Change HEENT: Denies: Head Aches, Sinus Congestion, Sinus Drainage Cardiovascular: Denies: Chest Pain, Palpitations Respiratory: Denies: Cough, Shortness of breath at rest, Sputum production Gastrointestinal: Denies: Abdominal Pain, Nausea, Vomiting Genitourinary: Reports: Dysuria, - - Patient passes some urine. On hemodialysis Musculoskeletal: Denies: Joint Pain, Joint Tenderness Skin: Denies: Rash, Wounds Neurological: Reports: Balance problems. Denies: Focal weakness, Numbness, Tingling Psychiatric: Reports: Anxiety, Depression. Denies: Homicidal Ideations, Suicidal Ideations Hematologic/ Lymphatic: Denies: Easy Bruising, Easy Bleeding VTE Information - Inpt Only VTE Present on Admission: No VTE Mechan Device Prophylaxis: SCD's VTE Pharm Prophylaxis ordered?: Yes Patient Problems: Active and Suspected Problems (Last Reviewed 02/27/20 @ 10:03 by Carrie Rondon) Severe sepsis due to UTI (Acute) Obstruction of right ureteropelvic junction due to stone (Acute) Hydronephrosis of right kidney (Acute) Problem with dialysis access (Acute) Difficulty swallowing (Acute) Objective: Physical exam: General: Alert, Oriented x3, Cooperative, morbid obesity HEENT: Atraumatic, PERRLA, EOMI, Normocephalic Oral: Oropharyngeal deeper structures could not be visualized. Neck: Supple, No JVD, Negative Carotid Bruits Lungs: Air entry diminished in bilateral lung bases. No crepitation/rhonchi Cardiovascular: Regular rate, Regular Rhythm, Normal S1, Normal S2, No murmurs Abdomen: Bowel Sounds Present, Soft, Non-Distended : Tenderness present over right upper quadrant. No renal angle tenderness. No suprapubic tenderness. Extremities: No ankle edema, Capillary Refill Less than 3 Seconds Skin: Dry skin. Multiple 3 chronic scabbed wounds on the left lower quadrant in the abdomen. Musculoskeletal: No Tenderness to Palpation of Joints or Extremities Neurological: Cranial nerves II-XII grossly intact, Deep Tendon Reflexes 2+/4 and Symmetrical, Neuro grossly intact Psych/Mental Status: Normal Affect, Appropriate. - Physical Exam Vitals/I&O's: Vital Signs Temp Pulse Resp BP Pulse Ox 98.1 F 83 14 220/49 H 95 08/18/20 09:22 08/18/20 13:28 08/18/20 13:28 08/18/20 13:28 08/18/20 13:28 Oxygen Delivery Method Room Air Weight: 436 lb 15.299 oz Body Mass Index (BMI) 57.6 Finger Stick Blood Glucose 148 Microbiology Past 72 Hours 08/18/20 10:00 Vomitus Gastric Occult Blood - Final Occult Blood Positive Laboratory Results 08/18/20 09:30: WBC 15.2 H, RBC 3.44 L, Hgb 10.3 L, Hct 31.3 L, MCV 91.0, MCH 29.9, MCHC 32.9, RDW Std Deviation 42.6, RDW Coeff of Baljit 13.1, Plt Count 220, MPV 10.6, Immature Gran % (Auto) 1.000 H, Neut % (Auto) 92.6 H, Lymph % (Auto) 3.7 L, Story % (Auto) 2.4, Eos % (Auto) 0.0, Baso % (Auto) 0.3, Absolute Neuts (auto) 14.1 H, Absolute Lymphs (auto) 0.56 L, Nucleated RBC % 0, Differential Comment COMMENT 08/18/20 09:30: Sodium 135 L, Potassium 5.0, Chloride 97 L, Carbon Dioxide 26.0, Anion Gap 12, BUN 32 H, Creatinine 5.46 H, Estim Creat Clear Calc 18.50, Est GFR (MDRD) Af Amer 14 L, Est GFR (MDRD) Non-Af 12 L, BUN/Creatinine Ratio 5.9 L, Glucose 403 H, Calcium 8.9, Total Bilirubin 0.50, AST 12 L, ALT 12 L, Alkaline Phosphatase 113, Troponin I < 0.015, Total Protein 8.2, Albumin 3.0 L, Globulin 5.2 H, Albumin/Globulin Ratio 0.6 L, Lipase 142 08/18/20 09:55: Lactic Acid 3.0 H* 08/18/20 10:57: Urine Color Brown, Urine Clarity Cloudy, Urine pH 7.0, Ur Specific [place] 1.010, Urine Protein 500 H, Urine Glucose (UA) 100 H, Urine Ketones 15 H, Urine Occult Blood 250 H, Urine Nitrite Positive H, Urine Bilirubin Negative, Urine Urobilinogen Normal, Ur Leukocyte Esterase 500 H, Urine RBC 10-25 SEEN, Urine WBC >100 SEEN, Ur Squamous Epith Cells 0-5 SEEN, Urine Bacteria 3+, Urine Mucus 0 SEEN Assessment/Plan All Active Problems (Last Reviewed 02/27/20 @ 10:03 by Carrie Rondon) Severe sepsis due to UTI (Acute) Obstruction of right ureteropelvic junction due to stone (Acute) Hydronephrosis of right kidney (Acute) Problem with dialysis access (Acute) Difficulty swallowing (Acute) The patient is a 50 year old M with multiple comorbid including diabetes mellitus type 2, ESRD on hemodialysis came to ER with abdominal pain since last night along with nausea and vomiting, multiple times and clinical radiological assessment consistent with severe sepsis secondary to right obstructive UVJ stone. 1. Severe sepsis due to right UVJ obstructive 4 mm calculus associated with right hydronephrosis and hydroureter: Patient is being admitted in PCU. Repeat lactic acid 1.6 normal. Started on ceftriaxone 2 g in ED and will continue it. Urologist is consulted. Plan for cystoscopy and possible stent tomorrow a.m. Continue IV fluid normal saline at 100 mill per hour for 1 L therefore could not follow 30 mL/kg sepsis guideline as patient is on hemodialysis and patient blood pressure is high. 2. ESRD on hemodialysis: Patient had dialysis yesterday. Stereoplotter Operator has been consulted. Strict input and output. Felder catheter inserted as patient has right hydronephrosis and hydroureter and patient makes some urine. 3. History of chronic migraine: Patient follows headache neurologist Dr. rPado and is on amitriptyline and scheduled rizatriptan. We will hold the rizatriptan as patient does not have a headache and blood pressure is high. 4. History of dysphagia during previous admission in November 2019. Patient had barium esophagram and there was concern for achalasia and patient had Dobbhoff tube insertion and was transferred to [facility]. Their evaluation for dysphagia was inconclusive but advised continue feeding tube and patient was suggested custodial discharge but he refused. Patient removed feeding tube at home and states he does not have problem with swallowing solid food even meat. 5. Diabetes mellitus type 2 with uncontrolled hyperglycemia: Accu-Chek before meals and at bedtime. Lantus was increased to 20 units subcutaneous at bedtime daily and Humalog sliding scale 15 units p.o. 3 times daily along with supplemental short-acting insulin. VT prophylaxis: Lovenox 30 subcu daily adjusted to creatinine clearance. Bilateral SCDs. Living will/advanced directive/end of life care: Patient does not have living will or advanced directive. Patient states that sister is power of transactional attorney for health. After discussion of benefits/risks procedures involved with full code, DNR CC arrest and DNR CC, the patient opted for full code. Patient does want artificial life support including intubation, tube feed, ventilator and/chest compression, central venous catheter, vasopressor and DC shock if needed Total time spent in [id number] encounter in discussion of advanced directive 16 minutes. Clinical Impression(s) from Imaging Studies Abdomen CT 08/18/20 09:47 IMPRESSION: Mild degree of right hydronephrosis and hydroureter due to a 4 mm calculus at the right ureterovesical junction. Extensive vascular calcification. Empty urinary bladder with diffuse bladder wall thickening. Multiple small gallstones. Marked degree of dextroscoliosis. Inpatient E&M: 19991 Init Hosp L3 Procedures: 45544 Advncd Care Plan 30 Min
--- NOTE | 2020-08-18 13:56 | NURSING ---
PCU LEA UTI, SEVERE SEPSIS, [place], GASTRITIS
[2020-08-18 14:00] LABS: Reflex Lactate? Y
[2020-08-18 14:40] LABS: Lactic Acid 1.6 mmol/L (0.4-1.9)
[2020-08-18 16:31] LABS: Lactic Acid 1.4 mmol/L (0.4-1.9)
[2020-08-18 17:20] LABS: Bedside Glucose 325 mg/dL (70-110)
[2020-08-18] MEDS: 0.9% Normal Saline 1,000 ML 100 ML IV (17:31)
[2020-08-18] MEDS: proCHLORPERazine 10 MG/2 ML Vial 5 MG IV ×2 (17:31→23:05)
[2020-08-18] MEDS: 0.9% Saline Lock 10 ML Syringe IV (20:17)
--- NOTE | 2020-08-18 20:47 | PCM.CONS.U ---
Problem List (1) Severe sepsis due to UTI Status: Acute (2) Obstruction of right ureteropelvic junction due to stone Status: Acute Reason for Consult Date of Consultation: 08/18/20 Reason for Consultation: obstructing stone and sepsis History of Present Illness: The patient is a 50 year old Male admitted for stone and sepsis had a 4mm stone in distal ureter with high grade obstruction and sepsis. Past Medical History Past Medical History (Chronic Problems): Chronic Problems (Last Reviewed 02/27/20 @ 10:03 by Carrie Rondon) Hypertension (Chronic) GERD (gastroesophageal reflux disease) (Chronic) Hypothyroidism (Chronic) Diabetes mellitus type 2 in obese (Chronic) ESRD (end stage renal disease) on dialysis (Chronic) Medical History: Medical History (Last Reviewed 02/27/20 @ 10:03 by Carrie Rondon) Problem with dialysis access (Acute) T82.898A Difficulty swallowing (Acute) R13.10 Hypertension (Chronic) I10 GERD (gastroesophageal reflux disease) (Chronic) K21.9 Hypothyroidism (Chronic) E03.9 Diabetes mellitus type 2 in obese (Chronic) E11.69, E66.9 ESRD (end stage renal disease) on dialysis (Chronic) N18.6, Z99.2 Allergies No Known Allergies Allergy (Verified 03/11/20 15:26) Home Medications: Ambulatory Orders Medication Instructions Recorded Amitriptyline HCl [Elavil] 25 mg PO QHS 03/11/20 Aspirin [Aspirin, Baby] 81 mg PO DAILY@0800 03/11/20 Calcium Acetate 2 cap PO TIDCM 03/11/20 Levothyroxine [Synthroid] 50 mcg PO DAILY 03/11/20 Midodrine HCl 5 mg PO DAILY PRN 03/11/20 Pantoprazole Sodium [Protonix] 40 mg PO DAILY 03/11/20 Pregabalin [Lyrica] 100 mg PO BID 03/11/20 Rizatriptan Benzoate [Rizatriptan] 1 tab PO MOWEFR 03/11/20 Metoclopramide [Reglan] 5 mg PO Q48H PRN 08/18/20 Ondansetron [Zofran Odt] 4 mg PO Q8H PRN PRN 08/18/20 Surgical History: Surgical History (Last Reviewed 02/27/20 @ 10:03 by Carrie Rondon) Hx of arteriovenostomy for renal dialysis Onset Date: ~01/2020 Z99.2 S/P dialysis catheter insertion Z95.828, Z99.2 Status post amputation of toe of left foot Z89.422 Surgical History: - Psychiatric History: No pertinent psych hx Smoking Status: Never smoker - *Family History Maternal History Items: COPD Paternal History Items: - Sibling History Items: Diabetes Review of Systems Constitutional: Denies: Chills, Fever, Weight Change HEENT: Denies: Head Aches, Sinus Congestion, Sinus Drainage Cardiovascular: Denies: Chest Pain, Palpitations Respiratory: Denies: Cough, Shortness of breath at rest, Sputum production Gastrointestinal: Denies: Abdominal Pain, Nausea, Vomiting Genitourinary: Denies: Dysuria Musculoskeletal: Denies: Joint Pain, Joint Tenderness Skin: Denies: Rash, Wounds Neurological: Denies: Numbness, Tingling, Focal weakness Psychiatric: Denies: Anxiety, Depression, Homicidal Ideations, Suicidal Ideations Hematologic/ Lymphatic: Denies: Easy Bruising, Easy Bleeding Physical Exam - Physical Exam Vital Signs Temp 98.3 F 08/18/20 20:10 Pulse 86 08/18/20 20:10 Resp 15 08/18/20 20:10 BP 160/56 H 08/18/20 20:10 Pulse Ox 97 08/18/20 20:10 Intake & Output 08/16/20 08/17/20 08/18/20 23:59 23:59 23:59 Intake Total 260 / 260 Balance 260 / 260 Weight: 176.266 kg Intake: Oral 100 / 100 Intake, IV Amount 160 / 160 Ceftriaxone 2 GM In 0.9% Normal 50 / 50 Saline 50 ML @ 100 mls/hr IV X1 ONE Rx#:[id number] Protonix 40 MG In 0.9% Normal 110 / 110 Saline 100 ML @ 330 mls/hr IV X1 ONE Rx#:[id number] HEENT: Atraumatic Oral: Moist Mucosa Neck: Supple Lungs: Normal air movement Cardiovascular: Regular rate Abdomen: Soft Microbiology Past 72 Hours 08/18/20 10:00 Gastric Occult Blood - Final Vomitus Occult Blood Positive Laboratory Tests Past 24 Hrs 08/18/20 08/18/20 08/18/20 09:30 09:30 09:55 WBC 15.2 H RBC 3.44 L Hgb 10.3 L Hct 31.3 L MCV 91.0 MCH 29.9 MCHC 32.9 RDW Std Deviation 42.6 RDW Coeff of Baljit 13.1 Plt Count 220 MPV 10.6 Immature Gran % (Auto) 1.000 H Neut % (Auto) 92.6 H Lymph % (Auto) 3.7 L Randall % (Auto) 2.4 Eos % (Auto) 0.0 Baso % (Auto) 0.3 Absolute Neuts (auto) 14.1 H Absolute Lymphs (auto) 0.56 L Nucleated RBC % 0 Differential Comment COMMENT Sodium 135 L Potassium 5.0 Chloride 97 L Carbon Dioxide 26.0 Anion Gap 12 BUN 32 H Creatinine 5.46 H Estim Creat Clear Calc 18.50 Est GFR (MDRD) Af Amer 14 L Est GFR (MDRD) Non-Af 12 L BUN/Creatinine Ratio 5.9 L Glucose 403 H Lactic Acid 3.0 H* Calcium 8.9 Total Bilirubin 0.50 AST 12 L ALT 12 L Alkaline Phosphatase 113 Troponin I < 0.015 Total Protein 8.2 Albumin 3.0 L Globulin 5.2 H Albumin/Globulin Ratio 0.6 L Lipase 142 Urine Color Urine Clarity Urine pH Ur Specific [place] Urine Protein Urine Glucose (UA) Urine Ketones Urine Occult Blood Urine Nitrite Urine Bilirubin Urine Urobilinogen Ur Leukocyte Esterase Urine RBC Urine WBC Ur Squamous Epith Cells Urine Bacteria Urine Mucus 08/18/20 08/18/20 08/18/20 10:57 14:00 15:41 WBC RBC Hgb Hct MCV MCH MCHC RDW Std Deviation RDW Coeff of Baljit Plt Count MPV Immature Gran % (Auto) Neut % (Auto) Lymph % (Auto) [place] % (Auto) Eos % (Auto) Baso % (Auto) Absolute Neuts (auto) Absolute Lymphs (auto) Nucleated RBC % Differential Comment Sodium Potassium Chloride Carbon Dioxide Anion Gap BUN Creatinine Estim Creat Clear Calc Est GFR (MDRD) Af Amer Est GFR (MDRD) Non-Af BUN/Creatinine Ratio Glucose Lactic Acid 1.6 1.4 Calcium Total Bilirubin AST ALT Alkaline Phosphatase Troponin I Total Protein Albumin Globulin Albumin/Globulin Ratio Lipase Urine Color Brown Urine Clarity Cloudy Urine pH 7.0 Ur Specific [place] 1.010 Urine Protein 500 H Urine Glucose (UA) 100 H Urine Ketones 15 H Urine Occult Blood 250 H Urine Nitrite Positive H Urine Bilirubin Negative Urine Urobilinogen Normal Ur Leukocyte Esterase 500 H Urine RBC 10-25 SEEN Urine WBC >100 SEEN Ur Squamous Epith Cells 0-5 SEEN Urine Bacteria 3+ Urine Mucus 0 SEEN Assessment/Plan All Active Problems (Last Reviewed 02/27/20 @ 10:03 by Carrie Rondon) Severe sepsis due to UTI (Acute) Obstruction of right ureteropelvic junction due to stone (Acute) Hydronephrosis of right kidney (Acute) Problem with dialysis access (Acute) Difficulty swallowing (Acute) plan for cystoscopy and right stent placement tomorrow npo at Mid night consent
[2020-08-18] MEDS: Amitriptyline 25 MG Tablet PO (23:13)
[2020-08-18] MEDS: Pregabalin 50 MG Capsule 100 MG PO (23:13)
[2020-08-18] MEDS: Heparin Injection (Vial) 5,000 UNIT/ML VIAL 5000 UNIT SC (23:18)
--- NOTE | 2020-08-18 23:43 | PCS.PANDOC ---
PANDEMIC DOCUMENTATION INITIATED: Date: 08/18/2020 Time: 0864
[2020-08-19] VITALS (14 sets, daily range): BP systolic 109–164; BP diastolic 30–58; PULSE 77–100; RESP 14–18; TEMP 36.9–37.9; O2SAT 94–99; BMI 51.7
[2020-08-19 00:01] LABS: Bedside Glucose 257 mg/dL (70-110)
[2020-08-19] MEDS: HYDROmorphone 1 MG/ML Syringe IV ×2 (00:40→12:13)
[2020-08-19] MEDS: 0.9% Normal Saline 1,000 ML 100 ML IV (02:40)
[2020-08-19] MEDS: Levothyroxine 50 MCG Tablet PO (05:38)
[2020-08-19 06:09] LABS: Absolute Lymphocyte Count 0.84 X10^3/uL (0.83-4.51); Absolute Neutrophil Count 14.4 X10^3/uL (2.0-7.7); Basophil# 0.03 X10^3/uL; Basophil% 0.2 % (0-1); Eosinophil# 0.01 X10^3/uL; Eosinophils% 0.1 % (0-5); Hematocrit 29.9 % (40-54); Hemoglobin 9.2 g/dL (13.0-16.5); Lymphocyte # 0.84 X10^3/ul (4.0); Mean Corp Hgb Conc 30.8 g/dL (32-36); Mean Corpuscular Hgb 29.1 pg (27.0-32.0); Mean Corpuscular Volume 94.6 fL (80-94); Mean Platelet Vol. 10.4 fl (6.2-12.0); Monocyte# 1.25 X10^3/uL; Monocyte% 7.5 % (0-10); NRBC Flagged by Analyzer 0 % (0-5); Neutrophil # 14.44 X10^3/uL (2.7-7.7); Neutrophil % 86.3 % (47-70); Platelet Count 207 K/mm3 (150-450); RBC Distribution Width CV 13.2 % (11.6-14.6); RBC Distribution Width SD 46.3 fl (35.1-43.9); Red Blood Count 3.16 M/mm3 (4.6-6.2); White Blood Count 16.7 K/mm3 (4.4-11.0)
[2020-08-19 06:52] LABS: Anion Gap 7 (5-15); BUN 40 mg/dL (7-18); Calcium,Total 8.6 mg/dL (8.5-10.1); Chloride 100 mmol/L (98-107); Creatinine, Serum 6.68 mg/dL (0.70-1.30); EST Glomerular Filtration Rate 9 mL/min (>60); Est Glom Filt Rate - Afr Amer 11 mL/min (>60); Estimated Creatinine Clearance 15.12 ml/min; Glucose 290 mg/dL (74-106); Magnesium 2.4 mg/dL (1.6-2.6); Potassium 4.7 mmol/L (3.5-5.1); Sodium Level 136 mmol/L (136-145); Thyroid Stim Hormone (TSH) 0.91 uIU/mL (0.358-3.74)
[2020-08-19 07:01] LABS: Bedside Glucose 274 mg/dL (70-110)
[2020-08-19 08:26] LABS: Hemoglobin A1c 8.5 % (3.8-5.6)
--- NOTE | 2020-08-19 10:59 | CASEMGMT ---
This RN CM to room to complete CM assessment and pt is sleeping without distress at this time. Will attempt again later. SStaten RN CM
[2020-08-19 11:50] LABS: Bedside Glucose 275 mg/dL (70-110)
--- NOTE | 2020-08-19 12:09 | PN_ITS ---
Patient Problems: Active and Suspected Problems (Last Updated 08/19/20 @ 12:[address] Oscar King, DO) Severe sepsis due to UTI (Acute) Obstruction of right ureteropelvic junction due to stone (Acute) Hydronephrosis of right kidney (Acute) Subjective: Patient was seen and examined today, he voices no complaints of pain to this examiner. I talked to the patient about his type 2 diabetes, he states this not under control due to the fact he is noncompliant with treatment. Patient is due to undergo a cystoscopy with probable stent placement today by urology. Patient is afebrile at this time, his white blood cell count today was 16.7. Patient's creatinine was elevated at 6.68-he is on chronic dialysis and his last dialysis was yesterday. - Physical Exam Vitals/I&O's: Vital Signs Temp Pulse Resp BP Pulse Ox 98.6 F 84 16 164/53 H 94 08/19/20 09:00 08/19/20 09:28 08/19/20 09:00 08/19/20 09:00 08/19/20 09:00 Oxygen Flow Rate (L/min) 2 Oxygen Delivery Method Room Air Weight: 177.7 kg Body Mass Index (BMI) 51.2 Finger Stick Blood Glucose 148 Intake and Output for Last 24 Hours 08/17/20 08/18/20 08/19/20 23:59 23:59 23:59 Intake Total 260 / 260 2031.67 / 2030.67 Output Total 0 / 0 Balance 260 / 260 1.67 / 2030.67 General: Alert, Oriented x3, Cooperative, No apparent distress, Well developed, Well nourished HEENT: Atraumatic, PERRLA, EOMI, Normocephalic Oral: Moist Mucosa Neck: Supple, No JVD, Trachea Midline, Thyroid Normal Size and Texture Lungs: Clear to auscultation, Normal air movement, No rhonchi, No wheeze, No rales Cardiovascular: Regular rate, Regular Rhythm, Normal S1, Normal S2, No murmurs, PMI Normal, No rub noted, No Gallop Abdomen: Bowel Sounds Present, Soft, Non Tender, Non-Distended, Obese Extremities: No clubbing, No cyanosis, Capillary Refill Less than 3 Seconds Skin: No rashes, No breakdown Musculoskeletal: No Tenderness to Palpation of Joints or Extremities Neurological: Cranial nerves II-XII grossly intact, Neuro grossly intact, Sensory exam intact to light touch and pain Psych/Mental Status: Normal Affect, Appropriate, Alert and oriented to time, place, person, mood and affect Microbiology Past 72 Hours 08/18/20 10:57 Urine, Catheterized Urine Culture - Preliminary Staphylococcus aureus 08/19/20 07:30 Mucosa - Nose SARS-CoV-2 Antigen (Rapid) - Final 08/18/20 12:19 Blood Culture (Wb) - Right Forearm Blood Culture - Preliminary 08/18/20 10:00 Vomitus Gastric Occult Blood - Final Occult Blood Positive Laboratory Results 08/18/20 14:00: Lactic Acid 1.6 08/18/20 15:41: Lactic Acid 1.4 08/18/20 17:15: POC Glucose 325 H 08/18/20 23:04: POC Glucose 257 H 08/19/20 05:25: WBC 16.7 H, RBC 3.16 L, Hgb 9.2 L, Hct 29.9 L, MCV 94.6 H, MCH 29.1, MCHC 30.8 L D, RDW Std Deviation 46.3 H, RDW Coeff of Baljit 13.2, Plt Count 207, MPV 10.4, Immature Gran % (Auto) 0.900, Neut % (Auto) 86.3 H, Lymph % (Auto) 5.0 L, [place] % (Auto) 7.5, Eos % (Auto) 0.1, Baso % (Auto) 0.2, Absolute Neuts (auto) 14.4 H, Absolute Lymphs (auto) 0.84, Nucleated RBC % 0 08/19/20 05:25: Sodium 136, Potassium 4.7, Chloride 100, Carbon Dioxide 29.0, Anion Gap 7, BUN 40 H, Creatinine 6.68 H, Estim Creat Clear Calc 15.12, Est GFR (MDRD) Af Amer 11 L, Est GFR (MDRD) Non-Af 9 L, BUN/Creatinine Ratio 6.0 L, Glucose 290 H, Calcium 8.6, Magnesium 2.4, TSH 0.91 08/19/20 05:25: Hemoglobin A1c 8.5 H 08/19/20 06:55: POC Glucose 274 H 08/19/20 11:46: POC Glucose 275 H Current Medications Acetaminophen (Acetaminophen 325 Mg Tablet) 650 mg PO Q6H PRN PRN PRN Reason: Pain Score 1-10/Temp > 100.7 F Amitriptyline HCl (Amitriptyline 25 Mg Tablet) 25 mg PO QHS [facility] Last Admin: 08/18/20 23:13 Dose: 25 mg Documented by: Aspirin (Aspirin 81 Mg Tab.Chew) 81 mg PO DAILY@0800 [facility] Calcium Acetate (Calcium Acetate 667 Mg Capsule) 1,334 mg PO TIDCM [facility] Last Admin: 08/19/20 12:01 Dose: Not Given Documented by: Dextrose (Dextrose 50%-Water 25 Gm/50 Ml Disp.Syrin) 0 gm IV X1 PRN; Protocol PRN Reason: Hypoglycemia Glucagon (Glucagon 1 Mg/Ml Syringe) 1 mg IM .X1 PRN PRN Reason: Hypoglycemia Heparin Sodium (Porcine) (Heparin Injection (Vial) 5,000 Unit/Ml Vial) 5,000 unit SC Q12 [facility] Last Admin: 08/19/20 11:44 Dose: Not Given Documented by: Hydralazine HCl (Hydralazine 25 Mg Tablet) 25 mg PO TID [facility] Last Admin: 08/19/20 05:29 Dose: Not Given Documented by: Hydromorphone HCl (Hydromorphone 1 Mg/Ml Syringe) 1 mg IV Q4H PRN PRN PRN Reason: Pain Score 6-10 Last Admin: 08/19/20 00:40 Dose: 1 mg Documented by: Ceftriaxone Sodium 2 gm/ (Sodium Chloride) 50 mls @ 100 mls/hr IV Q24 [facility] Last Infusion: 08/19/20 11:33 Dose: Infused Documented by: Insulin Glargine (Insulin Glargine 100 Units/Ml Pen) 20 units SC QHS [facility] Last Admin: 08/18/20 23:09 Dose: Not Given Documented by: Insulin Human Lispro (Insulin Lispro 100 Unit/Ml Insuln.Pen) 15 unit SC TIDAC [facility] Last Admin: 08/19/20 12:00 Dose: Not Given Documented by: Insulin Human Lispro (Insulin Lispro 100 Unit/Ml Insuln.Pen) 0 unit SC ACHS [facility]; Protocol Last Admin: 08/19/20 12:00 Dose: Not Given Documented by: Levothyroxine Sodium (Levothyroxine 50 Mcg Tablet) 50 mcg PO DAILY@0600 [facility] Last Admin: 08/19/20 05:38 Dose: 50 mcg Documented by: Metoclopramide HCl (Metoclopramide 5 Mg Tablet) 5 mg PO TIDAC PRN PRN Reason: gastric distension Oxycodone HCl (Oxycodone 5 Mg Tablet) 10 mg PO Q4H PRN PRN PRN Reason: Pain Score 4-5 Pantoprazole Sodium (Pantoprazole Sodium 40 Mg Tablet) 40 mg PO DAILY [facility] Pregabalin (Pregabalin 50 Mg Capsule) 100 mg PO BID [facility] Last Admin: 08/18/20 23:13 Dose: 100 mg Documented by: Rizatriptan Benzoate (Rizatriptan Benzoate 10 Mg Tablet) 10 mg PO MoWeFr@1500 [facility] Sodium Chloride (0.9% Saline Lock 10 Ml Syringe) 10 - 40 ml IV UD PRN PRN Reason: SALINE FLUSH Last Admin: 08/18/20 20:17 Dose: 10 ml Documented by: Medical Necessity - Tobacco Use Smoking Status: Never smoker Assessment/Plan All Active Problems (Last Updated 08/19/20 @ 12:[address] Oscar King, DO) Severe sepsis due to UTI (Acute) Obstruction of right ureteropelvic junction due to stone (Acute) Hydronephrosis of right kidney (Acute) Problem with dialysis access (Resolved) Difficulty swallowing (Resolved) #1 severe sepsis secondary to pyelonephritis-continue present antibiotic coverage at this time, preliminary report shows staph aureus in the urine, I have chosen to continue the patient on Rocephin at this time, patient remains afebrile although his white count did elevate slightly from yesterday. Await final urine culture results. #2 right hydronephrosis secondary to right ureteral stone-patient will go to surgery today for probable stent placement #3 type 2 diabetes-poorly controlled, monitor blood sugars, provide sliding scale insulin and home insulin #4 end-stage renal disease-patient's dialysis days are Monday, nephrology will see patient in consultation #5 morbid obesity-complicates medical care #6 hypothyroidism Inpatient E&M: [id number] [facility] Hosp L2
--- NOTE | 2020-08-19 12:26 | PCM.CONS.R ---
Consultation - Renal 08/19/20 PCP/ Referring MD: Requesting physician: [] Primary care physician: Dr. Laura Daly MD Reason for Consultation:: ESRD HD MWF - History of Present Illness History of Present Illness: The patient is a 50 year old morbidly obese M with ESRD due to diabetes admitted for right flank pain with chills, rigors started Monday. CT showed obstructed kidney stone on right at UV junction. He has leukocytosis. BP elevated. Urine c/s with staph aureus, prelim blood cx with GPC. He has a tunneled dialysis catheter for access. 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 consulted. He is scheduled for ureteral stent placement. - Allergies Allergies: Allergies No Known Allergies Allergy (Verified 03/11/20 15:26) - Current Medications Current Medications: Current Medications Acetaminophen (Acetaminophen 325 Mg Tablet) 650 mg PO Q6H PRN PRN PRN Reason: Pain Score 1-10/Temp > 100.7 F Amitriptyline HCl (Amitriptyline 25 Mg Tablet) 25 mg PO QHS [facility] Last Admin: 08/18/20 23:13 Dose: 25 mg Documented by: Aspirin (Aspirin 81 Mg Tab.Chew) 81 mg PO DAILY@0800 [facility] Calcium Acetate (Calcium Acetate 667 Mg Capsule) 1,334 mg PO TIDCM [facility] Last Admin: 08/19/20 12:01 Dose: Not Given Documented by: Dextrose (Dextrose 50%-Water 25 Gm/50 Ml Disp.Syrin) 0 gm IV X1 PRN; Protocol PRN Reason: Hypoglycemia Glucagon (Glucagon 1 Mg/Ml Syringe) 1 mg IM .X1 PRN PRN Reason: Hypoglycemia Heparin Sodium (Porcine) (Heparin Injection (Vial) 5,000 Unit/Ml Vial) 5,000 unit SC Q12 [facility] Last Admin: 08/19/20 11:44 Dose: Not Given Documented by: Hydralazine HCl (Hydralazine 25 Mg Tablet) 25 mg PO TID [facility] Last Admin: 08/19/20 05:29 Dose: Not Given Documented by: Hydromorphone HCl (Hydromorphone 1 Mg/Ml Syringe) 1 mg IV Q4H PRN PRN PRN Reason: Pain Score 6-10 Last Admin: 08/19/20 12:13 Dose: 1 mg Documented by: Ceftriaxone Sodium 2 gm/ (Sodium Chloride) 50 mls @ 100 mls/hr IV Q24 [facility] Last Infusion: 08/19/20 11:33 Dose: Infused Documented by: Vancomycin HCl 1,500 mg/ (Sodium Chloride) 530 mls @ 250 mls/hr IV X1 ONE Stop: 08/19/20 14:32 Insulin Glargine (Insulin Glargine 100 Units/Ml Pen) 20 units SC QHS [facility] Last Admin: 08/18/20 23:09 Dose: Not Given Documented by: Insulin Human Lispro (Insulin Lispro 100 Unit/Ml Insuln.Pen) 15 unit SC TIDAC [facility] Last Admin: 08/19/20 12:00 Dose: Not Given Documented by: Insulin Human Lispro (Insulin Lispro 100 Unit/Ml Insuln.Pen) 0 unit SC ACHS [facility]; Protocol Last Admin: 08/19/20 12:00 Dose: Not Given Documented by: Levothyroxine Sodium (Levothyroxine 50 Mcg Tablet) 50 mcg PO DAILY@0600 [facility] Last Admin: 08/19/20 05:38 Dose: 50 mcg Documented by: Metoclopramide HCl (Metoclopramide 5 Mg Tablet) 5 mg PO TIDAC PRN PRN Reason: gastric distension Ondansetron HCl (Ondansetron 4 Mg/2 Ml Vial) 4 mg IV Q6H PRN PRN PRN Reason: NAUSEA/VOMITING Oxycodone HCl (Oxycodone 5 Mg Tablet) 10 mg PO Q4H PRN PRN PRN Reason: Pain Score 4-5 Pantoprazole Sodium (Pantoprazole Sodium 40 Mg Tablet) 40 mg PO DAILY [facility] Pregabalin (Pregabalin 50 Mg Capsule) 100 mg PO BID [facility] Last Admin: 08/18/20 23:13 Dose: 100 mg Documented by: Rizatriptan Benzoate (Rizatriptan Benzoate 10 Mg Tablet) 10 mg PO MoWeFr@1500 [facility] Sodium Chloride (0.9% Saline Lock 10 Ml Syringe) 10 - 40 ml IV UD PRN PRN Reason: SALINE FLUSH Last Admin: 08/18/20 20:17 Dose: 10 ml Documented by: - Past Medical History Past Medical History (Chronic Problems): Chronic Problems (Last Updated 08/19/20 @ 12:[address] Oscar King, DO) Hypertension (Chronic) GERD (gastroesophageal reflux disease) (Chronic) Hypothyroidism (Chronic) Diabetes mellitus type 2 in obese (Chronic) ESRD (end stage renal disease) on dialysis (Chronic) - Past Surgical History Surgical History: - - Social History Marital Status: Single Smoking Status: Never smoker - Family History Maternal History Items: COPD Paternal History Items: - Sibling History Items: Diabetes Review of Systems Constitutional: Reports: Chills. Denies: Anorexia Cardiovascular: Denies: Chest Pain Respiratory: Denies: Cough, Shortness of Breath Gastrointestinal: Denies: Nausea, Vomiting Genitourinary: Reports: - - right flank, back pain started Monday. Denies: Dysuria, Hematuria Musculoskeletal: Reports: - - no swelling Neurological: Reports: - - rigors Psychiatric: Reports: Anxiety, Depression Hematologic/ Lymphatic: Reports: Anemia Patient Problems: Active and Suspected Problems (Last Updated 08/19/20 @ 12:[address] Oscar King, DO) Severe sepsis due to UTI (Acute) Obstruction of right ureteropelvic junction due to stone (Acute) Hydronephrosis of right kidney (Acute) - Physical Exam Vitals/I&O's: Vital Signs Temp Pulse Resp BP Pulse Ox 98.6 F 84 16 164/53 H 94 08/19/20 09:00 08/19/20 09:28 08/19/20 09:00 08/19/20 09:00 08/19/20 09:00 Oxygen Flow Rate (L/min) 2 Oxygen Delivery Method Room Air Weight: 177.7 kg Body Mass Index (BMI) 51.2 Finger Stick Blood Glucose 148 Intake and Output for Last 24 Hours 08/17/20 08/18/20 08/19/20 23:59 23:59 23:59 Intake Total 260 / 260 2030.67 / 2030. Output Total 0 / 0 Balance 260 / 260 2030. / General: Alert, Oriented x3, Cooperative, - - shaking chills Lungs: Clear to auscultation Cardiovascular: Regular rate Abdomen: Bowel Sounds Present, Soft, Non Tender, Obese Extremities: No cyanosis Musculoskeletal: No Muscle Wasting Psych/Mental Status: Normal Affect, Appropriate, Alert and oriented to time, place, person, mood and affect Microbiology Past 72 Hours 08/18/20 10:57 Urine, Catheterized Urine Culture - Preliminary Staphylococcus aureus 08/19/20 07:30 Mucosa - Nose SARS-CoV-2 Antigen (Rapid) - Final 08/18/20 12:19 Blood Culture (Wb) - Right Forearm Blood Culture - Preliminary GPC 08/18/20 10:00 Vomitus Gastric Occult Blood - Final Occult Blood Positive Laboratory Results 08/18/20 14:00: Lactic Acid 1.6 08/18/20 15:41: Lactic Acid 1.4 08/18/20 17:15: POC Glucose 325 H 08/18/20 23:04: POC Glucose 257 H 08/19/20 05:25: WBC 16.7 H, RBC 3.16 L, Hgb 9.2 L, Hct 29.9 L, MCV 94.6 H, MCH 29.1, MCHC 30.8 L D, RDW Std Deviation 46.3 H, RDW Coeff of Baljit 13.2, Plt Count 207, MPV 10.4, Immature Gran % (Auto) 0.900, Neut % (Auto) 86.3 H, Lymph % (Auto) 5.0 L, [place] % (Auto) 7.5, Eos % (Auto) 0.1, Baso % (Auto) 0.2, Absolute Neuts (auto) 14.4 H, Absolute Lymphs (auto) 0.84, Nucleated RBC % 0 08/19/20 05:25: Sodium 136, Potassium 4.7, Chloride 100, Carbon Dioxide 29.0, Anion Gap 7, BUN 40 H, Creatinine 6.68 H, Estim Creat Clear Calc 15.12, Est GFR (MDRD) Af Amer 11 L, Est GFR (MDRD) Non-Af 9 L, BUN/Creatinine Ratio 6.0 L, Glucose 290 H, Calcium 8.6, Magnesium 2.4, TSH 0.91 08/19/20 05:25: Hemoglobin A1c 8.5 H 08/19/20 06:55: POC Glucose 274 H 08/19/20 11:46: POC Glucose 275 H Clinical Impression(s) from Imaging Studies Abdomen CT 08/18/20 09:47 IMPRESSION: Mild degree of right hydronephrosis and hydroureter due to a 4 mm calculus at the right ureterovesical junction. Extensive vascular calcification. Empty urinary bladder with diffuse bladder wall thickening. Multiple small gallstones. Marked degree of dextroscoliosis. Electronically Signed: Triston Bermudez MD at 13:36 EST , Service support , Current Medications Acetaminophen (Acetaminophen 325 Mg Tablet) 650 mg PO Q6H PRN PRN PRN Reason: Pain Score 1-10/Temp > 100.7 F Amitriptyline HCl (Amitriptyline 25 Mg Tablet) 25 mg PO QHS [facility] Last Admin: 08/18/20 23:13 Dose: 25 mg Documented by: Aspirin (Aspirin 81 Mg Tab.Chew) 81 mg PO DAILY@0800 [facility] Calcium Acetate (Calcium Acetate 667 Mg Capsule) 1,334 mg PO TIDCM [facility] Last Admin: 08/19/20 12:01 Dose: Not Given Documented by: Dextrose (Dextrose 50%-Water 25 Gm/50 Ml Disp.Syrin) 0 gm IV X1 PRN; Protocol PRN Reason: Hypoglycemia Glucagon (Glucagon 1 Mg/Ml Syringe) 1 mg IM .X1 PRN PRN Reason: Hypoglycemia Heparin Sodium (Porcine) (Heparin Injection (Vial) 5,000 Unit/Ml Vial) 5,000 unit SC Q12 [facility] Last Admin: 08/19/20 11:44 Dose: Not Given Documented by: Hydralazine HCl (Hydralazine 25 Mg Tablet) 25 mg PO TID [facility] Last Admin: 08/19/20 05:29 Dose: Not Given Documented by: Hydromorphone HCl (Hydromorphone 1 Mg/Ml Syringe) 1 mg IV Q4H PRN PRN PRN Reason: Pain Score 6-10 Last Admin: 08/19/20 12:13 Dose: 1 mg Documented by: Ceftriaxone Sodium 2 gm/ (Sodium Chloride) 50 mls @ 100 mls/hr IV Q24 [facility] Last Infusion: 08/19/20 11:33 Dose: Infused Documented by: Vancomycin HCl 1,500 mg/ (Sodium Chloride) 530 mls @ 250 mls/hr IV X1 ONE Stop: 08/19/20 14:32 Insulin Glargine (Insulin Glargine 100 Units/Ml Pen) 20 units SC QHS [facility] Last Admin: 08/18/20 23:09 Dose: Not Given Documented by: Insulin Human Lispro (Insulin Lispro 100 Unit/Ml Insuln.Pen) 15 unit SC TIDAC [facility] Last Admin: 08/19/20 12:00 Dose: Not Given Documented by: Insulin Human Lispro (Insulin Lispro 100 Unit/Ml Insuln.Pen) 0 unit SC [facility]; Protocol Last Admin: 08/19/20 12:00 Dose: Not Given Documented by: Levothyroxine Sodium (Levothyroxine 50 Mcg Tablet) 50 mcg PO DAILY@0600 [facility] Last Admin: 08/19/20 05:38 Dose: 50 mcg Documented by: Metoclopramide HCl (Metoclopramide 5 Mg Tablet) 5 mg PO TIDAC PRN PRN Reason: gastric distension Ondansetron HCl (Ondansetron 4 Mg/2 Ml Vial) 4 mg IV Q6H PRN PRN PRN Reason: NAUSEA/VOMITING Oxycodone HCl (Oxycodone 5 Mg Tablet) 10 mg PO Q4H PRN PRN PRN Reason: Pain Score 4-5 Pantoprazole Sodium (Pantoprazole Sodium 40 Mg Tablet) 40 mg PO DAILY [facility] Pregabalin (Pregabalin 50 Mg Capsule) 100 mg PO BID [facility] Last Admin: 08/18/20 23:13 Dose: 100 mg Documented by: Rizatriptan Benzoate (Rizatriptan Benzoate 10 Mg Tablet) 10 mg PO MoWeFr@1500 [facility] Sodium Chloride (0.9% Saline Lock 10 Ml Syringe) 10 - 40 ml IV UD PRN PRN Reason: SALINE FLUSH Last Admin: 08/18/20 20:17 Dose: 10 ml Documented by: Assessment/Plan All Active Problems (Last Updated 08/19/20 @ 12:[address] Oscar King, DO) Severe sepsis due to UTI (Acute) Obstruction of right ureteropelvic junction due to stone (Acute) Hydronephrosis of right kidney (Acute) Problem with dialysis access (Resolved) Difficulty swallowing (Resolved) 1. ESRD HD MWF. Last dialysis Monday. Will need tunneled catheter removed with prelim urine /blood cx with staph aureus, rigors, leukocytosis. 2. UTI with staph aureus, obstructed kidney stone on right with hydro. consulted. 3. Sepsis with SA, line sepsis, UTI. Start vanco 1.5g today and check levels before redosing 4. DM2 primary care mgmt 5. Morbid obesity 6. HTN on midodrine for history of hypotension, autonomic dysfunction. Hold midodrine. Discussed case with hospitalist over phone 25min then 40 min reviewing chart, pt examination, assessment and plan.
--- NOTE | 2020-08-19 12:36 | PN_ITS ---
Patient Problems: Active and Suspected Problems (Last Updated 08/19/20 @ 12:[address] Oscar King, DO) Severe sepsis due to UTI (Acute) Obstruction of right ureteropelvic junction due to stone (Acute) Hydronephrosis of right kidney (Acute) Subjective: Obstructing distal right ureteral calculi, patient admitted for obstructing stone n.p.o. for surgery for today he has an active infection and signs of sepsis oriented taken the surgery allergies complete stent in on the right side. Patient is agreeable with this explained to the patient why at this point unsafe to go to try to put the patient through surgery to remove the stone given his sepsis. - Physical Exam Vitals/I&O's: Vital Signs Temp Pulse Resp BP Pulse Ox 98.6 F 84 16 164/53 H 94 08/19/20 09:00 08/19/20 09:28 08/19/20 09:00 08/19/20 09:00 08/19/20 09:00 Oxygen Flow Rate (L/min) 2 Oxygen Delivery Method Room Air Weight: 177.7 kg Body Mass Index (BMI) 51.2 Finger Stick Blood Glucose 148 Intake and Output for Last 24 Hours 08/17/20 08/18/20 08/19/20 23:59 23:59 23:59 Intake Total 260 / 260 2031.67 / 2031.67 Output Total 0 / 0 Balance 260 / 260 1.67 / 2030.67 General: Alert, Oriented x3, Cooperative HEENT: Atraumatic, PERRLA, EOMI, Normocephalic Neck: Supple, No JVD, Negative Carotid Bruits Lungs: Clear to auscultation, Normal air movement Cardiovascular: Regular rate, No murmurs Abdomen: Bowel Sounds Present, Soft, Non Tender Extremities: No edema, Capillary Refill Less than 3 Seconds Skin: No rashes, No breakdown Musculoskeletal: No Tenderness to Palpation of Joints or Extremities Neurological: Cranial nerves II-XII grossly intact Psych/Mental Status: Normal Affect, Appropriate Microbiology Past 72 Hours 08/18/20 10:57 Urine, Catheterized Urine Culture - Preliminary Staphylococcus aureus 08/19/20 07:30 Mucosa - Nose SARS-CoV-2 Antigen (Rapid) - Final 08/18/20 12:19 Blood Culture (Wb) - Right Forearm Blood Culture - Preliminary 08/18/20 10:00 Vomitus Gastric Occult Blood - Final Occult Blood Positive Laboratory Results 08/18/20 14:00: Lactic Acid 1.6 08/18/20 15:41: Lactic Acid 1.4 08/18/20 17:15: POC Glucose 325 H 08/18/20 23:04: POC Glucose 257 H 08/19/20 05:25: WBC 16.7 H, RBC 3.16 L, Hgb 9.2 L, Hct 29.9 L, MCV 94.6 H, MCH 29.1, MCHC 30.8 L D, RDW Std Deviation 46.3 H, RDW Coeff of Baljit 13.2, Plt Count 207, MPV 10.4, Immature Gran % (Auto) 0.900, Neut % (Auto) 86.3 H, Lymph % (Auto) 5.0 L, Mchenry % (Auto) 7.5, Eos % (Auto) 0.1, Baso % (Auto) 0.2, Absolute Neuts (auto) 14.4 H, Absolute Lymphs (auto) 0.84, Nucleated RBC % 0 08/19/20 05:25: Sodium 136, Potassium 4.7, Chloride 100, Carbon Dioxide 29.0, Anion Gap 7, BUN 40 H, Creatinine 6.68 H, Estim Creat Clear Calc 15.12, Est GFR (MDRD) Af Amer 11 L, Est GFR (MDRD) Non-Af 9 L, BUN/Creatinine Ratio 6.0 L, Glucose 290 H, Calcium 8.6, Magnesium 2.4, TSH 0.91 08/19/20 05:25: Hemoglobin A1c 8.5 H 08/19/20 06:55: POC Glucose 274 H 08/19/20 11:46: POC Glucose 275 H Current Medications Acetaminophen (Acetaminophen 325 Mg Tablet) 650 mg PO Q6H PRN PRN PRN Reason: Pain Score 1-10/Temp > 100.7 F Amitriptyline HCl (Amitriptyline 25 Mg Tablet) 25 mg PO QHS [facility] Last Admin: 08/18/20 23:13 Dose: 25 mg Documented by: Aspirin (Aspirin 81 Mg Tab.Chew) 81 mg PO DAILY@0800 [facility] Calcium Acetate (Calcium Acetate 667 Mg Capsule) 1,334 mg PO TIDCM [facility] Last Admin: 08/19/20 12:01 Dose: Not Given Documented by: Dextrose (Dextrose 50%-Water 25 Gm/50 Ml Disp.Syrin) 0 gm IV X1 PRN; Protocol PRN Reason: Hypoglycemia Glucagon (Glucagon 1 Mg/Ml Syringe) 1 mg IM .X1 PRN PRN Reason: Hypoglycemia Heparin Sodium (Porcine) (Heparin Injection (Vial) 5,000 Unit/Ml Vial) 5,000 unit SC Q12 [facility] Last Admin: 08/19/20 11:44 Dose: Not Given Documented by: Hydralazine HCl (Hydralazine 25 Mg Tablet) 25 mg PO TID [facility] Last Admin: 08/19/20 05:29 Dose: Not Given Documented by: Hydromorphone HCl (Hydromorphone 1 Mg/Ml Syringe) 1 mg IV Q4H PRN PRN PRN Reason: Pain Score 6-10 Last Admin: 08/19/20 12:13 Dose: 1 mg Documented by: Ceftriaxone Sodium 2 gm/ (Sodium Chloride) 50 mls @ 100 mls/hr IV Q24 [facility] Last Infusion: 08/19/20 11:33 Dose: Infused Documented by: Vancomycin HCl 1,500 mg/ (Sodium Chloride) 530 mls @ 250 mls/hr IV X1 ONE Stop: 08/19/20 14:32 Insulin Glargine (Insulin Glargine 100 Units/Ml Pen) 20 units SC QHS [facility] Last Admin: 08/18/20 23:09 Dose: Not Given Documented by: Insulin Human Lispro (Insulin Lispro 100 Unit/Ml Insuln.Pen) 15 unit SC TIDAC [facility] Last Admin: 08/19/20 12:00 Dose: Not Given Documented by: Insulin Human Lispro (Insulin Lispro 100 Unit/Ml Insuln.Pen) 0 unit SC ACHS [facility]; Protocol Last Admin: 08/19/20 12:00 Dose: Not Given Documented by: Levothyroxine Sodium (Levothyroxine 50 Mcg Tablet) 50 mcg PO DAILY@0600 [facility] Last Admin: 08/19/20 05:38 Dose: 50 mcg Documented by: Metoclopramide HCl (Metoclopramide 5 Mg Tablet) 5 mg PO TIDAC PRN PRN Reason: gastric distension Ondansetron HCl (Ondansetron 4 Mg/2 Ml Vial) 4 mg IV Q6H PRN PRN PRN Reason: NAUSEA/VOMITING Oxycodone HCl (Oxycodone 5 Mg Tablet) 10 mg PO Q4H PRN PRN PRN Reason: Pain Score 4-5 Pantoprazole Sodium (Pantoprazole Sodium 40 Mg Tablet) 40 mg PO DAILY [facility] Pregabalin (Pregabalin 50 Mg Capsule) 100 mg PO BID [facility] Last Admin: 08/18/20 23:13 Dose: 100 mg Documented by: Rizatriptan Benzoate (Rizatriptan Benzoate 10 Mg Tablet) 10 mg PO MoWeFr@1500 [facility] Sodium Chloride (0.9% Saline Lock 10 Ml Syringe) 10 - 40 ml IV UD PRN PRN Reason: SALINE FLUSH Last Admin: 08/18/20 20:17 Dose: 10 ml Documented by: Medical Necessity - Tobacco Use Smoking Status: Never smoker Assessment/Plan All Active Problems (Last Updated 08/19/20 @ 12:[address] Oscar King, DO) Severe sepsis due to UTI (Acute) Obstruction of right ureteropelvic junction due to stone (Acute) Hydronephrosis of right kidney (Acute) Problem with dialysis access (Resolved) Difficulty swallowing (Resolved) Plan for cystoscopy and right stent placement n.p.o. for surgery.
--- NOTE | 2020-08-19 13:50 | CASEMGMT ---
ZACH STEINBERG assessment: Face to Face with patient for initial transition planning/care coordination assessment. AZCH STEINBERG introduced self and role at [facility], pt voices understanding and consents to assessment at this time. Pt is lying in bed in no distress at this time. Pt is A/Ox4 at this time and answers all questions appropriately at this time. Care providers, pharmacy, and demographics verified at this time. Presentation: Abd pain since last night, n/v Admitting dx: UTI, severe sepsis, kidney stone PCP: Malika Specialists: Colin nephannabella; [facility] neuro in [place] Preferred Pharmacy: [facility] Insurance: [facility] Prescription Benefit: CRS Living Will/HPOA: Pt states does not have LW/HPOA and declines AD info at this time. LNOK: Veena Silver, [id number]; Floyd Cheng, friend Living Arrangements: Pt states lives alone in 1 story apt and states no concerns at home at this time. Pt states is independent with ADL's. Transportation: Pt states family/friends/neighbors drive him and states no transportation concerns at this time. Pt states has transportation set up through his [facility] for dialysis. DME/HHC: Pt states has the following DME: w/c, electric w/c, electric hospital bed, BSC, shower chair, and grab bars. Pt states no need for any further DME at this time. Pt states has been to SNF in [place] in the past and has had HHC in the past. Pt states has OP HD MWF at [facility]. Pt states no concerns with going home at time of discharge. Pt states is on disability. Pt states does not smoke cigarettes or drink ETOH. Pt states no further concerns/needs at this time. CM to follow for any further discharge planning/needs. Advised pt to ask for CM if any further questions/concerns/needs arise, voices understanding. Pt Goal: Home Plan: [place] ZACH STEINBERG
--- NOTE | 2020-08-19 13:59 | NURSING ---
wound photo: left abdomen
--- NOTE | 2020-08-19 14:27 | CCHN_ITS ---
Hospitalist Note Further note: I received a phone call from the patient's business development analyst (Dr. Shaw), patient has staph growing out of his urine culture and it appears to also be in his bloodstream although the final identification on the blood culture is not back. Dr. Shaw requested that the patient's tunneled dialysis catheter be removed, I contacted Dr. Loza who is going to do that today and insert a temporary dialysis catheter. Dr. Shaw also requested that infectious diseases see the patient, I talked personally with Dr. Trimble and he saw the patient this afternoon. Patient will be placed on vancomycin. I talked with the patient concerning these findings and the fact that he will need his tunnel catheter removed and he understood this.
--- NOTE | 2020-08-19 16:00 | PCM.HP.ID ---
Reason for Consult: bacteremia Consulted by: Dr. King History of Present Illness: The patient is a 50 year old M with ESRD, on HD via R chest permacath, multiple failed fistula in the past, presented with one day history of chills, shakes, not feeling well, back pain. Makes minimal urine. No issues with HD cath. No abd pain, no n/v/d. Came to ED, CT showed R sided hydronephrosis and stone. Ucx now with staph aureus and Bcx (+) for GPC. Full ROS performed and neg except as noted above. - Medical History Past Medical History (Chronic Problems): Chronic Problems (Last Updated 08/19/20 @ 12:[address] Oscar King, DO) Hypertension (Chronic) GERD (gastroesophageal reflux disease) (Chronic) Hypothyroidism (Chronic) Diabetes mellitus type 2 in obese (Chronic) ESRD (end stage renal disease) on dialysis (Chronic) Allergies/Adverse Reactions: Allergies No Known Allergies Allergy (Verified 03/11/20 15:26) Home Medications: Ambulatory Orders Medication Instructions Recorded Amitriptyline HCl [Elavil] 25 mg PO QHS 03/11/20 Aspirin [Aspirin, Baby] 81 mg PO DAILY@0800 03/11/20 Calcium Acetate 2 cap PO TIDCM 03/11/20 Levothyroxine [Synthroid] 50 mcg PO DAILY 03/11/20 Midodrine HCl 5 mg PO DAILY PRN 03/11/20 Pantoprazole Sodium [Protonix] 40 mg PO DAILY 03/11/20 Pregabalin [Lyrica] 100 mg PO BID 03/11/20 Rizatriptan Benzoate [Rizatriptan] 1 tab PO MOWEFR 03/11/20 Metoclopramide [Reglan] 5 mg PO Q48H PRN 08/18/20 Ondansetron [Zofran Odt] 4 mg PO Q8H PRN PRN 08/18/20 - Social History Tobacco Use: non-smoker Vital Signs Temp Pulse Resp BP Pulse Ox 98.6 F 84 16 164/53 H 94 08/19/20 09:00 08/19/20 09:28 08/19/20 09:00 08/19/20 09:00 08/19/20 09:00 Oxygen Flow Rate (L/min) 2 Oxygen Delivery Method Room Air Weight: 177.7 kg Body Mass Index (BMI) 51.7 Finger Stick Blood Glucose 148 Microbiology Past 72 Hours 08/18/20 10:57 Urine Culture - Preliminary Urine, Catheterized Staphylococcus aureus 08/19/20 07:30 SARS-CoV-2 Antigen (Rapid) - Final Mucosa - Nose 08/18/20 12:19 Blood Culture - Preliminary Blood Culture (Wb) - Right Forearm 08/18/20 10:00 Gastric Occult Blood - Final Vomitus Occult Blood Positive Laboratory Tests Past 24 Hrs 08/18/20 08/19/20 08/19/20 15:41 05:25 05:25 WBC 16.7 H RBC 3.16 L Hgb 9.2 L Hct 29.9 L MCV 94.6 H MCH 29.1 MCHC 30.8 L D RDW Std Deviation 46.3 H RDW Coeff of Baljit 13.2 Plt Count 207 MPV 10.4 Immature Gran % (Auto) 0.900 Neut % (Auto) 86.3 H Lymph % (Auto) 5.0 L [place] % (Auto) 7.5 Eos % (Auto) 0.1 Baso % (Auto) 0.2 Absolute Neuts (auto) 14.4 H Absolute Lymphs (auto) 0.84 Nucleated RBC % 0 Sodium 136 Potassium 4.7 Chloride 100 Carbon Dioxide 29.0 Anion Gap 7 BUN 40 H Creatinine 6.68 H Estim Creat Clear Calc 15.12 Est GFR (MDRD) Af Amer 11 L Est GFR (MDRD) Non-Af 9 L BUN/Creatinine Ratio 6.0 L Glucose 290 H Hemoglobin A1c Lactic Acid 1.4 Calcium 8.6 Magnesium 2.4 TSH 0.91 08/19/20 05:25 WBC RBC Hgb Hct MCV MCH MCHC RDW Std Deviation RDW Coeff of Baljit Plt Count MPV Immature Gran % (Auto) Neut % (Auto) Lymph % (Auto) [place] % (Auto) Eos % (Auto) Baso % (Auto) Absolute Neuts (auto) Absolute Lymphs (auto) Nucleated RBC % Sodium Potassium Chloride Carbon Dioxide Anion Gap BUN Creatinine Estim Creat Clear Calc Est GFR (MDRD) Af Amer Est GFR (MDRD) Non-Af BUN/Creatinine Ratio Glucose Hemoglobin A1c 8.5 H Lactic Acid Calcium Magnesium TSH - Other Studies Radiology: [] reviewed Other Studies: [] Route of nutrition/ use of supplements: [] Nutritional Intake: [] IV Site: [] Felder Catheter: [] - Physical Exam General: Alert, Oriented x3, Cooperative HEENT: Atraumatic, PERRLA, EOMI Neck: Supple, No Nodes Lungs: Clear to auscultation, Normal air movement Cardiovascular: Regular rate, Regular Rhythm Abdomen: Soft, Non Tender, Non-Distended, Obese, - - no flank pain, no spine pain Extremities: Edema Skin: Ulcer/ Wound - on lower abd, - - small splinter hemorrhages on L thumb and R 4th finger IV Site: Peripheral, without redness Musculoskeletal: No Tenderness to Palpation of Joints or Extremities Neurological: Cranial nerves II-XII grossly intact - Assessment/Plan Antibiotics: [] Assessment/Plan: [] Active and Suspected Problems (Last Updated 08/19/20 @ 12:[address] Oscar King, DO) Severe sepsis due to UTI (Acute) Obstruction of right ureteropelvic junction due to stone (Acute) Hydronephrosis of right kidney (Acute) severe sepsis with concern for staph aureus bacteremia and endocarditis - splinter hemorrhage on L thumb and R ring finger. R hydronephrosis and stone seen on CT, urology planning on procedure. Recommend HD catheter removal, ok to place temp HD access if he is unable to have a line holiday due to dialysis schedule. Will check TTE and repeat bcx. Cont vanc/ceftriaxone for now. Will follow, thank you, d/w Dr. King
--- NOTE | 2020-08-19 16:08 | ECHOD_ITS ---
Reason For Study: MURMUR Procedure This was a 2D Doppler, Color Flow transthoracic echocardiogram. The exam was of poor technical quality due to body habitus. The study was technically limited. Exam performed portable in patient room. Left Ventricle Normal LV size. The estimated ejection fraction is 65 %. No evidence for diastolic dysfunction. Mccormick couldn't be visualised due to patient's body habitus. Cannot comment on regional wall motion. Right Ventricle Normal RV size. Normal systolic function. Atria Normal left atrium. Normal right atrium. No doppler evidence for ASD. Mitral Valve There is moderate mitral annular calcification. There is no vegetation seen on the mitral valve. There is no mitral valve stenosis. No mitral valve insufficiency. Tricuspid Valve The tricuspid valve is not well visualized. No obvious vegetation noted. There is no tricuspid stenosis. Unable to estimate RV systolic pressure due to inadequate jet, pulmonary artery pressure probably normal. Aortic Valve Trisinus/trileaflet aortic valve. Aortic sclerosis, no stenosis. No obvious vegetation. There is no aortic stenosis. No aortic valve insufficiency. Pulmonic Valve There is no pulmonic valvular stenosis. No pulmonic valve insufficiency. Great Vessels Normal aortic root. Pericardium/Pleural No pericardial effusion. Medication Definity deferred due to lack of a diagnostic apical window. MMode/2D Measurements & Calculations LVIDd: 4.7 cm IVSd: 1.5 cm Ao root diam: 3.9 cm LVIDs: 2.7 cm LVPWd: 1.5 cm FS: 41.6 % LA dimension(2D): 4.2 cm Time Measurements MV dec time: 0.20 sec Doppler Measurements & Calculations MV E max mikael: 74.1 cm/sec Lat Peak E' Mikael: 5.6 cm/sec Med Peak E' Mikael: 5.8 cm/sec MV A max mikael: 96.8 cm/sec E/E' lat: 13.3 E/E' med: 12.7 MV E/A: 0.77 Ao V2 max: 167.4 cm/sec LV V1 max: 79.9 cm/sec PA V2 max: 95.2 cm/sec Ao max P.2 mmHg LV V1 max P.6 mmHg Interpretation Summary The study was technically difficult. The estimated ejection fraction is 65 %. No evidence for diastolic dysfunction. There is moderate mitral annular calcification. Aortic sclerosis, no stenosis. No obvious vegetations seen. The study was technically difficult. Ordering Physician: Osman Trimble Referring Physician: BRAD WELLS Performed By: Maureen Galvez, GARTH, RVT
--- NOTE | 2020-08-19 16:25 | CON.PCM_ITS ---
Problem List (1) Problem with dialysis access Status: Resolved Qualifiers: Encounter type: initial encounter Qualified Code(s): T82.898A - Other specified complication of vascular prosthetic devices, implants and grafts, initial encounter Reason for Consult Date of Consultation: 08/19/20 History of Present Illness: The patient is a 50 year old M here with obstructing right ureteral stone as w ell as sepsis and bacteremia. The patient has a temporary right chest dialysis catheter that he is using for dialysis at the moment. He also has a nonfunctioning fistula left arm. Patient has had several dialysis catheters in the past. Past Medical History Past Medical History (Chronic Problems): Chronic Problems (Last Updated 08/19/20 @ 12:[address] Oscar King DO) Hypertension (Chronic) GERD (gastroesophageal reflux disease) (Chronic) Hypothyroidism (Chronic) Diabetes mellitus type 2 in obese (Chronic) ESRD (end stage renal disease) on dialysis (Chronic) Medical History: Medical History (Last Updated 08/19/20 @ 12:[address] Oscar King DO) Problem with dialysis access (Resolved) T82.898A Difficulty swallowing (Resolved) R13.10 Hypertension (Chronic) I10 GERD (gastroesophageal reflux disease) (Chronic) K21.9 Hypothyroidism (Chronic) E03.9 Diabetes mellitus type 2 in obese (Chronic) E11.69, E66.9 ESRD (end stage renal disease) on dialysis (Chronic) N18.6, Z99.2 Allergies No Known Allergies Allergy (Verified 03/11/20 15:26) Home Medications: Ambulatory Orders Medication Instructions Recorded Amitriptyline HCl [Elavil] 25 mg PO QHS 03/11/20 Aspirin [Aspirin, Baby] 81 mg PO DAILY@0800 03/11/20 Calcium Acetate 2 cap PO TIDCM 03/11/20 Levothyroxine [Synthroid] 50 mcg PO DAILY 03/11/20 Midodrine HCl 5 mg PO DAILY PRN 03/11/20 Pantoprazole Sodium [Protonix] 40 mg PO DAILY 03/11/20 Pregabalin [Lyrica] 100 mg PO BID 03/11/20 Rizatriptan Benzoate [Rizatriptan] 1 tab PO MOWEFR 03/11/20 Metoclopramide [Reglan] 5 mg PO Q48H PRN 08/18/20 Ondansetron [Zofran Odt] 4 mg PO Q8H PRN PRN 08/18/20 Surgical History: Surgical History (Last Reviewed 02/27/20 @ 10:03 by Carrie Rondon) Hx of arteriovenostomy for renal dialysis Onset Date: ~01/2020 Z99.2 S/P dialysis catheter insertion Z95.828, Z99.2 Status post amputation of toe of left foot Z89.422 Surgical History: - Psychiatric History: No pertinent psych hx Smoking Status: Never smoker - *Family History Maternal History Items: COPD Paternal History Items: - Sibling History Items: Diabetes Review of Systems Constitutional: Denies: Anorexia HEENT: Denies: Difficulty Swallowing Cardiovascular: Denies: Chest Pain Gastrointestinal: Reports: Abdominal Pain Skin: Denies: Jaundice Neurological: Reports: Balance problems Psychiatric: Denies: Anxiety Hematologic/ Lymphatic: Denies: Anemia Patient Problems: Active and Suspected Problems (Last Updated 08/19/20 @ 12:[address] Oscar King, DO) Severe sepsis due to UTI (Acute) Obstruction of right ureteropelvic junction due to stone (Acute) Hydronephrosis of right kidney (Acute) - Physical Exam Vitals/I&O's: Vital Signs Temp Pulse Resp BP Pulse Ox 98.6 F 84 16 164/53 H 94 08/19/20 09:00 08/19/20 09:28 08/19/20 09:00 08/19/20 09:00 08/19/20 09:00 Oxygen Flow Rate (L/min) 2 Oxygen Delivery Method Room Air Weight: 391 lb 12.183 oz Body Mass Index (BMI) 51.7 Finger Stick Blood Glucose 148 Intake and Output for Last 24 Hours 08/17/20 08/18/20 08/19/20 23:59 23:59 23:59 Intake Total 260 / 260 2195.00 / 2195.00 Output Total 0 / 0 Balance 260 / 260 2195.00 / 2195.00 General: Alert, Oriented x3 HEENT: Atraumatic Neck: - - Right chest dialysis catheter Lungs: Normal air movement Cardiovascular: Regular rate, Regular Rhythm Abdomen: Soft, Non Tender, Non-Distended Musculoskeletal: No Muscle Wasting Neurological: Cranial nerves II-XII grossly intact Microbiology Past 72 Hours 08/18/20 10:57 Urine, Catheterized Urine Culture - Preliminary Staphylococcus aureus 08/19/20 07:30 Mucosa - Nose SARS-CoV-2 Antigen (Rapid) - Final 08/18/20 12:19 Blood Culture (Wb) - Right Forearm Blood Culture - Preliminary 08/18/20 10:00 Vomitus Gastric Occult Blood - Final Occult Blood Positive Laboratory Results 08/18/20 15:41: Lactic Acid 1.4 08/18/20 17:15: POC Glucose 325 H 08/18/20 23:04: POC Glucose 257 H 08/19/20 05:25: WBC 16.7 H, RBC 3.16 L, Hgb 9.2 L, Hct 29.9 L, MCV 94.6 H, MCH 29.1, MCHC 30.8 L D, RDW Std Deviation 46.3 H, RDW Coeff of Baljit 13.2, Plt Count 207, MPV 10.4, Immature Gran % (Auto) 0.900, Neut % (Auto) 86.3 H, Lymph % (Auto) 5.0 L, [place] % (Auto) 7.5, Eos % (Auto) 0.1, Baso % (Auto) 0.2, Absolute Neuts (auto) 14.4 H, Absolute Lymphs (auto) 0.84, Nucleated RBC % 0 08/19/20 05:25: Sodium 136, Potassium 4.7, Chloride 100, Carbon Dioxide 29.0, Anion Gap 7, BUN 40 H, Creatinine 6.68 H, Estim Creat Clear Calc 15.12, Est GFR (MDRD) Af Amer 11 L, Est GFR (MDRD) Non-Af 9 L, BUN/Creatinine Ratio 6.0 L, Glu cose 290 H, Calcium 8.6, Magnesium 2.4, TSH 0.91 08/19/20 05:25: Hemoglobin A1c 8.5 H 08/19/20 06:55: POC Glucose 274 H 08/19/20 11:46: POC Glucose 275 H Current Medications Acetaminophen (Acetaminophen 325 Mg Tablet) 650 mg PO Q6H PRN PRN PRN Reason: Pain Score 1-10/Temp > 100.7 F Amitriptyline HCl (Amitriptyline 25 Mg Tablet) 25 mg PO QHS [facility] Last Admin: 08/18/20 23:13 Dose: 25 mg Documented by: Aspirin (Aspirin 81 Mg Tab.Chew) 81 mg PO DAILY@0800 [facility] Last Admin: 08/19/20 14:07 Dose: Not Given Documented by: Calcium Acetate (Calcium Acetate 667 Mg Capsule) 1,334 mg PO TIDCM [facility] Last Admin: 08/19/20 12:01 Dose: Not Given Documented by: Dextrose (Dextrose 50%-Water 25 Gm/50 Ml Disp.Syrin) 0 gm IV X1 PRN; Protocol PRN Reason: Hypoglycemia Glucagon (Glucagon 1 Mg/Ml Syringe) 1 mg IM .X1 PRN PRN Reason: Hypoglycemia Heparin Sodium (Porcine) (Heparin Injection (Vial) 5,000 Unit/Ml Vial) 5,000 unit SC Q12 [facility] Last Admin: 08/19/20 11:44 Dose: Not Given Documented by: Hydralazine HCl (Hydralazine 25 Mg Tablet) 25 mg PO TID [facility] Last Admin: 08/19/20 05:29 Dose: Not Given Documented by: Hydromorphone HCl (Hydromorphone 1 Mg/Ml Syringe) 1 mg IV Q4H PRN PRN PRN Reason: Pain Score 6-10 Last Admin: 08/19/20 12:13 Dose: 1 mg Documented by: Ceftriaxone Sodium 2 gm/ (Sodium Chloride) 50 mls @ 100 mls/hr IV Q24 [facility] Last Infusion: 08/19/20 11:33 Dose: Infused Documented by: Vancomycin IV Pharmacy to Dose (1 ea/ Sodium Chloride) 500 mls @ 250 mls/hr IV X1 PRN; Protocol PRN Reason: Rx to Dose Vancomycin HCl 2,000 mg/ (Sodium Chloride) 540 mls @ 250 mls/hr IV X1 ONE Stop: 08/19/20 17:09 Last Admin: 08/19/20 15:00 Dose: 250 mls/hr Documented by: Insulin Glargine (Insulin Glargine 100 Units/Ml Pen) 20 units SC QHS [facility] Last Admin: 08/18/20 23:09 Dose: Not Given Documented by: Insulin Human Lispro (Insulin Lispro 100 Unit/Ml Insuln.Pen) 15 unit SC TIDAC [facility] Last Admin: 08/19/20 12:00 Dose: Not Given Documented by: Insulin Human Lispro (Insulin Lispro 100 Unit/Ml Insuln.Pen) 0 unit SC ACHS [facility]; Protocol Last Admin: 08/19/20 12:00 Dose: Not Given Documented by: Levothyroxine Sodium (Levothyroxine 50 Mcg Tablet) 50 mcg PO DAILY@0600 [facility] Last Admin: 08/19/20 05:38 Dose: 50 mcg Documented by: Metoclopramide HCl (Metoclopramide 5 Mg Tablet) 5 mg PO TIDAC PRN PRN Reason: gastric distension Ondansetron HCl (Ondansetron 4 Mg/2 Ml Vial) 4 mg IV Q6H PRN PRN PRN Reason: NAUSEA/VOMITING Oxycodone HCl (Oxycodone 5 Mg Tablet) 10 mg PO Q4H PRN PRN PRN Reason: Pain Score 4-5 Pantoprazole Sodium (Pantoprazole Sodium 40 Mg Tablet) 40 mg PO DAILY [facility] Last Admin: 08/19/20 14:07 Dose: Not Given Documented by: Pregabalin (Pregabalin 50 Mg Capsule) 100 mg PO BID [facility] Last Admin: 08/19/20 14:07 Dose: Not Given Documented by: Rizatriptan Benzoate (Rizatriptan Benzoate 10 Mg Tablet) 10 mg PO MoWeFr@1500 [facility] Sodium Chloride (0.9% Saline Lock 10 Ml Syringe) 10 - 40 ml IV UD PRN PRN Reason: SALINE FLUSH Last Admin: 08/18/20 20:17 Dose: 10 ml Documented by: Assessment/Plan All Active Problems (Last Updated 08/19/20 @ 12:[address] Oscar King, DO) Severe sepsis due to UTI (Acute) Obstruction of right ureteropelvic junction due to stone (Acute) Hydronephrosis of right kidney (Acute) Problem with dialysis access (Resolved) Difficulty swallowing (Resolved) 50-year-old male with bacteremia and obstructing ureteral stone 1. I was contacted by nephrology as well as ID for removal of the right tunneled chest dialysis catheter due to bacteremia. The patient has had multiple dialysis catheters placed in the past. He has difficulty with his dialysis access. I discussed this with the cable placer as well as ID. I will attempt to place a temporary IJ nontunneled catheter on the left. If this is successful I remove the tunnel access on the right and the patient will be able to receive dialysis as he is clearing his infection. If I am unable to get a catheter in the left side I will leave the catheter on the right and the patient will be transferred to a tertiary care center for management of his access. 2. I discussed dialysis catheter placement with the patient in detail. I discussed the risks of bleeding, infection, injury to vascular structures due to stenosis, pneumothorax or DVT. Patient understands the risks and is willing proceed. Rubio Loza MD Pager: [facility] [address] [place] [address], [address] [place] [phone] Office:
[2020-08-19] MEDS: Lidocaine Jelly 2% 20 ML Syringe (URO-JET) 20 APPLIC (17:11)
--- NOTE | 2020-08-19 17:16 | PCM.OPRPT ---
Problem List (1) Severe sepsis due to UTI Status: Acute (2) Obstruction of right ureteropelvic junction due to stone Status: Acute Report of Operation Date of Procedure: 08/19/20 Pre-Operative Diagnosis: Obstructive right ureteral calculi within sepsis Post-Operative Diagnosis: Same Surgery/Procedure Performed:: Cystoscopy and right stent placement Description of Surgical Findings:: Patient was taken back to the operating room after induction of general anesthesia, the patient was placed in dorsolithotomy position. The urethra and genitals were prepped and draped in usual sterile fashion. Using a 21 [place] rigid cystourethroscope the entire length of the urethra was normal then went into the bladder. Identified the trigone the left and right ureteral orifice. I then cannulated the Right orifice and advanced a wire up into the kidney. I then backloaded a 5 [place]tarian open ended catheter over the wire and injected contrast to delineate the anatomy. After the retrograde was performed I then used fluoroscopic images and guidance to advanced a wire up into the kidney and over the 0.038 glidewire I advanced a 6 Gib[place]tarian by 26 cm double pigtail stent. I then pulled the 0.038 Glidewire off and the stent coiled in the kidney bladder good position. The bladder was then drained. We confirmed the position of the stent by fluoroscopy. Case then turned over to General Surgery for a separate procedure. Type of Anesthesia:: Local MAC Drains: stent right - Admit VTE Documentation VTE Present on Admission: No VTE Mechan Device Prophylaxis: SCD's
[2020-08-19] MEDS: Lidocaine 1% (30 ml sdv) 30 ML Vial (17:45)
[2020-08-19] MEDS: Heparin 10,000 UNITS/10 ML Vial 10000 UNITS (17:48)
--- NOTE | 2020-08-19 18:16 | PCM.OPRPT ---
Problem List (1) Problem with dialysis access Status: Resolved Qualifiers: Encounter type: initial encounter Qualified Code(s): T82.898A - Other specified complication of vascular prosthetic devices, implants and grafts, initial encounter Report of Operation Date of Procedure: 08/19/20 Pre-Operative Diagnosis: Bacteremia and need for change of dialysis catheter Post-Operative Diagnosis: Same Surgery/Procedure Performed:: 1. Ultrasound-guided and fluoroscopy-guided placement of left neck temporary dialysis catheter utilizing left IJ. 2. Removal of right tunneled dialysis catheter Specimen's removed: Tip of right tunneled dialysis catheter sent for culture Description of Procedure: Patient was in the operating room already having a cystoscopy and after the cystoscopy was complete the patient's left neck was prepped and draped in usual sterile fashion. Ultrasound was used to localize the left IJ and it was very small. The skin overlying the IJ was injected with local anesthetic and a needle with syringe was placed into the left neck and under ultrasound guidance the left IJ was accessed. The guidewire was placed without resistance under fluoroscopy guidance into the SVC. The needle was removed and an incision was made over the guidewire. Serial dilators were placed with much resistance over the guidewire but they did pass into the SVC. The catheter was then placed over the guidewire and it to experience resistance but it did place into the IJ where the prior catheter was located. The guidewire was removed. Both catheters kenia back very easily and flushed very easily. There is dark red blood with no pulsation. The catheter was sutured to the skin using the included nylon suture. A dressing was applied. Next the right tunneled dialysis catheter was prepped and draped in a sterile fashion. The insertion site was injected with local anesthesia and the cuff was dissected free both sharply and bluntly until the catheter was able to be removed. Pressure was held and a bandage was placed over the insertion site on the right. Next each of the catheters on the left was injected with 1.3 cc of heparin and clamped and capped. Patient was then taken to PACU in stable condition a chest x-ray will be obtained. Grafts/Implants Used: 16 cm Mahurkar temporary dialysis catheter in the left IJ - Admit VTE Documentation VTE Mechan Device Prophylaxis: SCD's
--- NOTE | 2020-08-19 18:30 | RAD_ITS ---
STUDY: X-RAY CHEST REASON FOR EXAM: Male, 50 years old. post op left IJ hemodialysis catheter, patient''s right sided catheter was removed TECHNIQUE: 1 view COMPARISON: Prior chest radiograph of 01/28/2020 FINDINGS: A left jugular introducer catheter terminates in the left innominate vein. Minimal atelectatic change in the mid left lung and medial right upper lobe.. Negative for pneumothorax. There is no demonstrated pleural abnormality. Normal size heart. Normal mediastinum and patel. Normal visualized pulmonary arteries. There is atherosclerotic calcification of the aortic arch . Normal visualized thoracic spine. Normal visualized ribs, clavicles, and shoulders. There is no demonstrated abnormality of the visualized soft tissue structures of the upper abdomen. RAD/CXR for Line Placement IMPRESSION: Venous introducer of the left jugular vein terminates in the left innominate vein. Negative for pneumothorax or pleural effusion. Minimal atelectatic change in the mid left lung and medial right upper lobe. Electronically Signed: Rosy Thomas MD at 18:55 EST , Service support ,
[2020-08-19 18:41] LABS: Bedside Glucose 251 mg/dL (70-110)
[2020-08-19] MEDS: Amitriptyline 25 MG Tablet PO (21:29)
[2020-08-19] MEDS: Pregabalin 50 MG Capsule 100 MG PO (21:30)
[2020-08-19] MEDS: Heparin Injection (Vial) 5,000 UNIT/ML VIAL 5000 UNIT SC (21:30)
[2020-08-19 21:31] LABS: Bedside Glucose 245 mg/dL (70-110)
[2020-08-20] VITALS (12 sets, daily range): BP systolic 103–154; BP diastolic 42–88; PULSE 81–92; RESP 16–18; TEMP 36.6–37.2; O2SAT 92–98
[2020-08-20] MEDS: Levothyroxine 50 MCG Tablet PO (05:21)
[2020-08-20 07:51] LABS: Absolute Lymphocyte Count 1.33 X10^3/uL (0.83-4.51); Absolute Neutrophil Count 12.9 X10^3/uL (2.0-7.7); Basophil# 0.04 X10^3/uL; Basophil% 0.3 % (0-1); Eosinophil# 0.09 X10^3/uL; Eosinophils% 0.6 % (0-5); Hematocrit 27.4 % (40-54); Hemoglobin 8.6 g/dL (13.0-16.5); Lymphocyte # 1.33 X10^3/ul (4.0); Lymphocyte % 8.5 % (19-41); Mean Corp Hgb Conc 31.4 g/dL (32-36); Mean Corpuscular Volume 95.5 fL (80-94); Mean Platelet Vol. 10.1 fl (6.2-12.0); Monocyte# 0.99 X10^3/uL; Monocyte% 6.4 % (0-10); NRBC Flagged by Analyzer 0 % (0-5); Neutrophil # 12.92 X10^3/uL (2.7-7.7); Neutrophil % 82.9 % (47-70); Platelet Count 208 K/mm3 (150-450); RBC Distribution Width CV 13.3 % (11.6-14.6); RBC Distribution Width SD 46.8 fl (35.1-43.9); Red Blood Count 2.87 M/mm3 (4.6-6.2); White Blood Count 15.6 K/mm3 (4.4-11.0)
[2020-08-20 08:20] LABS: Anion Gap 8 (5-15); BUN 53 mg/dL (7-18); BUN/Creat Ratio 6.4 RATIO (10-20); Calcium,Total 8.3 mg/dL (8.5-10.1); Chloride 100 mmol/L (98-107); Creatinine, Serum 8.31 mg/dL (0.70-1.30); EST Glomerular Filtration Rate 7 mL/min (>60); Est Glom Filt Rate - Afr Amer 9 mL/min (>60); Estimated Creatinine Clearance 12.15 ml/min; Glucose 206 mg/dL (74-106); Potassium 4.7 mmol/L (3.5-5.1); Sodium Level 137 mmol/L (136-145)
--- NOTE | 2020-08-20 08:59 | CASEMGMT ---
According to the [facility] website, the following are in-network tertiary facilities: [facility], [facility], [facility], [facility], [facility], [facility], [facility], [facility], [facility], and . Cherie SERRANO CM
--- NOTE | 2020-08-20 10:23 | PN.ID_ITS ---
Patient Problems: Active and Suspected Problems (Last Updated 08/19/20 @ 12:[address] Oscar King, DO) Severe sepsis due to UTI (Acute) Obstruction of right ureteropelvic junction due to stone (Acute) Hydronephrosis of right kidney (Acute) Subjective: Feeling ok, no new complaints, no fever, no abd pain, no n/v/d. - Physical Exam Vitals/I&O's: Vital Signs Temp Pulse Resp BP Pulse Ox 97.9 F 81 16 118/88 H 92 08/20/20 09:25 08/20/20 09:25 08/20/20 09:25 08/20/20 09:25 08/20/20 09:25 Oxygen Flow Rate (L/min) 2 Oxygen Delivery Method Room Air Weight: 177.7 kg Body Mass Index (BMI) 51.7 Finger Stick Blood Glucose 148 Intake and Output for Last 24 Hours 08/18/20 08/19/20 08/20/20 23:59 23:59 23:59 Intake Total 260 / 260 2935.00 / 2935.00 200 / 200 Output Total 0 / 0 0 / 0 Balance 260 / 260 2935.00 / 2935.00 200 / 200 General: Alert, Cooperative, No apparent distress Lungs: Clear to auscultation, Normal air movement Cardiovascular: Regular rate, Regular Rhythm Abdomen: Soft, Non Tender, Non-Distended, Obese Skin: No rashes Microbiology Past 72 Hours 08/18/20 10:57 Urine, Catheterized Urine Culture - Final Staphylococcus aureus 08/18/20 12:19 Blood Culture (Wb) - Right Forearm Blood Culture - Preliminary Staphylococcus aureus 08/19/20 07:30 Mucosa - Nose SARS-CoV-2 Antigen (Rapid) - Final 08/18/20 10:00 Vomitus Gastric Occult Blood - Final Occult Blood Positive Laboratory Results 08/19/20 11:46: POC Glucose 275 H 08/19/20 18:35: POC Glucose 251 H 08/19/20 21:24: POC Glucose 245 H 08/20/20 07:44: WBC 15.6 H, RBC 2.87 L, Hgb 8.6 L, Hct 27.4 L, MCV 95.5 H, MCH 30.0, MCHC 31.4 L, RDW Std Deviation 46.8 H, RDW Coeff of Baljit 13.3, Plt Count 208, MPV 10.1, Immature Gran % (Auto) 1.300 H, Neut % (Auto) 82.9 H, Lymph % (Auto) 8.5 L, [place] % (Auto) 6.4, Eos % (Auto) 0.6, Baso % (Auto) 0.3, Absolute Neuts (auto) 12.9 H, Absolute Lymphs (auto) 1.33, Nucleated RBC % 0 08/20/20 07:44: Sodium 137, Potassium 4.7, Chloride 100, Carbon Dioxide 29.0, Anion Gap 8, BUN 53 H, Creatinine 8.31 H*, Estim Creat Clear Calc 12.15, Est GFR (MDRD) Af Amer 9 L, Est GFR (MDRD) Non-Af 7 L, BUN/Creatinine Ratio 6.4 L, Glucose 206 H, Calcium 8.3 L Current Medications Acetaminophen (Acetaminophen 325 Mg Tablet) 650 mg PO Q6H PRN PRN PRN Reason: Pain Score 1-10/Temp > 100.7 F Amitriptyline HCl (Amitriptyline 25 Mg Tablet) 25 mg PO QHS [facility] Last Admin: 08/19/20 21:29 Dose: 25 mg Documented by: Aspirin (Aspirin 81 Mg Tab.Chew) 81 mg PO DAILY@0800 [facility] Last Admin: 08/19/20 14:07 Dose: Not Given Documented by: Calcium Acetate (Calcium Acetate 667 Mg Capsule) 1,334 mg PO TIDCM [facility] Last Admin: 08/19/20 18:51 Dose: Not Given Documented by: Dextrose (Dextrose 50%-Water 25 Gm/50 Ml Disp.Syrin) 0 gm IV X1 PRN; Protocol PRN Reason: Hypoglycemia Glucagon (Glucagon 1 Mg/Ml Syringe) 1 mg IM .X1 PRN PRN Reason: Hypoglycemia Heparin Sodium (Porcine) (Heparin Injection (Vial) 5,000 Unit/Ml Vial) 5,000 unit SC Q12 [facility] Last Admin: 08/19/20 21:30 Dose: 5,000 unit Documented by: Hydralazine HCl (Hydralazine 25 Mg Tablet) 25 mg PO TID [facility] Last Admin: 08/20/20 05:22 Dose: Not Given Documented by: Hydromorphone HCl (Hydromorphone 1 Mg/Ml Syringe) 1 mg IV Q4H PRN PRN PRN Reason: Pain Score 6-10 Last Admin: 08/19/20 12:13 Dose: 1 mg Documented by: Cefazolin Sodium () 1 gm in 50 mls @ 100 mls/hr IV Q24H [facility] Insulin Glargine (Insulin Glargine 100 Units/Ml Pen) 20 units SC QHS [facility] Last Admin: 08/19/20 21:30 Dose: Not Given Documented by: Insulin Human Lispro (Insulin Lispro 100 Unit/Ml Insuln.Pen) 15 unit SC TIDAC [facility] Last Admin: 08/19/20 18:51 Dose: Not Given Documented by: Insulin Human Lispro (Insulin Lispro 100 Unit/Ml Insuln.Pen) 0 unit SC ACHS [facility]; Protocol Last Admin: 08/19/20 21:30 Dose: Not Given Documented by: Levothyroxine Sodium (Levothyroxine 50 Mcg Tablet) 50 mcg PO DAILY@0600 [facility] Last Admin: 08/20/20 05:21 Dose: 50 mcg Documented by: Metoclopramide HCl (Metoclopramide 5 Mg Tablet) 5 mg PO TIDAC PRN PRN Reason: gastric distension Ondansetron HCl (Ondansetron 4 Mg/2 Ml Vial) 4 mg IV Q6H PRN PRN PRN Reason: NAUSEA/VOMITING Oxycodone HCl (Oxycodone 5 Mg Tablet) 10 mg PO Q4H PRN PRN PRN Reason: Pain Score 4-5 Pantoprazole Sodium (Pantoprazole Sodium 40 Mg Tablet) 40 mg PO DAILY [facility] Last Admin: 08/19/20 14:07 Dose: Not Given Documented by: Pregabalin (Pregabalin 50 Mg Capsule) 100 mg PO BID [facility] Last Admin: 08/19/20 21:30 Dose: 100 mg Documented by: Rizatriptan Benzoate (Rizatriptan Benzoate 10 Mg Tablet) 10 mg PO MoWeFr@1500 [facility] Last Admin: 08/19/20 18:51 Dose: Not Given Documented by: Sodium Chloride (0.9% Saline Lock 10 Ml Syringe) 10 - 40 ml IV UD PRN PRN Reason: SALINE FLUSH Last Admin: 08/18/20 20:17 Dose: 10 ml Documented by: Medical Necessity - Tobacco Use Smoking Status: Never smoker Route of nutrition/ use of supplements: [] Nutritional Intake: [] IV Site: [] Felder Catheter: [] - Assessment/Plan Antibiotics: [] Assessment/Plan: [] Active and Suspected Problems (Last Updated 08/19/20 @ 12:[address] Oscar King, DO) Severe sepsis due to UTI (Acute) Obstruction of right ureteropelvic junction due to stone (Acute) Hydronephrosis of right kidney (Acute) severe sepsis with concern for staph aureus bacteremia and endocarditis - splinter hemorrhage on L thumb and R ring finger. R hydronephrosis and stone seen on CT, Dr. Munoz with urology placed R sided stent 08/19. HD cath removed and temp access placed 08/19. Repeat bcx today. TTE pending. Ucx with [facility], he got dose of vanc last evening, will narrow abx to cefazolin. Vanc will be in his system while bcx identification is finalized. Will follow
--- NOTE | 2020-08-20 11:09 | DIALYSIS ---
attempts to run dialysis using left neck temporary HD cath were not successful. poor aspiration of blood from both ports of HD cath. pt was on TX for 6 min. blood returned due to high art pressure alarms with a BFR of 100. Dr. Shaw notified of inability to perfom TX. cathflo ordered and instilled into dialysis ports, dwelled for 1 hr 15min. aspiration was still extremely difficult. no improvement after cathflo. ports flush easily. ports closed with heparin and capped. Dr. Shaw aware of unsuccessful attempts to run dialysis. See HD flowsheet on chart. report to Liam.
[2020-08-20] MEDS: Pantoprazole Sodium 40 MG Tablet PO (11:29)
[2020-08-20] MEDS: Calcium Acetate 667 MG Capsule 1334 MG PO ×3 (11:29→16:11)
[2020-08-20] MEDS: Pregabalin 50 MG Capsule 100 MG PO (11:29)
[2020-08-20] MEDS: Aspirin 81 MG TAB.CHEW PO (11:29)
[2020-08-20] MEDS: Heparin Injection (Vial) 5,000 UNIT/ML VIAL 5000 UNIT SC (11:32)
[2020-08-20] MEDS: Alteplase 2 MG/2 ML Vial IV ×2 (11:36→11:37)
[2020-08-20 11:46] LABS: Bedside Glucose 181 mg/dL (70-110)
[2020-08-20] MEDS: Cefazolin 1 GM/50 ML BAG IV (13:06)
[2020-08-20 16:16] LABS: Bedside Glucose 166 mg/dL (70-110)
--- NOTE | 2020-08-21 19:19 | DS.PCM_ITS ---
Discharge Date and Diagnosis - Problem List Patient Problems: Active and Suspected Problems (Last Updated 08/19/20 @ 12:[address] Oscar King DO) Severe sepsis due to UTI (Acute) Obstruction of right ureteropelvic junction due to stone (Acute) Hydronephrosis of right kidney (Acute) Date of Admission: 08/18/20 Date of Discharge: 08/20/20 - Primary Discharge Diagnosis Acute Problems: Active Problems (Last Updated 08/19/20 @ 12:[address] Oscar King DO) #1 severe sepsis secondary to pyelonephritis from methicillin sensitive staph aureus #2 right hydronephrosis secondary to right ureteral stone #3 type 2 diabetes-poorly controlled #4 end-stage renal disease #5 morbid obesity #6 hypothyroidism #7 chronic anemia secondary to end-stage renal disease - Secondary Discharge Diagnosis Chronic Problems: Chronic Problems (Last Updated 08/19/20 @ 12:[address] Oscar King DO) Hypertension (Chronic) GERD (gastroesophageal reflux disease) (Chronic) Hypothyroidism (Chronic) Diabetes mellitus type 2 in obese (Chronic) ESRD (end stage renal disease) on dialysis (Chronic) Hospital Course and Treatment Consultations 08/18/20 15:12 Consult: Onc/Wound/senior hardware design engineer Routine Comment: Reason for Consult:: right abd wall scab Procedures: - - Placement of temporary dialysis catheter, removal of tunneled d ialysis catheter Summary of Care Provided: The patient is a 50 year old M who was seen in the emergency room at [facility] with a chief complaint of abdominal pain. Work-up in the emergency room revealed the patient to have a right ureteral stone with hydronephrosis, patient's white count was elevated lactic acid was elevated. He was felt to be septic and given IV antibiotics and admitted to PCU. He was seen in consultation by nephrology due to his chronic dialysis and also urology. Patient's blood culture as well as urine culture grew out staph aureus and it was recommended by infectious diseases that the patient have his tunneled dialysis catheter removed and a temporary dialysis catheter was inserted by general surgery however, patient's temporary catheter did not work and the patient had to be transferred to a tertiary hospital for further treatment. On 08/20/2020, patient was seen and examined: On examination he appeared in good health and spirits. Vital signs as documented. Skin warm and dry and without overt rashes. Neck without JVD, neck was supple, trachea midline, thyroid was normal. Lungs clear bilaterally, normal air movement was noted. Heart exam notable for regular rhythm, normal sounds and absence of murmurs, rubs or gallops. Abdomen unremarkable and without evidence of organomegaly, masses, or abdominal aortic enlargement. Bowel sounds are present, abdomen is not distended. Extremities nonedematous, no cyanosis was noted, no clubbing was noted. Neuro: Cranial nerves II through XII are grossly intact, no focal motor deficits were noted, sensation to light touch and pinprick intact, motor exam 5/5 throughout. Psych: Patient is alert and oriented x3, he does not appear anxious or depressed, he does not appear agitated. Patient was transferred to [facility] on 08/20/2020 for further treatment, he was in stable condition at the time of discharge Patient Problems: Active and Suspected Problems (Last Updated 08/19/20 @ 12:[address] Oscar King, DO) Severe sepsis due to UTI (Acute) Obstruction of right ureteropelvic junction due to stone (Acute) Hydronephrosis of right kidney (Acute) - Physical Exam Vitals/I&O's: Vital Signs Temp Pulse Resp BP Pulse Ox 98.5 F 87 16 128/51 H 92 08/20/20 19:53 08/20/20 19:53 08/20/20 19:53 08/20/20 19:53 08/20/20 19:53 Oxygen Flow Rate (L/min) 2 Oxygen Delivery Method Room Air Weight: 177.7 kg Body Mass Index (BMI) 51.7 Finger Stick Blood Glucose 148 Intake and Output for Last 24 Hours 08/19/20 08/20/20 08/21/20 23:59 23:59 23:59 Intake Total 2935.00 / 2935.00 490 / 490 Output Total 0 / 0 0 / 0 Balance 2935.00 / 2935.00 490 / 490 Microbiology Past 72 Hours 08/19/20 18:17 Catheter tip - Indwelling Cath Tip Gram Stain - Final 08/19/20 18:17 Catheter tip - Indwelling Cath Tip Wound Culture - Preliminary No growth-Final to follow 08/18/20 12:19 Blood Culture (Wb) - Right Forearm Blood Culture - Final Staphylococcus aureus 08/18/20 12:45 Blood Culture (Wb) - Anticubital Right Blood Culture - Preliminary No growth in 48 hours. 08/18/20 10:57 Urine, Catheterized Urine Culture - Final Staphylococcus aureus 08/19/20 07:30 Mucosa - Nose SARS-CoV-2 Antigen (Rapid) - Final Home Medications: Medications to take at Discharge Amitriptyline HCl [Elavil] 25 mg PO QHS 03/11/20 Aspirin [Aspirin, Baby] 81 mg PO DAILY@0800 03/11/20 Calcium Acetate 2 cap PO TIDCM 03/11/20 Levothyroxine [Synthroid] 50 mcg PO DAILY 03/11/20 Midodrine HCl 5 mg PO DAILY PRN 03/11/20 Pantoprazole Sodium [Protonix] 40 mg PO DAILY 03/11/20 Pregabalin [Lyrica] 100 mg PO BID 03/11/20 Rizatriptan Benzoate [Rizatriptan] 1 tab PO MOWEFR 03/11/20 Metoclopramide [Reglan] 5 mg PO Q48H PRN 08/18/20 Ondansetron [Zofran Odt] 4 mg PO Q8H PRN PRN 08/18/20 Primary Care Physician: Laura Daly MD [Primary Care Provider] - Medical Necessity - Tobacco Use Smoking Status: Never smoker Meaningful Use Info Meaningful Use Diagnoses (Choose all that apply): None applicable Inpatient E&M: [id number] [facility]osp
== END 2020-08-20 21:15 | disposition short-term general hospital (02) | DRG 720 ==
LOC: ED 10:21 → PCU 15:09
PROVIDERS: Surgery; Urology; Admitting Provider Internal Medicine; Emergency Provider Emergency Medicine; PCP Internal Medicine; Visit Provider Internal Medicine
PROC: 0T768DZ Dilation of Right Ureter with Intraluminal Device, Via Natural or Artificial Opening Endoscopic (ICD-10-PCS; CPT 52332; principal; 2020-08-19 16:35)
PROC: 02HV33Z Insertion of Infusion Device into Superior Vena Cava, Percutaneous Approach (ICD-10-PCS; 2020-08-19 16:35)
DX: A41.01 Sepsis due to Methicillin susceptible Staphylococcus aureus (principal); D63.1 Anemia in chronic kidney disease; N13.6 Pyonephrosis; K29.70 Gastritis, unspecified, without bleeding; K80.20 Calculus of gallbladder without cholecystitis without obstruction; E03.9 Hypothyroidism, unspecified; E11.22 Type 2 diabetes mellitus with diabetic chronic kidney disease; E11.43 Type 2 diabetes mellitus with diabetic autonomic (poly)neuropathy; K31.84 Gastroparesis; E11.65 Type 2 diabetes mellitus with hyperglycemia; E66.01 Morbid (severe) obesity due to excess calories; G43.909 Migraine, unspecified, not intractable, without status migrainosus; I12.0 Hypertensive chronic kidney disease with stage 5 chronic kidney disease or end stage renal disease; K21.9 Gastro-esophageal reflux disease without esophagitis; M41.9 Scoliosis, unspecified; N18.6 End stage renal disease; R65.20 Severe sepsis without septic shock; Z68.43 Body mass index [BMI] 50.0-59.9, adult; Z99.2 Dependence on renal dialysis; Z79.4 Long term (current) use of insulin; Z79.82 Long term (current) use of aspirin; Z79.899 Other long term (current) drug therapy; Z91.19 Patient's noncompliance with other medical treatment and regimen
CPT/HCPCS: 36415; 71045; 74176; 76000; 80048; 80053; 81001; 82271; 82962; 83036; 83605; 83690; 83735; 84443; 84484; 85025; 87040; 87070; 87075; 87077; 87086; 87088; 87186; 87205; 87426; 90937; 93005; 93306; 97162; 97166; 97802; 99251; 99285; J2997; J7030; J7040; J7050; J7120; Q9957; A4216; C1752; C1769; C2617; G0257; G0463; J0696; J2405

== ENCOUNTER 2020-09-07 17:26 | Emergency (ER) | payer MEDICAID, SELFPAY ==
[2020-08-19 14:28] VITALS: BMI 51.7
[2020-09-07 17:30] VITALS: BP 121/108; PULSE 97; RESP 16; TEMP 36.7; O2SAT 93; BMI 50.5
--- NOTE | 2020-09-07 18:03 | EKG12_ITS ---
Test Reason : GROINPAIN Blood Pressure : / mmHG Vent. Rate : 100 BPM Atrial Rate : 100 BPM P-R Int : 180 ms QRS Dur : 120 ms QT Int : 392 ms P-R-T Axes : 150 -32 137 degrees QTc Int : 505 ms Somatic/Motion Artifact Unusual P axis, possible ectopic atrial rhythm Left axis deviation Low voltage QRS Possible Anterolateral infarct , age undetermined Abnormal ECG Confirmed by HAYES LOPEZ, ELIZABETH ([id number]), production editor TEETEE NG ([id number]) on 09/08/2020 10:49:03 AM Referred By: AMANDA Confirmed By:ELIZABETH KOO MD
--- NOTE | 2020-09-07 18:22 | ED.VIS.GEN ---
History of Present Illness Chief Complaint: Other, Pain/Inj Narrative: Patient presents via EMS from dialysis. He has a ureteral stent for kidney stones, while he was in dialysis he was positioned the wrong way and they would not move him and thus he developed groin pain. Since he has been moved the groin pain is now completely resolved. At the time he was quite upset and he said he was short of breath. At this time he denies any shortness of breath and he feels much better he got through almost 4 hours of his 5-hour dialysis. He denies any fever chills cough or congestion. He is morbidly obese he is immobile and nonambulatory in an ECF. Past medical history: Significant past medical history he has his ECF paperwork with him which I reviewed. Medications: Reviewed in the ECF paperwork Social history: Nonambulatory resides in an ECF Review of systems: All systems negative except as indicated General: Denies: Fever Eyes: Denies: Visual changes - bilaterally ENT: Denies: Rhinorrhea, Sore throat Cardiovascular: Denies: Chest pain Respiratory: Shortness of breath that has resolved he attributes it to him being upset Gastrointestinal: Denies: Abdominal pain, Nausea, Vomiting Genitourinary: Denies any penile or current testicular pain he did have some groin pain which resolved Musculoskeletal: Denies: Myalgias Skin: Denies: Rash Neurological: Denies: Headache, no focal weakness Psych: Reports: negative Hematologic: Denies: Easy bruising, Easy bleeding Physical exam General: Patient is laying comfortably on the bed. He is morbidly obese Head: Normocephalic, Atraumatic Eyes: Conjunctiva not pale ENT: Moist mucous membranes Neck: Supple, Nontender, No lymphadenopathy Cardiovascular: Regular rate, Regular rhythm Respiratory: Difficult exam secondary to body habitus but mostly clear lungs bilaterally he is speaking in full sentences without any respiratory distress. Abdomen: Soft, Nontender, I lifted the folds there does not seem to be any skin breakdown or Sangeeta Back: No CVA tenderness Extremities: Chronic lower extremity edema : Normal external genitalia no obvious groin pain. No testicular pain to palpation Skin: Normal color, No rash Neurological: No focal deficit Past Medical History - Allergies and Home Meds Allergies/Adverse Reactions: Allergies vancomycin Allergy (Verified 09/07/20 17:36) Other C/O BEING HOT Primary Care Physician: Laura Daly MD [Primary Care Provider] - Surgical History: - Smoking Status: Never smoker - Family History Maternal Family History: Reports: COPD Paternal Family History: Reports: - Sibling Family History: Reports: Diabetes Physical Exam Vital Signs/Narrative: Vital Signs Temp Pulse Resp BP Pulse Ox 09/07/20 17:30 98.1 F 97 16 121/108 H 93 Diagnostic/Tx/Re-eval Chest X-Ray - ED: 1 View, Read by ED Physician, Read by Radiologist, Normal, Heart, Lungs - Medical Decision Making Patient has a normal ED work-up. He appears well he remains asymptomatic I will discharge him back to his ECF. ED Disposition - Plan for ED Patient: Diagnosis: Groin pain, ESRD (end stage renal disease) on dialysis Instructions: ED Chronic Kidney Disease (CKD) Referrals: Laura Daly MD [Primary Care Provider] - 2 Days
[2020-09-07 18:28] LABS: Hematocrit 29.8 % (40-54); Hemoglobin 8.6 g/dL (13.0-16.5); Mean Corp Hgb Conc 28.9 g/dL (32-36); Mean Corpuscular Hgb 28.4 pg (27.0-32.0); Mean Corpuscular Volume 98.3 fL (80-94); Mean Platelet Vol. 10.4 fl (6.2-12.0); POSITIVE COUNT YES; POSITIVE MORPHOLOGY YES; Platelet Count 202 K/mm3 (150-450); RBC Distribution Width CV 15.4 % (11.6-14.6); Red Blood Count 3.03 M/mm3 (4.6-6.2); White Blood Count 9.9 K/mm3 (4.4-11.0)
[2020-09-07 18:30] LABS: Differential Indicated MANUAL DIFF
[2020-09-07 18:53] LABS: ALB/GLOB Ratio 0.4 RATIO (0.9-2.4); AST(SGOT) 21 U/L (15-37); Alanine Aminotransfer ALT/SGPT < 6 U/L (16-61); Albumin, Serum 2.5 g/dL (3.2-5.0); Alkaline Phosphatase 79 U/L (45-117); Anion Gap 13 (5-15); BUN 14 mg/dL (7-18); BUN/Creat Ratio 2.7 RATIO (10-20); Calcium,Total 8.7 mg/dL (8.5-10.1); Chloride 96 mmol/L (98-107); Creatinine, Serum 5.27 mg/dL (0.70-1.30); EST Glomerular Filtration Rate 12 mL/min (>60); Est Glom Filt Rate - Afr Amer 15 mL/min (>60); Estimated Creatinine Clearance 19.16 ml/min; Glucose 138 mg/dL (74-106); Potassium 3.7 mmol/L (3.5-5.1); Protein, Total 8.5 g/dL (6.4-8.2); Sodium Level 135 mmol/L (136-145)
--- NOTE | 2020-09-07 18:53 | RAD_ITS ---
STUDY: X-RAY CHEST REASON FOR EXAM: Male, 50 years old. sob TECHNIQUE: Single AP portable view of the chest. COMPARISON: FINDINGS: Interval placement of tunneled right internal jugular dialysis catheter with tip the catheter overlying the superior vena cava and no pneumothorax. The lungs are clear and expanded. There is no demonstrated pleural abnormality. Normal size heart. Normal mediastinum and patel. Normal visualized pulmonary arteries. Normal visualized aortic arch and descending thoracic aorta. Normal visualized thoracic spine. Normal visualized ribs, clavicles, and shoulders. There is no demonstrated abnormality of the visualized soft tissue structures of the upper abdomen. RAD/Chest 1 View (Portable) IMPRESSION: No active disease. Electronically Signed: Joseph Orellana MD at 19:26 EST Tel , Service support ,
[2020-09-07 18:56] LABS: Eosinophil 2 % (0-5); Lymphocyte 19 % (19-41); Monocyte 4 % (0-10); Myelocyte 5 (0-0); Neutrophil-Segmented 68 % (47-70); Promyelocyte 2 (0-0)
[2020-09-07 18:57] LABS: Absolute Neutrophil Count 6.8 X10^3/uL (2.0-7.7)
[2020-09-07 18:58] LABS: Absolute Lymphocyte Count 1.89 X10^3/uL (0.83-4.51); Platelet Estimate ADEQUATE (ADEQ); Red Cell Morphology NORM C+C NORMAL (NORM C&C)
[2020-09-07 18:59] LABS: Atypical Lymphocyte 2+ %; Stomatocyte 1+
[2020-09-07 21:28] VITALS: BP 150/53; PULSE 92; RESP 18; O2SAT 97
[2020-09-08 13:19] LABS: Pathologist Review Reviewed
== END 2020-09-07 21:30 | disposition home or self-care (01) ==
PROVIDERS: Emergency Provider Emergency Medicine; PCP Internal Medicine
DX: R10.30 Lower abdominal pain, unspecified (principal); N18.6 End stage renal disease; Z99.2 Dependence on renal dialysis; E66.01 Morbid (severe) obesity due to excess calories
CPT/HCPCS: 71045; 80053; 85025; 93005; 99285; A4216

== ENCOUNTER 2020-09-30 17:48 | Inpatient (IN) | payer MEDICAID, SELFPAY ==
[2020-09-30 17:50] VITALS: BP 97/53; PULSE 87; RESP 20; TEMP 36.9; O2SAT 93; BMI 46.7
--- NOTE | 2020-09-30 17:58 | EKG12_ITS ---
Test Reason : ALTRD LOC Blood Pressure : / mmHG Vent. Rate : 088 BPM Atrial Rate : 088 BPM P-R Int : 202 ms QRS Dur : 090 ms QT Int : 348 ms P-R-T Axes : 045 -41 080 degrees QTc Int : 421 ms Normal sinus rhythm Left axis deviation Inferior infarct , age undetermined Anterolateral infarct , age undetermined Abnormal ECG Confirmed by SYLVIA LOPEZ, TODD ([id number]), news assignment editor TEETEE NG ([id number]) on 10/02/2020 9:33:27 AM Referred By: LINDSAY Confirmed By:EB WARD MD
--- NOTE | 2020-09-30 17:58 | CT_ITS ---
INDICATION: Altered level of consciousness EXAMINATION: CT BRAIN - CT Head or Brain W/O Contrast Injection TECHNIQUE: Multiple axial images were obtained of the head without intravenous contrast. A radiation dose optimization technique was used for this scan. IV Contrast dosage and agent: None. COMPARISON: 12/04/2019 FINDINGS: BRAIN PARENCHYMA: No intra- or extra-axial hemorrhage. No evidence of acute infarct. No intracranial mass or mass effect. There is preservation of the mckeon/white matter interface. Posterior fossa structures are unremarkable. CSF SPACES: Appropriate for age. No hydrocephalus. Basal cisterns are patent. CALVARIUM, SKULL BASE, PARANASAL SINUSES AND MASTOID AIR CELLS: Clear. No discrete lytic or blastic abnormalities. ORBITS: Both globes, extraocular muscles, optic nerves and retrobulbar fat appear unremarkable. ASPECTS Score for Acute Strokes: 04/18 CT/Brain/Head without Contrast IMPRESSION: Negative Brain CT without contrast. Electronically Signed: Khris Cole MD at 19:30 EDT , Service support ,
--- NOTE | 2020-09-30 18:33 | ED.DCSUM_ITS ---
History of Present Illness Chief Complaint: Alt LOC Informant: Patient, - - Nurse practitioner for Dr. Jonathon Hitchcock Limited by: - - Patient trying to be funny and does not answer all questions. Onset: Today Context: - - Unknown Timing: - - Unknown Quality: Altered mental status, possible behavioral problem and hypotension Location: Nursing facility Current Severity: Moderate Maximum Severity: Severe Worsened by: May have been over dialyzed Relieved by: Nothing Associated Symptoms: Dry mouth and thirst Narrative: Patient is a middle-age male with mild medical problems who has a Vas-Cath noted on the right. He has hemodialysis daily. He was seen by midlevel. He apparently threw himself onto the floor. He attempted to be funny and asked if there is questions by asking me a question. Patient was informed he needs to answer questions asked. Patient is not alert. He appears awake. He is oriented. Head is atraumatic with no complaint of headache. He denies double vision, blurred vision loss of vision. Does complain of thirst and dry mouth. He denies neck pain. Denies chest pain. No shortness of breath. He denies vomiting. He denies diarrhea. He denies paresthesia, anesthesia or motor weakness. Prior similar symptoms: No Recent Illness/Hospitalization: No - Past Medical History (1) Diabetes mellitus type 2 in obese Status: Chronic (2) ESRD (end stage renal disease) on dialysis Status: Chronic (3) GERD (gastroesophageal reflux disease) Status: Chronic (4) Hypertension Status: Chronic (5) Hypothyroidism Status: Chronic (6) Difficulty swallowing Status: Resolved Past Medical History - Allergies and Home Meds Allergies/Adverse Reactions: Allergies vancomycin Allergy (Verified 09/30/20 17:57) Other C/O BEING HOT Primary Care Physician: Laura Daly MD [Primary Care Provider] - Prior records reviewed: Yes Surgical History: - Lives: Alone, Group Home Smoking Status: Former smoker Alcohol: None Drugs: None - Family History Maternal Family History: Reports: COPD Paternal Family History: Reports: - Sibling Family History: Reports: Diabetes Review of Systems ROS: Unable to Obtain General: Reports: Malaise. Denies: Chills, Fever Eyes: Denies: Visual changes - bilaterally, Blurred Vision - bilaterally ENT: Reports: - - Dry mouth and thirst. Denies: Rhinorrhea, Sore throat Cardiovascular: Denies: Chest pain, Palpitations Respiratory: Denies: Dyspnea, Cough, Dyspnea on exertion Gastrointestinal: Denies: Abdominal pain, Nausea, Diarrhea, Melena, Hematochezia Genitourinary: Reports: - - Patient states he does not make urine. Musculoskeletal: Denies: Myalgias, Arthralgias, Neck pain, Back pain, Swelling Skin: Denies: Rash, Wounds Neurological: Reports: Weakness. Denies: Headache, Parasthesia Hematologic: Denies: Easy bruising, Easy bleeding Allergy: Denies: Uticaria Physical Exam Vital Signs/Narrative: Vital Signs Temp Pulse Resp BP Pulse Ox 09/30/20 17:50 98.4 F 87 20 H 97/53 L 93 Inital Vital Signs reviewed: Yes General: Well nourished, Well developed, Obese, No Acute Distress Head: Normocephalic, Atraumatic Eyes: Perrl, EOMI, Pale conjunctiva. Negative for: Scleral icterus ENT: No rhinorrhea, TM's clear, Dry mucous membranes, - - No clinical findings of basilar skull fracture. Neck: Supple, Nontender, No lymphadenopathy, No JVD, - - Active range of motion. Cardiovascular: Regular rate, Regular rhythm, No murmurs Respiratory: No distress, CTA bilaterally, Chest nontender Abdomen: Soft, Nontender, Nondistended, Hypoactive bowel sounds. Negative for: Hepatomegaly, Splenomegaly, Mass, Pulsatile mass Rectal: Deferred Back: Negative for: Nontender, Normal Inspection Extremities: Nontender, Edema Skin: No rash, No Trauma, Pallor. Negative for: Cyanosis, Diaphoresis, Jaundice Neurological: Oriented x3, Cranial nerves II-XII grossly intact. Negative for: Alert, Normal Gait Psychological: Depressed Diagnostic/Tx/Re-eval Impressions Brain CT 09/30/20 17:58 IMPRESSION: Negative Brain CT without contrast. Electronically Signed: Khris Cole MD at 19:30 EDT , Service support , Chest X-Ray 09/30/20 18:36 IMPRESSION: Incomplete expansion of the lungs with mild atelectasis in both lung bases. Electronically Signed: Khris Cole MD at 19:32 EDT , Service support , 09/30/20 17:58 Brain/Head without Contrast [CT] Stat 09/30/20 18:36 Chest 1 View (Portable) [RAD] Stat Laboratory Results 09/30/20 09/30/20 09/30/20 19:15 19:15 19:55 WBC 14.2 H RBC 3.68 L Hgb 10.6 L Hct 34.6 L MCV 94.0 MCH 28.8 MCHC 30.6 L RDW Std Deviation 51.3 H RDW Coeff of Baljit 15.0 H Plt Count 250 MPV 11.4 Immature Gran % (Auto) 3.900 H Neut % (Auto) 75.7 H Lymph % (Auto) 13.9 L Pacific % (Auto) 5.3 Eos % (Auto) 0.4 Baso % (Auto) 0.8 Absolute Neuts (auto) 10.8 H Absolute Lymphs (auto) 1.98 Nucleated RBC % 0 Sodium 133 L Potassium 3.5 Chloride 95 L Carbon Dioxide 29.0 Anion Gap 9 BUN 38 H Creatinine 7.32 H Estim Creat Clear Calc 13.80 Est GFR (MDRD) Af Amer 10 L Est GFR (MDRD) Non-Af 9 L BUN/Creatinine Ratio 5.2 L Glucose 106 Lactic Acid Cancelled Calcium 10.6 H Urine Color Urine Clarity Urine pH Ur Specific [place] Urine Protein Urine Glucose (UA) Urine Ketones Urine Occult Blood Urine Nitrite Urine Bilirubin Urine Urobilinogen Ur Leukocyte Esterase 09/30/20 09/30/20 21:41 22:10 WBC RBC Hgb Hct MCV MCH MCHC RDW Std Deviation RDW Coeff of Baljit Plt Count MPV Immature Gran % (Auto) Neut % (Auto) Lymph % (Auto) Pacific % (Auto) Eos % (Auto) Baso % (Auto) Absolute Neuts (auto) Absolute Lymphs (auto) Nucleated RBC % Sodium Potassium Chloride Carbon Dioxide Anion Gap BUN Creatinine Estim Creat Clear Calc Est GFR (MDRD) Af Amer Est GFR (MDRD) Non-Af BUN/Creatinine Ratio Glucose Lactic Acid 2.5 H* Calcium Urine Color Brown Urine Clarity Turbid Urine pH 7.0 Ur Specific [place] 1.010 Urine Protein 500 H Urine Glucose (UA) Normal Urine Ketones 5 H Urine Occult Blood 250 H Urine Nitrite Positive H Urine Bilirubin Negative Urine Urobilinogen Normal Ur Leukocyte Esterase 500 H Systolic never was below 90 and mean arterial was not below 65 and reason the 30 cc/kg bolus was not administered. - EKG Initial EKG Interpretation: Sinus Rhythm - Normal sinus rhythm with ventricular rate of 88. WI interval 202 ms. QRS duration 90 ms. QT duration 148 ms. [place] to the left. There is nonspecific changes noted. There is no acute ischemic changes noted - Medical Decision Making Clinically patient appears dehydrated and he is hypotensive. Fluid bolus was ordered. Preoperative labs were ordered. Because he hit his head and was dialyzed today and anticoagulate with heparin CT of the head was obtained. CBC was obtained to assess degree of anemia and compared to prior labs. Patient is hypotensive with leukocytosis and no obvious source concern possible line infection from dialysis. Hence, 15 mg/kg of vancomycin was ordered. Blood pressure is normally elevated. Patient did receive fluid bolus for his low blood pressure. Since there is no explanation for his white count and hypotension. Old records reviewed. Of note approximately 4 to 6 weeks ago he did have a UA obtained that revealed infection. Straight cath was ordered. Urine culture and urinalysis was ordered as well as 1 g of Rocephin. I suspect urine is the source since nurse stated it has the color and consistency of gravy. - Critical Care Time Critical care time (excluding procedures): 30-74 minutes - Time 33 minutes which includes obtaining history, physical exam, documentation, review of prior records, initiation of treatment for infectious encephalopathy due to urinary tract infection with hypotension., Discussing w/Patient &/or Family/Developer [employer], Discussing w/Consultants, Arranging Admission or Transfer ED Disposition - Plan for ED Patient: Diagnosis: Hypotension, Urinary tract infection, Infectious encephalopathy, Closed head injury, Severe sepsis Referrals: Laura Daly MD [Primary Care Provider] -
--- NOTE | 2020-09-30 18:36 | RAD_ITS ---
STUDY: X-RAY CHEST REASON FOR EXAM: Male, 50 years old. Shortness of breath TECHNIQUE: Single AP portable view of the chest. COMPARISON: 09/07/2020. FINDINGS: Double-lumen dialysis catheter through the right is terminating in the right atrium. Incomplete expansion of the lungs. Mild atelectasis in both lower lung cali. No effusions. Normal size heart. Normal mediastinum and patel. Normal visualized pulmonary arteries. Normal visualized aortic arch and descending thoracic aorta. Normal visualized thoracic spine. Normal visualized ribs, clavicles, and shoulders. There is no demonstrated abnormality of the visualized soft tissue structures of the upper abdomen. RAD/Chest 1 View (Portable) IMPRESSION: Incomplete expansion of the lungs with mild atelectasis in both lung bases. Electronically Signed: Khris Cole MD at 19:32 EDT , Service support ,
[2020-09-30 19:36] LABS: Absolute Lymphocyte Count 1.98 X10^3/uL (0.83-4.51); Absolute Neutrophil Count 10.8 X10^3/uL (2.0-7.7); Basophil# 0.11 X10^3/uL; Basophil% 0.8 % (0-1); Eosinophil# 0.05 X10^3/uL; Eosinophils% 0.4 % (0-5); Hematocrit 34.6 % (40-54); Hemoglobin 10.6 g/dL (13.0-16.5); Lymphocyte # 1.98 X10^3/ul (4.0); Lymphocyte % 13.9 % (19-41); Mean Corp Hgb Conc 30.6 g/dL (32-36); Mean Corpuscular Hgb 28.8 pg (27.0-32.0); Mean Platelet Vol. 11.4 fl (6.2-12.0); Monocyte# 0.76 X10^3/uL; Monocyte% 5.3 % (0-10); NRBC Flagged by Analyzer 0 % (0-5); Neutrophil # 10.77 X10^3/uL (2.7-7.7); Neutrophil % 75.7 % (47-70); Platelet Count 250 K/mm3 (150-450); RBC Distribution Width SD 51.3 fl (35.1-43.9); Red Blood Count 3.68 M/mm3 (4.6-6.2); White Blood Count 14.2 K/mm3 (4.4-11.0)
[2020-09-30 19:49] LABS: Anion Gap 9 (5-15); BUN 38 mg/dL (7-18); BUN/Creat Ratio 5.2 RATIO (10-20); Calcium,Total 10.6 mg/dL (8.5-10.1); Chloride 95 mmol/L (98-107); Creatinine, Serum 7.32 mg/dL (0.70-1.30); EST Glomerular Filtration Rate 9 mL/min (>60); Est Glom Filt Rate - Afr Amer 10 mL/min (>60); Glucose 106 mg/dL (74-106); Potassium 3.5 mmol/L (3.5-5.1); Sodium Level 133 mmol/L (136-145)
[2020-09-30 20:09] VITALS: BP 99/55; PULSE 88; RESP 23; O2SAT 95
[2020-09-30 22:16] VITALS: BP 107/69; PULSE 93; RESP 22; O2SAT 95
[2020-09-30 22:20] LABS: Mucous, Urine 0 SEEN /hpf (<or=2+); Red Blood Cells-Urine 0 SEEN /hpf (0-5); Squamous Epithelial Cells - UA 0 SEEN /hpf (0-5)
[2020-09-30 22:27] LABS: Color, Urine Brown (Yellow); Glucose, Dipstick Normal (Normal); Ketone-Dipstick 5 mg/dl (Negative); Leukocyte Esterase-Dipstick 500 /ul (Negative); Nitrite-Dipstick Positive (Negative); Occult Blood-Urine 250 /ul (Negative); Protein-Dipstick 500 mg/dl (Negative); Urine Bilirubin Dipstick Negative (Negative); Urine Clarity Turbid (Clear); Urine Urobilinogen Normal (Normal)
[2020-09-30 22:28] LABS: Lactic Acid 2.5 mmol/L (0.4-1.9)
[2020-09-30 22:34] LABS: Bacteria 4+ /hpf (None Seen)
[2020-09-30 22:35] LABS: White Blood Cells >100 SEEN /hpf (0-5)
--- NOTE | 2020-09-30 22:36 | HP.PCM_ITS ---
Problem List (1) Severe sepsis Status: Acute (2) Acute encephalopathy Status: Acute (3) Urinary tract infection Status: Acute Qualifiers: Urinary tract infection type: acute cystitis (4) Infectious encephalopathy Status: Acute (5) Hypertension Status: Chronic Qualifiers: Hypertension type: essential hypertension Qualified Code(s): I10 - Essential (primary) hypertension (6) GERD (gastroesophageal reflux disease) Status: Chronic Qualifiers: Esophagitis presence: esophagitis presence not specified Qualified Code(s): K21.9 - Gastro-esophageal reflux disease without esophagitis (7) Hypothyroidism Status: Chronic Qualifiers: Hypothyroidism type: unspecified Qualified Code(s): E03.9 - Hypothyroidism, unspecified (8) Diabetes mellitus type 2 in obese Status: Chronic (9) ESRD (end stage renal disease) on dialysis Status: Chronic History of Present Illness Date of Admission: 09/30/20 Chief Complaint: Encephalopathy, hypotension. The patient is a 50 y/o M w/ PMHx: Chronic anemia/AOCD, Morbid obesity, ESRD on HD, HTN (normal BP 140-150), Orthostasis on midodrine especially with HD, HLD, Hypothyroidism, Diabetes mellitus type II, GERD, Chronic Migraines, Hypothyroidism who presents from SNF to the [facility] ED on 09/30/20 with history of increased confusion, agitation, staff noting concerns about his behavior with acute on chronic back discomfort with no specific fevers or chills but low blood pressures prompting senior care facility to transition patient to the ED for evaluation. Work-up in the ED included T 98.4, heart rate 87, BP initially 97/53 with repeat 107/69, respiratory rate 20, 93% on room air, CBC with WC 14.2, hemoglobin 10.6, platelet 250 with left shift, BMP with sodium 133, chloride 95, BUN/creatinine 38/7.32, glucose 106, lactic acid mildly elevated 2.5, urine significantly foul appearing per ED physician report with noted specific raphe 1.010, protein 500, occult blood 250, positive nitrite, 500 leukocyte esterase, urine WBCs greater than 100, 4+ urine bacteria, urine culture pending per ED, blood culture x2 pending per ED, chest x-ray with incomplete expansion of the lungs with mild atelectasis in both lung bases, CT of the brain with no acute intracranial findings, EKG with sinus rhythm with no acute evidence of ischemia. Past Medical History Past Medical History (Chronic Problems): Chronic Problems (Last Updated 08/19/20 @ 12:[address] Oscar King DO) Hypertension (Chronic) GERD (gastroesophageal reflux disease) (Chronic) Hypothyroidism (Chronic) Diabetes mellitus type 2 in obese (Chronic) ESRD (end stage renal disease) on dialysis (Chronic) Medical History: Medical History (Last Updated 08/19/20 @ 12:[address] Oscar King DO) Problem with dialysis access (Resolved) T82.898A Difficulty swallowing (Resolved) R13.10 Hypertension (Chronic) I10 GERD (gastroesophageal reflux disease) (Chronic) K21.9 Hypothyroidism (Chronic) E03.9 Diabetes mellitus type 2 in obese (Chronic) E11.69, E66.9 ESRD (end stage renal disease) on dialysis (Chronic) N18.6, Z99.2 Allergies vancomycin Allergy (Verified 09/30/20 17:57) Other C/O BEING HOT Home Medications: Ambulatory Orders Medication Instructions Recorded Amitriptyline HCl [Elavil] 25 mg PO QHS 03/11/20 Aspirin [Aspirin, Baby] 81 mg PO DAILY@0800 03/11/20 Calcium Acetate 2 cap PO TIDCM 03/11/20 Levothyroxine [Synthroid] 50 mcg PO DAILY 03/11/20 Midodrine HCl 5 mg PO DAILY PRN 03/11/20 Pantoprazole Sodium [Protonix] 40 mg PO DAILY 03/11/20 Pregabalin [Lyrica] 100 mg PO BID 03/11/20 Rizatriptan Benzoate [Rizatriptan] 1 tab PO MOWEFR 03/11/20 Insulin Glargine,Hum.rec.anlog 20 unit SQ QHS 09/30/20 [Basaglar Kwikpen U-100] Insulin Lispro [Humalog KwikPen] 15 unit SQ TIDCM 09/30/20 Oxycodone HCl 5 mg PO PRN PRN 09/30/20 Warfarin [Coumadin ([facility])] 3.5 mg PO DAILY 09/30/20 hydrALAZINE [Apresoline] 25 mg PO TID 09/30/20 Surgical History: Surgical History (Last Reviewed 02/27/20 @ 10:03 by Carrie Rnodon) Hx of arteriovenostomy for renal dialysis Onset Date: ~01/2020 Z99.2 S/P dialysis catheter insertion Z95.828, Z99.2 Status post amputation of toe of left foot Z89.422 Surgical History: - - AV fistula attempts, dialysis access insertions and removals especially recently with bacteremia, left foot toe amputation. Psychiatric History: No pertinent psych hx Lives: Alone, Group Home Smoking Status: Former smoker Tobacco Use: Non-smoker Alcohol: None Drugs: None - *Family History Maternal History Items: COPD Paternal History Items: Hypertension Sibling History Items: Diabetes Review of Systems Constitutional: Reports: Anorexia, Malaise, Weakness, Fatigue. Denies: Chills, Fever, Weight Change HEENT: Reports: Head Aches. Denies: Sinus Congestion, Sinus Drainage Cardiovascular: Denies: Chest Pain, Chest Pressure, Chest Tightness, Light Headedness, Palpitations Respiratory: Denies: Cough, Shortness of Breath, Shortness of breath at rest, Shortness of breath upon exertion, Sputum production Gastrointestinal: Denies: Abdominal Pain, Nausea, Vomiting Genitourinary: Denies: Dysuria Musculoskeletal: Reports: Back Pain, Joint Pain. Denies: Joint Tenderness Skin: Denies: Rash, Wounds Neurological: Reports: Confusion. Denies: Focal weakness, Numbness, Tingling Psychiatric: Reports: - - Increased agitation, behavioral issues at senior care facility per report.. Denies: Anxiety, Depression, Homicidal Ideations, Suicidal Ideations Hematologic/ Lymphatic: Reports: Anemia, Easy Bruising, Easy Bleeding VTE Information - Inpt Only VTE Present on Admission: No VTE Mechan Device Prophylaxis: SCD's VTE Pharm Prophylaxis ordered?: Yes Patient Problems: Active and Suspected Problems (Last Updated 08/19/20 @ 12:[address] Oscar King, DO) Hypotension (Acute) Urinary tract infection (Acute) Infectious encephalopathy (Acute) Closed head injury (Acute) Severe sepsis (Acute) Subjective: Patient seated upright in the ED bed, no acute distress but does note significant back pain, notes uncomfortable laying in the ED bed, complaining about the monitor beeping. Objective: Physical Examination: General: awake, alert, oriented x 3 to self, place and recent events, following some commands but very cantankerous and easily irritated, remains intermittently cooperative, laying in the ED bed, complaining of back pain currently and very irritated with his pump making noises. Skin: normal color, turgor, no icterus, cyanosis stepped occasional staged ecchymoses in bilateral lower extremity stasis disease. HEENT: AT/NC, EOMI, PERRLA, dry MM, oral thrush present, no carotid bruits or JVD noted; upper, thick neck makes examination difficult. Lungs: CTA bilaterally, moderate effort, mild decrease BL bases, no rales, ronchi or wheezing. Heart: Regular rate and rhythm; no gallop, rub audible. Abdomen: soft, morbidly obese, NTTP, ND, distant normal BS, unable to discern HSM secondary to habitus. Extremities: no cyanosis or clubbing, see skin, mild bilateral ankle nonpitting edema. Neurological: patient awake, alert, oriented as noted; cognitive function suspect improved since initial ED presentation, unclear exact baseline, reported behavioral issues, given recent confusion likely decreased from baseline; pupils equally reactive to light and accomodation; cranial nerves II-XII grossly normal, moving all 4 extremities, no focal deficits but strength severely global decreased secondary to habitus, complaints of back pain and acute presentation. Psychiatric: affect appears irritable, no acute evidence of depressive or anxiety feelings. - Physical Exam Vitals/I&O's: Vital Signs Temp Pulse Resp BP Pulse Ox 98.4 F 93 22 H 107/69 95 09/30/20 17:50 09/30/20 22:16 09/30/20 22:16 09/30/20 22:16 09/30/20 22:16 Oxygen Delivery Method Room Air Weight: 354 lb 4.525 oz Body Mass Index (BMI) 46.7 Finger Stick Blood Glucose 148 Intake and Output for Last 24 Hours 09/28/20 09/29/20 09/30/20 23:59 23:59 23:59 Intake Total 500 / 500 Balance 500 / 500 Laboratory Results 09/30/20 19:15: WBC 14.2 H, RBC 3.68 L, Hgb 10.6 L, Hct 34.6 L, MCV 94.0, MCH 28.8, MCHC 30.6 L, RDW Std Deviation 51.3 H, RDW Coeff of Baljit 15.0 H, Plt Count 250, MPV 11.4, Immature Gran % (Auto) 3.900 H, Neut % (Auto) 75.7 H, Lymph % (Auto) 13.9 L, [place] % (Auto) 5.3, Eos % (Auto) 0.4, Baso % (Auto) 0.8, Absolute Neuts (auto) 10.8 H, Absolute Lymphs (auto) 1.98, Nucleated RBC % 0 09/30/20 19:15: Sodium 133 L, Potassium 3.5, Chloride 95 L, Carbon Dioxide 29.0, Anion Gap 9, BUN 38 H, Creatinine 7.32 H, Estim Creat Clear Calc 13.80, Est GFR (MDRD) Af Amer 10 L, Est GFR (MDRD) Non-Af 9 L, BUN/Creatinine Ratio 5.2 L, Glucose 106, Calcium 10.6 H 09/30/20 19:55: Lactic Acid Cancelled 09/30/20 21:41: Lactic Acid 2.5 H* 09/30/20 22:10: Urine Color Brown, Urine Clarity Turbid, Urine pH 7.0, Ur Specific [place] 1.010, Urine Protein 500 H, Urine Glucose (UA) Normal, Urine Ketones 5 H, Urine Occult Blood 250 H, Urine Nitrite Positive H, Urine Bilirubin Negative, Urine Urobilinogen Normal, Ur Leukocyte Esterase 500 H, Urine RBC 0 SEEN, Urine WBC >100 SEEN, Ur Squamous Epith Cells 0 SEEN, Urine Bacteria 4+, Urine Mucus 0 SEEN Assessment/Plan All Active Problems (Last Updated 08/19/20 @ 12:[address] Oscar King, DO) Hypotension (Acute) Urinary tract infection (Acute) Infectious encephalopathy (Acute) Closed head injury (Acute) Severe sepsis (Acute) Acute encephalopathy (Acute) Severe sepsis due to UTI (Acute) Obstruction of right ureteropelvic junction due to stone (Acute) Hydronephrosis of right kidney (Acute) Problem with dialysis access (Resolved) Difficulty swallowing (Resolved) The patient is a 50 y/o M w/ PMHx: Chronic anemia/AOCD, Morbid obesity, ESRD on HD, HTN (normal BP 140-150), Orthostasis on midodrine especially with HD, HLD, Hypothyroidism, Diabetes mellitus type II, GERD, Chronic Migraines, Hypothyroidism who presents from SNF to the [facility] ED on 09/30/20 with history of increased confusion, agitation, staff noting concerns about his behavior with acute on chronic back discomfort with no specific fevers or chills but low blood pressures prompting senior care facility to transition patient to the ED for evaluation. 1. Acute Encephalopathy secondary to Acute Severe Sepsis (Low BP, elevated WBC with L shift with urine source) secondary to Acute Complicated UTI: Patient denies making urine; however, patient able to give urine sample with straight catheterization and also sample noted previously, will admit to the ICU given severe sepsis status, will consult addictions counselor assistant per protocol, will continue BSA with Zosyn and vancomycin given history with de-escalation pending urine culture, blood culture x2 pending per ED concurrently, as needed nausea medications, as needed pain medication with caution given blood pressure, will administer 2 L normal saline bolus cautiously given dialysis individual, initiate pressor therapy if not effective. Patient was recently admitted and had bacteremia with dialysis catheter change on 08/19/2020, will assure at least 1 blood culture is obtained per new dialysis access. 2. Hypertension: Given hypotensive presentation with severe sepsis holding patient oral hypertensive regimen. Add back once appropriate. 3. Chronic normocytic anemia/AOCD: Admission hemoglobin 10.6, baseline appears 8-10, stable, trend. 4. ESRD: Patient on dialysis, will consult Dr. Shaw for continued home HD regimen, will continue patient home midodrine especially with HD. 5. Diabetes mellitus type II with neuropathy: Hold oral home regimen, continue home insulin regimen, ADA diet, accu checks w/ ISS, continue patient home Lyrica regimen. 6. Hyperlipidemia: Not on statin therapy, defer to outpatient. 7. Hypothyroidism: Continue home synthroid regimen. 8. Migraines: We will continue patient triptan regimen with dialysis only. 9. Obesity: Weight loss and lifestyle changes encouraged. 10. GERD: We will continue patient home PPI. 11. Oral thrush: Will initiate oral nystatin swish and swallow. 12. DVT prophylaxis: SCDs, patient poor historian and unclear why Coumadin is listed, INR pending and if subtherapeutic will place on heparin. 13. CODE status: Patient does not have healthcare power of litigation attorney associate nor living will in place. Discussed CODE status at length including difference between FULL code, DNR-CCA and DNR-CC status. Following discussions about the differences in these status, requested Full Code status which matches current listed SNF code status. Advanced Care Planning Face to Face Time: 16 minutes. Inpatient E&M: 65331 Init Hosp L3 Procedures: 47315 Advncd Care Plan 30 Min
[2020-09-30] MEDS: Ceftriaxone 1 GM/50 ML BAG IV (22:38)
[2020-09-30 22:41] VITALS: BP 108/53; PULSE 87; RESP 19; TEMP 36.6; O2SAT 94
[2020-09-30 23:59] LABS: Magnesium 2.4 mg/dL (1.6-2.6)
[2020-10-01] VITALS (27 sets, daily range): BP systolic 82–127; BP diastolic 35–76; PULSE 80–94; RESP 11–25; TEMP 35.8–36.5; O2SAT 89–100; BMI 46.7
[2020-10-01 00:01] LABS: Prothrombin Time (Protime)PT. 45.4 SECONDS (11.7-14.9)
[2020-10-01] MEDS: NYSTATIN 500,000 UNIT/5 ML UDC 500000 UNIT PO ×3 (00:51→23:19)
[2020-10-01] MEDS: 0.9% Normal Saline 1,000 ML 999 ML IV (01:33)
[2020-10-01 01:45] LABS: Reflex Lactate? Y
[2020-10-01 02:47] LABS: Lactic Acid 1.5 mmol/L (0.4-1.9)
--- NOTE | 2020-10-01 04:15 | NURSING ---
PT WAS SEEN ON [place] PULLING AT HIS DIALYSIS CATH. THIS RN LAURA ARRIAZA RN ENTERED THE ROOM AND ASKED PT TO STOP. PT WAS UNCOOPERATIVE. HE BECAME AGITATED. WHEN AN ATTEMPT WAS MADE TO CLEAN AND APPLY A NEW DRESSING THE PT BECAME MORE AGITATED. PT WAS UNWILLING TO ALLOW STAFF TO REAPPLY DRESSING AND CONTINUED TO ATTEMPT TO PULL AT WIRES AND TUBING. ATTEMPTS WERE MADE TO DESCALATE THE PT THROUGH DISTRACTION, REDIRECTION AND VERBAL DE-ESCALATION. PT REMAINED UNCOOPERATIVE W/CARE. ORDER WAS OBTAINED AND RESTRAINTS WERE APPLIED FOR PT SAFETY.
[2020-10-01 05:25] LABS: Absolute Lymphocyte Count 1.17 X10^3/uL (0.83-4.51); Basophil# 0.09 X10^3/uL; Basophil% 0.6 % (0-1); Eosinophils% 0.6 % (0-5); Hematocrit 35.1 % (40-54); Hemoglobin 10.4 g/dL (13.0-16.5); Lymphocyte # 1.17 X10^3/ul (4.0); Lymphocyte % 7.4 % (19-41); Mean Corp Hgb Conc 29.6 g/dL (32-36); Mean Corpuscular Hgb 28.1 pg (27.0-32.0); Mean Corpuscular Volume 94.9 fL (80-94); Mean Platelet Vol. 11.2 fl (6.2-12.0); Monocyte# 0.87 X10^3/uL; Monocyte% 5.5 % (0-10); NRBC Flagged by Analyzer 0 % (0-5); Neutrophil # 12.97 X10^3/uL (2.7-7.7); Neutrophil % 82.4 % (47-70); Platelet Count 227 K/mm3 (150-450); RBC Distribution Width CV 14.9 % (11.6-14.6); RBC Distribution Width SD 52.3 fl (35.1-43.9); White Blood Count 15.8 K/mm3 (4.4-11.0)
--- NOTE | 2020-10-01 05:37 | PCM.CON.CC ---
Reason for Consult Date of Consultation: 10/01/20 Reason for Consultation: Severe sepsis History of Present Illness: The patient is a 50-year-old male, with a history as outlined below, who presented to the emergency department on September 30 with altered mentation and hypotension. The patient currently resides at a correction facility. The patient has a history of end-stage renal disease on hemodialysis. His hemodynamics are tenuous at baseline, especially with hemodialysis, for which he is treated with midodrine. The patient was last admitted to the hospital in August 2020 with severe sepsis secondary to pyelonephritis. The patient was in noted to be bacteremic at that time, for which his tunneled dialysis catheter was removed. Although a temporary line was subsequently placed by general surgery, it became nonfunctional and necessitated that the patient be transferred to a tertiary care facility to obtain vascular access. On presentation to the emergency department, the patient was noted to be afebrile with a blood pressure of 97/53 mmHg. He was maintaining appropriate oxygen saturations on room air. Respiratory rate was elevated in the 20s. Initial laboratory work-up revealed an elevated white blood cell count of 14,000. Coagulation profile revealed an INR of 5.0. Chemistry profile was notable for a creatinine of 7.32. Lactate was elevated to 2.5. Urine analysis was positive for nitrites and leukocyte esterase. 4+ urine bacteria was noted. Head CT was unremarkable. Chest x-ray revealed suboptimal inspiratory effort without any focal consolidation or infiltrate. The patient received supplemental IV fluids and was started on antimicrobials. The patient was subsequently transferred to the medical intensive care unit for management of his severe sepsis. Past Medical History Past Medical History (Chronic Problems): Chronic Problems (Last Updated 08/19/20 @ 12:[address] Oscar King DO) Hypertension (Chronic) GERD (gastroesophageal reflux disease) (Chronic) Hypothyroidism (Chronic) Diabetes mellitus type 2 in obese (Chronic) ESRD (end stage renal disease) on dialysis (Chronic) Medical History: Medical History (Last Updated 08/19/20 @ 12:[address] Oscar King DO) Problem with dialysis access (Resolved) T82.898A Difficulty swallowing (Resolved) R13.10 Hypertension (Chronic) I10 GERD (gastroesophageal reflux disease) (Chronic) K21.9 Hypothyroidism (Chronic) E03.9 Diabetes mellitus type 2 in obese (Chronic) E11.69, E66.9 ESRD (end stage renal disease) on dialysis (Chronic) N18.6, Z99.2 Allergies vancomycin Allergy (Verified 09/30/20 17:57) Other C/O BEING HOT Home Medications: Ambulatory Orders Medication Instructions Recorded Amitriptyline HCl [Elavil] 25 mg PO QHS 03/11/20 Aspirin [Aspirin, Baby] 81 mg PO DAILY@0800 03/11/20 Calcium Acetate 2 cap PO TIDCM 03/11/20 Levothyroxine [Synthroid] 50 mcg PO DAILY 03/11/20 Midodrine HCl 5 mg PO DAILY PRN 03/11/20 Pantoprazole Sodium [Protonix] 40 mg PO DAILY 03/11/20 Pregabalin [Lyrica] 100 mg PO BID 03/11/20 Rizatriptan Benzoate [Rizatriptan] 1 tab PO MOWEFR PRN 03/11/20 Insulin Glargine,Hum.rec.anlog 20 unit SQ QHS 09/30/20 [Basaglar Kwikpen U-100] Insulin Lispro [Humalog KwikPen] 15 unit SQ TIDCM 09/30/20 Oxycodone HCl 5 mg PO PRN PRN 09/30/20 Warfarin [Coumadin ([facility])] 3.5 mg PO DAILY 09/30/20 hydrALAZINE [Apresoline] 25 mg PO TID 09/30/20 Surgical History: Surgical History (Last Reviewed 02/27/20 @ 10:03 by Carrie Rondon) Hx of arteriovenostomy for renal dialysis Onset Date: ~01/2020 Z99.2 S/P dialysis catheter insertion Z95.828, Z99.2 Status post amputation of toe of left foot Z89.422 Surgical History: - - AV fistula attempts, dialysis access insertions and removals especially recently with bacteremia, left foot toe amputation. Psychiatric History: No pertinent psych hx Lives: Alone, [facility] Smoking Status: Never smoker Tobacco Use: Non-smoker Alcohol: None Drugs: None - *Family History Maternal History Items: COPD Paternal History Items: Hypertension Sibling History Items: Diabetes Review of Systems Constitutional: Reports: Weakness, Fatigue Eyes: Denies: Blurred vision, Double vision HEENT: Denies: Head Aches, Sinus Congestion, Sinus Drainage Cardiovascular: Denies: Chest Pain, Palpitations Respiratory: Denies: Cough, Shortness of breath at rest, Sputum production Gastrointestinal: Denies: Abdominal Pain, Nausea, Vomiting Genitourinary: Denies: Dysuria Musculoskeletal: Reports: Back Pain Skin: Denies: Rash, Wounds Neurological: Reports: Confusion Psychiatric: Denies: Anxiety, Depression, Homicidal Ideations, Suicidal Ideations Hematologic/ Lymphatic: Reports: Anemia Patient Problems: Active and Suspected Problems (Last Updated 08/19/20 @ 12:[address] Oscar King, DO) Hypotension (Acute) Urinary tract infection (Acute) Infectious encephalopathy (Acute) Closed head injury (Acute) Severe sepsis (Acute) Acute encephalopathy (Acute) Objective: The patient's most recent lab work, culture data and imaging studies have all been personally reviewed. Surface echocardiogram from August 2020 revealed normal LV size with an ejection fraction of 65%. Blood and urine cultures are pending. - Physical Exam Vitals/I&O's: Vital Signs Temp Pulse Resp BP Pulse Ox 97.6 F L 86 14 104/59 L 92 10/01/20 04:00 10/01/20 05:00 10/01/20 05:00 10/01/20 05:00 10/01/20 05:00 Oxygen Flow Rate (L/min) 2 Oxygen Delivery Method Room Air Weight: 354 lb 4.525 oz Body Mass Index (BMI) 46.7 Finger Stick Blood Glucose 148 Intake and Output for Last 24 Hours 09/29/20 09/30/20 10/01/20 23:59 23:59 23:59 Intake Total 1540 / 1540 50 / 50 Output Total 0 / 0 Balance 1540 / 1540 50 / 50 General: Alert, No apparent distress, - - Intermittently cooperative HEENT: Atraumatic, Normocephalic Oral: No Gingival or Mucosal Lesions/ Ulcerations Neck: Supple, No Nodes, Trachea Midline Lungs: Diminished Cardiovascular: Regular rate, Regular Rhythm Abdomen: Bowel Sounds Present, Soft, Obese Extremities: No clubbing, No cyanosis, Edema Musculoskeletal: No Tenderness to Palpation of Joints or Extremities Lymphatic: No Cervical, Supraclavicular, or Inguinal Adenopathy Neurological: Neuro grossly intact Psych/Mental Status: Agitated Labs (Last 48 Hours) 09/30/20 09/30/20 09/30/20 19:15 19:15 19:15 WBC 14.2 H RBC 3.68 L Hgb 10.6 L Hct 34.6 L MCV 94.0 MCH 28.8 MCHC 30.6 L RDW Std Deviation 51.3 H RDW Coeff of Baljit 15.0 H Plt Count 250 MPV 11.4 Immature Gran % (Auto) 3.900 H Neut % (Auto) 75.7 H Lymph % (Auto) 13.9 L [place] % (Auto) 5.3 Eos % (Auto) 0.4 Baso % (Auto) 0.8 Absolute Neuts (auto) 10.8 H Absolute Lymphs (auto) 1.98 Nucleated RBC % 0 PT 45.4 H INR 5.0 H* Sodium 133 L Potassium 3.5 Chloride 95 L Carbon Dioxide 29.0 Anion Gap 9 BUN 38 H Creatinine 7.32 H Estim Creat Clear Calc 13.80 Est GFR (MDRD) Af Amer 10 L Est GFR (MDRD) Non-Af 9 L BUN/Creatinine Ratio 5.2 L Glucose 106 Lactic Acid Calcium 10.6 H Magnesium Total Bilirubin AST ALT Alkaline Phosphatase Total Protein Albumin Urine Color Urine Clarity Urine pH Ur Specific Energy Urine Protein Urine Glucose (UA) Urine Ketones Urine Occult Blood Urine Nitrite Urine Bilirubin Urine Urobilinogen Ur Leukocyte Esterase Urine RBC Urine WBC Ur Squamous Epith Cells Urine Bacteria Urine Mucus 09/30/20 09/30/20 09/30/20 19:15 19:55 21:41 WBC RBC Hgb Hct MCV MCH MCHC RDW Std Deviation RDW Coeff of Baljit Plt Count MPV Immature Gran % (Auto) Neut % (Auto) Lymph % (Auto) [place] % (Auto) Eos % (Auto) Baso % (Auto) Absolute Neuts (auto) Absolute Lymphs (auto) Nucleated RBC % PT INR Sodium Potassium Chloride Carbon Dioxide Anion Gap BUN Creatinine Estim Creat Clear Calc Est GFR (MDRD) Af Amer Est GFR (MDRD) Non-Af BUN/Creatinine Ratio Glucose Lactic Acid Cancelled 2.5 H* Calcium Magnesium 2.4 Total Bilirubin AST ALT Alkaline Phosphatase Total Protein Albumin Urine Color Urine Clarity Urine pH Ur Specific Energy Urine Protein Urine Glucose (UA) Urine Ketones Urine Occult Blood Urine Nitrite Urine Bilirubin Urine Urobilinogen Ur Leukocyte Esterase Urine RBC Urine WBC Ur Squamous Epith Cells Urine Bacteria Urine Mucus 09/30/20 10/01/20 10/01/20 22:10 02:17 05:15 WBC 15.8 H RBC 3.70 L Hgb 10.4 L Hct 35.1 L MCV 94.9 H MCH 28.1 MCHC 29.6 L RDW Std Deviation 52.3 H RDW Coeff of Baljit 14.9 H Plt Count 227 MPV 11.2 Immature Gran % (Auto) 3.500 H Neut % (Auto) 82.4 H Lymph % (Auto) 7.4 L [place] % (Auto) 5.5 Eos % (Auto) 0.6 Baso % (Auto) 0.6 Absolute Neuts (auto) 13.0 H Absolute Lymphs (auto) 1.17 Nucleated RBC % 0 PT INR Sodium Potassium Chloride Carbon Dioxide Anion Gap BUN Creatinine Estim Creat Clear Calc Est GFR (MDRD) Af Amer Est GFR (MDRD) Non-Af BUN/Creatinine Ratio Glucose Lactic Acid 1.5 Calcium Magnesium Total Bilirubin AST ALT Alkaline Phosphatase Total Protein Albumin Urine Color Brown Urine Clarity Turbid Urine pH 7.0 Ur Specific Energy 1.010 Urine Protein 500 H Urine Glucose (UA) Normal Urine Ketones 5 H Urine Occult Blood 250 H Urine Nitrite Positive H Urine Bilirubin Negative Urine Urobilinogen Normal Ur Leukocyte Esterase 500 H Urine RBC 0 SEEN Urine WBC >100 SEEN Ur Squamous Epith Cells 0 SEEN Urine Bacteria 4+ Urine Mucus 0 SEEN 10/01/20 10/01/20 05:15 05:15 WBC RBC Hgb Hct MCV MCH MCHC RDW Std Deviation RDW Coeff of Baljit Plt Count MPV Immature Gran % (Auto) Neut % (Auto) Lymph % (Auto) [place] % (Auto) Eos % (Auto) Baso % (Auto) Absolute Neuts (auto) Absolute Lymphs (auto) Nucleated RBC % PT Cancelled INR Cancelled Sodium Pending Potassium Pending Chloride Pending Carbon Dioxide Pending Anion Gap Pending BUN Pending Creatinine Pending Estim Creat Clear Calc Est GFR (MDRD) Af Amer Pending Est GFR (MDRD) Non-Af Pending BUN/Creatinine Ratio Pending Glucose Pending Lactic Acid Calcium Pending Magnesium Total Bilirubin Pending AST Pending ALT Pending Alkaline Phosphatase Pending Total Protein Pending Albumin Pending Urine Color Urine Clarity Urine pH Ur Specific Energy Urine Protein Urine Glucose (UA) Urine Ketones Urine Occult Blood Urine Nitrite Urine Bilirubin Urine Urobilinogen Ur Leukocyte Esterase Urine RBC Urine WBC Ur Squamous Epith Cells Urine Bacteria Urine Mucus Clinical Impression(s) from Imaging Studies Brain CT 09/30/20 17:58 IMPRESSION: Negative Brain CT without contrast. Electronically Signed: Khris Cole MD at 19:30 EDT , Service support , Chest X-Ray 09/30/20 18:36 IMPRESSION: Incomplete expansion of the lungs with mild atelectasis in both lung bases. Electronically Signed: Khris Cole MD at 19:32 EDT , Service support , Current Medications Acetaminophen (Acetaminophen 325 Mg Tablet) 650 mg PO Q6H PRN PRN PRN Reason: Pain Score 1-10/Temp > 100.7 F Al Hydroxide/Mg Hydroxide (Mag Hydrox/Al Hydrox/Simeth 30 Ml Udc) 30 ml PO Q6H PRN PRN PRN Reason: Gastric Burning Albuterol Sulfate (Albuterol 2.5 Mg/3 Ml Vial.Neb.) 2.5 mg INHALATION Q2H PRN PRN PRN Reason: Dyspnea, wheezing Amitriptyline HCl (Amitriptyline 25 Mg Tablet) 25 mg PO QHS [facility] Aspirin (Aspirin 81 Mg Tab.Chew) 81 mg PO DAILY@0800 [facility] Calcium Acetate (Calcium Acetate 667 Mg Capsule) 1,334 mg PO TIDCM [facility] Fentanyl Citrate (Fentanyl 100 Mcg/2 Ml Ampul) 25 mcg IV Q4H PRN PRN PRN Reason: severe pain 6-10/10 Guaifenesin (Guaifenesin 10 Ml Udc (200mg/10ml)) 10 ml PO Q4H PRN PRN PRN Reason: COUGH Haloperidol Lactate (Haloperidol Lactate 5 Mg/Ml Vial) 2 mg IV Q4H PRN PRN PRN Reason: SEVERE AGITATION Hydralazine HCl (Hydralazine 20 Mg/Ml Vial) 10 mg IV Q4H PRN PRN PRN Reason: SBP > 160 Piperacillin Sod/Tazobactam (Sod 3.375 gm/ Sodium Chloride) 50 mls @ 12.5 mls/hr IV Q12 [facility] Vancomycin IV Pharmacy to Dose (1 each/ Sodium Chloride) 500 mls @ 250 mls/hr IV X1 PRN; Protocol PRN Reason: Rx to Dose Sodium Chloride () 250 mls @ 15 mls/hr IV .[id number] PRN PRN Reason: Saline Flush Insulin Glargine (Insulin Glargine 100 Units/Ml Pen) 20 units SC QHS RASHIDA Insulin Human Lispro (Insulin Lispro 100 Unit/Ml Insuln.Pen) 15 unit SC TIDCM RASHIDA Insulin Human Lispro (Insulin Lispro 100 Unit/Ml Insuln.Pen) 0 unit SC ACHS RASHIDA; Protocol Levothyroxine Sodium (Levothyroxine 50 Mcg Tablet) 50 mcg PO DAILY@0600 [facility] Magnesium Hydroxide (Magnesium Hydroxide 30 Ml Udc) 30 ml PO DAILY PRN PRN PRN Reason: Constipation Melatonin (Melatonin 3 Mg Tablet) 3 mg PO QHS PRN PRN PRN Reason: INSOMNIA Midodrine (Midodrine Hcl 5 Mg Tablet) 5 mg PO DAILY PRN PRN PRN Reason: hypotension Nitroglycerin (Nitroglycerin (Inpatient Use) 0.4 Mg Tab.Subl) 0.4 mg SL Q5M PRN PRN Reason: CARDIAC/CHEST PAIN Nystatin (Nystatin 500,000 Unit/5 Ml Udc) 500,000 unit PO 4X/DAY [facility] Last Admin: 10/01/20 00:51 Dose: 500,000 unit Documented by: Ondansetron HCl (Ondansetron 4 Mg/2 Ml Vial) 4 mg IV Q8H PRN PRN PRN Reason: NAUSEA/VOMITING Oxycodone HCl (Oxycodone 5 Mg Tablet) 5 mg PO Q4H PRN PRN PRN Reason: Pain Score 4-5 Pantoprazole Sodium (Pantoprazole Sodium 40 Mg Tablet) 40 mg PO DAILY [facility] Pregabalin (Pregabalin 50 Mg Capsule) 100 mg PO BID [facility] Prochlorperazine Edisylate (Prochlorperazine 10 Mg/2 Ml Vial) 5 mg IV Q4H PRN PRN PRN Reason: Breakthrough Nausea/Vomiting Psyllium Hydrophilic Mucilloid (Psyllium 1 Packet) 1 packet PO DAILY PRN PRN PRN Reason: Constipation Rizatriptan Benzoate (Rizatriptan Benzoate 10 Mg Tablet) 10 mg PO MOWEFR PRN PRN Reason: MIGRAINE SYMPTOMS Senna/Docusate Sodium (Senna/Docusate Sodium 1 Tablet) 2 tablet PO BID PRN PRN PRN Reason: Constipation Sodium Chloride (0.9% Saline Lock 10 Ml Syringe) 10 - 40 ml IV UD PRN PRN Reason: SALINE FLUSH Throat Lozenges (Benzocaine/Menthol 1 Lozenge) 1 lozenge MUCOUS MEM Q2H PRN PRN PRN Reason: SORE THROAT Warfarin Sodium (Warfarin 3 Mg Tablet) 3.5 mg PO DAILY RASHIDA Assessment/Plan Active and Suspected Problems (Last Updated 08/19/20 @ 12:[address] Oscar King, DO) Hypotension (Acute) Urinary tract infection (Acute) Infectious encephalopathy (Acute) Closed head injury (Acute) Severe sepsis (Acute) Acute encephalopathy (Acute) RECOMMENDATIONS: 1. Obtain vascular access for antimicrobial administration. 2. Continue midodrine per home regimen. 3. Continuous fluids can be discontinued. 4. Encourage incentive spirometer use and mobilize patient as tolerated. 5. Continue to hold Coumadin and check INR daily. IMPRESSIONS: 1. Severe sepsis with concern for urinary tract source of infection Plan to continue current supportive measures including IV fluids and broad-spectrum antimicrobials. The patient has remained hemodynamically stable. 2. Coagulopathy The patient presented to the hospital with an elevated INR greater than 5. However, there are no overt signs of any active blood loss. Therefore, we will plan to hold Coumadin and continue to check INR daily. 3. End-stage renal disease on hemodialysis Nephrology consultation pending. Continue hemodialysis per nephrology recommendations. 4. Anemia of chronic disease/diabetes/hyperlipidemia/hypothyroidism/obesity Complicates care, management, recovery and prognosis. Continue home medications as indicated. This note was generated with [employer] dictation software. It may contain incorrect words, spelling, and punctuation that were not noted in checking the note before signing. Inpatient E&M: [id number] Init Hosp L3
[2020-10-01] MEDS: Levothyroxine 50 MCG Tablet PO (05:49)
[2020-10-01 05:56] LABS: ALB/GLOB Ratio 0.4 RATIO (0.9-2.4); AST(SGOT) 21 U/L (15-37); Alanine Aminotransfer ALT/SGPT < 6 U/L (16-61); Albumin, Serum 2.6 g/dL (3.2-5.0); Alkaline Phosphatase 102 U/L (45-117); Anion Gap 11 (5-15); BUN 39 mg/dL (7-18); BUN/Creat Ratio 5.3 RATIO (10-20); Calcium,Total 10.2 mg/dL (8.5-10.1); Chloride 96 mmol/L (98-107); Creatinine, Serum 7.42 mg/dL (0.70-1.30); EST Glomerular Filtration Rate 8 mL/min (>60); Est Glom Filt Rate - Afr Amer 10 mL/min (>60); Estimated Creatinine Clearance 13.61 ml/min; Globulin 6.5 g/dL (2.2-4.2); Glucose 134 mg/dL (74-106); Potassium 3.5 mmol/L (3.5-5.1); Protein, Total 9.1 g/dL (6.4-8.2); Sodium Level 134 mmol/L (136-145)
[2020-10-01 06:00] LABS: Prothrombin Time (Protime)PT. 46.5 SECONDS (11.7-14.9)
[2020-10-01 06:01] LABS: International Normalized Ratio 5.1
[2020-10-01 07:10] LABS: Bedside Glucose 156 mg/dL (70-110)
[2020-10-01] MEDS: Pantoprazole Sodium 40 MG Tablet PO (09:46)
[2020-10-01] MEDS: Aspirin 81 MG TAB.CHEW PO (09:46)
[2020-10-01] MEDS: Calcium Acetate 667 MG Capsule 1334 MG PO (09:46)
[2020-10-01] MEDS: Pregabalin 50 MG Capsule 100 MG PO ×2 (09:48→23:18)
[2020-10-01] MEDS: Insulin Lispro 100 UNIT/ML INSULN.PEN SC ×4 (09:51→22:13)
[2020-10-01] MEDS: Insulin Lispro 100 UNIT/ML INSULN.PEN 15 UNIT SC (09:52)
[2020-10-01 09:56] LABS: Bedside Glucose 163 mg/dL (70-110)
--- NOTE | 2020-10-01 11:00 | CASEMGMT ---
Social Work SW met with pt in room. Pt not opening eyes but does respond to SW. SW inquired if pt new where he was and he stated [facility]. SW reoriented that pt was at [facility]. Pt stating he wants to go home and SW clarified where home was and pt states [facility]. 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 Per Brionna, [facility] will not hold up patient discharge. Clinical update faxed. SW will continue to follow for discharge planning and support as needed. Plan: Return to [facility], when medically ready RAN Ness
--- NOTE | 2020-10-01 11:04 | CON.PCM_ITS ---
Consultation - Renal 10/01/20 PCP/ Referring MD: Requesting physician: [] Primary care physician: Dr. Laura Daly MD Reason for Consultation:: ESRD on HD - History of Present Illness History of Present Illness: The patient is a 50 year old morbidly obese M with ESRD due to diabetes, recently admitted to [facility] for rehab after hospitalization in August. He is on NxStage hemodialysis 5 days a week at the [facility] started on 09/15/20, prior to that he was on dialysis [facility] qMWF. His last treatment was yesterday with restlessness and complaining of back pain. He was admitted to [facility] ICU last night for confusion, agitation. Currently evaluated for infectious etiology with blood and urine c/s. BP low with history of chronic hypotension on midodrine. CT head doen on admit unremarkable for acute change. Urine brown in color with foul odor per ED note. He was hospitalized in Aug 2020 for UTI, obstructive uropathy from kidney stone s/p ureteral stent placement and bacteremia with tunneled dialysis catheter removal with subsequent transfer out to tertiary care center for new dialysis catheter placement. WBC elevated at 14.2K on admit. Hgb 10.6g. He has been on iv cefazolin 3x/week since his last hospitalization with dose given yesterday after dialysis. Currently remains delirious, poor historian. - Allergies Allergies: Allergies vancomycin Allergy (Verified 09/30/20 17:57) Other C/O BEING HOT - Current Medications Current Medications: Current Medications Acetaminophen (Acetaminophen 325 Mg Tablet) 650 mg PO Q6H PRN PRN PRN Reason: Pain Score 1-10/Temp > 100.7 F Al Hydroxide/Mg Hydroxide (Mag Hydrox/Al Hydrox/Simeth 30 Ml Udc) 30 ml PO Q6H PRN PRN PRN Reason: Gastric Burning Albuterol Sulfate (Albuterol 2.5 Mg/3 Ml Vial.Neb.) 2.5 mg INHALATION Q2H PRN PRN PRN Reason: Dyspnea, wheezing Amitriptyline HCl (Amitriptyline 25 Mg Tablet) 25 mg PO QHS [facility] Aspirin (Aspirin 81 Mg Tab.Chew) 81 mg PO DAILY@0800 [facility] Last Admin: 10/01/20 09:46 Dose: 81 mg Documented by: Calcium Acetate (Calcium Acetate 667 Mg Capsule) 1,334 mg PO TIDCM [facility] Last Admin: 10/01/20 09:46 Dose: 1,334 mg Documented by: Fentanyl Citrate (Fentanyl 100 Mcg/2 Ml Ampul) 25 mcg IV Q4H PRN PRN PRN Reason: severe pain 6-10/10 Guaifenesin (Guaifenesin 10 Ml Udc (200mg/10ml)) 10 ml PO Q4H PRN PRN PRN Reason: COUGH Haloperidol Lactate (Haloperidol Lactate 5 Mg/Ml Vial) 2 mg IV Q4H PRN PRN PRN Reason: SEVERE AGITATION Hydralazine HCl (Hydralazine 20 Mg/Ml Vial) 10 mg IV Q4H PRN PRN PRN Reason: SBP > 160 Piperacillin Sod/Tazobactam (Sod 3.375 gm/ Sodium Chloride) 50 mls @ 12.5 mls/hr IV Q12 [facility] Vancomycin IV Pharmacy to Dose (1 each/ Sodium Chloride) 500 mls @ 250 mls/hr IV X1 PRN; Protocol PRN Reason: Rx to Dose Sodium Chloride () 250 mls @ 15 mls/hr IV .[id number] PRN PRN Reason: Saline Flush Insulin Glargine (Insulin Glargine 100 Units/Ml Pen) 20 units SC QHS [facility] Insulin Human Lispro (Insulin Lispro 100 Unit/Ml Insuln.Pen) 15 unit SC TIDCM [facility] Last Admin: 10/01/20 09:52 Dose: 15 u Documented by: Insulin Human Lispro (Insulin Lispro 100 Unit/Ml Insuln.Pen) 0 unit SC ACHS [facility]; Protocol Last Admin: 10/01/20 09:51 Dose: 1 u Documented by: Levothyroxine Sodium (Levothyroxine 50 Mcg Tablet) 50 mcg PO DAILY@0600 [facility] Last Admin: 10/01/20 05:49 Dose: 50 mcg Documented by: Magnesium Hydroxide (Magnesium Hydroxide 30 Ml Udc) 30 ml PO DAILY PRN PRN PRN Reason: Constipation Melatonin (Melatonin 3 Mg Tablet) 3 mg PO QHS PRN PRN PRN Reason: INSOMNIA Midodrine (Midodrine Hcl 5 Mg Tablet) 5 mg PO DAILY PRN PRN PRN Reason: hypotension Nitroglycerin (Nitroglycerin (Inpatient Use) 0.4 Mg Tab.Subl) 0.4 mg SL Q5M PRN PRN Reason: CARDIAC/CHEST PAIN Nystatin (Nystatin 500,000 Unit/5 Ml Udc) 500,000 unit PO 4X/DAY [facility] Last Admin: 10/01/20 09:46 Dose: 500,000 unit Documented by: Ondansetron HCl (Ondansetron 4 Mg/2 Ml Vial) 4 mg IV Q8H PRN PRN PRN Reason: NAUSEA/VOMITING Oxycodone HCl (Oxycodone 5 Mg Tablet) 5 mg PO Q4H PRN PRN PRN Reason: Pain Score 4-5 Pantoprazole Sodium (Pantoprazole Sodium 40 Mg Tablet) 40 mg PO DAILY [facility] Last Admin: 10/01/20 09:46 Dose: 40 mg Documented by: Pregabalin (Pregabalin 50 Mg Capsule) 100 mg PO BID [facility] Last Admin: 10/01/20 09:48 Dose: 100 mg Documented by: Prochlorperazine Edisylate (Prochlorperazine 10 Mg/2 Ml Vial) 5 mg IV Q4H PRN PRN PRN Reason: Breakthrough Nausea/Vomiting Psyllium Hydrophilic Mucilloid (Psyllium 1 Packet) 1 packet PO DAILY PRN PRN PRN Reason: Constipation Rizatriptan Benzoate (Rizatriptan Benzoate 10 Mg Tablet) 10 mg PO MOWEFR PRN PRN Reason: MIGRAINE SYMPTOMS Senna/Docusate Sodium (Senna/Docusate Sodium 1 Tablet) 2 tablet PO BID PRN PRN PRN Reason: Constipation Sodium Chloride (0.9% Saline Lock 10 Ml Syringe) 10 - 40 ml IV UD PRN PRN Reason: SALINE FLUSH Throat Lozenges (Benzocaine/Menthol 1 Lozenge) 1 lozenge MUCOUS MEM Q2H PRN PRN PRN Reason: SORE THROAT - Past Medical History Past Medical History (Chronic Problems): Chronic Problems (Last Updated 08/19/20 @ 12:[address] Oscar King, DO) Hypertension (Chronic) GERD (gastroesophageal reflux disease) (Chronic) Hypothyroidism (Chronic) Diabetes mellitus type 2 in obese (Chronic) ESRD (end stage renal disease) on dialysis (Chronic) - Past Surgical History Surgical History: - - AV fistula failed attempts, dialysis access insertions and removals especially recently with bacteremia, left foot toe amputation. - Social History Marital Status: Single Smoking Status: Never smoker Alcohol: None Drugs: None - Family History Maternal History Items: COPD Paternal History Items: Hypertension Sibling History Items: Diabetes Review of Systems Unable to obtain accurate/complete ROS d/t: pt delirious, confused, poor historian. Chart reviewed Patient Problems: Active and Suspected Problems (Last Updated 08/19/20 @ 12:[address] Oscar King, DO) Hypotension (Acute) Urinary tract infection (Acute) Infectious encephalopathy (Acute) Closed head injury (Acute) Severe sepsis (Acute) Acute encephalopathy (Acute) - Physical Exam Vitals/I&O's: Vital Signs Temp Pulse Resp BP Pulse Ox 97.4 F L 92 17 120/69 92 10/01/20 06:00 10/01/20 07:00 10/01/20 07:00 10/01/20 07:00 10/01/20 07:00 Oxygen Flow Rate (L/min) 2 Oxygen Delivery Method Room Air Weight: 160.7 kg Body Mass Index (BMI) 46.7 Finger Stick Blood Glucose 148 Intake and Output for Last 24 Hours 09/29/20 09/30/20 10/01/20 23:59 23:59 23:59 Intake Total 1540 / 1540 1100 / 1100 Output Total 0 / 0 Balance 1540 / 1540 1100 / 1100 General: Confused, Disoriented Oral: Dry Mucosa Neck: Supple Lungs: Clear to auscultation Cardiovascular: Regular rate Abdomen: Bowel Sounds Present, Soft, Non Tender, Non-Distended, Obese Extremities: No edema, - - failed left arm AVF, graft Skin: No rashes Neurological: - - confused Psych/Mental Status: Agitated, Delusions, - Laboratory Results 09/30/20 19:15: WBC 14.2 H, RBC 3.68 L, Hgb 10.6 L, Hct 34.6 L, MCV 94.0, MCH 28.8, MCHC 30.6 L, RDW Std Deviation 51.3 H, RDW Coeff of Baljit 15.0 H, Plt Count 250, MPV 11.4, Immature Gran % (Auto) 3.900 H, Neut % (Auto) 75.7 H, Lymph % (Auto) 13.9 L, [place] % (Auto) 5.3, Eos % (Auto) 0.4, Baso % (Auto) 0.8, Absolute Neuts (auto) 10.8 H, Absolute Lymphs (auto) 1.98, Nucleated RBC % 0 09/30/20 19:15: Sodium 133 L, Potassium 3.5, Chloride 95 L, Carbon Dioxide 29.0, Anion Gap 9, BUN 38 H, Creatinine 7.32 H, Estim Creat Clear Calc 13.80, Est GFR (MDRD) Af Amer 10 L, Est GFR (MDRD) Non-Af 9 L, BUN/Creatinine Ratio 5.2 L, Glucose 106, Calcium 10.6 H 09/30/20 19:15: PT 45.4 H, INR 5.0 H* 09/30/20 19:15: Magnesium 2.4 09/30/20 19:55: Lactic Acid Cancelled 09/30/20 21:41: Lactic Acid 2.5 H* 09/30/20 22:10: Urine Color Brown, Urine Clarity Turbid, Urine pH 7.0, Ur Specific [place] 1.010, Urine Protein 500 H, Urine Glucose (UA) Normal, Urine Ketones 5 H, Urine Occult Blood 250 H, Urine Nitrite Positive H, Urine Bilirubin Negative, Urine Urobilinogen Normal, Ur Leukocyte Esterase 500 H, Urine RBC 0 SEEN, Urine WBC >100 SEEN, Ur Squamous Epith Cells 0 SEEN, Urine Bacteria 4+, Urine Mucus 0 SEEN 10/01/20 02:17: Lactic Acid 1.5 10/01/20 05:15: WBC 15.8 H, RBC 3.70 L, Hgb 10.4 L, Hct 35.1 L, MCV 94.9 H, MCH 28.1, MCHC 29.6 L, RDW Std Deviation 52.3 H, RDW Coeff of Baljit 14.9 H, Plt Count 227, MPV 11.2, Immature Gran % (Auto) 3.500 H, Neut % (Auto) 82.4 H, Lymph % (Auto) 7.4 L, [place] % (Auto) 5.5, Eos % (Auto) 0.6, Baso % (Auto) 0.6, Absolute Neuts (auto) 13.0 H, Absolute Lymphs (auto) 1.17, Nucleated RBC % 0 10/01/20 05:15: Sodium 134 L, Potassium 3.5, Chloride 96 L, Carbon Dioxide 27.0, Anion Gap 11, BUN 39 H, Creatinine 7.42 H*, Estim Creat Clear Calc 13.61, Est GFR (MDRD) Af Amer 10 L, Est GFR (MDRD) Non-Af 8 L, BUN/Creatinine Ratio 5.3 L, Glucose 134 H, Calcium 10.2 H, Total Bilirubin 0.40, AST 21, ALT < 6 L, Alkaline Phosphatase 102, Total Protein 9.1 H, Albumin 2.6 L, Globulin 6.5 H, Albumin/Globulin Ratio 0.4 L 10/01/20 05:15: PT Cancelled, INR Cancelled 10/01/20 05:40: PT 46.5 H, INR 5.1 H* 10/01/20 06:55: POC Glucose 156 H 10/01/20 09:38: POC Glucose 163 H Clinical Impression(s) from Imaging Studies Brain CT 09/30/20 17:58 IMPRESSION: Negative Brain CT without contrast. Electronically Signed: Khris Cole MD at 19:30 EDT , Service support , Chest X-Ray 09/30/20 18:36 IMPRESSION: Incomplete expansion of the lungs with mild atelectasis in both lung bases. Electronically Signed: Khris Cole MD at 19:32 EDT , Service support , Current Medications Acetaminophen (Acetaminophen 325 Mg Tablet) 650 mg PO Q6H PRN PRN PRN Reason: Pain Score 1-10/Temp > 100.7 F Al Hydroxide/Mg Hydroxide (Mag Hydrox/Al Hydrox/Simeth 30 Ml Udc) 30 ml PO Q6H PRN PRN PRN Reason: Gastric Burning Albuterol Sulfate (Albuterol 2.5 Mg/3 Ml Vial.Neb.) 2.5 mg INHALATION Q2H PRN PRN PRN Reason: Dyspnea, wheezing Amitriptyline HCl (Amitriptyline 25 Mg Tablet) 25 mg PO QHS [facility] Aspirin (Aspirin 81 Mg Tab.Chew) 81 mg PO DAILY@0800 [facility] Last Admin: 10/01/20 09:46 Dose: 81 mg Documented by: Calcium Acetate (Calcium Acetate 667 Mg Capsule) 1,334 mg PO TIDCM [facility] Last Admin: 10/01/20 09:46 Dose: 1,334 mg Documented by: Fentanyl Citrate (Fentanyl 100 Mcg/2 Ml Ampul) 25 mcg IV Q4H PRN PRN PRN Reason: severe pain 6-10/10 Guaifenesin (Guaifenesin 10 Ml Udc (200mg/10ml)) 10 ml PO Q4H PRN PRN PRN Reason: COUGH Haloperidol Lactate (Haloperidol Lactate 5 Mg/Ml Vial) 2 mg IV Q4H PRN PRN PRN Reason: SEVERE AGITATION Hydralazine HCl (Hydralazine 20 Mg/Ml Vial) 10 mg IV Q4H PRN PRN PRN Reason: SBP > 160 Piperacillin Sod/Tazobactam (Sod 3.375 gm/ Sodium Chloride) 50 mls @ 12.5 mls/hr IV Q12 [facility] Vancomycin IV Pharmacy to Dose (1 each/ Sodium Chloride) 500 mls @ 250 mls/hr IV X1 PRN; Protocol PRN Reason: Rx to Dose Sodium Chloride () 250 mls @ 15 mls/hr IV .[id number] PRN PRN Reason: Saline Flush Insulin Glargine (Insulin Glargine 100 Units/Ml Pen) 20 units SC QHS [facility] Insulin Human Lispro (Insulin Lispro 100 Unit/Ml Insuln.Pen) 15 unit SC TIDCM [facility] Last Admin: 10/01/20 09:52 Dose: 15 u Documented by: Insulin Human Lispro (Insulin Lispro 100 Unit/Ml Insuln.Pen) 0 unit SC ACHS [facility]; Protocol Last Admin: 10/01/20 09:51 Dose: 1 u Documented by: Levothyroxine Sodium (Levothyroxine 50 Mcg Tablet) 50 mcg PO DAILY@0600 [facility] Last Admin: 10/01/20 05:49 Dose: 50 mcg Documented by: Magnesium Hydroxide (Magnesium Hydroxide 30 Ml Udc) 30 ml PO DAILY PRN PRN PRN Reason: Constipation Melatonin (Melatonin 3 Mg Tablet) 3 mg PO QHS PRN PRN PRN Reason: INSOMNIA Midodrine (Midodrine Hcl 5 Mg Tablet) 5 mg PO DAILY PRN PRN PRN Reason: hypotension Nitroglycerin (Nitroglycerin (Inpatient Use) 0.4 Mg Tab.Subl) 0.4 mg SL Q5M PRN PRN Reason: CARDIAC/CHEST PAIN Nystatin (Nystatin 500,000 Unit/5 Ml Udc) 500,000 unit PO 4X/DAY [facility] Last Admin: 10/01/20 09:46 Dose: 500,000 unit Documented by: Ondansetron HCl (Ondansetron 4 Mg/2 Ml Vial) 4 mg IV Q8H PRN PRN PRN Reason: NAUSEA/VOMITING Oxycodone HCl (Oxycodone 5 Mg Tablet) 5 mg PO Q4H PRN PRN PRN Reason: Pain Score 4-5 Pantoprazole Sodium (Pantoprazole Sodium 40 Mg Tablet) 40 mg PO DAILY [facility] Last Admin: 10/01/20 09:46 Dose: 40 mg Documented by: Pregabalin (Pregabalin 50 Mg Capsule) 100 mg PO BID [facility] Last Admin: 10/01/20 09:48 Dose: 100 mg Documented by: Prochlorperazine Edisylate (Prochlorperazine 10 Mg/2 Ml Vial) 5 mg IV Q4H PRN PRN PRN Reason: Breakthrough Nausea/Vomiting Psyllium Hydrophilic Mucilloid (Psyllium 1 Packet) 1 packet PO DAILY PRN PRN PRN Reason: Constipation Rizatriptan Benzoate (Rizatriptan Benzoate 10 Mg Tablet) 10 mg PO MOWEFR PRN PRN Reason: MIGRAINE SYMPTOMS Senna/Docusate Sodium (Senna/Docusate Sodium 1 Tablet) 2 tablet PO BID PRN PRN PRN Reason: Constipation Sodium Chloride (0.9% Saline Lock 10 Ml Syringe) 10 - 40 ml IV UD PRN PRN Reason: SALINE FLUSH Throat Lozenges (Benzocaine/Menthol 1 Lozenge) 1 lozenge MUCOUS MEM Q2H PRN PRN PRN Reason: SORE THROAT Assessment/Plan All Active Problems (Last Updated 08/19/20 @ 12:[address] Oscar King, DO) Hypotension (Acute) Urinary tract infection (Acute) Infectious encephalopathy (Acute) Closed head injury (Acute) Severe sepsis (Acute) Acute encephalopathy (Acute) Severe sepsis due to UTI (Acute) Obstruction of right ureteropelvic junction due to stone (Acute) Hydronephrosis of right kidney (Acute) Problem with dialysis access (Resolved) Difficulty swallowing (Resolved) 1. ESRD HD Monday and qMWF while in the hospital. PT on NxStage dialysis chronically 5x/wk at [facility] since 09/15. 2. Confusion pancx. WBC elevated at 14k. 3. Chronic debility at [facility] for therapy 4. Anemia DEEDEE as needed. 5 orthostatic hypotension, midodrine daily 6. morbid obesity 7. recent bacteremia, UTI on cefazolin since Aug discharge 8. Obstructed kidney stone on rt s/p stent in Aug 2020.
--- NOTE | 2020-10-01 11:58 | CASEMGMT ---
Social Work Nursing stating pt is in need of medical decision maker due to confusion. Phone call to Brionna at [facility] who confirmed pt is his own decision maker and has no HCPOA. Contacts listed are Floyd Cheng (friend) and Veena Silver (sister in law). Per Goldie RN, Veena was contacted and states her and pt brother are not comfortable making medical decisions. Name of sister Treva provided. SW called Treva Lopez [phone]. Treva states she is patient's oldest sister. Pt is not , pt parents are , pt has no HCPOA. Treva is oldest sister and Oscar Silver ( of Veena Silver) is also a brother. Treva states she talks to pt on the phone weekly. DARREL explained that a legal decision maker was needed as pt is currently confused. Treva is willing to be medical decision maker at this time. SW informed Treva that nursing staff would provide updates to her and contact her for consent of treatment as needed. According to Treva, Floyd Cheng who is listed as contact is Pt close friend and warehouse operator but no medical decision making power. Pt demographic sheet and Nursing staff updated. RAN Ness
[2020-10-01 12:50] LABS: Bedside Glucose 192 mg/dL (70-110)
--- NOTE | 2020-10-01 16:45 | PCM.RX.CS ---
Consult Pharmacy has been consulted to manage selected antiobiotic: Vancomycin Type of Consult: New start Suspected Infection: Sepsis Labs: Sodium 134 mmol/L (136-145) L 10/01/20 05:15 Potassium 3.5 mmol/L (3.5-5.1) 10/01/20 05:15 Chloride 96 mmol/L (98-107) L 10/01/20 05:15 Carbon Dioxide 27.0 mmol/L (21.0-32.0) 10/01/20 05:15 Anion Gap 11 (5-15) 10/01/20 05:15 BUN 39 mg/dL (7-18) H 10/01/20 05:15 Creatinine 7.42 mg/dL (0.70-1.30) H* 10/01/20 05:15 Est GFR (MDRD) Af Amer 10 mL/min (>60) L 10/01/20 05:15 Est GFR (MDRD) Non-Af 8 mL/min (>60) L 10/01/20 05:15 BUN/Creatinine Ratio 5.3 RATIO (10-20) L 10/01/20 05:15 Glucose 134 mg/dL (74-106) H 10/01/20 05:15 Goal Trough: 15-20 mcg/mL Pharmacy Plan for Drug Dosing: NEW START IV VANCOMYCIN Consulting Physician: Dr. Elaine Indication: UTI/Sepsis Goal Trough: 15-20 SrCr: HD M/W/F Comments: 2000mg IV x1 in ED 09/30/20 @2006. Vancomcyin Dose: 1000mg IV x1 after HD completed 10/02/20 Pending Level: *RANDOM* level with AM labs 10/05/20 Pharmacy Service will continue to monitor and adjust dosing as required.
[2020-10-01 17:15] LABS: Bedside Glucose 208 mg/dL (70-110)
--- NOTE | 2020-10-01 17:36 | PN_ITS ---
Patient Problems: Active and Suspected Problems (Last Updated 08/19/20 @ 12:[address] Oscar King, DO) Hypotension (Acute) Urinary tract infection (Acute) Infectious encephalopathy (Acute) Closed head injury (Acute) Severe sepsis (Acute) Acute encephalopathy (Acute) Subjective: Patient was seen and examined today in ICU, last night he pulled out his IV and nursing had difficulty finding another IV site, it was finally found in his foot. I talked briefly with nephrology today about his care and also critical care. Patient has been afebrile today, patient voices no complaints is examined this morning, he does not appear agitated. 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 - Physical Exam Vitals/I&O's: Vital Signs Temp Pulse Resp BP Pulse Ox 96.4 F L 87 16 92/53 L 98 10/01/20 17:00 10/01/20 17:00 10/01/20 17:00 10/01/20 17:00 10/01/20 17:00 Oxygen Flow Rate (L/min) 2 Oxygen Delivery Method Nasal Cannula Weight: 160.7 kg Body Mass Index (BMI) 46.7 Finger Stick Blood Glucose 148 Intake and Output for Last 24 Hours 09/29/20 09/30/20 10/01/20 23:59 23:59 23:59 Intake Total 1540 / 1540 1150 / 1150 Output Total 0 / 0 Balance 1540 / 1540 1150 / 1150 General: Alert, Oriented x3, Cooperative, No apparent distress, Well developed, Well nourished HEENT: Atraumatic, PERRLA, EOMI, Normocephalic Oral: Moist Mucosa Neck: Supple, No JVD, Trachea Midline, Thyroid Normal Size and Texture Lungs: Clear to auscultation, Normal air movement, No rhonchi, No wheeze, No rales Cardiovascular: Regular rate, Regular Rhythm, Normal S1, Normal S2, No murmurs, PMI Normal, No rub noted, No Gallop Abdomen: Bowel Sounds Present, Soft, Non Tender, Non-Distended, Obese Extremities: No clubbing, Capillary Refill Less than 3 Seconds Skin: No rashes, No breakdown Neurological: Cranial nerves II-XII grossly intact, Neuro grossly intact, Sensory exam intact to light touch and pain Psych/Mental Status: Normal Affect, Appropriate, Alert and oriented to time, place, person, mood and affect Laboratory Results 09/30/20 19:15: WBC 14.2 H, RBC 3.68 L, Hgb 10.6 L, Hct 34.6 L, MCV 94.0, MCH 28.8, MCHC 30.6 L, RDW Std Deviation 51.3 H, RDW Coeff of Baljit 15.0 H, Plt Count 250, MPV 11.4, Immature Gran % (Auto) 3.900 H, Neut % (Auto) 75.7 H, Lymph % (Auto) 13.9 L, [place] % (Auto) 5.3, Eos % (Auto) 0.4, Baso % (Auto) 0.8, Absolute Neuts (auto) 10.8 H, Absolute Lymphs (auto) 1.98, Nucleated RBC % 0 09/30/20 19:15: Sodium 133 L, Potassium 3.5, Chloride 95 L, Carbon Dioxide 29.0, Anion Gap 9, BUN 38 H, Creatinine 7.32 H, Estim Creat Clear Calc 13.80, Est GFR (MDRD) Af Amer 10 L, Est GFR (MDRD) Non-Af 9 L, BUN/Creatinine Ratio 5.2 L, Glucose 106, Calcium 10.6 H 09/30/20 19:15: PT 45.4 H, INR 5.0 H* 09/30/20 19:15: Magnesium 2.4 09/30/20 19:55: Lactic Acid Cancelled 09/30/20 21:41: Lactic Acid 2.5 H* 09/30/20 22:10: Urine Color Brown, Urine Clarity Turbid, Urine pH 7.0, Ur Spe cific [place] 1.010, Urine Protein 500 H, Urine Glucose (UA) Normal, Urine Ketones 5 H, Urine Occult Blood 250 H, Urine Nitrite Positive H, Urine Bilirubin Negative, Urine Urobilinogen Normal, Ur Leukocyte Esterase 500 H, Urine RBC 0 SEEN, Urine WBC >100 SEEN, Ur Squamous Epith Cells 0 SEEN, Urine Bacteria 4+, Urine Mucus 0 SEEN 10/01/20 02:17: Lactic Acid 1.5 10/01/20 05:15: WBC 15.8 H, RBC 3.70 L, Hgb 10.4 L, Hct 35.1 L, MCV 94.9 H, MCH 28.1, MCHC 29.6 L, RDW Std Deviation 52.3 H, RDW Coeff of Baljit 14.9 H, Plt Count 227, MPV 11.2, Immature Gran % (Auto) 3.500 H, Neut % (Auto) 82.4 H, Lymph % (Auto) 7.4 L, [place] % (Auto) 5.5, Eos % (Auto) 0.6, Baso % (Auto) 0.6, Absolute Neuts (auto) 13.0 H, Absolute Lymphs (auto) 1.17, Nucleated RBC % 0 10/01/20 05:15: Sodium 134 L, Potassium 3.5, Chloride 96 L, Carbon Dioxide 27.0, Anion Gap 11, BUN 39 H, Creatinine 7.42 H*, Estim Creat Clear Calc 13.61, Est GFR (MDRD) Af Amer 10 L, Est GFR (MDRD) Non-Af 8 L, BUN/Creatinine Ratio 5.3 L, Glucose 134 H, Calcium 10.2 H, Total Bilirubin 0.40, AST 21, ALT < 6 L, Alkaline Phosphatase 102, Total Protein 9.1 H, Albumin 2.6 L, Globulin 6.5 H, Albumin/Globulin Ratio 0.4 L 10/01/20 05:15: PT Cancelled, INR Cancelled 10/01/20 05:40: PT 46.5 H, INR 5.1 H* 10/01/20 06:55: POC Glucose 156 H 10/01/20 09:38: POC Glucose 163 H 10/01/20 12:37: POC Glucose 192 H 10/01/20 17:12: POC Glucose 208 H Current Medications Acetaminophen (Acetaminophen 325 Mg Tablet) 650 mg PO Q6H PRN PRN PRN Reason: Pain Score 1-10/Temp > 100.7 F Albuterol Sulfate (Albuterol 2.5 Mg/3 Ml Vial.Neb.) 2.5 mg INHALATION Q2H PRN PRN PRN Reason: Dyspnea, wheezing Amitriptyline HCl (Amitriptyline 25 Mg Tablet) 25 mg PO QHS [facility], [facility] Aspirin (Aspirin 81 Mg Tab.Chew) 81 mg PO DAILY@0800 [facility], [facility] Last Admin: 10/01/20 09:46 Dose: 81 mg Documented by: Calcium Acetate (Calcium Acetate 667 Mg Capsule) 1,334 mg PO TIDCM [facility], [facility]1983 Last Admin: 10/01/20 12:29 Dose: Not Given Documented by: Fentanyl Citrate (Fentanyl 100 Mcg/2 Ml Ampul) 25 mcg IV Q4H PRN PRN PRN Reason: severe pain 6-10/10 Haloperidol Lactate (Haloperidol Lactate 5 Mg/Ml Vial) 2 mg IV Q4H PRN PRN PRN Reason: SEVERE AGITATION Piperacillin Sod/Tazobactam (Sod 3.375 gm/ Sodium Chloride) 50 mls @ 12.5 mls/hr IV Q12 [facility], [facility] Last Infusion: 10/01/20 16:44 Dose: Infused Documented by: Vancomycin IV Pharmacy to Dose (1 each/ Sodium Chloride) 500 mls @ 250 mls/hr IV PRN PRN; Protocol PRN Reason: Rx to Dose Sodium Chloride () 250 mls @ 15 mls/hr IV .[id number] PRN PRN Reason: Saline Flush Vancomycin HCl (Vancomycin) 1,000 mg in 200 mls @ 200 mls/hr IV X1 ONE Stop: 10/02/20 18:59 Insulin Glargine (Insulin Glargine 100 Units/Ml Pen) 20 units SC QHS [facility], [facility]1983 Insulin Human Lispro (Insulin Lispro 100 Unit/Ml Insuln.Pen) 15 unit SC TIDCM [facility], [facility] Last Admin: 10/01/20 12:54 Dose: Not Given Documented by: Insulin Human Lispro (Insulin Lispro 100 Unit/Ml Insuln.Pen) 0 unit SC [facility], [facility]; Protocol Last Admin: 10/01/20 12:57 Dose: 2 u Documented by: Levothyroxine Sodium (Levothyroxine 50 Mcg Tablet) 50 mcg PO DAILY@0600 [facility], [facility] Last Admin: 10/01/20 05:49 Dose: 50 mcg Documented by: Melatonin (Melatonin 3 Mg Tablet) 3 mg PO QHS PRN PRN PRN Reason: INSOMNIA Midodrine (Midodrine Hcl 5 Mg Tablet) 5 mg PO DAILY PRN PRN PRN Reason: hypotension Nystatin (Nystatin 500,000 Unit/5 Ml Udc) 500,000 unit PO 4X/DAY [facility] Last Admin: 10/01/20 12:58 Dose: Not Given Documented by: Ondansetron HCl (Ondansetron 4 Mg/2 Ml Vial) 4 mg IV Q8H PRN PRN PRN Reason: NAUSEA/VOMITING Oxycodone HCl (Oxycodone 5 Mg Tablet) 5 mg PO Q4H PRN PRN PRN Reason: Pain Score 4-5 Pantoprazole Sodium (Pantoprazole Sodium 40 Mg Tablet) 40 mg PO DAILY [facility], [facility] Last Admin: 10/01/20 09:46 Dose: 40 mg Documented by: Pregabalin (Pregabalin 50 Mg Capsule) 100 mg PO BID [facility], [facility] Last Admin: 10/01/20 09:48 Dose: 100 mg Documented by: Rizatriptan Benzoate (Rizatriptan Benzoate 10 Mg Tablet) 10 mg PO MOWEFR PRN PRN Reason: MIGRAINE SYMPTOMS Senna/Docusate Sodium (Senna/Docusate Sodium 1 Tablet) 2 tablet PO BID PRN PRN PRN Reason: Constipation Sodium Chloride (0.9% Saline Lock 10 Ml Syringe) 10 - 40 ml IV UD PRN PRN Reason: SALINE FLUSH Medical Necessity - Tobacco Use Smoking Status: Never smoker Tobacco Use: Non-smoker Assessment/Plan All Active Problems (Last Updated 08/19/20 @ 12:[address] Oscar King, DO) Hypotension (Acute) Urinary tract infection (Acute) Infectious encephalopathy (Acute) Closed head injury (Acute) Severe sepsis (Acute) Acute encephalopathy (Acute) Severe sepsis due to UTI (Acute) Obstruction of right ureteropelvic junction due to stone (Resolved) Hydronephrosis of right kidney (Resolved) Problem with dialysis access (Resolved) Difficulty swallowing (Resolved) #1 severe sepsis-probably secondary to urinary tract infection, patient appears stable for transfer to PCU at this time, antibiotic coverage will remain the same at this time, urine and blood cultures are pending #2 end-stage renal disease on dialysis #3 type 2 diabetes-monitor blood sugars, sliding scale insulin will be used if needed #4 morbid obesity #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 Inpatient E&M: [id number] [facility] Hosp L2
[2020-10-01] MEDS: 0.9% Saline Lock 10 ML Syringe IV (23:01)
[2020-10-01] MEDS: Amitriptyline 25 MG Tablet PO (23:34)
[2020-10-02] VITALS (31 sets, daily range): BP systolic 78–170; BP diastolic 32–94; PULSE 83–102; RESP 12–26; TEMP 36.2–36.7; O2SAT 87–99
[2020-10-02 01:51] LABS: Bedside Glucose 194 mg/dL (70-110)
[2020-10-02 06:39] LABS: Absolute Lymphocyte Count 1.14 X10^3/uL (0.83-4.51); Absolute Neutrophil Count 12.4 X10^3/uL (2.0-7.7); Basophil# 0.05 X10^3/uL; Basophil% 0.3 % (0-1); Eosinophil# 0.13 X10^3/uL; Eosinophils% 0.9 % (0-5); Hematocrit 31.5 % (40-54); Hemoglobin 9.4 g/dL (13.0-16.5); Lymphocyte # 1.14 X10^3/ul (4.0); Lymphocyte % 7.8 % (19-41); Mean Corp Hgb Conc 29.8 g/dL (32-36); Mean Corpuscular Hgb 27.8 pg (27.0-32.0); Mean Corpuscular Volume 93.2 fL (80-94); Mean Platelet Vol. 11.3 fl (6.2-12.0); Monocyte# 0.54 X10^3/uL; Monocyte% 3.7 % (0-10); NRBC Flagged by Analyzer 0 % (0-5); Neutrophil # 12.44 X10^3/uL (2.7-7.7); Neutrophil % 85.2 % (47-70); Platelet Count 220 K/mm3 (150-450); RBC Distribution Width SD 51.1 fl (35.1-43.9); Red Blood Count 3.38 M/mm3 (4.6-6.2); White Blood Count 14.6 K/mm3 (4.4-11.0)
[2020-10-02] MEDS: Insulin Lispro 100 UNIT/ML INSULN.PEN SC (06:41)
[2020-10-02] MEDS: Levothyroxine 50 MCG Tablet PO (06:41)
[2020-10-02 06:46] LABS: Prothrombin Time (Protime)PT. 47.8 SECONDS (11.7-14.9)
[2020-10-02 06:48] LABS: International Normalized Ratio 5.3
[2020-10-02 07:00] LABS: Bedside Glucose 188 mg/dL (70-110)
[2020-10-02 07:08] LABS: Anion Gap 12 (5-15); BUN 50 mg/dL (7-18); BUN/Creat Ratio 5.8 RATIO (10-20); Calcium,Total 9.6 mg/dL (8.5-10.1); Chloride 96 mmol/L (98-107); Creatinine, Serum 8.67 mg/dL (0.70-1.30); EST Glomerular Filtration Rate 7 mL/min (>60); Est Glom Filt Rate - Afr Amer 8 mL/min (>60); Estimated Creatinine Clearance 11.65 ml/min; Glucose 210 mg/dL (74-106); Potassium 3.7 mmol/L (3.5-5.1); Sodium Level 131 mmol/L (136-145)
--- NOTE | 2020-10-02 09:26 | PCM.PN.REN ---
Patient Problems: Active and Suspected Problems (Last Updated 08/19/20 @ 12:[address] Oscar King, DO) Hypotension (Acute) Urinary tract infection (Acute) Infectious encephalopathy (Acute) Closed head injury (Acute) Severe sepsis (Acute) Acute encephalopathy (Acute) Subjective: on dialysis remains confused. BP low. Attempt fluid removal as tolerated. Midodrine 5mg before every treatment. - Physical Exam Vitals/I&O's: Vital Signs Temp Pulse Resp BP Pulse Ox 97.2 F L 88 16 119/47 L 95 10/02/20 08:35 10/02/20 08:35 10/02/20 08:35 10/02/20 08:35 10/02/20 08:35 Oxygen Flow Rate (L/min) 2 Oxygen Delivery Method Nasal Cannula Weight: 165.1 kg Body Mass Index (BMI) 46.7 Finger Stick Blood Glucose 148 Intake and Output for Last 24 Hours 09/30/20 10/01/20 10/02/20 23:59 23:59 23:59 Intake Total 1540 / 1540 1150 / 1250 150 / 150 Output Total 0 / 0 Balance 1540 / 1540 1150 / 1250 150 / 150 General: Confused Cardiovascular: Regular rate Abdomen: Obese Extremities: No edema Laboratory Results 10/01/20 09:38: POC Glucose 163 H 10/01/20 12:37: POC Glucose 192 H 10/01/20 17:12: POC Glucose 208 H 10/01/20 22:09: POC Glucose 194 H 10/02/20 06:25: WBC 14.6 H, RBC 3.38 L, Hgb 9.4 L, Hct 31.5 L, MCV 93.2, MCH 27.8, MCHC 29.8 L, RDW Std Deviation 51.1 H, RDW Coeff of Baljit 15.0 H, Plt Count 220, MPV 11.3, Immature Gran % (Auto) 2.100 H, Neut % (Auto) 85.2 H, Lymph % (Auto) 7.8 L, [place] % (Auto) 3.7, Eos % (Auto) 0.9, Baso % (Auto) 0.3, Absolute Neuts (auto) 12.4 H, Absolute Lymphs (auto) 1.14, Nucleated RBC % 0 10/02/20 06:25: PT 47.8 H, INR 5.3 H* 10/02/20 06:25: Sodium 131 L, Potassium 3.7, Chloride 96 L, Carbon Dioxide 23.0, Anion Gap 12, BUN 50 H, Creatinine 8.67 H*, Estim Creat Clear Calc 11.65, Est GFR (MDRD) Af Amer 8 L, Est GFR (MDRD) Non-Af 7 L, BUN/Creatinine Ratio 5.8 L, Glucose 210 H, Calcium 9.6 10/02/20 06:40: POC Glucose 188 H Current Medications Acetaminophen (Acetaminophen 325 Mg Tablet) 650 mg PO Q6H PRN PRN PRN Reason: Pain Score 1-10/Temp > 100.7 F Albuterol Sulfate (Albuterol 2.5 Mg/3 Ml Vial.Neb.) 2.5 mg INHALATION Q2H PRN PRN PRN Reason: Dyspnea, wheezing Amitriptyline HCl (Amitriptyline 25 Mg Tablet) 25 mg PO QHS [facility] Last Admin: 10/01/20 23:34 Dose: 25 mg Documented by: Aspirin (Aspirin 81 Mg Tab.Chew) 81 mg PO DAILY@0800 [facility] Last Admin: 10/01/20 09:46 Dose: 81 mg Documented by: Calcium Acetate (Calcium Acetate 667 Mg Capsule) 1,334 mg PO TIDCM [facility] Last Admin: 10/02/20 08:53 Dose: Not Given Documented by: Fentanyl Citrate (Fentanyl 100 Mcg/2 Ml Ampul) 25 mcg IV Q4H PRN PRN PRN Reason: severe pain 6-10/10 Haloperidol Lactate (Haloperidol Lactate 5 Mg/Ml Vial) 2 mg IV Q4H PRN PRN PRN Reason: SEVERE AGITATION Piperacillin Sod/Tazobactam (Sod 3.375 gm/ Sodium Chloride) 50 mls @ 12.5 mls/hr IV Q12 [facility] Last Infusion: 10/02/20 03:05 Dose: Infused Documented by: Vancomycin IV Pharmacy to Dose (1 each/ Sodium Chloride) 500 mls @ 250 mls/hr IV PRN PRN; Protocol PRN Reason: Rx to Dose Sodium Chloride () 250 mls @ 15 mls/hr IV .[id number] PRN PRN Reason: Saline Flush Vancomycin HCl (Vancomycin) 1,000 mg in 200 mls @ 200 mls/hr IV X1 ONE Stop: 10/02/20 18:59 Insulin Glargine (Insulin Glargine 100 Units/Ml Pen) 20 units SC QHS [facility] Last Admin: 10/01/20 22:13 Dose: 20 units Documented by: Insulin Human Lispro (Insulin Lispro 100 Unit/Ml Insuln.Pen) 15 unit SC TIDCM [facility] Last Admin: 10/02/20 08:53 Dose: Not Given Documented by: Insulin Human Lispro (Insulin Lispro 100 Unit/Ml Insuln.Pen) 0 unit SC ACHS [facility]; Protocol Last Admin: 10/02/20 06:41 Dose: 1 u Documented by: Levothyroxine Sodium (Levothyroxine 50 Mcg Tablet) 50 mcg PO DAILY@0600 [facility] Last Admin: 10/02/20 06:41 Dose: 50 mcg Documented by: Melatonin (Melatonin 3 Mg Tablet) 3 mg PO QHS PRN PRN PRN Reason: INSOMNIA Midodrine (Midodrine Hcl 5 Mg Tablet) 5 mg PO DAILY PRN PRN PRN Reason: hypotension Midodrine (Midodrine Hcl 5 Mg Tablet) 10 mg PO X1 PRN PRN Reason: FOR SBP <100 Nystatin (Nystatin 500,000 Unit/5 Ml Udc) 500,000 unit PO 4X/DAY [facility] Last Admin: 10/01/20 23:19 Dose: 500,000 unit Documented by: Ondansetron HCl (Ondansetron 4 Mg/2 Ml Vial) 4 mg IV Q8H PRN PRN PRN Reason: NAUSEA/VOMITING Oxycodone HCl (Oxycodone 5 Mg Tablet) 5 mg PO Q4H PRN PRN PRN Reason: Pain Score 4-5 Pantoprazole Sodium (Pantoprazole Sodium 40 Mg Tablet) 40 mg PO DAILY [facility] Last Admin: 10/01/20 09:46 Dose: 40 mg Documented by: Pregabalin (Pregabalin 50 Mg Capsule) 100 mg PO BID [facility] Last Admin: 10/01/20 23:18 Dose: 100 mg Documented by: Rizatriptan Benzoate (Rizatriptan Benzoate 10 Mg Tablet) 10 mg PO MOWEFR PRN PRN Reason: MIGRAINE SYMPTOMS Senna/Docusate Sodium (Senna/Docusate Sodium 1 Tablet) 2 tablet PO BID PRN PRN PRN Reason: Constipation Sodium Chloride (0.9% Saline Lock 10 Ml Syringe) 10 - 40 ml IV UD PRN PRN Reason: SALINE FLUSH Last Admin: 10/01/20 23:01 Dose: 10 ml Documented by: Medical Necessity - Tobacco Use Smoking Status: Never smoker Tobacco Use: Non-smoker Assessment/Plan All Active Problems (Last Updated 08/19/20 @ 12:[address] Oscar King, DO) Hypotension (Acute) Urinary tract infection (Acute) Infectious encephalopathy (Acute) Closed head injury (Acute) Severe sepsis (Acute) Acute encephalopathy (Acute) Severe sepsis due to UTI (Acute) Obstruction of right ureteropelvic junction due to stone (Resolved) Hydronephrosis of right kidney (Resolved) Problem with dialysis access (Resolved) Difficulty swallowing (Resolved) 1. ESRD HD today and qMWF on 3K. Fluid removal as tolerated. 2. Confusion pancx. WBC elevated at 14k. antibx per primary service 3. anemia hgb stable epo 6000 units today. Addendum: spoke with dialysis nurse regarding change in pt condition where [employer] called, stopped breathing then resumed spontaneous respirations. Dialysis terminated early about 1.5hrs into treatment. BP stable throughout treatment. Pt to be transferred to ICU.
--- NOTE | 2020-10-02 09:53 | CASEMGMT ---
According to the [facility] website, the following are in-network tertiary facilities: [facility], [place], [facility], [facility], [facility], [facility], [place], [facility], and . Cherie SERRANO CM
--- NOTE | 2020-10-02 10:12 | NURSING ---
0969-Code blue alert called. Staff responded to room. Observe seed analysis laboratory assistant's at bedside who stated pt stopped breathing and became cyanotic ad unresponsive. Dialysis stopped and code called. BP 149/81, HR 102, finger stick glucose 163. Pt moaning and yelling out with staff adjusting him when attempting to feel for pulse to initiate CPR. Dr King at bedside. 0950-Dr Stanley at bedside, v/o given to start pt on bipap. 0955-Dr Stanley wants pt moved to ICU. 1005-Pt into ICU bed 7 by Melany SERRANO and erika RN. Bedside report given to Alyssa SERRANO.
--- NOTE | 2020-10-02 10:31 | DIALYSIS ---
Pt received Hd x 1.5hrs. Tx stopped d/t pt respiratory arrested, transferred to ICU. TUF removed 141ml. See HD flowsheet on chart. Dr. Shaw notified.
--- NOTE | 2020-10-02 10:57 | NURSING ---
pt refusing to wear bp cuff, oxygen, bipap, glucose check. pt states he wants to . Dr. Levy notified.
--- NOTE | 2020-10-02 12:09 | PCM.PROGNOTE ---
Patient Problems: Active and Suspected Problems (Last Updated 08/19/20 @ 12:[address] Oscar King, DO) Hypotension (Acute) Urinary tract infection (Acute) Infectious encephalopathy (Acute) Closed head injury (Acute) Severe sepsis (Acute) Acute encephalopathy (Acute) Subjective: Patient was seen and examined earlier on PCU today, he was exhibiting confusion during dialysis and shortly afterwards had a short respiratory arrest, CODE BLUE was called and chest compressions were performed for less than 30 seconds the patient spontaneously began breathing again. Afterwards he appeared more alert, I had a discussion with his sister who is his closest relative and she discussed the patient's CODE STATUS with her brother, it was decided that the patient would be a DNR CC arrest no intubation and so I changed the patient's CODE STATUS. Unfortunately, the patient was transferred back to ICU for closer observation and care in the meantime- my plan is to let him remain in ICU for now and possibly transfer him back out to PCU tomorrow. Patient told nursing and this examiner NICU that he just wants to - he does not want to wear oxygen but he wants to continue dialysis. Discussed his care with critical care today. Patient's urine culture currently shows no growth. - Physical Exam Vitals/I&O's: Vital Signs Temp Pulse Resp BP Pulse Ox 97.2 F L 102 H 18 149/81 H 94 10/02/20 08:35 10/02/20 11:13 10/02/20 10:45 10/02/20 11:13 10/02/20 11:28 Oxygen Flow Rate (L/min) 2 Oxygen Delivery Method Room Air Weight: 165.1 kg Body Mass Index (BMI) 46.7 Finger Stick Blood Glucose 148 Intake and Output for Last 24 Hours 09/30/20 10/01/20 10/02/20 23:59 23:59 23:59 Intake Total 1540 / 1540 1150 / 1250 150 / 150 Output Total 0 / 0 141 / 141 Balance 1540 / 1540 1150 / 1250 General: Alert, Cooperative, No apparent distress, Well developed, Well nourished HEENT: Atraumatic, PERRLA, EOMI, Normocephalic Oral: Moist Mucosa Neck: Supple, No JVD, Trachea Midline, Thyroid Normal Size and Texture Lungs: Clear to auscultation, Normal air movement, No rhonchi, No wheeze, No rales Cardiovascular: Regular rate, Regular Rhythm, Normal S1, Normal S2, No murmurs Abdomen: Bowel Sounds Present, Soft, Non Tender, Non-Distended Extremities: No clubbing, No cyanosis, No edema, Capillary Refill Less than 3 Seconds Skin: No rashes Musculoskeletal: No Tenderness to Palpation of Joints or Extremities Neurological: Cranial nerves II-XII grossly intact, Neuro grossly intact Psych/Mental Status: Agitated - Patient appears to be agitated at times after his respiratory arrest today, he does simple questions appropriately however., Restless Microbiology Past 72 Hours 09/30/20 22:10 Urine Catheter - Catheter Urine Culture - Preliminary Culture exhibits no growth. Laboratory Results 10/01/20 12:37: POC Glucose 192 H 10/01/20 17:12: POC Glucose 208 H 10/01/20 22:09: POC Glucose 194 H 10/02/20 06:25: WBC 14.6 H, RBC 3.38 L, Hgb 9.4 L, Hct 31.5 L, MCV 93.2, MCH 27.8, MCHC 29.8 L, RDW Std Deviation 51.1 H, RDW Coeff of Baljit 15.0 H, Plt Count 220, MPV 11.3, Immature Gran % (Auto) 2.100 H, Neut % (Auto) 85.2 H, Lymph % (Auto) 7.8 L, [place] % (Auto) 3.7, Eos % (Auto) 0.9, Baso % (Auto) 0.3, Absolute Neuts (auto) 12.4 H, Absolute Lymphs (auto) 1.14, Nucleated RBC % 0 10/02/20 06:25: PT 47.8 H, INR 5.3 H* 10/02/20 06:25: Sodium 131 L, Potassium 3.7, Chloride 96 L, Carbon Dioxide 23.0, Anion Gap 12, BUN 50 H, Creatinine 8.67 H*, Estim Creat Clear Calc 11.65, Est GFR (MDRD) Af Amer 8 L, Est GFR (MDRD) Non-Af 7 L, BUN/Creatinine Ratio 5.8 L, Glucose 210 H, Calcium 9.6 10/02/20 06:40: POC Glucose 188 H Current Medications Acetaminophen (Acetaminophen 325 Mg Tablet) 650 mg PO Q6H PRN PRN PRN Reason: Pain Score 1-10/Temp > 100.7 F Albuterol Sulfate (Albuterol 2.5 Mg/3 Ml Vial.Neb.) 2.5 mg INHALATION Q2H PRN PRN PRN Reason: Dyspnea, wheezing Amitriptyline HCl (Amitriptyline 25 Mg Tablet) 25 mg PO QHS [facility] Last Admin: 10/01/20 23:34 Dose: 25 mg Documented by: Aspirin (Aspirin 81 Mg Tab.Chew) 81 mg PO DAILY@0800 [facility] Last Admin: 10/01/20 09:46 Dose: 81 mg Documented by: Calcium Acetate (Calcium Acetate 667 Mg Capsule) 1,334 mg PO TIDCM [facility] Last Admin: 10/02/20 08:53 Dose: Not Given Documented by: Fentanyl Citrate (Fentanyl 100 Mcg/2 Ml Ampul) 25 mcg IV Q4H PRN PRN PRN Reason: severe pain 6-10/10 Haloperidol Lactate (Haloperidol Lactate 5 Mg/Ml Vial) 2 mg IV Q4H PRN PRN PRN Reason: SEVERE AGITATION Piperacillin Sod/Tazobactam (Sod 3.375 gm/ Sodium Chloride) 50 mls @ 12.5 mls/hr IV Q12 [facility] Last Infusion: 10/02/20 03:05 Dose: Infused Documented by: Vancomycin IV Pharmacy to Dose (1 each/ Sodium Chloride) 500 mls @ 250 mls/hr IV PRN PRN; Protocol PRN Reason: Rx to Dose Sodium Chloride () 250 mls @ 15 mls/hr IV .[id number] PRN PRN Reason: Saline Flush Vancomycin HCl (Vancomycin) 1,000 mg in 200 mls @ 200 mls/hr IV X1 ONE Stop: 10/02/20 18:59 Insulin Glargine (Insulin Glargine 100 Units/Ml Pen) 20 units SC QHS [facility] Last Admin: 10/01/20 22:13 Dose: 20 units Documented by: Insulin Human Lispro (Insulin Lispro 100 Unit/Ml Insuln.Pen) [facility] Admin: 10/02/20 08:53 Dose: Not Given Documented by: Insulin Human Lispro (Insulin Lispro 100 Unit/Ml [facility].Pen) [facility] Protocol Last Admin: 10/02/20 06:41 Dose: 1 u Documented by: Levothyroxine Sodium (Levothyroxine 50 Mcg Tablet) 50 mcg PO DAILY@0600 [facility] Last Admin: 10/02/20 06:41 Dose: 50 mcg Documented by: Melatonin (Melatonin 3 Mg Tablet) 3 mg PO QHS PRN PRN PRN Reason: INSOMNIA Midodrine (Midodrine Hcl 5 Mg Tablet) 5 mg PO DAILY PRN PRN PRN Reason: hypotension Midodrine (Midodrine Hcl 5 Mg Tablet) 10 mg PO X1 PRN PRN Reason: FOR SBP <100 Midodrine (Midodrine Hcl 5 Mg Tablet) 5 mg PO MoWeFr [facility] Nystatin (Nystatin 500,000 Unit/5 Ml Udc) 500,000 unit PO 4X/DAY [facility] Last Admin: 10/01/20 23:19 Dose: 500,000 unit Documented by: Ondansetron HCl (Ondansetron 4 Mg/2 Ml Vial) 4 mg IV Q8H PRN PRN PRN Reason: NAUSEA/VOMITING Oxycodone HCl (Oxycodone 5 Mg Tablet) 5 mg PO Q4H PRN PRN PRN Reason: Pain Score 4-5 Pantoprazole Sodium (Pantoprazole Sodium 40 Mg Tablet) 40 mg PO DAILY [facility] Last Admin: 10/01/20 09:46 Dose: 40 mg Documented by: Pregabalin (Pregabalin 50 Mg Capsule) 100 mg PO BID [facility] Last Admin: 10/01/20 23:18 Dose: 100 mg Documented by: Rizatriptan Benzoate (Rizatriptan Benzoate 10 Mg Tablet) 10 mg PO MOWEFR PRN PRN Reason: MIGRAINE SYMPTOMS Senna/Docusate Sodium (Senna/Docusate Sodium 1 Tablet) 2 tablet PO BID PRN PRN PRN Reason: Constipation Sodium Chloride (0.9% Saline Lock 10 Ml Syringe) 10 - 40 ml IV UD PRN PRN Reason: SALINE FLUSH Last Admin: 10/01/20 23:01 Dose: 10 ml Documented by: Medical Necessity - Tobacco Use Smoking Status: Never smoker Tobacco Use: Non-smoker Assessment/Plan All Active Problems (Last Updated 08/19/20 @ 12:[address] Oscar King, DO) Hypotension (Acute) Urinary tract infection (Acute) Infectious encephalopathy (Acute) Closed head injury (Acute) Severe sepsis (Acute) Acute encephalopathy (Acute) Severe sepsis due to UTI (Acute) Obstruction of right ureteropelvic junction due to stone (Resolved) Hydronephrosis of right kidney (Resolved) Problem with dialysis access (Resolved) Difficulty swallowing (Resolved) #1 severe sepsis-probably secondary to urinary tract infection, patient's CODE STATUS was changed today to DNR CC arrest without intubation, we will continue present antibiotic coverage and await blood culture results-urine culture was negative for growth. 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 INR today was 5.3 Inpatient E&M: 23933 Subs Hosp L2
--- NOTE | 2020-10-02 12:32 | CASEMGMT ---
Social Work SW spoke with Brionna at [facility] and updated on pt. [facility] is able to accept pt back when medically ready and pt does not need a negative covid test to return. Plan: [facility], when medically ready RAN Ness
[2020-10-02] MEDS: Lactulose 20 GM/30 ML UDC 30 GM PO (12:34)
--- NOTE | 2020-10-02 13:20 | PCM.PN.PUL ---
Patient Problems: Active and Suspected Problems (Last Updated 08/19/20 @ 12:[address] Oscar King, DO) Hypotension (Acute) Urinary tract infection (Acute) Infectious encephalopathy (Acute) Closed head injury (Acute) Severe sepsis (Acute) Acute encephalopathy (Acute) Subjective: The patient was seen and examined at the bedside this morning. Events from the last 24 hours have been reviewed. The patient is currently afebrile, hemodynamically stable and maintaining appropriate oxygen saturations on room air. A CODE BLUE was called early this morning on the PCU when the patient became nonresponsive during dialysis. However, upon attempting to do chest compressions, the patient immediately awoke. No advanced cardiac life support was ever required. There did not appear to be any sort of arrhythmia genic event. It is unclear whether the patient's suspected sleep apnea is what led to his apneic event and subsequent respiratory arrest. The patient was placed on BiPAP and transferred back to the ICU. In the interim, the patient's hospitalist did discuss the patient's case with the patient and his family. Accordingly, CODE STATUS was updated to DNR CCA without intubation. Objective: The patient's most recent lab work, culture data and imaging studies have all been personally reviewed. Surface echocardiogram from August 2020 revealed normal LV size with an ejection fraction of 65%. Blood and urine cultures are pending. - Physical Exam Vitals/I&O's: Vital Signs Temp Pulse Resp BP Pulse Ox 97.2 F L 94 18 95/63 94 10/02/20 08:35 10/02/20 12:30 10/02/20 12:30 10/02/20 12:30 10/02/20 12:30 Oxygen Flow Rate (L/min) 2 Oxygen Delivery Method Room Air Weight: 363 lb 15.731 oz Body Mass Index (BMI) 46.7 Finger Stick Blood Glucose 148 Intake and Output for Last 24 Hours 09/30/20 10/01/20 10/02/20 23:59 23:59 23:59 Intake Total 1540 / 1540 1150 / 1250 150 / 150 Output Total 0 / 0 141 / 141 Balance 1540 / 1540 1150 / 1250 9 / 9 General: Alert, No apparent distress HEENT: Atraumatic, Normocephalic Oral: Moist Mucosa Neck: Supple, No Nodes, Trachea Midline Lungs: No rhonchi, No wheeze, No rales, Diminished Cardiovascular: Regular rate, Regular Rhythm Abdomen: Bowel Sounds Present, Soft, Non Tender, Obese Extremities: No clubbing, No cyanosis Musculoskeletal: No Tenderness to Palpation of Joints or Extremities Lymphatic: No Cervical, Supraclavicular, or Inguinal Adenopathy Neurological: - - No focal neurological deficits. Psych/Mental Status: Flat Affect Labs (Last 48 Hours) 09/30/20 09/30/20 09/30/20 19:15 19:15 19:15 WBC 14.2 H RBC 3.68 L Hgb 10.6 L Hct 34.6 L MCV 94.0 MCH 28.8 MCHC 30.6 L RDW Std Deviation 51.3 H RDW Coeff of Baljit 15.0 H Plt Count 250 MPV 11.4 Immature Gran % (Auto) 3.900 H Neut % (Auto) 75.7 H Lymph % (Auto) 13.9 L [place] % (Auto) 5.3 Eos % (Auto) 0.4 Baso % (Auto) 0.8 Absolute Neuts (auto) 10.8 H Absolute Lymphs (auto) 1.98 Nucleated RBC % 0 PT 45.4 H INR 5.0 H* Sodium 133 L Potassium 3.5 Chloride 95 L Carbon Dioxide 29.0 Anion Gap 9 BUN 38 H Creatinine 7.32 H Estim Creat Clear Calc 13.80 Est GFR (MDRD) Af Amer 10 L Est GFR (MDRD) Non-Af 9 L BUN/Creatinine Ratio 5.2 L Glucose 106 Lactic Acid Calcium 10.6 H Magnesium Total Bilirubin AST ALT Alkaline Phosphatase Total Protein Albumin Globulin Albumin/Globulin Ratio Urine Color Urine Clarity Urine pH Ur Specific Hanna Urine Protein Urine Glucose (UA) Urine Ketones Urine Occult Blood Urine Nitrite Urine Bilirubin Urine Urobilinogen Ur Leukocyte Esterase Urine RBC Urine WBC Ur Squamous Epith Cells Urine Bacteria Urine Mucus POC Glucose 09/30/20 09/30/20 09/30/20 19:15 19:55 21:41 WBC RBC Hgb Hct MCV MCH MCHC RDW Std Deviation RDW Coeff of Baljit Plt Count MPV Immature Gran % (Auto) Neut % (Auto) Lymph % (Auto) [place] % (Auto) Eos % (Auto) Baso % (Auto) Absolute Neuts (auto) Absolute Lymphs (auto) Nucleated RBC % PT INR Sodium Potassium Chloride Carbon Dioxide Anion Gap BUN Creatinine Estim Creat Clear Calc Est GFR (MDRD) Af Amer Est GFR (MDRD) Non-Af BUN/Creatinine Ratio Glucose Lactic Acid Cancelled 2.5 H* Calcium Magnesium 2.4 Total Bilirubin AST ALT Alkaline Phosphatase Total Protein Albumin Globulin Albumin/Globulin Ratio Urine Color Urine Clarity Urine pH Ur Specific Hanna Urine Protein Urine Glucose (UA) Urine Ketones Urine Occult Blood Urine Nitrite Urine Bilirubin Urine Urobilinogen Ur Leukocyte Esterase Urine RBC Urine WBC Ur Squamous Epith Cells Urine Bacteria Urine Mucus POC Glucose 09/30/20 10/01/20 10/01/20 22:10 02:17 05:15 WBC 15.8 H RBC 3.70 L Hgb 10.4 L Hct 35.1 L MCV 94.9 H MCH 28.1 MCHC 29.6 L RDW Std Deviation 52.3 H RDW Coeff of Baljit 14.9 H Plt Count 227 MPV 11.2 Immature Gran % (Auto) 3.500 H Neut % (Auto) 82.4 H Lymph % (Auto) 7.4 L [place] % (Auto) 5.5 Eos % (Auto) 0.6 Baso % (Auto) 0.6 Absolute Neuts (auto) 13.0 H Absolute Lymphs (auto) 1.17 Nucleated RBC % 0 PT INR Sodium Potassium Chloride Carbon Dioxide Anion Gap BUN Creatinine Estim Creat Clear Calc Est GFR (MDRD) Af Amer Est GFR (MDRD) Non-Af BUN/Creatinine Ratio Glucose Lactic Acid 1.5 Calcium Magnesium Total Bilirubin AST ALT Alkaline Phosphatase Total Protein Albumin Globulin Albumin/Globulin Ratio Urine Color Brown Urine Clarity Turbid Urine pH 7.0 Ur Specific Hanna 1.010 Urine Protein 500 H Urine Glucose (UA) Normal Urine Ketones 5 H Urine Occult Blood 250 H Urine Nitrite Positive H Urine Bilirubin Negative Urine Urobilinogen Normal Ur Leukocyte Esterase 500 H Urine RBC 0 SEEN Urine WBC >100 SEEN Ur Squamous Epith Cells 0 SEEN Urine Bacteria 4+ Urine Mucus 0 SEEN POC Glucose 10/01/20 10/01/20 10/01/20 05:15 05:15 05:40 WBC RBC Hgb Hct MCV MCH MCHC RDW Std Deviation RDW Coeff of Baljit Plt Count MPV Immature Gran % (Auto) Neut % (Auto) Lymph % (Auto) [place] % (Auto) Eos % (Auto) Baso % (Auto) Absolute Neuts (auto) Absolute Lymphs (auto) Nucleated RBC % PT Cancelled 46.5 H INR Cancelled 5.1 H* Sodium 134 L Potassium 3.5 Chloride 96 L Carbon Dioxide 27.0 Anion Gap 11 BUN 39 H Creatinine 7.42 H* Estim Creat Clear Calc 13.61 Est GFR (MDRD) Af Amer 10 L Est GFR (MDRD) Non-Af 8 L BUN/Creatinine Ratio 5.3 L Glucose 134 H Lactic Acid Calcium 10.2 H Magnesium Total Bilirubin 0.40 AST 21 ALT < 6 L Alkaline Phosphatase 102 Total Protein 9.1 H Albumin 2.6 L Globulin 6.5 H Albumin/Globulin Ratio 0.4 L Urine Color Urine Clarity Urine pH Ur Specific [place]anna Urine Protein Urine Glucose (UA) Urine Ketones Urine Occult Blood Urine Nitrite Urine Bilirubin Urine Urobilinogen Ur Leukocyte Esterase Urine RBC Urine WBC Ur Squamous Epith Cells Urine Bacteria Urine Mucus POC Glucose 10/01/20 10/01/20 10/01/20 06:55 09:38 12:37 WBC RBC Hgb Hct MCV MCH MCHC RDW Std Deviation RDW Coeff of Baljit Plt Count MPV Immature Gran % (Auto) Neut % (Auto) Lymph % (Auto) [place] % (Auto) Eos % (Auto) Baso % (Auto) Absolute Neuts (auto) Absolute Lymphs (auto) Nucleated RBC % PT INR Sodium Potassium Chloride Carbon Dioxide Anion Gap BUN Creatinine Estim Creat Clear Calc Est GFR (MDRD) Af Amer Est GFR (MDRD) Non-Af BUN/Creatinine Ratio Glucose Lactic Acid Calcium Magnesium Total Bilirubin AST ALT Alkaline Phosphatase Total Protein Albumin Globulin Albumin/Globulin Ratio Urine Color Urine Clarity Urine pH Ur Specific [place]anna Urine Protein Urine Glucose (UA) Urine Ketones Urine Occult Blood Urine Nitrite Urine Bilirubin Urine Urobilinogen Ur Leukocyte Esterase Urine RBC Urine WBC Ur Squamous Epith Cells Urine Bacteria Urine Mucus POC Glucose 156 H 163 H 192 H 10/01/20 10/01/20 10/02/20 17:12 22:09 06:25 WBC 14.6 H RBC 3.38 L Hgb 9.4 L Hct 31.5 L MCV 93.2 MCH 27.8 MCHC 29.8 L RDW Std Deviation 51.1 H RDW Coeff of Baljit 15.0 H Plt Count 220 MPV 11.3 Immature Gran % (Auto) 2.100 H Neut % (Auto) 85.2 H Lymph % (Auto) 7.8 L [place] % (Auto) 3.7 Eos % (Auto) 0.9 Baso % (Auto) 0.3 Absolute Neuts (auto) 12.4 H Absolute Lymphs (auto) 1.14 Nucleated RBC % 0 PT INR Sodium Potassium Chloride Carbon Dioxide Anion Gap BUN Creatinine Estim Creat Clear Calc Est GFR (MDRD) Af Amer Est GFR (MDRD) Non-Af BUN/Creatinine Ratio Glucose Lactic Acid Calcium Magnesium Total Bilirubin AST ALT Alkaline Phosphatase Total Protein Albumin Globulin Albumin/Globulin Ratio Urine Color Urine Clarity Urine pH Ur Specific [place]anna Urine Protein Urine Glucose (UA) Urine Ketones Urine Occult Blood Urine Nitrite Urine Bilirubin Urine Urobilinogen Ur Leukocyte Esterase Urine RBC Urine WBC Ur Squamous Epith Cells Urine Bacteria Urine Mucus POC Glucose 208 H 194 H 10/02/20 10/02/20 10/02/20 06:25 06:25 06:40 WBC RBC Hgb Hct MCV MCH MCHC RDW Std Deviation RDW Coeff of Baljit Plt Count MPV Immature Gran % (Auto) Neut % (Auto) Lymph % (Auto) [place] % (Auto) Eos % (Auto) Baso % (Auto) Absolute Neuts (auto) Absolute Lymphs (auto) Nucleated RBC % PT 47.8 H INR 5.3 H* Sodium 131 L Potassium 3.7 Chloride 96 L Carbon Dioxide 23.0 Anion Gap 12 BUN 50 H Creatinine 8.67 H* Estim Creat Clear Calc 11.65 Est GFR (MDRD) Af Amer 8 L Est GFR (MDRD) Non-Af 7 L BUN/Creatinine Ratio 5.8 L Glucose 210 H Lactic Acid Calcium 9.6 Magnesium Total Bilirubin AST ALT Alkaline Phosphatase Total Protein Albumin Globulin Albumin/Globulin Ratio Urine Color Urine Clarity Urine pH Ur Specific [place] Urine Protein Urine Glucose (UA) Urine Ketones Urine Occult Blood Urine Nitrite Urine Bilirubin Urine Urobilinogen Ur Leukocyte Esterase Urine RBC Urine WBC Ur Squamous Epith Cells Urine Bacteria Urine Mucus POC Glucose 188 H Microbiology 09/30/20 22:10 Urine Catheter - Catheter Urine Culture - Preliminary Culture exhibits no growth. Clinical Impression(s) from Imaging Studies Brain CT 09/30/20 17:58 IMPRESSION: Negative Brain CT without contrast. Electronically Signed: Khris Cole MD at 19:30 EDT , Service support , Chest X-Ray 09/30/20 18:36 IMPRESSION: Incomplete expansion of the lungs with mild atelectasis in both lung bases. Electronically Signed: Khris Cole MD at 19:32 EDT , Service support , Current Medications Acetaminophen (Acetaminophen 325 Mg Tablet) 650 mg PO Q6H PRN PRN PRN Reason: Pain Score 1-10/Temp > 100.7 F Albuterol Sulfate (Albuterol 2.5 Mg/3 Ml Vial.Neb.) 2.5 mg INHALATION Q2H PRN PRN PRN Reason: Dyspnea, wheezing Amitriptyline HCl (Amitriptyline 25 Mg Tablet) 25 mg PO QHS [facility] Last Admin: 10/01/20 23:34 Dose: 25 mg Documented by: Aspirin (Aspirin 81 Mg Tab.Chew) 81 mg PO DAILY@0800 [facility] Last Admin: 10/01/20 09:46 Dose: 81 mg Documented by: Calcium Acetate (Calcium Acetate 667 Mg Capsule) 1,334 mg PO TIDCM [facility] Last Admin: 10/02/20 08:53 Dose: Not Given Documented by: Fentanyl Citrate (Fentanyl 100 Mcg/2 Ml Ampul) 25 mcg IV Q4H PRN PRN PRN Reason: severe pain 6-10/10 Haloperidol Lactate (Haloperidol Lactate 5 Mg/Ml Vial) 2 mg IV Q4H PRN PRN PRN Reason: SEVERE AGITATION Piperacillin Sod/Tazobactam (Sod 3.375 gm/ Sodium Chloride) 50 mls @ 12.5 mls/hr IV Q12 [facility] Last Infusion: 10/02/20 03:05 Dose: Infused Documented by: Vancomycin IV Pharmacy to Dose (1 each/ Sodium Chloride) 500 mls @ 250 mls/hr IV PRN PRN; Protocol PRN Reason: Rx to Dose Sodium Chloride () 250 mls @ 15 mls/hr IV .[id number] PRN PRN Reason: Saline Flush Vancomycin HCl (Vancomycin) 1,000 mg in 200 mls @ 200 mls/hr IV X1 ONE Stop: 10/02/20 18:59 Insulin Glargine (Insulin Glargine 100 Units/Ml Pen) 20 units SC QHS [facility] Last Admin: 10/01/20 22:13 Dose: 20 units Documented by: Insulin Human Lispro (Insulin Lispro 100 Unit/Ml Insuln.Pen) 15 unit SC TIDCM [facility] Last Admin: 10/02/20 08:53 Dose: Not Given Documented by: Insulin Human Lispro (Insulin Lispro 100 Unit/Ml Insuln.Pen) 0 unit SC ACHS [facility]; Protocol Last Admin: 10/02/20 06:41 Dose: 1 u Documented by: Levothyroxine Sodium (Levothyroxine 50 Mcg Tablet) 50 mcg PO DAILY@0600 [facility] Last Admin: 10/02/20 06:41 Dose: 50 mcg Documented by: Melatonin (Melatonin 3 Mg Tablet) 3 mg PO QHS PRN PRN PRN Reason: INSOMNIA Midodrine (Midodrine Hcl 5 Mg Tablet) 5 mg PO DAILY PRN PRN PRN Reason: hypotension Midodrine (Midodrine Hcl 5 Mg Tablet) 10 mg PO X1 PRN PRN Reason: FOR SBP <100 Midodrine (Midodrine Hcl 5 Mg Tablet) 5 mg PO MoWeFr [facility] Nystatin (Nystatin 500,000 Unit/5 Ml Udc) 500,000 unit PO 4X/DAY [facility] Last Admin: 10/01/20 23:19 Dose: 500,000 unit Documented by: Ondansetron HCl (Ondansetron 4 Mg/2 Ml Vial) 4 mg IV Q8H PRN PRN PRN Reason: NAUSEA/VOMITING Oxycodone HCl (Oxycodone 5 Mg Tablet) 5 mg PO Q4H PRN PRN PRN Reason: Pain Score 4-5 Pantoprazole Sodium (Pantoprazole Sodium 40 Mg Tablet) 40 mg PO DAILY [facility] Last Admin: 10/01/20 09:46 Dose: 40 mg Documented by: Pregabalin (Pregabalin 50 Mg Capsule) 100 mg PO BID [facility] Last Admin: 10/01/20 23:18 Dose: 100 mg Documented by: Rizatriptan Benzoate (Rizatriptan Benzoate 10 Mg Tablet) 10 mg PO MOWEFR PRN PRN Reason: MIGRAINE SYMPTOMS Senna/Docusate Sodium (Senna/Docusate Sodium 1 Tablet) 2 tablet PO BID PRN PRN PRN Reason: Constipation Sodium Chloride (0.9% Saline Lock 10 Ml Syringe) 10 - 40 ml IV UD PRN PRN Reason: SALINE FLUSH Last Admin: 10/01/20 23:01 Dose: 10 ml Documented by: Medical Necessity - Tobacco Use Smoking Status: Never smoker Tobacco Use: Non-smoker Assessment/Plan All Active Problems (Last Updated 08/19/20 @ 12:[address] Oscar King, DO) Hypotension (Acute) Urinary tract infection (Acute) Infectious encephalopathy (Acute) Closed head injury (Acute) Severe sepsis (Acute) Acute encephalopathy (Acute) Severe sepsis due to UTI (Acute) Obstruction of right ureteropelvic junction due to stone (Resolved) Hydronephrosis of right kidney (Resolved) Problem with dialysis access (Resolved) Difficulty swallowing (Resolved) RECOMMENDATIONS: 1. Continue midodrine per home regimen. 2. Encourage incentive spirometer use and mobilize patient as tolerated. 3. Continue to hold Coumadin and check INR daily. 4. Continue antimicrobials. 5. Ongoing goals of care discussions with the patient and family. 6. Given overall clinical stability and recent change in CODE STATUS, the patient can be transferred back out of the intensive care unit. IMPRESSIONS: 1. Severe sepsis with concern for urinary tract source of infection Plan to continue current supportive measures including broad-spectrum antimicrobials. The patient has remained hemodynamically stable. 2. Coagulopathy The patient presented to the hospital with an elevated INR greater than 5. However, there are no overt signs of any active blood loss. Therefore, we will plan to hold Coumadin and continue to check INR daily. 3. End-stage renal disease on hemodialysis Nephrology consultation pending. Continue hemodialysis per nephrology recommendations. 4. Anemia of chronic disease/diabetes/hyperlipidemia/hypothyroidism/obesity Complicates care, management, recovery and prognosis. Continue home medications as indicated. This note was generated with [id number] dictation software. It may contain incorrect words, spelling, and punctuation that were not noted in checking the note before signing. Inpatient E&M: 04802 Subs Hosp L3
[2020-10-02] MEDS: Midodrine HCl 5 MG Tablet PO (13:21)
[2020-10-02 14:15] LABS: Bedside Glucose 163 mg/dL (70-110)
[2020-10-02] MEDS: Epoetin Alfa epbx 10,000 UNITS/ML 6000 UNIT IV (16:20)
[2020-10-02 16:40] LABS: Bedside Glucose 179 mg/dL (70-110)
[2020-10-02] MEDS: Heparin 10,000 UNITS/10 ML Vial 3600 UNITS IV (17:58)
[2020-10-02] MEDS: Vancomycin IV 1,000 MG/200 ML BAG 200 MG IV (17:59)
--- NOTE | 2020-10-02 17:59 | DIALYSIS ---
hemodialysis completed x 2.5 hrs. pt wanted off tx 30 min early , pt c/o rectal pain and needing to have a BM. A large hard stool was disimpacted from pts rectum. Net UF 200ml. See HD flowsheet on chart.
[2020-10-02] MEDS: Amitriptyline 25 MG Tablet PO (21:10)
[2020-10-02] MEDS: NYSTATIN 500,000 UNIT/5 ML UDC 500000 UNIT PO (21:10)
[2020-10-02] MEDS: Pregabalin 50 MG Capsule 100 MG PO (21:15)
[2020-10-03] VITALS (18 sets, daily range): BP systolic 82–126; BP diastolic 28–63; PULSE 80–99; RESP 14–22; TEMP 36.2–36.7; O2SAT 92–98
--- NOTE | 2020-10-03 02:00 | NURSING ---
Pt seen on camera reaching under self and then throwing what appeared to be stool across the room. When questioned, pt stated I'm digging myself out since no one else will do it. Just leave me be. Pt advised to call nurse when finished.
--- NOTE | 2020-10-03 02:19 | NURSING ---
Pt's hands cleaned of stool, rolled onto side and this RN removed lg amt tightly formed stool manually. Pt stated that feels so much better, maybe I can get comfortable and go to sleep now after stool removed. Pt washed and linens changed.
--- NOTE | 2020-10-03 03:40 | NURSING ---
Offered pt PRN midodrine as per orders and explained to pt reason d/t low BP, pt refused to take medicine stating I just want to go to sleep and not wake up. I'm not taking any more medicine to keep me alive longer than I need to be. Offered pt oxygen as well via NC d/t p.ox 85% while asleep and again refused treatment stating didn't you hear anything I just said? Pt educated on the risks of hypotension and hypoxia, states I don't care.
[2020-10-03 04:52] LABS: Absolute Lymphocyte Count 1.02 X10^3/uL (0.83-4.51); Absolute Neutrophil Count 10.9 X10^3/uL (2.0-7.7); Basophil# 0.04 X10^3/uL; Basophil% 0.3 % (0-1); Eosinophil# 0.12 X10^3/uL; Eosinophils% 0.9 % (0-5); Hematocrit 28.7 % (40-54); Hemoglobin 8.5 g/dL (13.0-16.5); Lymphocyte # 1.02 X10^3/ul (4.0); Lymphocyte % 7.9 % (19-41); Mean Corp Hgb Conc 29.6 g/dL (32-36); Mean Corpuscular Hgb 27.7 pg (27.0-32.0); Mean Corpuscular Volume 93.5 fL (80-94); Mean Platelet Vol. 10.8 fl (6.2-12.0); Monocyte# 0.52 X10^3/uL; NRBC Flagged by Analyzer 0 % (0-5); Platelet Count 199 K/mm3 (150-450); RBC Distribution Width CV 15.2 % (11.6-14.6); RBC Distribution Width SD 52.6 fl (35.1-43.9); Red Blood Count 3.07 M/mm3 (4.6-6.2); White Blood Count 12.8 K/mm3 (4.4-11.0)
[2020-10-03 05:01] LABS: Prothrombin Time (Protime)PT. 39.9 SECONDS (11.7-14.9)
[2020-10-03 05:04] LABS: International Normalized Ratio 4.2
[2020-10-03 05:06] LABS: Anion Gap 11 (5-15); BUN 22 mg/dL (7-18); BUN/Creat Ratio 4.6 RATIO (10-20); Chloride 98 mmol/L (98-107); Creatinine, Serum 4.82 mg/dL (0.70-1.30); EST Glomerular Filtration Rate 14 mL/min (>60); Est Glom Filt Rate - Afr Amer 17 mL/min (>60); Estimated Creatinine Clearance 20.95 ml/min; Glucose 209 mg/dL (74-106); Potassium 3.4 mmol/L (3.5-5.1); Sodium Level 134 mmol/L (136-145)
[2020-10-03] MEDS: Midodrine HCl 5 MG Tablet PO ×3 (06:53→18:19)
[2020-10-03] MEDS: Levothyroxine 50 MCG Tablet PO (06:53)
--- NOTE | 2020-10-03 07:03 | PCM.PN.PUL ---
Patient Problems: Active and Suspected Problems (Last Updated 08/19/20 @ 12:[address] Oscar King, DO) Hypotension (Acute) Urinary tract infection (Acute) Infectious encephalopathy (Acute) Closed head injury (Acute) Severe sepsis (Acute) Acute encephalopathy (Acute) Subjective: The patient was seen and examined at the bedside this morning. Events from the last 24 hours have been reviewed. The patient is currently afebrile, hemodynamically stable and maintaining appropriate oxygen saturations on room air. No overnight events were noted by the nursing staff. However, the patient has been adamantly refusing to wear any form of BiPAP or supplemental oxygen via nasal cannula. He denies any shortness of breath or chest pain this morning. Objective: The patient's most recent lab work, culture data and imaging studies have all been personally reviewed. Surface echocardiogram from August 2020 revealed normal LV size with an ejection fraction of 65%. Blood and urine cultures are pending. - Physical Exam Vitals/I&O's: Vital Signs Temp Pulse Resp BP Pulse Ox 98 F 82 15 113/60 92 10/03/20 04:00 10/03/20 06:00 10/03/20 06:00 10/03/20 06:00 10/03/20 06:00 Oxygen Flow Rate (L/min) 2 Oxygen Delivery Method Room Air Weight: 350 lb 12.087 oz Body Mass Index (BMI) 46.7 Finger Stick Blood Glucose 148 Intake and Output for Last 24 Hours 10/01/20 10/02/20 10/03/20 23:59 23:59 23:59 Intake Total 1150 / 1250 350 / 350 170 / 170 Output Total 0 / 0 541 / 541 Balance 1150 / 1250 -191 / -191 170 / 170 General: Alert, Cooperative HEENT: Atraumatic, PERRLA, Normocephalic Oral: Moist Mucosa Neck: Supple, No Nodes, Trachea Midline Lungs: No rhonchi, No wheeze, No rales, Diminished Cardiovascular: Regular rate, Regular Rhythm, Normal S1, Normal S2, No murmurs Abdomen: Bowel Sounds Present, Soft, Non Tender, Obese Extremities: No clubbing, No cyanosis Skin: - - No significant change from previous Musculoskeletal: No Muscle Wasting Lymphatic: No Cervical, Supraclavicular, or Inguinal Adenopathy Neurological: Neuro grossly intact Psych/Mental Status: - - Currently resting comfortably in bed. Labs (Last 48 Hours) 10/01/20 10/01/20 10/01/20 06:55 09:38 12:37 WBC RBC Hgb Hct MCV MCH MCHC RDW Std Deviation RDW Coeff of Baljit Plt Count MPV Immature Gran % (Auto) Neut % (Auto) Lymph % (Auto) [place] % (Auto) Eos % (Auto) Baso % (Auto) Absolute Neuts (auto) Absolute Lymphs (auto) Nucleated RBC % PT INR Sodium Potassium Chloride Carbon Dioxide Anion Gap BUN Creatinine Estim Creat Clear Calc Est GFR (MDRD) Af Amer Est GFR (MDRD) Non-Af BUN/Creatinine Ratio Glucose Calcium POC Glucose 156 H 163 H 192 H 10/01/20 10/01/20 10/02/20 17:12 22:09 06:25 WBC 14.6 H RBC 3.38 L Hgb 9.4 L Hct 31.5 L MCV 93.2 MCH 27.8 MCHC 29.8 L RDW Std Deviation 51.1 H RDW Coeff of Baljit 15.0 H Plt Count 220 MPV 11.3 Immature Gran % (Auto) 2.100 H Neut % (Auto) 85.2 H Lymph % (Auto) 7.8 L [place] % (Auto) 3.7 Eos % (Auto) 0.9 Baso % (Auto) 0.3 Absolute Neuts (auto) 12.4 H Absolute Lymphs (auto) 1.14 Nucleated RBC % 0 PT INR Sodium Potassium Chloride Carbon Dioxide Anion Gap BUN Creatinine Estim Creat Clear Calc Est GFR (MDRD) Af Amer Est GFR (MDRD) Non-Af BUN/Creatinine Ratio Glucose Calcium POC Glucose 208 H 194 H 10/02/20 10/02/20 10/02/20 06:25 06:25 06:40 WBC RBC Hgb Hct MCV MCH MCHC RDW Std Deviation RDW Coeff of Baljit Plt Count MPV Immature Gran % (Auto) Neut % (Auto) Lymph % (Auto) [place] % (Auto) Eos % (Auto) Baso % (Auto) Absolute Neuts (auto) Absolute Lymphs (auto) Nucleated RBC % PT 47.8 H INR 5.3 H* Sodium 131 L Potassium 3.7 Chloride 96 L Carbon Dioxide 23.0 Anion Gap 12 BUN 50 H Creatinine 8.67 H* Estim Creat Clear Calc 11.65 Est GFR (MDRD) Af Amer 8 L Est GFR (MDRD) Non-Af 7 L BUN/Creatinine Ratio 5.8 L Glucose 210 H Calcium 9.6 POC Glucose 188 H 10/02/20 10/02/20 10/03/20 09:47 16:29 04:45 WBC 12.8 H RBC 3.07 L Hgb 8.5 L Hct 28.7 L MCV 93.5 MCH 27.7 MCHC 29.6 L RDW Std Deviation 52.6 H RDW Coeff of Baljit 15.2 H Plt Count 199 MPV 10.8 Immature Gran % (Auto) 1.900 H Neut % (Auto) 85.0 H Lymph % (Auto) 7.9 L [place] % (Auto) 4.0 Eos % (Auto) 0.9 Baso % (Auto) 0.3 Absolute Neuts (auto) 10.9 H Absolute Lymphs (auto) 1.02 Nucleated RBC % 0 PT INR Sodium Potassium Chloride Carbon Dioxide Anion Gap BUN Creatinine Estim Creat Clear Calc Est GFR (MDRD) Af Amer Est GFR (MDRD) Non-Af BUN/Creatinine Ratio Glucose Calcium POC Glucose 163 H 179 H 10/03/20 10/03/20 04:45 04:45 WBC RBC Hgb Hct MCV MCH MCHC RDW Std Deviation RDW Coeff of Baljit Plt Count MPV Immature Gran % (Auto) Neut % (Auto) Lymph % (Auto) [place] % (Auto) Eos % (Auto) Baso % (Auto) Absolute Neuts (auto) Absolute Lymphs (auto) Nucleated RBC % PT 39.9 H INR 4.2 H* Sodium 134 L Potassium 3.4 L Chloride 98 Carbon Dioxide 25.0 Anion Gap 11 BUN 22 H Creatinine 4.82 H Estim Creat Clear Calc 20.95 Est GFR (MDRD) Af Amer 17 L Est GFR (MDRD) Non-Af 14 L BUN/Creatinine Ratio 4.6 L Glucose 209 H Calcium 9.0 POC Glucose Microbiology 09/30/20 22:10 Urine Catheter - Catheter Urine Culture - Preliminary Culture exhibits no growth. Clinical Impression(s) from Imaging Studies Brain CT 09/30/20 17:58 IMPRESSION: Negative Brain CT without contrast. Electronically Signed: Khris Cole MD at 19:30 EDT , Service support , Chest X-Ray 09/30/20 18:36 IMPRESSION: Incomplete expansion of the lungs with mild atelectasis in both lung bases. Electronically Signed: Khris Cole MD at 19:32 EDT , Service support , Current Medications Acetaminophen (Acetaminophen 325 Mg Tablet) 650 mg PO Q6H PRN PRN PRN Reason: Pain Score 1-10/Temp > 100.7 F Albuterol Sulfate (Albuterol 2.5 Mg/3 Ml Vial.Neb.) 2.5 mg INHALATION Q2H PRN PRN PRN Reason: Dyspnea, wheezing Amitriptyline HCl (Amitriptyline 25 Mg Tablet) 25 mg PO QHS [facility] Last Admin: 10/02/20 21:10 Dose: 25 mg Documented by: Aspirin (Aspirin 81 Mg Tab.Chew) 81 mg PO DAILY@0800 [facility] Last Admin: 10/02/20 17:58 Dose: Not Given Documented by: Calcium Acetate (Calcium Acetate 667 Mg Capsule) 1,334 mg PO TIDCM [facility] Last Admin: 10/02/20 17:59 Dose: Not Given Documented by: Fentanyl Citrate (Fentanyl 100 Mcg/2 Ml Ampul) 25 mcg IV Q4H PRN PRN PRN Reason: severe pain 6-10/10 Haloperidol Lactate (Haloperidol Lactate 5 Mg/Ml Vial) 2 mg IV Q4H PRN PRN PRN Reason: SEVERE AGITATION Piperacillin Sod/Tazobactam (Sod 3.375 gm/ Sodium Chloride) 50 mls @ 12.5 mls/hr IV Q12 [facility] Last Infusion: 10/03/20 01:20 Dose: Infused Documented by: Vancomycin IV Pharmacy to Dose (1 each/ Sodium Chloride) 500 mls @ 250 mls/hr IV PRN PRN; Protocol PRN Reason: Rx to Dose Sodium Chloride () 250 mls @ 15 mls/hr IV .[id number] PRN PRN Reason: Saline Flush Insulin Glargine (Insulin Glargine 100 Units/Ml Pen) 20 units SC QHS [facility] Last Admin: 10/02/20 21:11 Dose: Not Given Documented by: Insulin Human Lispro (Insulin Lispro 100 Unit/Ml Insuln.Pen) 15 unit SC TIDCM [facility] Last Admin: 10/02/20 17:45 Dose: Not Given Documented by: Insulin Human Lispro (Insulin Lispro 100 Unit/Ml Insuln.Pen) 0 unit SC ACHS [facility]; Protocol Last Admin: 10/02/20 21:11 Dose: Not Given Documented by: Levothyroxine Sodium (Levothyroxine 50 Mcg Tablet) 50 mcg PO DAILY@0600 [facility] Last Admin: 10/03/20 06:53 Dose: 50 mcg Documented by: Melatonin (Melatonin 3 Mg Tablet) 3 mg PO QHS PRN PRN PRN Reason: INSOMNIA Midodrine (Midodrine Hcl 5 Mg Tablet) 5 mg PO DAILY PRN PRN PRN Reason: hypotension Last Admin: 10/03/20 06:53 Dose: 5 mg Documented by: Midodrine (Midodrine Hcl 5 Mg Tablet) 10 mg PO X1 PRN PRN Reason: FOR SBP <100 Midodrine (Midodrine Hcl 5 Mg Tablet) 5 mg PO MoWeFr [facility] Last Admin: 10/02/20 13:21 Dose: 5 mg Documented by: Nystatin (Nystatin 500,000 Unit/5 Ml Udc) 500,000 unit PO 4X/DAY [facility] Last Admin: 10/02/20 21:10 Dose: 500,000 unit Documented by: Ondansetron HCl (Ondansetron 4 Mg/2 Ml Vial) 4 mg IV Q8H PRN PRN PRN Reason: NAUSEA/VOMITING Oxycodone HCl (Oxycodone 5 Mg Tablet) 5 mg PO Q4H PRN PRN PRN Reason: Pain Score 4-5 Pantoprazole Sodium (Pantoprazole Sodium 40 Mg Tablet) 40 mg PO DAILY [facility] Last Admin: 10/02/20 17:59 Dose: Not Given Documented by: Polyethylene Glycol (Polyethylene Glycol 3350 17 Gm Packet) 17 gm PO DAILY [facility] Pregabalin (Pregabalin 50 Mg Capsule) 100 mg PO BID [facility] Last Admin: 10/02/20 21:15 Dose: 100 mg Documented by: Rizatriptan Benzoate (Rizatriptan Benzoate 10 Mg Tablet) 10 mg PO MOWEFR PRN PRN Reason: MIGRAINE SYMPTOMS Senna/Docusate Sodium (Senna/Docusate Sodium 1 Tablet) 2 tablet PO BID PRN PRN PRN Reason: Constipation Sodium Chloride (0.9% Saline Lock 10 Ml Syringe) 10 - 40 ml IV UD PRN PRN Reason: SALINE FLUSH Last Admin: 10/01/20 23:01 Dose: 10 ml Documented by: Medical Necessity - Tobacco Use Smoking Status: Never smoker Tobacco Use: Non-smoker Assessment/Plan All Active Problems (Last Updated 08/19/20 @ 12:[address] Oscar King, DO) Hypotension (Acute) Urinary tract infection (Acute) Infectious encephalopathy (Acute) Closed head injury (Acute) Severe sepsis (Acute) Acute encephalopathy (Acute) Severe sepsis due to UTI (Acute) Obstruction of right ureteropelvic junction due to stone (Resolved) Hydronephrosis of right kidney (Resolved) Problem with dialysis access (Resolved) Difficulty swallowing (Resolved) RECOMMENDATIONS: 1. Continue midodrine per home regimen. 2. Encourage incentive spirometer use and mobilize patient as tolerated. 3. Continue to hold Coumadin and check INR daily. 4. Continue antimicrobials to complete 7 day course. 5. Ongoing goals of care discussions with the patient and family. 6. Given the patient's lack of further ICU needs, will sign off. Please call with any additional questions. IMPRESSIONS: 1. Severe sepsis with concern for urinary tract source of infection Plan to continue current supportive measures including antimicrobials, with plans to complete 7 day treatment course. The patient has remained hemodynamically stable. 2. Coagulopathy The patient presented to the hospital with an elevated INR greater than 5. However, there are no overt signs of any active blood loss. Therefore, we will plan to hold Coumadin and continue to check INR daily. 3. End-stage renal disease on hemodialysis Nephrology is following. Continue hemodialysis per nephrology recommendations. 4. Anemia of chronic disease/diabetes/hyperlipidemia/hypothyroidism/obesity Complicates care, management, recovery and prognosis. Continue home medications as indicated. The patient's CODE STATUS was updated to DNR CCA without intubation. The patient continues to refuse therapies. This note was generated with [employer] software. It may contain incorrect words, spelling, and punctuation that were not noted in checking the note before signing. Inpatient E&M: 35645 Subs Hosp L2
[2020-10-03 08:05] LABS: Bedside Glucose 194 mg/dL (70-110)
[2020-10-03] MEDS: Insulin Lispro 100 UNIT/ML INSULN.PEN 15 UNIT SC ×2 (09:01→11:26)
[2020-10-03] MEDS: NYSTATIN 500,000 UNIT/5 ML UDC 500000 UNIT PO ×4 (09:01→21:41)
[2020-10-03] MEDS: Insulin Lispro 100 UNIT/ML INSULN.PEN SC ×3 (09:01→21:43)
[2020-10-03] MEDS: Aspirin 81 MG TAB.CHEW PO (09:02)
[2020-10-03] MEDS: Calcium Acetate 667 MG Capsule 1334 MG PO ×3 (09:02→18:16)
[2020-10-03] MEDS: Polyethylene Glycol 3350 17 GM PACKET PO (09:02)
[2020-10-03] MEDS: Pregabalin 50 MG Capsule 100 MG PO ×2 (09:02→21:53)
[2020-10-03] MEDS: Pantoprazole Sodium 40 MG Tablet PO (09:02)
[2020-10-03 11:36] LABS: Bedside Glucose 163 mg/dL (70-110)
--- NOTE | 2020-10-03 13:48 | PCM.PROGNOTE ---
Patient Problems: Active and Suspected Problems (Last Updated 08/19/20 @ 12:[address] Oscar King, DO) Hypotension (Acute) Urinary tract infection (Acute) Infectious encephalopathy (Acute) Closed head injury (Acute) Severe sepsis (Acute) Acute encephalopathy (Acute) Subjective: Patient was seen and examined today in ICU, he appears medically stable for transfer to PCU at this time, patient is afebrile, white blood cell count is decreasing, patient's cultures were negative for growth. Patient remains off oxygen at this time Objective: General: Alert, Cooperative, No apparent distress, Well developed, Well nourished HEENT: Atraumatic, PERRLA, EOMI, Normocephalic Oral: Moist Mucosa Neck: Supple, No JVD, Trachea Midline, Thyroid Normal Size and Texture Lungs: Clear to auscultation, Normal air movement, No rhonchi, No wheeze, No rales Cardiovascular: Regular rate, Regular Rhythm, Normal S1, Normal S2, No murmurs Abdomen: Bowel Sounds Present, Soft, Non Tender, Non-Distended Extremities: No clubbing, No cyanosis, No edema, Capillary Refill Less than 3 Seconds Skin: No rashes Musculoskeletal: No Tenderness to Palpation of Joints or Extremities Neurological: Cranial nerves II-XII grossly intact, Neuro grossly intact Psych/Mental Status: Patient is alert and answers simple questions appropriately. - Physical Exam Vitals/I&O's: Vital Signs Temp Pulse Resp BP Pulse Ox 97.1 F L 88 14 101/46 L 94 10/03/20 08:45 10/03/20 13:27 10/03/20 08:45 10/03/20 08:45 10/03/20 08:45 Oxygen Flow Rate (L/min) 2 Oxygen Delivery Method Room Air Weight: 159.1 kg Body Mass Index (BMI) 46.7 Finger Stick Blood Glucose 148 Intake and Output for Last 24 Hours 10/01/20 10/02/20 10/03/20 23:59 23:59 23:59 Intake Total 1150 / 1250 350 / 350 270 / 270 Output Total 0 / 0 541 / 541 0 / 0 Balance 1150 / 1250 -191 / -191 270 / 270 Microbiology Past 72 Hours 09/30/20 22:10 Urine Catheter - Catheter Urine Culture - Final Culture exhibits no growth. 09/30/20 19:55 Blood Culture (Wb) - Right Forearm Blood Culture - Preliminary No growth in 48 hours. Laboratory Results 10/02/20 09:47: POC Glucose 163 H 10/02/20 16:29: POC Glucose 179 H 10/03/20 04:45: WBC 12.8 H, RBC 3.07 L, Hgb 8.5 L, Hct 28.7 L, MCV 93.5, MCH 27.7, MCHC 29.6 L, RDW Std Deviation 52.6 H, RDW Coeff of Baljit 15.2 H, Plt Count 199, MPV 10.8, Immature Gran % (Auto) 1.900 H, Neut % (Auto) 85.0 H, Lymph % (Auto) 7.9 L, [place] % (Auto) 4.0, Eos % (Auto) 0.9, Baso % (Auto) 0.3, Absolute Neuts (auto) 10.9 H, Absolute Lymphs (auto) 1.02, Nucleated RBC % 0 10/03/20 04:45: PT 39.9 H, INR 4.2 H* 10/03/20 04:45: Sodium 134 L, Potassium 3.4 L, Chloride 98, Carbon Dioxide 25.0, Anion Gap 11, BUN 22 H, Creatinine 4.82 H, Estim Creat Clear Calc 20.95, Est GFR (MDRD) Af Amer 17 L, Est GFR (MDRD) Non-Af 14 L, BUN/Creatinine Ratio 4.6 L, Glucose 209 H, Calcium 9.0 10/03/20 07:49: POC Glucose 194 H 10/03/20 11:23: POC Glucose 163 H Current Medications Acetaminophen (Acetaminophen 325 Mg Tablet) 650 mg PO Q6H PRN PRN PRN Reason: Pain Score 1-10/Temp > 100.7 F Albuterol Sulfate (Albuterol 2.5 Mg/3 Ml Vial.Neb.) 2.5 mg INHALATION Q2H PRN PRN PRN Reason: Dyspnea, wheezing Amitriptyline HCl (Amitriptyline 25 Mg Tablet) 25 mg PO QHS [facility] Last Admin: 10/02/20 21:10 Dose: 25 mg Documented by: Aspirin (Aspirin 81 Mg Tab.Chew) 81 mg PO DAILY@0800 [facility] Last Admin: 10/03/20 09:02 Dose: 81 mg Documented by: Calcium Acetate (Calcium Acetate 667 Mg Capsule) 1,334 mg PO TIDCM [facility] Last Admin: 10/03/20 11:28 Dose: 1,334 mg Documented by: Fentanyl Citrate (Fentanyl 100 Mcg/2 Ml Ampul) 25 mcg IV Q4H PRN PRN PRN Reason: severe pain 6-10/10 Haloperidol Lactate (Haloperidol Lactate 5 Mg/Ml Vial) 2 mg IV Q4H PRN PRN PRN Reason: SEVERE AGITATION Piperacillin Sod/Tazobactam (Sod 3.375 gm/ Sodium Chloride) 50 mls @ 12.5 mls/hr IV Q12 [facility] Last Infusion: 10/03/20 13:05 Dose: Infused Documented by: Vancomycin IV Pharmacy to Dose (1 each/ Sodium Chloride) 500 mls @ 250 mls/hr IV PRN PRN; Protocol PRN Reason: Rx to Dose Sodium Chloride () 250 mls @ 15 mls/hr IV .[id number] PRN PRN Reason: Saline Flush Last Admin: 10/03/20 13:08 Dose: 15 mls/hr Documented by: Insulin Glargine (Insulin Glargine 100 Units/Ml Pen) 20 units SC QHS [facility] Last Admin: 10/02/20 21:11 Dose: Not Given Documented by: Insulin Human Lispro (Insulin Lispro 100 Unit/Ml Insuln.Pen) [facility] Last Admin: 10/03/20 11:26 Dose: 15 u Documented by: Insulin Human Lispro (Insulin Lispro 100 Unit/Ml Insuln.Pen) 0 unit SC [facility]; Protocol Last Admin: 10/03/20 11:26 Dose: 1 u Documented by: Levothyroxine Sodium (Levothyroxine 50 Mcg Tablet) 50 mcg PO DAILY@0600 [facility] Last Admin: 10/03/20 06:53 Dose: 50 mcg Documented by: Melatonin (Melatonin 3 Mg Tablet) 3 mg PO QHS PRN PRN PRN Reason: INSOMNIA Midodrine (Midodrine Hcl 5 Mg Tablet) 5 mg PO DAILY PRN PRN PRN Reason: hypotension Last Admin: 10/03/20 06:53 Dose: 5 mg Documented by: Midodrine (Midodrine Hcl 5 Mg Tablet) 10 mg PO X1 PRN PRN Reason: FOR SBP <100 Midodrine (Midodrine Hcl 5 Mg Tablet) 5 mg PO MoWeFr [facility] Last Admin: 10/02/20 13:21 Dose: 5 mg Documented by: Nystatin (Nystatin 500,000 Unit/5 Ml Udc) 500,000 unit PO 4X/DAY [facility] Last Admin: 10/03/20 13:17 Dose: 500,000 unit Documented by: Ondansetron HCl (Ondansetron 4 Mg/2 Ml Vial) 4 mg IV Q8H PRN PRN PRN Reason: NAUSEA/VOMITING Oxycodone HCl (Oxycodone 5 Mg Tablet) 5 mg PO Q4H PRN PRN PRN Reason: Pain Score 4-5 Pantoprazole Sodium (Pantoprazole Sodium 40 Mg Tablet) 40 mg PO DAILY [facility] Last Admin: 10/03/20 09:02 Dose: 40 mg Documented by: Polyethylene Glycol (Polyethylene Glycol 3350 17 Gm Packet) 17 gm PO DAILY [facility] Last Admin: 10/03/20 09:02 Dose: 17 gm Documented by: Pregabalin (Pregabalin 50 Mg Capsule) 100 mg PO BID [facility] Last Admin: 10/03/20 09:02 Dose: 100 mg Documented by: Rizatriptan Benzoate (Rizatriptan Benzoate 10 Mg Tablet) 10 mg PO MOWEFR PRN PRN Reason: MIGRAINE SYMPTOMS Senna/Docusate Sodium (Senna/Docusate Sodium 1 Tablet) 2 tablet PO BID PRN PRN PRN Reason: Constipation Sodium Chloride (0.9% Saline Lock 10 Ml Syringe) 10 - 40 ml IV UD PRN PRN Reason: SALINE FLUSH Last Admin: 10/01/20 23:01 Dose: 10 ml Documented by: Medical Necessity - Tobacco Use Smoking Status: Never smoker Tobacco Use: Non-smoker Assessment/Plan All Active Problems (Last Updated 08/19/20 @ 12:[address] Oscar King, DO) Hypotension (Acute) Urinary tract infection (Acute) Infectious encephalopathy (Acute) Closed head injury (Acute) Severe sepsis (Acute) Acute encephalopathy (Acute) Severe sepsis due to UTI (Acute) Obstruction of right ureteropelvic junction due to stone (Resolved) Hydronephrosis of right kidney (Resolved) Problem with dialysis access (Resolved) Difficulty swallowing (Resolved) #1 severe sepsis-probably secondary to urinary tract infection, I have elected to leave the patient on his current antibiotic coverage for now, I will reassess his coverage tomorrow, if he remains stable, he may be able to return back to his [facility] facility tomorrow on oral antibiotics. 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 INR today was 4.2 Inpatient E&M: 71383 Subs Hosp L2
[2020-10-03 17:50] LABS: Bedside Glucose 162 mg/dL (70-110)
[2020-10-03] MEDS: Amitriptyline 25 MG Tablet PO (21:45)
[2020-10-03 22:41] LABS: Bedside Glucose 162 mg/dL (70-110)
[2020-10-04 03:00] VITALS: PULSE 81
[2020-10-04 03:02] VITALS: BP 108/30; PULSE 81; RESP 14; TEMP 36.7; O2SAT 93
[2020-10-04 03:49] VITALS: O2SAT 93
[2020-10-04 05:02] VITALS: BP 110/27; PULSE 75; RESP 16; TEMP 36.9; O2SAT 95
[2020-10-04] MEDS: Levothyroxine 50 MCG Tablet PO (05:14)
[2020-10-04 06:12] LABS: Absolute Lymphocyte Count 0.93 X10^3/uL (0.83-4.51); Absolute Neutrophil Count 8.1 X10^3/uL (2.0-7.7); Basophil# 0.05 X10^3/uL; Basophil% 0.5 % (0-1); Eosinophil# 0.16 X10^3/uL; Eosinophils% 1.6 % (0-5); Hematocrit 28.2 % (40-54); Hemoglobin 8.4 g/dL (13.0-16.5); Lymphocyte # 0.93 X10^3/ul (4.0); Lymphocyte % 9.5 % (19-41); Mean Corp Hgb Conc 29.8 g/dL (32-36); Mean Platelet Vol. 11.1 fl (6.2-12.0); Monocyte# 0.49 X10^3/uL; NRBC Flagged by Analyzer 0 % (0-5); Neutrophil # 8.05 X10^3/uL (2.7-7.7); Neutrophil % 81.8 % (47-70); Platelet Count 193 K/mm3 (150-450); RBC Distribution Width CV 15.1 % (11.6-14.6); RBC Distribution Width SD 51.8 fl (35.1-43.9); White Blood Count 9.8 K/mm3 (4.4-11.0)
[2020-10-04 06:22] LABS: International Normalized Ratio 3.1; Prothrombin Time (Protime)PT. 30.9 SECONDS (11.7-14.9)
[2020-10-04 06:31] LABS: Anion Gap 9 (5-15); BUN 33 mg/dL (7-18); BUN/Creat Ratio 5.4 RATIO (10-20); Calcium,Total 9.1 mg/dL (8.5-10.1); Chloride 99 mmol/L (98-107); Creatinine, Serum 6.11 mg/dL (0.70-1.30); EST Glomerular Filtration Rate 10 mL/min (>60); Est Glom Filt Rate - Afr Amer 13 mL/min (>60); Estimated Creatinine Clearance 16.53 ml/min; Glucose 253 mg/dL (74-106); Potassium 3.6 mmol/L (3.5-5.1); Sodium Level 135 mmol/L (136-145)
[2020-10-04 06:56] LABS: Bedside Glucose 244 mg/dL (70-110)
[2020-10-04 07:23] VITALS: PULSE 76
[2020-10-04] MEDS: NYSTATIN 500,000 UNIT/5 ML UDC 500000 UNIT PO (09:27)
--- NOTE | 2020-10-04 09:27 | TREXTCAR_ITS ---
- Diet 10/01/20 15:57 Diet: Consistent Carb - Calorie Controlled Food consistency:: Easy to Chew Liquid Consistency:: Regular/Thin Dietary Modifications:: Cardiac / Heart Healthy Type of Dietary Supplement:: Rafa Is pt able to select menu?: Yes Diet Comments: supervision, feed only if alert, GERD precautions, HOB 90 during/after meal How many daily calories?: 2200 calorie - Routine Orders/Code Status O2 Liters per Minute: 2 O2 Frequency: PRN Keep PO Greater than or Equal to (%): 90 Routine Lab Work: INR - IN THREE DAYS, - - FINGERSTICK BLOOD SUGARS ACQHS- COVERAGE WITH HUMALOG SQ: 200-250; 5 UNITS, 251-300: 10 UNITS, 301-350: 12 UNITS Code Status: DNRCC-A - NO INTUBATION - Wound(s) ABD Wound Type: SCABBED AREA RT KNEE Wound Type: Abrasion UPPER SPINE Wound Type: yeast infection - Therapies Weight Bearing: RESUME PREVIOUS ACTIVITY - Problem/Diagnosis (1) Severe sepsis due to UTI Status: Acute Comment: ORGANISM UNKNOWN (2) Hypothyroidism Status: Chronic (3) Diabetes mellitus type 2 in obese Status: Chronic (4) ESRD (end stage renal disease) on dialysis Status: Chronic (5) Acute encephalopathy Status: Acute Comment: SECONDARY TO SEPSIS - Allergies/Procedures Done in Hospital Allergies/Adverse Reactions: Allergies vancomycin Allergy (Verified 09/30/20 17:57) Other C/O BEING HOT Procedures: None - Type of Care/Length of Stay Estimated LOS: More Than 30 Days Type of Care Needed: Intermediate Rehab Potential: Fair Prognosis: Fair - Additional Orders/Day of Discharge H&P will serve as current which was dated: 09/30/20 Day of Discharge: 10/04/20 - Dietary and Speech Recommendations Dietitian Recommendations/Changes: Continue 2200 calories, cardiac diet; Rafa BID w/ meals d/t wounds. Will further assess PO intake as able at F/U & restrict/liberalize diet as indicated. Daily wts. - Follow Up Care Primary Care Physician: Laura Daly MD [Primary Care Provider] -
[2020-10-04] MEDS: Aspirin 81 MG TAB.CHEW PO (09:28)
[2020-10-04] MEDS: Calcium Acetate 667 MG Capsule 1334 MG PO (09:28)
[2020-10-04] MEDS: Midodrine HCl 5 MG Tablet PO (09:28)
[2020-10-04] MEDS: Polyethylene Glycol 3350 17 GM PACKET PO (09:28)
[2020-10-04] MEDS: Pantoprazole Sodium 40 MG Tablet PO (09:29)
[2020-10-04 10:27] VITALS: BP 110/21; PULSE 90; RESP 20; TEMP 36.9; O2SAT 94
[2020-10-04] MEDS: Cefdinir 300 MG Capsule PO (10:34)
[2020-10-04] MEDS: Jantoven 2 MG Tablet PO (10:34)
--- NOTE | 2020-10-04 10:44 | NURSING ---
Called [facility] and report given to Jovita. Transport to be here @ 1291.
--- NOTE | 2020-10-04 11:08 | PCM.DC.SUM ---
Discharge Date and Diagnosis - Problem List Patient Problems: Active and Suspected Problems (Last Updated 08/19/20 @ 12:[address] Oscar King DO) Hypotension (Acute) Urinary tract infection (Acute) Infectious encephalopathy (Acute) Closed head injury (Acute) Severe sepsis (Acute) Acute encephalopathy (Acute) SECONDARY TO SEPSIS Severe sepsis due to UTI (Acute) ORGANISM UNKNOWN Date of Admission: 09/30/20 Date of Discharge: 10/04/20 - Primary Discharge Diagnosis Acute Problems: Active Problems (Last Updated 08/19/20 @ 12:[address] 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 Oscar King DO) Hypertension (Chronic) GERD (gastroesophageal reflux disease) (Chronic) Hypothyroidism (Chronic) Diabetes mellitus type 2 in obese (Chronic) ESRD (end stage renal disease) on dialysis (Chronic) Hospital Course and Treatment Operations: None Procedures: Dialysis Summary of Care Provided: The patient is a 50 year old M seen in the emergency room at [facility] after sustaining a fall at the group home where he is a chronic resident-according to his medical record, the patient threw himself onto the floor at the group home and appeared to have mental status change. Patient underwent work-up in the emergency room, the emergency room physician commented that his urine looked grossly infected, patient's white blood cell count was elevated at 14.2, lactic acid was elevated at 2.5, renal functions were abnormal in keeping with his end-stage renal disease, patient's chest x-ray showed no evidence of active pneumonia. Brain CT was unremarkable. Patient was given IV antibiotics, he was admitted to ICU for severe sepsis presumably from urinary tract infection, patient became agitated at times in the ICU and pulled out his IV, repeat attempts were made to replace his IV and finally an IV was able to be placed in his foot. Patient's mental status improved, blood and urine cultures however were negative for infection although this examiner suspected that he did have severe sepsis secondary to a urinary tract infection. Patient was hypotensive at times during his hospitalization he was placed on programmed midodrine. Patient also had a brief episode of a respiratory arrest during dialysis on PCU, he had to be transferred back to ICU and I had discussions with the patient's sister who is his closest contact and she agreed that the patient should be a DNR CC arrest without intubation. Patient confirmed later in the ICU that he wished to but he did not want to stop dialysis. Patient was then transferred back to PCU the next day and remained medically stable. Patient was lethargic at times and I felt this was secondary to his use of Lyrica and I decreased the dose of Lyrica on discharge back to the group home. On 10/04/2020, patient was seen and examined:General: Alert, Cooperative, No apparent distress, Well developed, Well nourished HEENT: Atraumatic, PERRLA, EOMI, Normocephalic Oral: Moist Mucosa Neck: Supple, No JVD, Trachea Midline, Thyroid Normal Size and Texture Lungs: Clear to auscultation, Normal air movement, No rhonchi, No wheeze, No rales Cardiovascular: Regular rate, Regular Rhythm, Normal S1, Normal S2, No murmurs Abdomen: Bowel Sounds Present, Soft, Non Tender, Non-Distended Extremities: No clubbing, No cyanosis, No edema, Capillary Refill Less than 3 Seconds Skin: No rashes Musculoskeletal: No Tenderness to Palpation of Joints or Extremities Neurological: Cranial nerves II-XII grossly intact, Neuro grossly intact Psych/Mental Status: Patient is alert and answers simple questions appropriately. Patient was felt stable for discharge back to the extended care facility on 10/04/2020. Patient Problems: Active and Suspected Problems (Last Updated 08/19/20 @ 12:[address] Oscar King, DO) Hypotension (Acute) Urinary tract infection (Acute) Infectious encephalopathy (Acute) Closed head injury (Acute) Severe sepsis (Acute) Acute encephalopathy (Acute) SECONDARY TO SEPSIS Severe sepsis due to UTI (Acute) ORGANISM UNKNOWN - Physical Exam Vitals/I&O's: Vital Signs Temp Pulse Resp BP Pulse Ox 98.5 F 90 20 H 110/21 L 94 10/04/20 10:27 10/04/20 10:27 10/04/20 10:27 10/04/20 10:10/04/20 10:27 Oxygen Flow Rate (L/min) 2 Oxygen Delivery Method Nasal Cannula Weight: 158.6 kg Body Mass Index (BMI) 46.7 Finger Stick Blood Glucose 148 Intake and Output for Last 24 Hours 10/02/20 10/03/20 10/04/20 23:59 23:59 23:59 Intake Total 350 / 350 510 / 630 536.04 / 536.04 Output Total 541 / 541 0 / 0 Balance -191 / -191 510 / 630 536.04 / 536.04 Microbiology Past 72 Hours 09/30/20 22:10 Urine Catheter - Catheter Urine Culture - Final Culture exhibits no growth. 09/30/20 19:55 Blood Culture (Wb) - Right Forearm Blood Culture - Preliminary No growth in 48 hours. Laboratory Results 10/03/20 11:23: POC Glucose 163 H 10/03/20 17:45: POC Glucose 162 H 10/03/20 21:39: POC Glucose 162 H 10/04/20 05:50: WBC 9.8, RBC 3.00 L, Hgb 8.4 L, Hct 28.2 L, MCV 94.0, MCH 28.0, MCHC 29.8 L, RDW Std Deviation 51.8 H, RDW Coeff of Baljit 15.1 H, Plt Count 193, MPV 11.1, Immature Gran % (Auto) 1.600 H, Neut % (Auto) 81.8 H, Lymph % (Auto) 9.5 L, [place] % (Auto) 5.0, Eos % (Auto) 1.6, Baso % (Auto) 0.5, Absolute Neuts (auto) 8.1 H, Absolute Lymphs (auto) 0.93, Nucleated RBC % 0 10/04/20 05:50: PT 30.9 H, INR 3.1 10/04/20 05:50: Sodium 135 L, Potassium 3.6, Chloride 99, Carbon Dioxide 27.0, Anion Gap 9, BUN 33 H, Creatinine 6.11 H, Estim Creat Clear Calc 16.53, Est GFR (MDRD) Af Amer 13 L, Est GFR (MDRD) Non-Af 10 L, BUN/Creatinine Ratio 5.4 L, Glucose 253 H, Calcium 9.1 10/04/20 06:49: POC Glucose 244 H Home Medications: Medications to take at Discharge Amitriptyline HCl [Elavil] 25 mg PO QHS 03/11/20 Aspirin [Aspirin, Baby] 81 mg PO DAILY@0800 03/11/20 Calcium Acetate 2 cap PO TIDCM 03/11/20 Levothyroxine [Synthroid] 50 mcg PO DAILY 03/11/20 Pantoprazole Sodium [Protonix] 40 mg PO DAILY 03/11/20 Rizatriptan Benzoate [Rizatriptan] 1 tab PO MOWEFR PRN 03/11/20 Insulin Glargine,Hum.rec.anlog [Basaglar Kwikpen U-100] 20 unit SQ QHS 09/30/20 Insulin Lispro [Humalog KwikPen] 15 unit SQ TIDCM 09/30/20 Acetaminophen [Tylenol Tablet] 650 mg PO Q6H PRN PRN tablet 10/04/20 Midodrine HCl [Proamatine] 5 mg PO TIDCM tablet 10/04/20 Nystatin 500,000 unit PO 4X/DAY udc 10/04/20 Oxycodone HCl 5 mg PO PRN PRN 7 Days #10 capsule 10/04/20 Pregabalin [Lyrica] 50 mg PO BID #10 capsule 10/04/20 Warfarin [Coumadin] 2.5 mg PO DAILY #1 tab 10/04/20 Following Prescriptions Were Given to Patient: Warfarin [Coumadin] 2.5 mg PO DAILY #1 tab Pregabalin [Lyrica] 50 mg PO BID #10 capsule Prescription Printed Oxycodone HCl 5 mg PO PRN PRN 7 Days #10 capsule PRN Reason: Pain 1-10 Or Fever Prescription Printed Primary Care Physician: Laura Daly MD [Primary Care Provider] - Disposition: Long-Term facility Minutes spent on discharge:: 33 Patient Condition:: Stable Medical Necessity - Tobacco Use Smoking Status: Never smoker Tobacco Use: Non-smoker Meaningful Use Info Meaningful Use Diagnoses (Choose all that apply): None applicable Inpatient E&M: 96315 Disch Hosp
== END 2020-10-04 10:56 | disposition skilled nursing facility (03) | DRG 720 ==
LOC: ED 18:10 → ICU 10-01 01:02 → PCU 10-01 17:47 → ICU 10-02 10:00 → PCU 10-03 12:02
PROVIDERS: Admitting Provider Family Medicine; Emergency Provider Emergency Medicine; PCP Internal Medicine; Visit Provider Internal Medicine
DX: A41.9 Sepsis, unspecified organism (principal); B37.0 Candidal stomatitis; N39.0 Urinary tract infection, site not specified; R65.20 Severe sepsis without septic shock; S09.90XA Unspecified injury of head, initial encounter; W19.XXXA Unspecified fall, initial encounter; Y93.9 Activity, unspecified; Y92.129 Unspecified place in nursing home as the place of occurrence of the external cause; R09.2 Respiratory arrest; D63.8 Anemia in other chronic diseases classified elsewhere; E03.9 Hypothyroidism, unspecified; E11.22 Type 2 diabetes mellitus with diabetic chronic kidney disease; D68.9 Coagulation defect, unspecified; E11.40 Type 2 diabetes mellitus with diabetic neuropathy, unspecified; E66.01 Morbid (severe) obesity due to excess calories; J98.11 Atelectasis; E78.5 Hyperlipidemia, unspecified; G43.909 Migraine, unspecified, not intractable, without status migrainosus; G93.41 Metabolic encephalopathy; I12.0 Hypertensive chronic kidney disease with stage 5 chronic kidney disease or end stage renal disease; I95.1 Orthostatic hypotension; K21.9 Gastro-esophageal reflux disease without esophagitis; N18.6 End stage renal disease; Z66 Do not resuscitate; Z86.718 Personal history of other venous thrombosis and embolism; Z87.442 Personal history of urinary calculi; Z99.2 Dependence on renal dialysis; Z87.891 Personal history of nicotine dependence; Z79.4 Long term (current) use of insulin; Z79.01 Long term (current) use of anticoagulants; Z68.42 Body mass index [BMI] 45.0-49.9, adult; Z79.82 Long term (current) use of aspirin; Z79.899 Other long term (current) drug therapy; Z87.440 Personal history of urinary (tract) infections
CPT/HCPCS: 36415; 70450; 71045; 80048; 80053; 81001; 82962; 83605; 83735; 85025; 85610; 87040; 87086; 90937; 92526; 92610; 93005; 94002; 97110; 97162; 97166; 97530; 97802; 99251; 99285; J7030; J7040; J7050; P9612; A4216; G0257; G0463; Q5106

== ENCOUNTER 2020-10-10 14:40 | Inpatient (IN) | payer MEDICAID, SELFPAY ==
[2020-10-10] VITALS (17 sets, daily range): BP systolic 48–124; BP diastolic 12–72; PULSE 83–115; RESP 10–20; TEMP 36.3–36.8; O2SAT 94–100; BMI 46.0; BMI 45.5
--- NOTE | 2020-10-10 15:16 | RAD_ITS ---
STUDY: X-RAY CHEST REASON FOR EXAM: Male, 50 years old. Cough TECHNIQUE: AP COMPARISON: 09/30/2020 FINDINGS: Right dialysis catheter are stable. EKG leads project over the chest. Lungs are underexpanded with scarring or atelectasis in the lung bases, stable. There is no demonstrated pleural abnormality. Normal size heart. Normal mediastinum and patel. Normal visualized pulmonary arteries. Normal visualized aortic arch and descending thoracic aorta. Normal visualized thoracic spine. Normal visualized ribs, clavicles, and shoulders. There is no demonstrated abnormality of the visualized soft tissue structures of the upper abdomen. RAD/Chest 1 View (Portable) IMPRESSION: Stable, nonacute portable x-ray examination of the chest. Electronically Signed: Olivier Lee MD ([facility]) at 15:43 EDT , Service support ,
--- NOTE | 2020-10-10 15:16 | CT_ITS ---
STUDY: CT BRAIN WITHOUT CONTRAST REASON FOR EXAM: Male, 50 years old. Hallucinations RADIATION DOSAGE (If Supplied By Facility): CTDIvol = ( 44.99 ) mGy, DLP = ( 863.60 ) mGycm TECHNIQUE: Transaxial CT imaging of the brain was performed without administration of intravenous contrast material. Individualized dose optimization techniques were used for this CT. COMPARISON: 09/30/2020 FINDINGS: Extensive scalp atherosclerosis. There is atherosclerosis of the carotid siphons. Normal calvarium. Normal size ventricles and extra-axial spaces for the patient''s age. Normal white matter tracts of the cerebral hemispheres. Normal basal ganglia and thalami. Normal brainstem. Normal cerebellum. There is no intracranial hemorrhage. There are no findings of an acute ischemic infarction. Normal visualized paranasal sinuses. CT/Brain/Head without Contrast IMPRESSION: No acute intracranial hemorrhage or mass effect. Electronically Signed: Olivier Lee MD ([facility]) at 15:44 EDT , Service support ,
[2020-10-10 15:26] LABS: Absolute Lymphocyte Count 1.97 X10^3/uL (0.83-4.51); Absolute Neutrophil Count 13.3 X10^3/uL (2.0-7.7); Basophil% 0.6 % (0-1); Eosinophil# 0.03 X10^3/uL; Eosinophils% 0.2 % (0-5); Hematocrit 33.7 % (40-54); Hemoglobin 9.8 g/dL (13.0-16.5); Lymphocyte # 1.97 X10^3/ul (4.0); Lymphocyte % 11.4 % (19-41); Mean Corp Hgb Conc 29.1 g/dL (32-36); Mean Corpuscular Hgb 27.1 pg (27.0-32.0); Mean Corpuscular Volume 93.1 fL (80-94); Mean Platelet Vol. 11.5 fl (6.2-12.0); Monocyte# 1.17 X10^3/uL; Monocyte% 6.8 % (0-10); NRBC Flagged by Analyzer 0 % (0-5); Neutrophil # 13.31 X10^3/uL (2.7-7.7); Neutrophil % 77.2 % (47-70); Platelet Count 354 K/mm3 (150-450); RBC Distribution Width SD 50.9 fl (35.1-43.9); Red Blood Count 3.62 M/mm3 (4.6-6.2); White Blood Count 17.2 K/mm3 (4.4-11.0)
--- NOTE | 2020-10-10 16:01 | PCM.HP.STD ---
Problem List (1) Leukocytosis Status: Acute (2) AV fistula thrombosis Status: Resolved (3) PILAR (obstructive sleep apnea) Status: Chronic (4) Hypotension Status: Chronic Qualifiers: Hypotension type: other hypotension type Qualified Code(s): I95.89 - Other hypotension (5) Urinary tract infection Status: Resolved Qualifiers: Urinary tract infection type: acute cystitis (6) Infectious encephalopathy Status: Acute (7) Closed head injury Status: Resolved (8) Severe sepsis Status: Acute (9) Acute encephalopathy Status: Acute Comment: SECONDARY TO SEPSIS (10) Obstruction of right ureteropelvic junction due to stone Status: Resolved (11) Hydronephrosis of right kidney Status: Resolved (12) Problem with dialysis access Status: Resolved Qualifiers: Encounter type: initial encounter Qualified Code(s): T82.898A - Other specified complication of vascular prosthetic devices, implants and grafts, initial encounter (13) Difficulty swallowing Status: Resolved (14) Hypertension Status: Chronic Qualifiers: Hypertension type: essential hypertension Qualified Code(s): I10 - Essential (primary) hypertension (15) GERD (gastroesophageal reflux disease) Status: Chronic Qualifiers: Esophagitis presence: esophagitis presence not specified Qualified Code(s): K21.9 - Gastro-esophageal reflux disease without esophagitis (16) Hypothyroidism Status: Chronic Qualifiers: Hypothyroidism type: unspecified Qualified Code(s): E03.9 - Hypothyroidism, unspecified (17) Diabetes mellitus type 2 in obese Status: Chronic (18) ESRD (end stage renal disease) on dialysis Status: Chronic History of Present Illness Date of Admission: 10/10/20 Mr. Silver is a 50 year old WM with a past medical history of chronic anemia secondary to renal disease, morbid obesity, end-stage renal disease on hemodialysis, HTN, orthostasis, hyperlipidemia, hypothyroidism, DM-2, GERD, chronic migraines, chronic hyponatremia and hypothyroidism who presented to the emergency department at [facility] on 10/10/2020 with acute mental status change. The patient was recently admitted here from 09/30/2020 to 10/04/2020 when he was discharged back to his alf facility at [facility]. During his last admission he was admitted for urosepsis which is thought to be secondary to urinary tract infection but all cultures from that hospitalization were negative. He was initially admitted to the intensive care unit then transferred to PCU and had an apneic event and a CODE BLUE was called and he was transferred back to the ICU prior to discharge. At that time the attending physician had a conversation with the patient sister and the patient and his CODE STATUS was changed to DNR CCA. At that time he was discharged on antibiotics. Throughout his hospitalization he had intermittent periods of lethargy for which his Lyrica dose was reduced prior to discharge back to [facility]. Today he presents with altered mental status and visual hallucinations that started today. He is also complaining of scrotal pain which she states has been chronic in nature and has had for a significantly long time. He reports this to be burning in nature and has had never had outpatient follow-up. He also complains of back pain that is related to a wound he has in his central back. He denied any fevers or chills he did complain of some shortness of breath but states this is frequent for him when he is anxious. He denies any cough or sputum production. He reports that he was having auditory and visual hallucinations. The emergency department he initially had hypotension with a blood pressure of 84/48 he was given IV fluids x1 L and his blood pressure did respond to that and by the time of admission his blood pressure was 100/62. He is known to have hypotension at baseline and is on midodrine. He was placed on oxygen per his request and oxygen saturations were 97 to 98% when he was trialed off oxygen he was 95 to 96% on room air. His labs showed a marked white count of 17.2. On discharge his white count was 9.8. He has a chronic stable anemia. His BMP showed mild chronic hyponatremia, markedly elevated BUN and creatinine which is consistent with his end-stage renal disease, a blood sugar of 159, and a lactic acid of 2.2. With his change in mental status a CT of his brain was done and showed no acute intracranial hemorrhage or mass-effect and was stable in comparison with previous CTs. A chest x-ray was performed and showed no acute processes. In the emergency department he was given a dose of Zosyn and IV fluids; no MRSA coverage was initiated as patient has a vancomycin allergy. I discussed this allergy with the patient he was unclear with what the allergy was related. He will be admitted to ICU with sepsis protocol but limited IV fluids given his stage renal disease and no urine output. Past Medical History Past Medical History (Chronic Problems): Chronic Problems (Last Reviewed 10/10/20 @ 18:[address] Kathe Shaw DO) PILAR (obstructive sleep apnea) (Chronic) Hypotension (Chronic) Hypertension (Chronic) GERD (gastroesophageal reflux disease) (Chronic) Hypothyroidism (Chronic) Diabetes mellitus type 2 in obese (Chronic) ESRD (end stage renal disease) on dialysis (Chronic) Medical History: Medical History (Last Reviewed 10/10/20 @ 18:[address] Kathe Shaw DO) Problem with dialysis access (Resolved) T82.898A Hypertension (Chronic) I10 GERD (gastroesophageal reflux disease) (Chronic) K21.9 Hypothyroidism (Chronic) E03.9 Diabetes mellitus type 2 in obese (Chronic) E11.69, E66.9 ESRD (end stage renal disease) on dialysis (Chronic) N18.6, Z99.2 Difficulty swallowing (Resolved) R13.10 Allergies vancomycin Allergy (Verified 09/30/20 17:57) Other C/O BEING HOT Home Medications: Ambulatory Orders Medication Instructions Recorded Amitriptyline HCl [Elavil] 25 mg PO QHS 03/11/20 Aspirin [Aspirin, Baby] 81 mg PO DAILY@0800 03/11/20 Calcium Acetate 2 cap PO TIDCM 03/11/20 Levothyroxine [Synthroid] 50 mcg PO DAILY 03/11/20 Pantoprazole Sodium [Protonix] 40 mg PO DAILY 03/11/20 Rizatriptan Benzoate [Rizatriptan] 1 tab PO MOWEFR PRN 03/11/20 Insulin Glargine,Hum.rec.anlog 20 unit SQ QHS 09/30/20 [Basaglar Kwikpen U-100] Insulin Lispro [Humalog KwikPen] 15 unit SQ TIDCM 09/30/20 Acetaminophen [Tylenol Tablet] 650 mg PO Q6H PRN PRN tablet 10/04/20 Midodrine HCl [Proamatine] 5 mg PO TIDCM tablet 10/04/20 Nystatin 500,000 unit PO 4X/DAY udc 10/04/20 Oxycodone HCl 5 mg PO PRN PRN 7 Days #10 capsule 10/04/20 Pregabalin [Lyrica] 50 mg PO BID #10 capsule 10/04/20 Warfarin [Coumadin (PBKC)] 3 mg PO MOWEFR 04/03/21 Warfarin [Coumadin] 2.5 mg PO SUTUTHSA 10/10/20 Surgical History: Surgical History (Last Reviewed 10/10/20 @ 18:[address] 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 Psychiatric History: No pertinent psych hx Smoking Status: Never smoker Alcohol: Rare Drugs: None - *Family History Paternal History Items: Hypertension Sibling History Items: Diabetes Maternal History Items: COPD Review of Systems Constitutional: Reports: Malaise, Weakness, Fatigue. Denies: Anorexia, Chills, Fever, Night Sweats, Weight Change Eyes: Denies: Blurred vision, Cataracts, Conjunctivae Inflammation, Double vision, Drainage, Eyelid Inflammation, Pain, Redness, Vision Change HEENT: Denies: Difficulty Hearing, Difficulty Swallowing, Ear Pain, Eye Pain, Head Aches, Nasal bleeding, Nasal Congestion, Post Nasal Drip, Sinus Congestion, Sinus Drainage, Sore Throat, Visual Changes Cardiovascular: Denies: Chest Pain, Claudication, Chest Pressure, Chest Tightness, Edema, Heaviness, Light Headedness, Orthopnea, Palpitations, Paroxysmal Noc. Dyspnea, Syncope Respiratory: Reports: Shortness of Breath - States he gets this with his anxiety, Shortness of breath at rest, Shortness of breath upon exertion. Denies: Cough, Hemoptysis, Pleuritic Pain, Sputum production, Wheezing Gastrointestinal: Denies: Abdominal Pain, Constipation, Diarrhea, Dyspepsia, Hematemesis, Hematochezia, Nausea, Melena, Vomiting Genitourinary: Reports: - - makes no urine Musculoskeletal: Reports: Back Pain - From wound. Denies: Joint Pain, Joint stiffness, Joint swelling, Joint Tenderness, Muscle pain, Neck Pain Skin: Reports: Dryness, Wounds. Denies: Jaundice, Lesions, Pruritis, Rash, Skin Changes Neurological: Reports: Confusion. Denies: Balance problems, Double vision, Change in Speech, Slurred speech, Difficulty swallowing, Focal weakness, Headaches, Incoordination, Numbness, Tingling, Tremor, Seizures Psychiatric: Reports: Anxiety. Denies: Depression Endocrine: Denies: Change in Body Habitus, Heat/ Cold Intolerance, Polydipsia, Polyuria Hematologic/ Lymphatic: Reports: Anemia, Easy Bruising, Easy Bleeding, Hx of blood clot. Denies: Adenopathy, Petechiae, Purpura VTE Information - Inpt Only VTE Present on Admission: No VTE Mechan Device Prophylaxis: None Reason prophylaxis not ordered:: Treatment Not Indicated - Patient is fully anticoagulated with Coumadin Patient Problems: Active and Suspected Problems (Last Reviewed 10/10/20 @ 18:[address] Kathe Shaw, DO) Leukocytosis (Acute) Skin ulceration (Acute) Infectious encephalopathy (Acute) Severe sepsis (Acute) Acute encephalopathy (Acute) SECONDARY TO SEPSIS - Physical Exam Vitals/I&O's: Vital Signs Temp Pulse Resp BP Pulse Ox 98 F 91 20 H 117/59 L 100 10/10/20 15:55 10/10/20 15:55 10/10/20 15:55 10/10/20 15:55 10/10/20 15:55 Oxygen Flow Rate (L/min) 4 Oxygen Delivery Method Nasal Cannula Weight: 158.4 kg Body Mass Index (BMI) 46.0 Finger Stick Blood Glucose 148 General: Alert, Oriented x3, Cooperative, No apparent distress, Well developed, Well nourished, - - Morbidly obese white male lying in bed, nontoxic-appearing, appears comfortable at this time, on nasal cannula but oxygen saturations within normal limits and patient states that this was done upon his request as he gets short of breath with anxiety HEENT: Atraumatic, PERRLA, EOMI, Normocephalic, EAC Clear, - Oral: No Gingival or Mucosal Lesions/ Ulcerations, Dry Mucosa, - - Poor dentition, dry tongue, no thrush, Mallampati 3 Neck: Supple, No JVD, Negative Carotid Bruits, No Nodes, No Nuchal Rigidity, Trachea Midline, Thyroid Normal Size and Texture, - - Thick neck Lungs: Clear to auscultation, Normal air movement, No rhonchi, No wheeze, No rales, - - Distant secondary to body habitus Cardiovascular: Regular rate, Regular Rhythm, Normal S1, Normal S2, No murmurs, No Ectopic Activity, No rub noted, No Gallop Abdomen: Bowel Sounds Present, Soft, Non Tender, Non-Distended, No Hepato-splenomegaly, Obese, No hernias noted, - - Wound on left lower quadrant with severely adherent eschar and fibrinous scarring-no erythema, drainage, or tenderness Extremities: No clubbing, No cyanosis, No edema, Capillary Refill Less than 3 Seconds, Peripheral Pulses Normal, - - Remote amputation left fifth digit Skin: No rashes, Ulcer/ Wound - Back and abdomen, - - Wound centrally in his thoracic spine area in the crease of the skin fold-appears superficial but appears tender, no significant erythema and mild nonpurulent drainage, very dry skin on his feet Musculoskeletal: No Tenderness to Palpation of Joints or Extremities, Muscle Wasting - Most noted in bilateral lower extremities Lymphatic: No Cervical, Supraclavicular, or Inguinal Adenopathy Neurological: Cranial nerves II-XII grossly intact, Deep Tendon Reflexes 2+/4 and Symmetrical, Neuro grossly intact, Muscle tone normal, Coordination normal, - - Peripheral neuropathy Psych/Mental Status: Appropriate, Flat Affect Laboratory Results 10/10/20 15:10: WBC 17.2 H, RBC 3.62 L, Hgb 9.8 L, Hct 33.7 L, MCV 93.1, MCH 27.1, MCHC 29.1 L, RDW Std Deviation 50.9 H, RDW Coeff of Baljit 15.0 H, Plt Count 354, MPV 11.5, Immature Gran % (Auto) 3.800 H, Neut % (Auto) 77.2 H, Lymph % (Auto) 11.4 L, Young % (Auto) 6.8, Eos % (Auto) 0.2, Baso % (Auto) 0.6, Absolute Neuts (auto) 13.3 H, Absolute Lymphs (auto) 1.97, Nucleated RBC % 0 10/10/20 15:10: PT Cancelled, INR Cancelled, APTT Cancelled 10/10/20 15:10: Sodium Cancelled, Potassium Cancelled, Chloride Cancelled, Carbon Dioxide Cancelled, Anion Gap Cancelled, BUN Cancelled, Creatinine Cancelled, Estim Creat Clear Calc Cancelled, Est GFR (MDRD) Af Amer Cancelled, Est GFR (MDRD) Non-Af Cancelled, BUN/Creatinine Ratio Cancelled, Glucose Cancelled, Calcium Cancelled, Total Bilirubin Cancelled, AST Cancelled, ALT Cancelled, Alkaline Phosphatase Cancelled, Total Protein Cancelled, Albumin Cancelled, Globulin Cancelled, Albumin/Globulin Ratio Cancelled 10/10/20 15:50: Lactic Acid Pending 10/10/20 15:50: PT Pending, INR Pending, APTT Pending 10/10/20 15:50: Sodium Pending, Potassium Pending, Chloride Pending, Carbon Dioxide Pending, Anion Gap Pending, BUN Pending, Creatinine Pending, Est GFR (MDRD) Af Amer Pending, Est GFR (MDRD) Non-Af Pending, BUN/Creatinine Ratio Pending, Glucose Pending, Calcium Pending, Total Bilirubin Pending, AST Pending, ALT Pending, Alkaline Phosphatase Pending, Total Protein Pending, Albumin Pending Assessment/Plan All Active Problems (Last Reviewed 10/10/20 @ 18:[address] Kathe Shaw, DO) Leukocytosis (Acute) Skin ulceration (Acute) Infectious encephalopathy (Acute) Severe sepsis (Acute) Acute encephalopathy (Acute) Obstruction of right ureteropelvic junction due to stone (Resolved) Hydronephrosis of right kidney (Resolved) Problem with dialysis access (Resolved) AV fistula thrombosis (Resolved) Closed head injury (Resolved) Difficulty swallowing (Resolved) Urinary tract infection (Resolved) Severe sepsis secondary to unknown etiology -Severe sepsis protocol initiated -Cultures pending -Check urine antigens but doubt pneumonia -X-ray is clear -Rapid Covid was negative -Check MRSA PCR -Positive will need to initiate IV antibiotic other than vancomycin as patient has allergy -Start Zosyn/and Zyvox to cover skin with back wound Lactic acidosis -Mild -Lactic acid 2.2 -Cycle as per sepsis protocol Leukocytosis -White count is 17.2 -Repeat CBC in a.m. -See above Intertrigo yeast -Nystatin powder Abdominal and back wounds -Culture of back wound per ED orders -Antibiotics as above -Consult wound care Acute metabolic encephalopathy -CT brain showed no acute intracranial hemorrhage or mass-effect and is unchanged from previous CT -Seems to be fairly close to baseline at the time of my evaluation Hypertension -On presentation patient's blood pressures were borderline -Patient is not on any antihypertensives at baseline -If pressures are noted to be elevated consider as needed medication Chronic normocytic anemia secondary to renal disease -Hemoglobin is stable and at baseline -Baseline hemoglobin is 8.5-10 -Monitor End-stage renal disease -Patient is HD dependent-MTWRF -Consult nephrology-Dr. Shaw -Continue home midodrine for transient hypotension especially during HD Recurrent thrombosed catheters and grafts/fistulas -Patient is on Coumadin as there was concerned that he had an underlying coagulopathy -INR on discharge 10/04/2020 was 3.1 -Today is pending -Once resulted will make a decision on dosing DM-2 -Patient is on oral regimen at baseline -During acute hospitalization -Continue insulin regimen -SSI -ADA/renal diet -BGTs before meals and at bedtime Chronic hyponatremia -Volume management with hemodialysis Chronic scrotal pain -Patient complains of lifelong issue of scrotal pain and burning -No rashes, discoloration or abnormalities noted with the scrotum -Would recommend urological follow-up as an outpatient Diabetic neuropathy -Continue Lyrica 50 mg twice daily Hyperlipidemia -Patient is not on a statin at baseline -We will allow for patient follow-up Hypothyroidism -Continue Synthroid Migraines -Rizatriptan on dialysis days GERD -Continue PPI PILAR -CPAP of 12 at at bedtime as patient allows Morbid obesity -BMI is 46.1 -Recommend weight loss -Complicates overall medical care and prognosis DVT prophylaxis -patient is fully anticoagulated with Coumadin -INR is pending on admission if it is subtherapeutic we will start heparin 3 times daily 1000 units CODE STATUS -Patient wishes to change his CODE STATUS back to full code Inpatient E&M: 48232 Init Hosp L3
--- NOTE | 2020-10-10 16:44 | ED.RN ---
Gave permission to speak to sister about medical tests and treatment. Treva Alonso.
[2020-10-10 17:08] LABS: Lactic Acid 2.2 mmol/L (0.4-1.9)
[2020-10-10 17:34] LABS: ALB/GLOB Ratio 0.3 RATIO (0.9-2.4); AST(SGOT) 16 U/L (15-37); Alanine Aminotransfer ALT/SGPT < 6 U/L (16-61); Albumin, Serum 2.2 g/dL (3.2-5.0); Alkaline Phosphatase 99 U/L (45-117); Anion Gap 9 (5-15); BUN 37 mg/dL (7-18); BUN/Creat Ratio 5.8 RATIO (10-20); Calcium,Total 9.8 mg/dL (8.5-10.1); Chloride 94 mmol/L (98-107); Creatinine, Serum 6.38 mg/dL (0.70-1.30); EST Glomerular Filtration Rate 10 mL/min (>60); Est Glom Filt Rate - Afr Amer 12 mL/min (>60); Estimated Creatinine Clearance 15.83 ml/min; Globulin 6.7 g/dL (2.2-4.2); Glucose 159 mg/dL (74-106); Potassium 3.8 mmol/L (3.5-5.1); Protein, Total 8.9 g/dL (6.4-8.2); Sodium Level 131 mmol/L (136-145)
--- NOTE | 2020-10-10 17:46 | ED.RN ---
pharmacy called antibiotics at 1741.
--- NOTE | 2020-10-10 18:03 | ED.VISSUMM ---
- ER Visit Summary Date of Service: 10/10/20 Chief Complaint: Altered mental status visual hallucinations History of Present Illness: The patient is a 50 M presents with altered mental status and visual hallucinations that were noticed today. Patient also complains of pain in his back and scrotum. Patient states he has had pain in his back for several weeks. Patient states he has had pain in his scrotum for his whole life. Patient describes the pain as burning. Patient denies any fevers or chills. Patient states nothing makes his pain better or worse. Patient states he was seeing other people at the retirement today that were not there. Patient admits to auditory hallucinations. Patient states that people were telling him to get up out of his bed and walk. Physical Examination: Vital signs are stable except for low blood pressure of 84/54. Patient is afebrile here. Patient is in no acute distress. Oral mucosa is pink and dry. Neck is supple. Trachea is midline. There is no JVD. Heart was regular rate and rhythm. Lungs are clear and equal bilaterally. There is adequate respiratory effort. Abdomen is soft. Bowel sounds are normal. There is no tenderness. Skin is warm and dry. There is a midline grade 2 ulceration over the mid thoracic area. There is some mild surrounding erythema. There is some mild drainage. There is tenderness to palpation over this area. There is no abscess formation. Cranial nerves II through XII are intact. There are no focal motor or sensory deficits. Test Results: CBC shows a leukocytosis of 17.2. Hemoglobin was 9.8 hematocrit was 37.7. Basic metabolic profile showed a mild hyponatremia of 131 and hypochloremia of 94. BUN was 37 and creatinine was 6.38. Patient is on dialysis. CT scan of the brain was obtained. There is no acute intracranial abnormality. This was interpreted by the radiologist and reviewed by myself. Portable 1 view chest x-ray was obtained. On my interpretation, lung cali are clear. There is normal cardiac silhouette. Bony thorax is normal. There is no acute process noted. Radiologist also interpreted the x-ray and agrees. Emergency Department Course and Treatment: Patient was a difficult lab draw and IV candidate. Coagulation studies were unable to be obtained. Patient was started on Zosyn. Patient had blood cultures on his last visit which were normal. Blood cultures were again ordered. Case was discussed with the hospitalist. She will admit the patient to ICU. Patient understood and was agreeable with the plan. All questions were answered. Sepsis re-evaluation was performed Disposition: Admit to ICU Impression: 1. Severe sepsis 2. Skin ulceration thoracic spine Critical care time: 30 minutes. This was time spent obtaining history, performing physical examination, documenting, interpreting test results, discussion with consultants, and determining disposition. This note was generated with [employer] dictation software. It may contain incorrect words, spelling, and punctuation that were not noted in review of the chart prior to signing ED Disposition - Plan for ED Patient: Disposition: Acute Care Hospital [facility] Diagnosis: Severe sepsis, Skin ulceration
--- NOTE | 2020-10-10 18:40 | ED.RN ---
Blood cultures ordered x2. dr moore notified that antibiotics where already administered. Dr Moore orders them to be done anyway.
[2020-10-10] MEDS: Lactated Ringers 1,000 ML 100 ML IV (22:16)
[2020-10-10 22:45] LABS: Bedside Glucose 181 mg/dL (70-110)
[2020-10-10] MEDS: 0.9% Saline Lock 10 ML Syringe IV (22:58)
[2020-10-10] MEDS: Nystatin Powder 15gm Bottle 1 APPLIC TOPICAL (22:59)
[2020-10-10] MEDS: Linezolid 600 MG 600 MG/300 ML BAG 200 MG IV (22:59)
[2020-10-10] MEDS: Amitriptyline 25 MG Tablet PO (23:00)
[2020-10-10] MEDS: Pregabalin 50 MG Capsule PO (23:06)
[2020-10-10] MEDS: Acetaminophen 325 MG Tablet 650 MG PO (23:06)
[2020-10-10] MEDS: oxyCODONE 5 MG Tablet PO (23:07)
[2020-10-10] MEDS: Insulin Lispro 100 UNIT/ML INSULN.PEN SC (23:07)
[2020-10-10 23:15] LABS: International Normalized Ratio 2.7; Prothrombin Time (Protime)PT. 27.5 SECONDS (11.7-14.9)
[2020-10-10 23:29] LABS: Lactic Acid 1.6 mmol/L (0.4-1.9)
[2020-10-11] VITALS (21 sets, daily range): BP systolic 84–146; BP diastolic 24–98; PULSE 76–93; RESP 14–21; TEMP 36.2–36.8; O2SAT 90–98
[2020-10-11 04:21] LABS: Bedside Glucose 151 mg/dL (70-110)
[2020-10-11 04:26] LABS: Absolute Neutrophil Count 11.3 X10^3/uL (2.0-7.7); Basophil# 0.08 X10^3/uL; Basophil% 0.5 % (0-1); Eosinophil# 0.08 X10^3/uL; Eosinophils% 0.5 % (0-5); Hematocrit 30.3 % (40-54); Hemoglobin 8.8 g/dL (13.0-16.5); Lymphocyte % 15.5 % (19-41); Mean Corpuscular Hgb 27.2 pg (27.0-32.0); Mean Corpuscular Volume 93.5 fL (80-94); Mean Platelet Vol. 11.3 fl (6.2-12.0); Monocyte# 0.77 X10^3/uL; Monocyte% 5.2 % (0-10); NRBC Flagged by Analyzer 0 % (0-5); Neutrophil # 11.27 X10^3/uL (2.7-7.7); Neutrophil % 75.8 % (47-70); Platelet Count 281 K/mm3 (150-450); RBC Distribution Width SD 51.3 fl (35.1-43.9); Red Blood Count 3.24 M/mm3 (4.6-6.2); White Blood Count 14.9 K/mm3 (4.4-11.0)
[2020-10-11 04:35] LABS: International Normalized Ratio 2.6; Prothrombin Time (Protime)PT. 27.4 SECONDS (11.7-14.9)
[2020-10-11 04:49] LABS: ALB/GLOB Ratio 0.3 RATIO (0.9-2.4); AST(SGOT) 23 U/L (15-37); Alanine Aminotransfer ALT/SGPT < 6 U/L (16-61); Albumin, Serum 2.1 g/dL (3.2-5.0); Alkaline Phosphatase 96 U/L (45-117); Anion Gap 10 (5-15); BUN 41 mg/dL (7-18); BUN/Creat Ratio 5.9 RATIO (10-20); Calcium,Total 9.2 mg/dL (8.5-10.1); Chloride 94 mmol/L (98-107); Creatinine, Serum 6.95 mg/dL (0.70-1.30); EST Glomerular Filtration Rate 9 mL/min (>60); Est Glom Filt Rate - Afr Amer 11 mL/min (>60); Estimated Creatinine Clearance 14.53 ml/min; Globulin 6.3 g/dL (2.2-4.2); Glucose 149 mg/dL (74-106); Magnesium 2.1 mg/dL (1.6-2.6); Phosphorus 2.5 mg/dL (2.5-4.9); Protein, Total 8.4 g/dL (6.4-8.2); Sodium Level 133 mmol/L (136-145)
[2020-10-11] MEDS: Levothyroxine 50 MCG Tablet PO (05:27)
[2020-10-11] MEDS: Nystatin Powder 15gm Bottle 1 APPLIC TOPICAL ×3 (05:27→20:46)
[2020-10-11] MEDS: 0.9% Saline Lock 10 ML Syringe IV (05:27)
[2020-10-11 07:56] LABS: Bedside Glucose 173 mg/dL (70-110)
[2020-10-11] MEDS: Calcium Acetate 667 MG Capsule 1334 MG PO (08:38)
[2020-10-11] MEDS: Insulin Lispro 100 UNIT/ML INSULN.PEN 15 UNIT SC ×3 (08:38→17:20)
[2020-10-11] MEDS: Aspirin 81 MG TAB.CHEW PO (08:38)
[2020-10-11] MEDS: Midodrine HCl 5 MG Tablet PO ×3 (08:38→17:19)
--- NOTE | 2020-10-11 10:10 | PCM.PN.HOSP ---
Patient Problems: Active and Suspected Problems (Last Reviewed 10/10/20 @ 18:[address] Kathe Shaw, DO) Leukocytosis (Acute) Skin ulceration (Acute) Infectious encephalopathy (Acute) Severe sepsis (Acute) Acute encephalopathy (Acute) SECONDARY TO SEPSIS Subjective: Feels short of breath. BP chronically labile. Vitals/I&O's: Vital Signs Temp Pulse Resp BP Pulse Ox 36.4 C L 81 18 102/45 L 97 10/11/20 07:52 10/11/20 08:00 10/11/20 08:00 10/11/20 08:00 10/11/20 08:00 Oxygen Flow Rate (L/min) 2 Oxygen Delivery Method Nasal Cannula Weight: 156.4 kg Body Mass Index (BMI) 45.5 Finger Stick Blood Glucose 148 Intake and Output for Last 24 Hours 10/09/20 10/10/20 10/11/20 23:59 23:59 23:59 Intake Total 173.33 / 173.33 300 / 300 Output Total 0 / 0 Balance 173.33 / 173.33 300 / 300 General: Alert, - - appears older than stated age HEENT: Atraumatic, Normocephalic Oral: Moist Mucosa, No Gingival or Mucosal Lesions/ Ulcerations Neck: No Nodes, Thyroid Normal Size and Texture Lungs: Clear to auscultation, Normal air movement, No rhonchi, No wheeze, No rales Cardiovascular: Regular rate, Regular Rhythm, Normal S1, Normal S2 Abdomen: Bowel Sounds Present, Soft, Non Tender, Distended Extremities: No edema, No Calf Tenderness, Diminished Peripheral Pulses Musculoskeletal: No Tenderness to Palpation of Joints or Extremities, No Muscle Wasting Neurological: Muscle tone normal, - - no clonus Psych/Mental Status: Normal Affect, Appropriate Microbiology Past 72 Hours 10/10/20 15:50 Mucosa - Nose SARS-CoV-2 Antigen (Rapid) - Final Laboratory Results 10/10/20 15:10: WBC 17.2 H, RBC 3.62 L, Hgb 9.8 L, Hct 33.7 L, MCV 93.1, MCH 27.1, MCHC 29.1 L, RDW Std Deviation 50.9 H, RDW Coeff of Baljit 15.0 H, Plt Count 354, MPV 11.5, Immature Gran % (Auto) 3.800 H, Neut % (Auto) 77.2 H, Lymph % (Auto) 11.4 L, [place] % (Auto) 6.8, Eos % (Auto) 0.2, Baso % (Auto) 0.6, Absolute Neuts (auto) 13.3 H, Absolute Lymphs (auto) 1.97, Nucleated RBC % 0 10/10/20 15:10: PT Cancelled, INR Cancelled, APTT Cancelled 10/10/20 15:10: Sodium Cancelled, Potassium Cancelled, Chloride Cancelled, Carbon Dioxide Cancelled, Anion Gap Cancelled, BUN Cancelled, Creatinine Cancelled, Estim Creat Clear Calc Cancelled, Est GFR (MDRD) Af Amer Cancelled, Est GFR (MDRD) Non-Af Cancelled, BUN/Creatinine Ratio Cancelled, Glucose Cancelled, Calcium Cancelled, Total Bilirubin Cancelled, AST Cancelled, ALT Cancelled, Alkaline Phosphatase Cancelled, Total Protein Cancelled, Albumin Cancelled, Globulin Cancelled, Albumin/Globulin Ratio Cancelled 10/10/20 15:50: Lactic Acid Cancelled 10/10/20 15:50: PT Cancelled, INR Cancelled, APTT Cancelled 10/10/20 15:50: Sodium Cancelled, Potassium Cancelled, Chloride Cancelled, Carbon Dioxide Cancelled, Anion Gap Cancelled, BUN Cancelled, Creatinine Cancelled, Estim Creat Clear Calc Cancelled, Est GFR (MDRD) Af Amer Cancelled, Est GFR (MDRD) Non-Af Cancelled, BUN/Creatinine Ratio Cancelled, Glucose Cancelled, Calcium Cancelled, Total Bilirubin Cancelled, AST Cancelled, ALT Cancelled, Alkaline Phosphatase Cancelled, Total Protein Cancelled, Albumin Cancelled, Globulin Cancelled, Albumin/Globulin Ratio Cancelled 10/10/20 16:26: PT Cancelled, INR Cancelled, APTT Cancelled 10/10/20 16:26: Sodium 131 L, Potassium 3.8, Chloride 94 L, Carbon Dioxide 28.0, Anion Gap 9, BUN 37 H, Creatinine 6.38 H, Estim Creat Clear Calc 15.83, Est GFR (MDRD) Af Amer 12 L, Est GFR (MDRD) Non-Af 10 L, BUN/Creatinine Ratio 5.8 L, Glucose 159 H, Calcium 9.8, Total Bilirubin 0.40, AST 16, ALT < 6 L, Alkaline Phosphatase 99, Total Protein 8.9 H, Albumin 2.2 L, Globulin 6.7 H, Albumin/Globulin Ratio 0.3 L 10/10/20 16:26: Lactic Acid 2.2 H* 10/10/20 22:38: POC Glucose 181 H 10/10/20 22:50: PT 27.5 H, INR 2.7 10/10/20 22:55: Lactic Acid 1.6 10/11/20 04:17: POC Glucose 151 H 10/11/20 04:20: WBC 14.9 H, RBC 3.24 L, Hgb 8.8 L, Hct 30.3 L, MCV 93.5, MCH 27.2, MCHC 29.0 L, RDW Std Deviation 51.3 H, RDW Coeff of Baljit 15.0 H, Plt Count 281, MPV 11.3, Immature Gran % (Auto) 2.500 H, Neut % (Auto) 75.8 H, Lymph % (Auto) 15.5 L, [place] % (Auto) 5.2, Eos % (Auto) 0.5, Baso % (Auto) 0.5, Absolute Neuts (auto) 11.3 H, Absolute Lymphs (auto) 2.30, Nucleated RBC % 0 10/11/20 04:20: PT 27.4 H, INR 2.6 10/11/20 04:20: Sodium 133 L, Potassium 4.0, Chloride 94 L, Carbon Dioxide 29.0, Anion Gap 10, BUN 41 H, Creatinine 6.95 H, Estim Creat Clear Calc 14.53, Est GFR (MDRD) Af Amer 11 L, Est GFR (MDRD) Non-Af 9 L, BUN/Creatinine Ratio 5.9 L, Glucose 149 H, Calcium 9.2, Phosphorus 2.5, Magnesium 2.1, Total Bilirubin 0.40, AST 23, ALT < 6 L, Alkaline Phosphatase 96, Total Protein 8.4 H, Albumin 2.1 L, Globulin 6.3 H, Albumin/Globulin Ratio 0.3 L 10/11/20 07:49: POC Glucose 173 H 10/11/20 07:52: MRSA (PCR) Pending Current Medications Acetaminophen (Acetaminophen 325 Mg Tablet) 650 mg PO Q6H PRN PRN PRN Reason: Pain Score 1-10/Temp > 100.7 F Last Admin: 10/10/20 23:06 Dose: 650 mg Documented by: Amitriptyline HCl (Amitriptyline 25 Mg Tablet) 25 mg PO QHS [facility] Last Admin: 10/10/20 23:00 Dose: 25 mg Documented by: Aspirin (Aspirin 81 Mg Tab.Chew) 81 mg PO DAILY@0800 [facility] Last Admin: 10/11/20 08:38 Dose: 81 mg Documented by: Epoetin Philip-epbx (Epoetin Philip Epbx 10,000 Units/Ml) 6,000 units IV MoWeFr [facility] Linezolid (Zyvox 600mg) 600 mg in 300 mls @ 200 mls/hr IV Q12 [facility] Last Infusion: 10/11/20 00:30 Dose: Infused Documented by: Piperacillin Sod/Tazobactam (Sod 3.375 gm/ Sodium Chloride) 50 mls @ 12.5 mls/hr IV Q12 [facility] Sodium Chloride () 250 mls @ 15 mls/hr IV .[id number] PRN PRN Reason: Saline Flush Insulin Glargine (Insulin Glargine 100 Units/Ml Pen) 20 units SC QHS [facility] Last Admin: 10/10/20 23:00 Dose: 20 u Documented by: Insulin Human Lispro (Insulin Lispro 100 Unit/Ml Insuln.Pen) [facility]; Protocol Last Admin: 10/11/20 05:28 Dose: Not Given Documented by: Insulin Human Lispro (Insulin Lispro 100 Unit/Ml Insuln.Pen) 15 unit SC TIDAC [facility] Last Admin: 10/11/20 08:38 Dose: 15 units Documented by: Levothyroxine Sodium (Levothyroxine 50 Mcg Tablet) 50 mcg PO DAILY@0600 [facility] Last Admin: 10/11/20 05:27 Dose: 50 mcg Documented by: Midodrine (Midodrine Hcl 5 Mg Tablet) 5 mg PO TIDCM [facility] Last Admin: 10/11/20 08:38 Dose: 5 mg Documented by: Multivit/Ca Carb/B Cmplx/FA/Prenat (Folic Acid/Vitamin B Comp W-C 1 Capsule) 1 capsule PO DAILY [facility] Nystatin (Nystatin Powder 15gm Bottle) 1 applic TOPICAL TID [facility]; Protocol Last Admin: 10/11/20 05:27 Dose: 1 applic Documented by: Ondansetron HCl (Ondansetron 4 Mg/2 Ml Vial) 4 mg IV Q8H PRN PRN PRN Reason: NAUSEA/VOMITING Pantoprazole Sodium (Pantoprazole Sodium 40 Mg Tablet) 40 mg PO DAILY [facility] Rizatriptan Benzoate (Rizatriptan Benzoate 10 Mg Tablet) 10 mg PO MOWEFR PRN PRN Reason: MIGRAINES Senna/Docusate Sodium (Senna/Docusate Sodium 1 Tablet) 2 tablet PO BID PRN PRN PRN Reason: Constipation Sodium Chloride (0.9% Saline Lock 10 Ml Syringe) 10 - 40 ml IV UD PRN PRN Reason: SALINE FLUSH Last Admin: 10/11/20 05:27 Dose: 20 ml Documented by: Warfarin Sodium (Warfarin 2.5 Mg Tablet) 2.5 mg PO SuTuThSa@1700 [facility] Warfarin Sodium (Warfarin 3 Mg Tablet) 3 mg PO MoWeFr@1700 [facility] STROKE Vital Signs/Narrative: Vital Signs Temp Pulse Resp BP Pulse Ox 10/11/20 08:00 81 18 102/45 L 97 10/11/20 07:52 36.4 C L 10/11/20 07:10 86 10/11/20 07:00 83 18 96/28 L 98 10/11/20 06:33 92 Medical Necessity - Tobacco Use Smoking Status: Never smoker Assessment/Plan All Active Problems (Last Reviewed 10/10/20 @ 18:[address] Kathe Shaw, DO) Leukocytosis (Acute) Skin ulceration (Acute) Infectious encephalopathy (Acute) Severe sepsis (Acute) Acute encephalopathy (Acute) Obstruction of right ureteropelvic junction due to stone (Resolved) Hydronephrosis of right kidney (Resolved) Problem with dialysis access (Resolved) AV fistula thrombosis (Resolved) Closed head injury (Resolved) Difficulty swallowing (Resolved) Urinary tract infection (Resolved) 50-year-old white male patient has chronic hypotension but was in severe sepsis upon arrival with lactic acid of 2.2 patient did receive IV fluids and pressures have remained fairly stable in the ICU. No clear source of infection has been identified and patient has been on broad-spectrum antibiotics. Severe sepsis secondary to unknown etiology -Severe sepsis protocol initiated -Cultures pending -Check urine antigens but doubt pneumonia -X-ray reviewed and showed no obvious infiltrate (poor inspiratory film). -Rapid Covid was negative -Check MRSA PCR -Start Zosyn/and Zyvox to cover skin with back wound -Check UA and UCx (results could be skewed given that he is already on abx) Lactic acidosis -Mild and resolved -Initial lactic acid 2.2 Leukocytosis -Initial White count is 17.2, now down to 14.9 -Repeat CBC in a.m. Intertrigo yeast -Nystatin powder Abdominal and back wounds -Culture of back wound -Antibiotics as above -Consult wound care Acute metabolic encephalopathy -CT brain showed no acute intracranial hemorrhage or mass-effect and is unchanged from previous CT -patient currently awake and appropriate but easily dozes off -Dc'd pregabalin Hypotension -chronic -on midodrine -On presentation patient's blood pressures were borderline -Patient is not on any antihypertensives at baseline -If pressures are noted to be elevated consider as needed medication -check AM cortisol -BP has wide pulse pressures. I question the accuracy of the diastolic numbers. Chronic normocytic anemia secondary to renal disease -Hemoglobin is stable and at baseline -Baseline hemoglobin is 8.5-10 -Monitor End-stage renal disease -Patient is HD dependent-MWF -Consult nephrology-Dr. Shaw Recurrent thrombosed catheters and grafts/fistulas -Patient is on Coumadin as there was concerned that he had an underlying coagulopathy -INR 2.6 -continue warfarin DM-2 -Patient is on oral regimen at baseline -During acute hospitalization -Continue insulin regimen -SSI -ADA/renal diet -BGTs before meals and at bedtime Chronic hyponatremia -Volume management with hemodialysis Chronic scrotal pain -Patient complains of lifelong issue of scrotal pain and burning -No rashes, discoloration or abnormalities noted with the scrotum -Would recommend urological follow-up as an outpatient Diabetic neuropathy -pregabalin on hold given encephalopathy Hyperlipidemia -Patient is not on a statin at baseline -We will allow for patient follow-up Hypothyroidism -Continue Synthroid Migraines -Rizatriptan on dialysis days -continue scheduled amitriptyline GERD -Continue PPI PILAR -CPAP of 12 at at bedtime as patient allows Morbid obesity -BMI is 46.1 -Recommend weight loss -Complicates overall medical care and prognosis DVT prophylaxis -patient is fully anticoagulated with Coumadin -INR is pending on admission if it is subtherapeutic we will start heparin 3 times daily 1000 units CODE STATUS -full code Given stability, will transfer to PCU today. Inpatient E&M: 23606 Subs Hosp L3
[2020-10-11] MEDS: Linezolid 600 MG 600 MG/300 ML BAG 200 MG IV ×2 (10:26→22:20)
[2020-10-11] MEDS: Folic Acid/Vitamin B Comp W-C 1 Capsule 1 CAP PO (10:27)
[2020-10-11] MEDS: Pantoprazole Sodium 40 MG Tablet PO (10:28)
[2020-10-11 11:51] LABS: M R Staph aureus DNA By PCR Negative (Negative); Probe Check PASS; Specimen Processing Control PASS
[2020-10-11 12:05] LABS: Bedside Glucose 166 mg/dL (70-110)
[2020-10-11] MEDS: Insulin Lispro 100 UNIT/ML INSULN.PEN SC ×2 (12:13→17:20)
--- NOTE | 2020-10-11 13:28 | CPS ---
Patient refused CPAP
[2020-10-11 17:40] LABS: Bedside Glucose 196 mg/dL (70-110)
[2020-10-11] MEDS: Amitriptyline 25 MG Tablet PO (20:47)
[2020-10-11] MEDS: Acetaminophen 325 MG Tablet 650 MG PO (21:28)
[2020-10-11 22:06] LABS: Bedside Glucose 76 mg/dL (70-110)
[2020-10-12] VITALS (12 sets, daily range): BP systolic 94–129; BP diastolic 32–83; PULSE 81–93; RESP 14–18; TEMP 35.7–37.1; O2SAT 92–96
[2020-10-12 05:53] LABS: Absolute Lymphocyte Count 1.43 X10^3/uL (0.83-4.51); Absolute Neutrophil Count 11.1 X10^3/uL (2.0-7.7); Basophil# 0.05 X10^3/uL; Basophil% 0.4 % (0-1); Eosinophil# 0.07 X10^3/uL; Eosinophils% 0.5 % (0-5); Hematocrit 28.6 % (40-54); Hemoglobin 8.2 g/dL (13.0-16.5); Lymphocyte # 1.43 X10^3/ul (4.0); Lymphocyte % 10.7 % (19-41); Mean Corp Hgb Conc 28.7 g/dL (32-36); Mean Corpuscular Hgb 27.1 pg (27.0-32.0); Mean Corpuscular Volume 94.4 fL (80-94); Monocyte# 0.59 X10^3/uL; Monocyte% 4.4 % (0-10); NRBC Flagged by Analyzer 0 % (0-5); Neutrophil # 11.08 X10^3/uL (2.7-7.7); Neutrophil % 82.5 % (47-70); Platelet Count 267 K/mm3 (150-450); RBC Distribution Width CV 14.9 % (11.6-14.6); RBC Distribution Width SD 51.7 fl (35.1-43.9); Red Blood Count 3.03 M/mm3 (4.6-6.2); White Blood Count 13.4 K/mm3 (4.4-11.0)
[2020-10-12] MEDS: Levothyroxine 50 MCG Tablet PO (06:00)
[2020-10-12] MEDS: Nystatin Powder 15gm Bottle 1 APPLIC TOPICAL ×3 (06:00→21:29)
[2020-10-12 06:11] LABS: International Normalized Ratio 2.7; Prothrombin Time (Protime)PT. 27.6 SECONDS (11.7-14.9)
[2020-10-12 06:41] LABS: ALB/GLOB Ratio 0.3 RATIO (0.9-2.4); AST(SGOT) 27 U/L (15-37); Alanine Aminotransfer ALT/SGPT < 6 U/L (16-61); Albumin, Serum 1.9 g/dL (3.2-5.0); Alkaline Phosphatase 99 U/L (45-117); Anion Gap 10 (5-15); BUN 44 mg/dL (7-18); BUN/Creat Ratio 5.6 RATIO (10-20); Chloride 94 mmol/L (98-107); Creatinine, Serum 7.89 mg/dL (0.70-1.30); EST Glomerular Filtration Rate 8 mL/min (>60); Est Glom Filt Rate - Afr Amer 9 mL/min (>60); Glucose 174 mg/dL (74-106); Potassium 4.1 mmol/L (3.5-5.1); Protein, Total 7.9 g/dL (6.4-8.2); Sodium Level 130 mmol/L (136-145)
[2020-10-12] MEDS: Insulin Lispro 100 UNIT/ML INSULN.PEN SC ×3 (08:31→21:39)
[2020-10-12] MEDS: Insulin Lispro 100 UNIT/ML INSULN.PEN 15 UNIT SC ×2 (08:31→11:56)
[2020-10-12] MEDS: Folic Acid/Vitamin B Comp W-C 1 Capsule 1 CAP PO (08:45)
[2020-10-12] MEDS: Midodrine HCl 5 MG Tablet PO ×3 (08:45→17:42)
[2020-10-12] MEDS: Aspirin 81 MG TAB.CHEW PO (08:45)
[2020-10-12] MEDS: Pantoprazole Sodium 40 MG Tablet PO (08:46)
[2020-10-12] MEDS: Linezolid 600 MG 600 MG/300 ML BAG 200 MG IV ×2 (08:50→21:27)
[2020-10-12 08:56] LABS: Bedside Glucose 199 mg/dL (70-110)
--- NOTE | 2020-10-12 10:09 | NURSING ---
wound photo: right lower abdomen
--- NOTE | 2020-10-12 10:11 | NURSING ---
wound photo: left lower abdomen
--- NOTE | 2020-10-12 10:12 | NURSING ---
wound photo: mid upper back
--- NOTE | 2020-10-12 10:14 | CASEMGMT ---
Readmission chart review: Pt was initially admitted 09/30-10/04/20 for Severe sepsis, encephalopathy, UTI from [facility] where he is a LT resident. Pt is ESRD on HD and was made a DNRCC-A, no intubation per sister, Treva, during this visit. Pt returned to [facility] at discharge with some med changes, including reduction of Lyrica dose d/t lethargy. Pt returned to [facility] ED on 10/10/20 with AMS, hallucinations per [facility] but was A/Ox3 upon arrival to ED. Pt admitted again for Severe sepsis and started on antibx. Pt hypotensive but has hx of same and is already on midodrine. Pt was placed on IV fluids. CM to follow for any further discharge planning/needs. SStbrad SERRANO CM
--- NOTE | 2020-10-12 10:26 | CASEMGMT ---
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 DARREL faxed clinicals to [facility]. Plan: d/c back to [facility] when medically ready. Charmaine JOHNSON
--- NOTE | 2020-10-12 11:43 | CON.PCM_ITS ---
Consultation - Renal 10/12/20 PCP/ Referring MD: Requesting physician: [] Primary care physician: Dr. Jonathon Hitchcock MD Reason for Consultation:: ESRD HD MWF - History of Present Illness History of Present Illness: The patient is a 50 year old morbidly obese M with ESRD due to diabetes on HHD [facility] readmitted for hallucinations, hearing things with scrotal pain, back pain, leg pain. He was recently hospitalized for possible urosepsis. Cx all negative. Discharged on oral antibx. Recultured on admit. No fever, chills. Dialysis with tunneled catheter for access. He has autonomic dysfunction on midodrine for hypotension. [He had intermittent periods of lethargy last admit for which his Lyrica dose was reduced prior to discharge back to [facility]. CT of his brain was done and showed no acute intracranial hemorrhage or mass- effect CXR unremarkable. Rapid COVID negative on 10/10/20. - Allergies Allergies: Allergies vancomycin Allergy (Verified 09/30/20 17:57) Other C/O BEING HOT - Current Medications Current Medications: Current Medications Acetaminophen (Acetaminophen 325 Mg Tablet) 650 mg PO Q6H PRN PRN PRN Reason: Pain Score 1-10/Temp > 100.7 F Last Admin: 10/11/20 21:28 Dose: 650 mg Documented by: Amitriptyline HCl (Amitriptyline 25 Mg Tablet) 25 mg PO QHS [facility] Last Admin: 10/11/20 20:47 Dose: 25 mg Documented by: Aspirin (Aspirin 81 Mg Tab.Chew) 81 mg PO DAILY@0800 [facility] Last Admin: 10/12/20 08:45 Dose: 81 mg Documented by: Epoetin Philip-epbx (Epoetin Philip Epbx 10,000 Units/Ml) 6,000 units IV MoWeFr [facility] Linezolid (Zyvox 600mg) 600 mg in 300 mls @ 200 mls/hr IV Q12 [facility] Last Infusion: 10/12/20 10:42 Dose: Infused Documented by: Piperacillin Sod/Tazobactam (Sod 3.375 gm/ Sodium Chloride) 50 mls @ 12.5 mls/hr IV Q12 [facility] Last Admin: 10/12/20 10:41 Dose: 12.5 mls/hr Documented by: Sodium Chloride () 250 mls @ 15 mls/hr IV .[id number] PRN PRN Reason: Saline Flush Insulin Glargine (Insulin Glargine 100 Units/Ml Pen) 20 units SC QHS [facility] Last Admin: 10/11/20 20:46 Dose: Not Given Documented by: Insulin Human Lispro (Insulin Lispro 100 Unit/Ml Insuln.Pen) 0 unit SC ACHS [facility]; Protocol Last Admin: 10/12/20 08:31 Dose: 2 u Documented by: Insulin Human Lispro (Insulin Lispro 100 Unit/Ml Insuln.Pen) 15 unit SC TIDAC [facility] Last Admin: 10/12/20 08:31 Dose: 15 units Documented by: Levothyroxine Sodium (Levothyroxine 50 Mcg Tablet) 50 mcg PO DAILY@0600 [facility] Last Admin: 10/12/20 06:00 Dose: 50 mcg Documented by: Midodrine (Midodrine Hcl 5 Mg Tablet) 5 mg PO TIDCM [facility] Last Admin: 10/12/20 08:45 Dose: 5 mg Documented by: Multivit/Ca Carb/B Cmplx/FA/Prenat (Folic Acid/Vitamin B Comp W-C 1 Capsule) 1 capsule PO DAILY [facility] Last Admin: 10/12/20 08:45 Dose: 1 capsule Documented by: Nystatin (Nystatin Powder 15gm Bottle) 1 applic TOPICAL TID [facility]; Protocol Last Admin: 10/12/20 06:00 Dose: 1 applic Documented by: Ondansetron HCl (Ondansetron 4 Mg/2 Ml Vial) 4 mg IV Q8H PRN PRN PRN Reason: NAUSEA/VOMITING Pantoprazole Sodium (Pantoprazole Sodium 40 Mg Tablet) 40 mg PO DAILY [facility] Last Admin: 10/12/20 08:46 Dose: 40 mg Documented by: Rizatriptan Benzoate (Rizatriptan Benzoate 10 Mg Tablet) 10 mg PO MOWEFR PRN PRN Reason: MIGRAINES Senna/Docusate Sodium (Senna/Docusate Sodium 1 Tablet) 2 tablet PO BID PRN PRN PRN Reason: Constipation Sodium Chloride (0.9% Saline Lock 10 Ml Syringe) 10 - 40 ml IV UD PRN PRN Reason: SALINE FLUSH Last Admin: 10/11/20 05:27 Dose: 20 ml Documented by: Warfarin Sodium (Warfarin 2.5 Mg Tablet) 2.5 mg PO SuTuThSa@1700 [facility] Last Admin: 10/11/20 17:19 Dose: 2.5 mg Documented by: Warfarin Sodium (Warfarin 3 Mg Tablet) 3 mg PO MoWeFr@1700 [facility] - Past Medical History Past Medical History (Chronic Problems): Chronic Problems (Last Reviewed 10/10/20 @ 18:[address] Kathe Shaw DO) PILAR (obstructive sleep apnea) (Chronic) Hypotension (Chronic) Hypertension (Chronic) GERD (gastroesophageal reflux disease) (Chronic) Hypothyroidism (Chronic) Diabetes mellitus type 2 in obese (Chronic) ESRD (end stage renal disease) on dialysis (Chronic) - Past Surgical History Surgical History: - - AV fistula failed attempts, dialysis access insertions and removals especially recently with bacteremia, left foot toe amputation. - Social History Smoking Status: Never smoker Alcohol: Rare Drugs: None - Family History Maternal History Items: COPD Paternal History Items: Hypertension Sibling History Items: Diabetes Review of Systems Constitutional: Reports: Anorexia, Weakness, Fatigue. Denies: Chills, Fever Eyes: Denies: Vision Change HEENT: Reports: Head Aches Cardiovascular: Denies: Chest Pain, Edema, Syncope Gastrointestinal: Denies: Abdominal Pain, Nausea, Vomiting Genitourinary: Denies: Dysuria Skin: Denies: Rash Neurological: Reports: - - gen weakness, - - migraine. Denies: Tremor, Seizures Psychiatric: Reports: Anxiety, Depression, - - hallucinations, hearing things Hematologic/ Lymphatic: Reports: Anemia Patient Problems: Active and Suspected Problems (Last Reviewed 10/10/20 @ 18:[address] Kathe Shaw DO) Leukocytosis (Acute) Skin ulceration (Acute) Infectious encephalopathy (Acute) Severe sepsis (Acute) Acute encephalopathy (Acute) SECONDARY TO SEPSIS - Physical Exam Vitals/I&O's: Vital Signs Temp Pulse Resp BP Pulse Ox 98.7 F 88 14 118/63 93 10/12/20 08:42 10/12/20 08:42 10/12/20 08:42 10/12/20 08:42 10/12/20 09:33 Oxygen Flow Rate (L/min) 2 Oxygen Delivery Method Nasal Cannula Weight: 158.3 kg Body Mass Index (BMI) 45.5 Finger Stick Blood Glucose 148 Intake and Output for Last 24 Hours 10/10/20 10/11/20 10/12/20 23:59 23:59 23:59 Intake Total 173.33 / 173.33 1090 / 1090 850 / 850 Output Total 0 / 0 Balance 173.33 / 173.33 1090 / 1090 850 / 850 General: Alert, Oriented x3, Cooperative, No apparent distress Oral: Dry Mucosa Neck: Supple Lungs: Clear to auscultation, Diminished Cardiovascular: Regular rate Abdomen: Bowel Sounds Present, Soft, Obese Extremities: No edema Musculoskeletal: Muscle Wasting - BLE Neurological: Cranial nerves II-XII grossly intact Psych/Mental Status: Alert and oriented to time, place, person, mood and affect Microbiology Past 72 Hours 10/11/20 11:10 Wound - Back Gram Stain - Final 10/11/20 11:10 Wound - Back 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 10/10/20 15:50 Mucosa - Nose SARS-CoV-2 Antigen (Rapid) - Final Laboratory Results 10/11/20 07:52: MRSA (PCR) Negative 10/11/20 11:41: POC Glucose 166 H 10/11/20 17:14: POC Glucose 196 H 10/11/20 20:44: POC Glucose 76 10/12/20 05:28: PT 27.6 H, INR 2.7 10/12/20 05:28: Legionella pneumophila Ab Pending 10/12/20 05:28: WBC 13.4 H, RBC 3.03 L, Hgb 8.2 L, Hct 28.6 L, MCV 94.4 H, MCH 27.1, MCHC 28.7 L, RDW Std Deviation 51.7 H, RDW Coeff of Baljit 14.9 H, Plt Count 267, MPV 11.0, Immature Gran % (Auto) 1.500 H, Neut % (Auto) 82.5 H, Lymph % (Auto) 10.7 L, [place] % (Auto) 4.4, Eos % (Auto) 0.5, Baso % (Auto) 0.4, Absolute Neuts (auto) 11.1 H, Absolute Lymphs (auto) 1.43, Nucleated RBC % 0 10/12/20 05:28: Sodium 130 L, Potassium 4.1, Chloride 94 L, Carbon Dioxide 26.0, Anion Gap 10, BUN 44 H, Creatinine 7.89 H*, Estim Creat Clear Calc 12.80, Est GFR (MDRD) Af Amer 9 L, Est GFR (MDRD) Non-Af 8 L, BUN/Creatinine Ratio 5.6 L, Glucose 174 H, Calcium 9.0, Total Bilirubin 0.40, AST 27, ALT < 6 L, Alkaline Phosphatase 99, Total Protein 7.9, Albumin 1.9 L, Globulin 6.0 H, Albumin/Globulin Ratio 0.3 L 10/12/20 05:28: Cortisol 22.40 10/12/20 08:29: POC Glucose 199 H Current Medications Acetaminophen (Acetaminophen 325 Mg Tablet) 650 mg PO Q6H PRN PRN PRN Reason: Pain Score 1-10/Temp > 100.7 F Last Admin: 10/11/20 21:28 Dose: 650 mg Documented by: Amitriptyline HCl (Amitriptyline 25 Mg Tablet) 25 mg PO QHS [facility] Last Admin: 10/11/20 20:47 Dose: 25 mg Documented by: Aspirin (Aspirin 81 Mg Tab.Chew) 81 mg PO DAILY@0800 [facility] Last Admin: 10/12/20 08:45 Dose: 81 mg Documented by: Epoetin Philip-epbx (Epoetin Philip Epbx 10,000 Units/Ml) 6,000 [facility] Linezolid (Zyvox 600mg) 600 mg in 300 mls @ 200 mls/hr IV Q12 [facility] Last Infusion: 10/12/20 10:42 Dose: Infused Documented by: Piperacillin Sod/Tazobactam (Sod 3.375 gm/ Sodium Chloride) 50 mls @ 12.5 mls/hr IV Q12 [facility] Last Admin: 10/12/20 10:41 Dose: 12.5 mls/hr Documented by: Sodium Chloride () 250 mls @ 15 mls/hr IV .[id number] PRN PRN Reason: Saline Flush Insulin Glargine (Insulin Glargine 100 Units/Ml Pen) [facility] Last Admin: 10/11/20 20:46 Dose: Not Given Documented by: Insulin Human Lispro (Insulin Lispro 100 Unit/Ml Insuln.Pen) 0 unit SC [facility]; Protocol Last Admin: 10/12/20 08:31 Dose: 2 u Documented by: Insulin Human Lispro (Insulin Lispro 100 Unit/Ml Insuln.Pen) 15 unit SC TIDAC [facility] Last Admin: 10/12/20 08:31 Dose: 15 units Documented by: Levothyroxine Sodium (Levothyroxine 50 Mcg Tablet) 50 mcg PO DAILY@0600 [facility] Last Admin: 10/12/20 06:00 Dose: 50 mcg Documented by: Midodrine (Midodrine Hcl 5 Mg Tablet) 5 mg PO TIDCM [facility] Last Admin: 10/12/20 08:45 Dose: 5 mg Documented by: Multivit/Ca Carb/B Cmplx/FA/Prenat (Folic Acid/Vitamin B Comp W-C 1 Capsule) 1 capsule PO DAILY [facility] Last Admin: 10/12/20 08:45 Dose: 1 capsule Documented by: Nystatin (Nystatin Powder 15gm Bottle) 1 applic TOPICAL TID [facility]; Protocol Last Admin: 10/12/20 06:00 Dose: 1 applic Documented by: Ondansetron HCl (Ondansetron 4 Mg/2 Ml Vial) 4 mg IV Q8H PRN PRN PRN Reason: NAUSEA/VOMITING Pantoprazole Sodium (Pantoprazole Sodium 40 Mg Tablet) 40 mg PO DAILY [facility] Last Admin: 10/12/20 08:46 Dose: 40 mg Documented by: Rizatriptan Benzoate (Rizatriptan Benzoate 10 Mg Tablet) 10 mg PO MOWEFR PRN PRN Reason: MIGRAINES Senna/Docusate Sodium (Senna/Docusate Sodium 1 Tablet) 2 tablet PO BID PRN PRN PRN Reason: Constipation Sodium Chloride (0.9% Saline Lock 10 Ml Syringe) 10 - 40 ml IV UD PRN PRN Reason: SALINE FLUSH Last Admin: 10/11/20 05:27 Dose: 20 ml Documented by: Warfarin Sodium (Warfarin 2.5 Mg Tablet) 2.5 mg PO SuTuThSa@1700 [facility] Last Admin: 10/11/20 17:19 Dose: 2.5 mg Documented by: Warfarin Sodium (Warfarin 3 Mg Tablet) 3 mg PO MoWeFr@1700 [facility] Assessment/Plan All Active Problems (Last Reviewed 10/10/20 @ 18:[address] Kathe Shaw, DO) Leukocytosis (Acute) Skin ulceration (Acute) Infectious encephalopathy (Acute) Severe sepsis (Acute) Acute encephalopathy (Acute) Obstruction of right ureteropelvic junction due to stone (Resolved) Hydronephrosis of right kidney (Resolved) Problem with dialysis access (Resolved) AV fistula thrombosis (Resolved) Closed head injury (Resolved) Difficulty swallowing (Resolved) Urinary tract infection (Resolved) 1. ESRD on HD MWF schedule while in the hospital. ON [facility]HD [facility] as outpt. Madalyn lysis today 2. Anemia epo 3x/wk 3. Hypotension on midodrine 4. Autonomic dysfunction 5. Morbid obesity 6. Hallucinations primary service mgmt 7. DM2 with neuropathy 8. Migraines 9. Hypophosphatemia stop binders.
[2020-10-12 12:01] LABS: Bedside Glucose 190 mg/dL (70-110)
--- NOTE | 2020-10-12 12:46 | PN_ITS ---
Patient Problems: Active and Suspected Problems (Last Reviewed 10/10/20 @ 18:[address] Kathe Shaw, DO) Leukocytosis (Acute) Skin ulceration (Acute) Infectious encephalopathy (Acute) Severe sepsis (Acute) Acute encephalopathy (Acute) SECONDARY TO SEPSIS Subjective: Patient seen and examined. He complains of pain in his lower extremities today because his Lyrica has been stopped. Review of symptoms otherwise negative. He has remained hemodynamically stable. Vitals/I&O's: Vital Signs Temp Pulse Resp BP Pulse Ox 98.7 F 88 14 118/63 93 10/12/20 08:42 10/12/20 08:42 10/12/20 08:42 10/12/20 08:42 10/12/20 09:33 Oxygen Flow Rate (L/min) 2 Oxygen Delivery Method Nasal Cannula Weight: 348 lb 15.868 oz Body Mass Index (BMI) 45.5 Finger Stick Blood Glucose 148 Intake and Output for Last 24 Hours 10/10/20 10/11/20 10/12/20 23:59 23:59 23:59 Intake Total 173.33 / 173.33 1090 / 1090 850 / 850 Output Total 0 / 0 Balance 173.33 / 173.33 1090 / 1090 850 / 850 General: Alert, Oriented x3, Cooperative, No apparent distress HEENT: Atraumatic, PERRLA, EOMI, Normocephalic Oral: Moist Mucosa Neck: Supple, No JVD, Negative Carotid Bruits Lungs: Clear to auscultation, Normal air movement Cardiovascular: Regular rate, Regular Rhythm, Normal S1, Normal S2, No murmurs Abdomen: Bowel Sounds Present, Soft, Non Tender, Non-Distended, No Hepato- splenomegaly Extremities: No clubbing, No cyanosis, No edema, Capillary Refill Less than 3 Seconds Skin: - - superficial ulceration in the middle of his back, with slough. Surrounding erythema, with mild tenderness on palpation. Musculoskeletal: No Tenderness to Palpation of Joints or Extremities Lymphatic: No Cervical, Supraclavicular, or Inguinal Adenopathy Neurological: Cranial nerves II-XII grossly intact, Neuro grossly intact, Motor Exam 5/5 strength throughout Psych/Mental Status: Normal Affect, Appropriate, Alert and oriented to time, place, person, mood and affect Microbiology Past 72 Hours 10/11/20 11:10 Wound - Back Gram Stain - Final 10/11/20 11:10 Wound - Back Wound Culture - Preliminary GNR lactose it network administrator Gram positive organism 10/10/20 15:50 Mucosa - Nose SARS-CoV-2 Antigen (Rapid) - Final Laboratory Results 10/11/20 17:14: POC Glucose 196 H 10/11/20 20:44: POC Glucose 76 10/12/20 05:28: PT 27.6 H, INR 2.7 10/12/20 05:28: Legionella pneumophila Ab Pending 10/12/20 05:28: WBC 13.4 H, RBC 3.03 L, Hgb 8.2 L, Hct 28.6 L, MCV 94.4 H, MCH 27.1, MCHC 28.7 L, RDW Std Deviation 51.7 H, RDW Coeff of Baljit 14.9 H, Plt Count 267, MPV 11.0, Immature Gran % (Auto) 1.500 H, Neut % (Auto) 82.5 H, Lymph % (Auto) 10.7 L, [place] % (Auto) 4.4, Eos % (Auto) 0.5, Baso % (Auto) 0.4, Absolute Neuts (auto) 11.1 H, Absolute Lymphs (auto) 1.43, Nucleated RBC % 0 10/12/20 05:28: Sodium 130 L, Potassium 4.1, Chloride 94 L, Carbon Dioxide 26.0, Anion Gap 10, BUN 44 H, Creatinine 7.89 H*, Estim Creat Clear Calc 12.80, Est GFR (MDRD) Af Amer 9 L, Est GFR (MDRD) Non-Af 8 L, BUN/Creatinine Ratio 5.6 L, Glucose 174 H, Calcium 9.0, Total Bilirubin 0.40, AST 27, ALT < 6 L, Alkaline Phosphatase 99, Total Protein 7.9, Albumin 1.9 L, Globulin 6.0 H, Albumin/Globulin Ratio 0.3 L 10/12/20 05:28: Cortisol 22.40 10/12/20 08:29: POC Glucose 199 H 10/12/20 11:54: POC Glucose 190 H Diagnostic Data Brain CT 10/10/20 15:16 IMPRESSION: No acute intracranial hemorrhage or mass effect. Electronically Signed: Olivier Lee MD ([place]) at 15:44 EDT , Service support , Chest X-Ray 10/10/20 15:16 IMPRESSION: Stable, nonacute portable x-ray examination of the chest. Electronically Signed: Olivier Lee MD ([place]) at 15:43 EDT , Service support , Current Medications Acetaminophen (Acetaminophen 325 Mg Tablet) 650 mg PO Q6H PRN PRN PRN Reason: Pain Score 1-10/Temp > 100.7 F Last Admin: 10/11/20 21:28 Dose: 650 mg Documented by: Amitriptyline HCl (Amitriptyline 25 Mg Tablet) 25 mg PO QHS [facility] Last Admin: 10/11/20 20:47 Dose: 25 mg Documented by: Aspirin (Aspirin 81 Mg Tab.Chew) 81 mg PO DAILY@0800 [facility] Last Admin: 10/12/20 08:45 Dose: 81 mg Documented by: Epoetin Philip-epbx (Epoetin Philip Epbx 10,000 Units/Ml) 6,[facility] (Zyvox 600mg) 600 mg in 300 mls @ 200 mls/hr IV Q12 [facility] Last Infusion: 10/12/20 10:42 Dose: Infused Documented by: Piperacillin Sod/Tazobactam (Sod 3.375 gm/ Sodium Chloride) 50 mls @ 12.5 mls/hr IV Q12 [facility] Last Admin: 10/12/20 10:41 Dose: 12.5 mls/hr Documented by: Sodium Chloride () 250 mls @ 15 mls/hr IV .[id number] PRN PRN Reason: Saline Flush Insulin Glargine (Insulin Glargine 100 Units/Ml Pen) [facility] Last Admin: 10/11/20 20:46 Dose: Not Given Documented by: Insulin Human Lispro (Insulin Lispro 100 Unit/Ml Insuln.Pen) 0 unit SC ACHS [facility]; Protocol Last Admin: 10/12/20 11:56 Dose: 2 u Documented by: Insulin Human Lispro (Insulin Lispro 100 Unit/Ml Insuln.Pen) 15 unit SC TIDAC [facility] Last Admin: 10/12/20 11:56 Dose: 15 units Documented by: Levothyroxine Sodium (Levothyroxine 50 Mcg Tablet) 50 mcg PO DAILY@0600 [facility] Last Admin: 10/12/20 06:00 Dose: 50 mcg Documented by: Midodrine (Midodrine Hcl 5 Mg Tablet) 5 mg PO TIDCM [facility] Last Admin: 10/12/20 11:56 Dose: 5 mg Documented by: Multivit/Ca Carb/B Cmplx/FA/Prenat (Folic Acid/Vitamin B Comp W-C 1 Capsule) 1 capsule PO DAILY [facility] Last Admin: 10/12/20 08:45 Dose: 1 capsule Documented by: Nystatin (Nystatin Powder 15gm Bottle) 1 applic TOPICAL TID [facility]; Protocol Last Admin: 10/12/20 06:00 Dose: 1 applic Documented by: Ondansetron HCl (Ondansetron 4 Mg/2 Ml Vial) 4 mg IV Q8H PRN PRN PRN Reason: NAUSEA/VOMITING Pantoprazole Sodium (Pantoprazole Sodium 40 Mg Tablet) 40 mg PO DAILY [facility] Last Admin: 10/12/20 08:46 Dose: 40 mg Documented by: Rizatriptan Benzoate (Rizatriptan Benzoate 10 Mg Tablet) 10 mg PO MOWEFR PRN PRN Reason: MIGRAINES Senna/Docusate Sodium (Senna/Docusate Sodium 1 Tablet) 2 tablet PO BID PRN PRN PRN Reason: Constipation Sodium Chloride (0.9% Saline Lock 10 Ml Syringe) 10 - 40 ml IV UD PRN PRN Reason: SALINE FLUSH Last Admin: 10/11/20 05:27 Dose: 20 ml Documented by: Warfarin Sodium (Warfarin 2.5 Mg Tablet) 2.5 mg PO SuTuThSa@1700 [facility] Last Admin: 10/11/20 17:19 Dose: 2.5 mg Documented by: Warfarin Sodium (Warfarin 3 Mg Tablet) 3 mg PO MoWeFr@1700 [facility] STROKE Vital Signs/Narrative: Vital Signs Pulse Ox 10/12/20 09:33 93 Medical Necessity - Tobacco Use Smoking Status: Never smoker Assessment/Plan All Active Problems (Last Reviewed 10/10/20 @ 18:[address] Kathe Shaw DO) Leukocytosis (Acute) Skin ulceration (Acute) Infectious encephalopathy (Acute) Severe sepsis (Acute) Acute encephalopathy (Acute) Obstruction of right ureteropelvic junction due to stone (Resolved) Hydronephrosis of right kidney (Resolved) Problem with dialysis access (Resolved) AV fistula thrombosis (Resolved) Closed head injury (Resolved) Difficulty swallowing (Resolved) Urinary tract infection (Resolved) #Severe sepsis * only possible source of infection is the superficial ulceration on his back * wbc is down to 13.4, from 17.2 on admission * on IV zosyn and zyvox. * wound culture growing gram negative lactose it network administrator and gram positive organi sm * blood cultures pending * #Cellulitis with superficial ulceration of mid back * as above. On IV zyvox and zosyn. * blood cultures pending * #Acute metabolic encephalopathy * resolved. CT of the brain was negative * will resume lyrica as he is complaining of pain in his LEs which he says is because his lyrica has been discontinued. * #Hypotension * chronic. on midodrine. 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 Nephrology on board. #Type 2 diabetes mellitus with neuropathy * On Lantus 20 units nightly. Insulin sliding scale. Accu-Cheks AC at bedtime. 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 * * #Hyponatremia: chronic. Likely due to ESRD. Will monitor #Hyperlipidemia: not on statin. No allergy listed. to follow up with PCP on outpatient basis #Hypothyroidism: on synthroid #History of migraines. On rizatriptan on dialysis days. #GERD: on PPI #PILAR; on CPAP DVT prophylaxis: not indicated as he is fully anticoagulated on coumadin. Inpatient E&M: 33149 Subs Hosp L2
--- NOTE | 2020-10-12 15:23 | CASEMGMT ---
Pt qualifies for Palliative c/s via palliative screening tool but Dr. Escobar declines palliative c/s at this time. SStbrad SERRANO CM
[2020-10-12 17:10] LABS: Bedside Glucose 143 mg/dL (70-110)
[2020-10-12] MEDS: Pregabalin 50 MG Capsule PO (17:20)
[2020-10-12] MEDS: Epoetin Alfa epbx 10,000 UNITS/ML 6000 UNIT IV (17:24)
[2020-10-12] MEDS: Rizatriptan Benzoate 10 MG Tablet PO (17:42)
[2020-10-12] MEDS: 0.9% Saline Lock 10 ML Syringe IV ×2 (20:12→20:13)
--- NOTE | 2020-10-12 20:48 | NURSING ---
While pt was getting dialysis tonight he started having increased restless, Stated he couldn't breathe O2 was placed at 2l. pulse ox was 98% at the time. Pt demanded dialysis be stopped after only completing half the treatment. The patient was encouraged to try to stay on longer and was repositioned for comfort. Pt refused to stay on the dialysis. Dialysis nurse informed Dr. Shaw of this. Margy TAM was also informed.
--- NOTE | 2020-10-12 21:12 | DIALYSIS ---
HD Tx discontinued after running 2 hours of the ordered 4 hours. He was very agitated during tx tonight. He was continually touching/scratching his scrotum and penis causing the machine to alarm d/t positional catheter. ZACH Juares applied powder to stop the itch. Pt continued to be agitated and restless. States God just kill me. I don't want to live anymore. C/O shortness of breath so ZACH Juares placed pt on oxygen. He was repositioned several times. Later started complaining of back pain. Floor staff offered to call and get orders for pain meds and something for anxiety so he could finish tx. He refused and states Take me off the machine. He would move around to positions that would not allow proper blood flow through the catheter. Refuse to finish tx. ZACH Merritt was present. Dr. Shaw is aware. Pt signed and AMA. UF of 1060ml. Report was given to ZACH Merritt
[2020-10-12] MEDS: Amitriptyline 25 MG Tablet PO (21:28)
[2020-10-12 22:00] LABS: Bedside Glucose 154 mg/dL (70-110)
[2020-10-13] VITALS (8 sets, daily range): BP systolic 102–139; BP diastolic 32–59; PULSE 75–84; RESP 16–18; TEMP 36.9–37.2; O2SAT 93–95
[2020-10-13] MEDS: Nystatin Powder 15gm Bottle 1 APPLIC TOPICAL ×2 (05:20→14:48)
[2020-10-13] MEDS: Levothyroxine 50 MCG Tablet PO (05:20)
[2020-10-13 06:50] LABS: Absolute Lymphocyte Count 1.39 X10^3/uL (0.83-4.51); Absolute Neutrophil Count 11.2 X10^3/uL (2.0-7.7); Basophil# 0.06 X10^3/uL; Basophil% 0.4 % (0-1); Eosinophil# 0.04 X10^3/uL; Eosinophils% 0.3 % (0-5); Hemoglobin 8.4 g/dL (13.0-16.5); Lymphocyte # 1.39 X10^3/ul (4.0); Lymphocyte % 10.3 % (19-41); Mean Corpuscular Hgb 27.3 pg (27.0-32.0); Mean Corpuscular Volume 97.4 fL (80-94); Mean Platelet Vol. 11.3 fl (6.2-12.0); Monocyte# 0.64 X10^3/uL; Monocyte% 4.8 % (0-10); NRBC Flagged by Analyzer 0 % (0-5); Neutrophil # 11.16 X10^3/uL (2.7-7.7); Neutrophil % 83.1 % (47-70); POSITIVE COUNT YES; Platelet Count 248 K/mm3 (150-450); RBC Distribution Width CV 15.1 % (11.6-14.6); RBC Distribution Width SD 53.8 fl (35.1-43.9); Red Blood Count 3.08 M/mm3 (4.6-6.2); White Blood Count 13.4 K/mm3 (4.4-11.0)
[2020-10-13 06:53] LABS: Differential Indicated SCAN CRITERIA MET
[2020-10-13 06:57] LABS: International Normalized Ratio 2.5; Prothrombin Time (Protime)PT. 26.4 SECONDS (11.7-14.9)
[2020-10-13 07:10] LABS: Anion Gap 9 (5-15); BUN 34 mg/dL (7-18); BUN/Creat Ratio 5.6 RATIO (10-20); Calcium,Total 8.9 mg/dL (8.5-10.1); Chloride 96 mmol/L (98-107); Creatinine, Serum 6.09 mg/dL (0.70-1.30); EST Glomerular Filtration Rate 11 mL/min (>60); Est Glom Filt Rate - Afr Amer 13 mL/min (>60); Estimated Creatinine Clearance 16.58 ml/min; Glucose 182 mg/dL (74-106); Potassium 4.6 mmol/L (3.5-5.1); Sodium Level 130 mmol/L (136-145)
[2020-10-13] MEDS: Insulin Lispro 100 UNIT/ML INSULN.PEN SC ×2 (08:10→11:13)
[2020-10-13] MEDS: Insulin Lispro 100 UNIT/ML INSULN.PEN 15 UNIT SC ×3 (08:11→16:17)
[2020-10-13 08:21] LABS: Bedside Glucose 195 mg/dL (70-110)
[2020-10-13] MEDS: Midodrine HCl 5 MG Tablet PO ×3 (09:36→16:16)
[2020-10-13] MEDS: Aspirin 81 MG TAB.CHEW PO (09:36)
[2020-10-13] MEDS: Pregabalin 50 MG Capsule PO (09:37)
[2020-10-13] MEDS: Folic Acid/Vitamin B Comp W-C 1 Capsule 1 CAP PO (09:37)
[2020-10-13] MEDS: Acetaminophen 325 MG Tablet 650 MG PO (09:37)
[2020-10-13] MEDS: Pantoprazole Sodium 40 MG Tablet PO (09:38)
[2020-10-13] MEDS: Linezolid 600 MG 600 MG/300 ML BAG 200 MG IV (09:41)
[2020-10-13 11:26] LABS: Bedside Glucose 160 mg/dL (70-110)
--- NOTE | 2020-10-13 12:23 | PCM.PN.REN ---
Patient Problems: Active and Suspected Problems (Last Reviewed 10/10/20 @ 18:[address] Kathe Shaw, DO) Leukocytosis (Acute) Skin ulceration (Acute) Infectious encephalopathy (Acute) Severe sepsis (Acute) Acute encephalopathy (Acute) SECONDARY TO SEPSIS Subjective: signed off early AMA on dialysis last night. Denies NV, SOB. BP stable - Physical Exam Vitals/I&O's: Vital Signs Temp Pulse Resp BP Pulse Ox 98.6 F 75 18 116/54 L 93 10/13/20 11:24 10/13/20 11:24 10/13/20 11:24 10/13/20 11:24 10/13/20 11:24 Oxygen Flow Rate (L/min) 2 Oxygen Delivery Method Room Air Weight: 157.1 kg Body Mass Index (BMI) 45.5 Finger Stick Blood Glucose 148 Intake and Output for Last 24 Hours 10/11/20 10/12/20 10/13/20 23:59 23:59 23:59 Intake Total 1090 / 1090 1400 / 1400 910 / 910 Output Total 0 / 0 1060 / 1060 Balance 1090 / 1090 340 / 340 910 / 910 General: Alert, Oriented x3, Cooperative Lungs: Clear to auscultation Cardiovascular: Regular rate Psych/Mental Status: Alert and oriented to time, place, person, mood and affect Microbiology Past 72 Hours 10/11/20 11:10 Wound - Back Gram Stain - Final 10/11/20 11:10 Wound - Back Wound Culture - Preliminary GNR lactose criminal justice program director GPC Poss Enterococcus sp Yeast Like Organism 10/10/20 19:00 Blood Culture (Wb) - Arm Left Blood Culture - Preliminary No growth in 48 hours. 10/10/20 18:46 Blood Culture (Wb) - Left Forearm Blood Culture - Preliminary No growth in 48 hours. 10/10/20 15:50 Mucosa - Nose SARS-CoV-2 Antigen (Rapid) - Final Laboratory Results 10/12/20 17:03: POC Glucose 143 H 10/12/20 21:38: POC Glucose 154 H 10/13/20 06:35: PT 26.4 H, INR 2.5 10/13/20 06:35: WBC 13.4 H, RBC 3.08 L, Hgb 8.4 L, Hct 30.0 L, MCV 97.4 H, MCH 27.3, MCHC 28.0 L, RDW Std Deviation 53.8 H, RDW Coeff of Baljit 15.1 H, Plt Count 248, MPV 11.3, Immature Gran % (Auto) 1.100 H, Neut % (Auto) 83.1 H, Lymph % (Auto) 10.3 L, [place] % (Auto) 4.8, Eos % (Auto) 0.3, Baso % (Auto) 0.4, Absolute Neuts (auto) 11.2 H, Absolute Lymphs (auto) 1.39, Nucleated RBC % 0 10/13/20 06:35: Sodium 130 L, Potassium 4.6, Chloride 96 L, Carbon Dioxide 25.0, Anion Gap 9, BUN 34 H, Creatinine 6.09 H, Estim Creat Clear Calc 16.58, Est GFR (MDRD) Af Amer 13 L, Est GFR (MDRD) Non-Af 11 L, BUN/Creatinine Ratio 5.6 L, Glucose 182 H, Calcium 8.9 10/13/20 08:09: POC Glucose 195 H 10/13/20 11:11: POC Glucose 160 H Current Medications Acetaminophen (Acetaminophen 325 Mg Tablet) 650 mg PO Q6H PRN PRN PRN Reason: Pain Score 1-10/Temp > 100.7 F Last Admin: 10/13/20 09:37 Dose: 650 mg Documented by: Amitriptyline HCl (Amitriptyline 25 Mg Tablet) 25 mg PO QHS [facility] Last Admin: 10/12/20 21:28 Dose: 25 mg Documented by: Aspirin (Aspirin 81 Mg Tab.Chew) 81 mg PO DAILY@0800 [facility] Last Admin: 10/13/20 09:36 Dose: 81 mg Documented by: Epoetin Philip-epbx (Epoetin Philip Epbx 10,000 Units/Ml) 6,000 units IV MoWeFr [facility] Last Admin: 10/12/20 17:24 Dose: 6,000 units Documented by: Linezolid (Zyvox 600mg) 600 mg in 300 mls @ 200 mls/hr IV Q12 [facility] Last Infusion: 10/13/20 12:15 Dose: Infused Documented by: Piperacillin Sod/Tazobactam (Sod 3.375 gm/ Sodium Chloride) 50 mls @ 12.5 mls/hr IV Q12 [facility] Last Admin: 10/13/20 12:06 Dose: 12.5 mls/hr Documented by: Sodium Chloride () 250 mls @ 15 mls/hr IV .[id number] PRN PRN Reason: Saline Flush Insulin Glargine (Insulin Glargine 100 Units/Ml Pen) 20 units SC QHS [facility] Last Admin: 10/12/20 21:40 Dose: 20 u Documented by: Insulin Human Lispro (Insulin Lispro 100 Unit/Ml Insuln.Pen) 0 unit SC ACHS [facility]; Protocol Last Admin: 10/13/20 11:13 Dose: 1 u Documented by: Insulin Human Lispro (Insulin Lispro 100 Unit/Ml Insuln.Pen) 15 unit SC TIDAC [facility] Last Admin: 10/13/20 11:13 Dose: 15 units Documented by: Levothyroxine Sodium (Levothyroxine 50 Mcg Tablet) 50 mcg PO DAILY@0600 [facility] Last Admin: 10/13/20 05:20 Dose: 50 mcg Documented by: Midodrine (Midodrine Hcl 5 Mg Tablet) 5 mg PO TIDCM [facility] Last Admin: 10/13/20 12:06 Dose: 5 mg Documented by: Multivit/Ca Carb/B Cmplx/FA/Prenat (Folic Acid/Vitamin B Comp W-C 1 Capsule) 1 capsule PO DAILY [facility] Last Admin: 10/13/20 09:37 Dose: 1 capsule Documented by: Nystatin (Nystatin Powder 15gm Bottle) 1 applic TOPICAL TID [facility]; Protocol Last Admin: 10/13/20 05:20 Dose: 1 applic Documented by: Ondansetron HCl (Ondansetron 4 Mg/2 Ml Vial) 4 mg IV Q8H PRN PRN PRN Reason: NAUSEA/VOMITING Pantoprazole Sodium (Pantoprazole Sodium 40 Mg Tablet) 40 mg PO DAILY [facility] Last Admin: 10/13/20 09:38 Dose: 40 mg Documented by: Pregabalin (Pregabalin 50 Mg Capsule) 50 mg PO BID [facility] Last Admin: 10/13/20 09:37 Dose: 50 mg Documented by: Rizatriptan Benzoate (Rizatriptan Benzoate 10 Mg Tablet) 10 mg PO MOWEFR PRN PRN Reason: MIGRAINES Last Admin: 10/12/20 17:42 Dose: 10 mg Documented by: Senna/Docusate Sodium (Senna/Docusate Sodium 1 Tablet) 2 tablet PO BID PRN PRN PRN Reason: Constipation Sodium Chloride (0.9% Saline Lock 10 Ml Syringe) 10 - 40 ml IV UD PRN PRN Reason: SALINE FLUSH Last Admin: 10/12/20 20:13 Dose: 20 ml Documented by: Warfarin Sodium (Warfarin 2.5 Mg Tablet) 2.5 mg PO SuTuThSa@1700 [facility] Last Admin: 10/11/20 17:19 Dose: 2.5 mg Documented by: Warfarin Sodium (Warfarin 3 Mg Tablet) 3 mg PO MoWeFr@1700 [facility] Last Admin: 10/12/20 17:06 Dose: 3 mg Documented by: Medical Necessity - Tobacco Use Smoking Status: Never smoker Assessment/Plan All Active Problems (Last Reviewed 10/10/20 @ 18:[address] Kathe Shaw, DO) Leukocytosis (Acute) Skin ulceration (Acute) Infectious encephalopathy (Acute) Severe sepsis (Acute) Acute encephalopathy (Acute) Obstruction of right ureteropelvic junction due to stone (Resolved) Hydronephrosis of right kidney (Resolved) Problem with dialysis access (Resolved) AV fistula thrombosis (Resolved) Closed head injury (Resolved) Difficulty swallowing (Resolved) Urinary tract infection (Resolved) 1. ESRD on HD MWF schedule while in the hospital. Dialysis tmororw 2. Anemia epo 3x/wk 3. Hypotension on midodrine 4. Autonomic dysfunction 5. Morbid obesity 6. Hallucinations primary service mgmt 7. DM2 with neuropathy 8. Migraines 9. Hyponatremia correct with dialysis
--- NOTE | 2020-10-13 13:36 | PCM.CONS.U ---
Problem List (1) Obstruction of right ureteropelvic junction due to stone Status: Resolved Reason for Consult Date of Consultation: 10/13/20 Reason for Consultation: stent in place from stone History of Present Illness: The patient is a 50 year old Male admitted he does have a Stent in right side, plan for Surgery tomorrow for ureteroscopy laser stones and removal stent. Past Medical History Past Medical History (Chronic Problems): Chronic Problems (Last Reviewed 10/10/20 @ 18:[address] Kathe Shaw DO) PILAR (obstructive sleep apnea) (Chronic) Hypotension (Chronic) Hypertension (Chronic) GERD (gastroesophageal reflux disease) (Chronic) Hypothyroidism (Chronic) Diabetes mellitus type 2 in obese (Chronic) ESRD (end stage renal disease) on dialysis (Chronic) Medical History: Medical History (Last Reviewed 10/10/20 @ 18:[address] Kathe Shaw DO) Problem with dialysis access (Resolved) T82.898A Hypertension (Chronic) I10 GERD (gastroesophageal reflux disease) (Chronic) K21.9 Hypothyroidism (Chronic) E03.9 Diabetes mellitus type 2 in obese (Chronic) E11.69, E66.9 ESRD (end stage renal disease) on dialysis (Chronic) N18.6, Z99.2 Difficulty swallowing (Resolved) R13.10 Allergies vancomycin Allergy (Verified 09/30/20 17:57) Other C/O BEING HOT Home Medications: Ambulatory Orders Medication Instructions Recorded Amitriptyline HCl [Elavil] 25 mg PO QHS 03/11/20 Aspirin [Aspirin, Baby] 81 mg PO DAILY@0800 03/11/20 Calcium Acetate 1 cap PO TIDCM 03/11/20 Levothyroxine [Synthroid] 50 mcg PO DAILY 03/11/20 Pantoprazole Sodium [Protonix] 40 mg PO DAILY 03/11/20 Rizatriptan Benzoate [Rizatriptan] 1 tab PO MOWEFR PRN 03/11/20 Insulin Glargine,Hum.rec.anlog 20 unit SQ QHS 09/30/20 [Basaglar Kwikpen U-100] Insulin Lispro [Humalog KwikPen] 15 unit SQ TIDCM 09/30/20 Acetaminophen [Tylenol Tablet] 650 mg PO Q6H PRN PRN tablet 10/04/20 Midodrine HCl [Proamatine] 5 mg PO TIDCM tablet 10/04/20 Nystatin 500,000 unit PO 4X/DAY udc 10/04/20 Oxycodone HCl 5 mg PO PRN PRN 7 Days #10 capsule 10/04/20 Pregabalin [Lyrica] 50 mg PO BID #10 capsule 10/04/20 Warfarin [Coumadin (PBKC)] 3 mg PO MOWEFR 10/10/20 Warfarin [Coumadin] 2.5 mg PO SUTUTHSA 10/10/20 Surgical History: Surgical History (Last Reviewed 10/10/20 @ 18:[address] 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 Psychiatric History: No pertinent psych hx Smoking Status: Never smoker Alcohol: Rare Drugs: None - *Family History Maternal History Items: COPD Paternal History Items: Hypertension Sibling History Items: Diabetes Review of Systems Constitutional: Denies: Chills, Fever, Weight Change HEENT: Denies: Head Aches, Sinus Congestion, Sinus Drainage Cardiovascular: Denies: Chest Pain, Palpitations Respiratory: Denies: Cough, Shortness of breath at rest, Sputum production Gastrointestinal: Denies: Abdominal Pain, Nausea, Vomiting Genitourinary: Denies: Dysuria Musculoskeletal: Denies: Joint Pain, Joint Tenderness Skin: Denies: Rash, Wounds Neurological: Denies: Numbness, Tingling, Focal weakness Psychiatric: Denies: Anxiety, Depression, Homicidal Ideations, Suicidal Ideations Hematologic/ Lymphatic: Denies: Easy Bruising, Easy Bleeding Physical Exam - Physical Exam Vital Signs Temp 98.6 F 10/13/20 11:45 Pulse 75 10/13/20 11:45 Resp 18 10/13/20 11:45 BP 116/54 L 10/13/20 11:45 Pulse Ox 93 10/13/20 11:45 Intake & Output 10/11/20 10/12/20 10/13/20 23:59 23:59 23:59 Intake Total 1090 / 1090 1400 / 1400 910 / 910 Output Total 0 / 0 1060 / 1060 Balance 1090 / 1090 340 / 340 910 / 910 Weight: 156.4 kg 158.3 kg 157.1 kg Intake: Oral 440 / 440 400 / 400 560 / 560 Intake, IV Amount 650 / 650 1000 / 1000 350 / 350 Lactated Ringers 1,000 ML @ 100 0 / 0 mls/hr IV .Q10H [facility] Rx#: [id number] Zosyn 3.375 GM In 0.9% Normal 50 / 50 100 / 100 50 / 50 Saline 50 ML @ 12.5 mls/hr IV Q12 [facility] Rx#:[id number] Zyvox 600mg 600 mg In 300 ml @ 600 / 600 900 / 900 300 / 300 200 mls/hr IV Q12 [facility] Rx#: [id number] Output: Urine 0 / 0 0 / 0 Dialysate 1060 / 1060 Other: Number of Bowel Movements 1 1 Microbiology Past 72 Hours 10/11/20 11:10 Gram Stain - Final Wound - Back Wound Culture - Preliminary GNR lactose 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 10/10/20 18:46 Blood Culture - Preliminary Blood Culture (Wb) - Left Forearm No growth in 48 hours. 10/10/20 15:50 SARS-CoV-2 Antigen (Rapid) - Final Mucosa - Nose Laboratory Tests Past 24 Hrs 10/13/20 10/13/20 10/13/20 06:35 06:35 06:35 WBC 13.4 H RBC 3.08 L Hgb 8.4 L Hct 30.0 L MCV 97.4 H MCH 27.3 MCHC 28.0 L RDW Std Deviation 53.8 H RDW Coeff of Baljit 15.1 H Plt Count 248 MPV 11.3 Immature Gran % (Auto) 1.100 H Neut % (Auto) 83.1 H Lymph % (Auto) 10.3 L [place] % (Auto) 4.8 Eos % (Auto) 0.3 Baso % (Auto) 0.4 Absolute Neuts (auto) 11.2 H Absolute Lymphs (auto) 1.39 Nucleated RBC % 0 PT 26.4 H INR 2.5 Sodium 130 L Potassium 4.6 Chloride 96 L Carbon Dioxide 25.0 Anion Gap 9 BUN 34 H Creatinine 6.09 H Estim Creat Clear Calc 16.58 Est GFR (MDRD) Af Amer 13 L Est GFR (MDRD) Non-Af 11 L BUN/Creatinine Ratio 5.6 L Glucose 182 H Calcium 8.9 Assessment/Plan All Active Problems (Last Reviewed 10/10/20 @ 18:[address] Kathe Shaw, DO) Leukocytosis (Acute) Skin ulceration (Acute) Infectious encephalopathy (Acute) Severe sepsis (Acute) Acute encephalopathy (Acute) Obstruction of right ureteropelvic junction due to stone (Resolved) Hydronephrosis of right kidney (Resolved) Problem with dialysis access (Resolved) AV fistula thrombosis (Resolved) Closed head injury (Resolved) Difficulty swallowing (Resolved) Urinary tract infection (Resolved) npo at [place] consent plan for Surgery tomorrow to address stone and remove stent.
--- NOTE | 2020-10-13 14:31 | PCM.TXEXTCAR ---
- Diet 10/11/20 09:00 Diet: Renal - General Food consistency:: Regular Liquid Consistency:: Regular/Thin Dietary Modifications:: Consistent Carbohydrate Is pt able to select menu?: No 10/14/20 00:01 Diet: Nothing Per Oral Dietary Modifications:: Consistent Carbohydrate Is pt able to select menu?: No - Routine Orders/Code Status Enema Type: Fleetz Enema Frequency: Daily PRN Suppository Type: Dulcolax 10mg Suppository Frequency: Daily PRN O2 Frequency: PRN Keep PO Greater than or Equal to (%): 90 - Wound(s) lumbar spine Wound Type: moisture related open area Dressing Change: AntiMicrobial (Aquacel AG, etc) - Therapies Weight Bearing: Weight bearing as tolerated Physical Therapy: Eval and Treat Occupational Therapy: Eval and Treat - Allergies/Procedures Done in Hospital Allergies/Adverse Reactions: Allergies vancomycin Allergy (Verified 09/30/20 17:57) Other C/O BEING HOT Procedures: None - Type of Care/Length of Stay Estimated LOS: More Than 30 Days Type of Care Needed: Skilled Rehab Potential: Fair Prognosis: Fair - Additional Orders/Day of Discharge Additional Orders: to follow up at Wound Care on outpatient basis Day of Discharge: 10/13/20 - Dietary and Speech Recommendations Dietitian Recommendations/Changes: Will change to Consistent CHO/ Renal general diet. Monitor need for ONS pending po intake - pt does not want at this time - Follow Up Care Primary Care Physician: Jonathon Hitchcock MD [Primary Care Provider] - Please follow up with your Primary Care Physician in: 1-2 weeks Please Follow Up With: Schuyler Munoz MD When: within one week for scheduled outpatient procedure
--- NOTE | 2020-10-13 14:34 | PCM.DC.SUM ---
Discharge Date and Diagnosis - Problem List Patient Problems: Active and Suspected Problems (Last Reviewed 10/10/20 @ 18:[address] Kathe Shaw DO) Leukocytosis (Acute) Skin ulceration (Acute) Infectious encephalopathy (Acute) Severe sepsis (Acute) Acute encephalopathy (Acute) SECONDARY TO SEPSIS Date of Admission: 10/10/20 Date of Discharge: 10/13/20 - Primary Discharge Diagnosis Acute Problems: Active Problems (Last Reviewed 10/10/20 @ 18:[address] Kathe Shaw DO) Leukocytosis (Acute) Skin ulceration (Acute) Infectious encephalopathy (Acute) Severe sepsis (Acute) Acute encephalopathy (Acute) SECONDARY TO SEPSIS cellulitis - Secondary Discharge Diagnosis Chronic Problems: Chronic Problems (Last Reviewed 10/10/20 @ 18:[address] Kathe Shaw DO) PILAR (obstructive sleep apnea) (Chronic) Hypotension (Chronic) Hypertension (Chronic) GERD (gastroesophageal reflux disease) (Chronic) Hypothyroidism (Chronic) Diabetes mellitus type 2 in obese (Chronic) ESRD (end stage renal disease) on dialysis (Chronic) Hospital Course and Treatment Imaging Results: Diagnostic Data Brain CT 10/10/20 15:16 IMPRESSION: No acute intracranial hemorrhage or mass effect. Electronically Signed: Olivier Lee MD (Brooks) at 15:44 EDT , Service support , Chest X-Ray 10/10/20 15:16 IMPRESSION: Stable, nonacute portable x-ray examination of the chest. Electronically Signed: Olivier Lee MD (Brooks) at 15:43 EDT , Service support , Consultations 10/10/20 20:37 Consult: Onc/Wound/warp tester Routine Comment: Abdominal and back wounds Operations: None Procedures: None Summary of Care Provided: The patient is a 50 year old M with a past medical history as outlined was admitted through the ED on 10/10/2020 with a complaint of altered mental status. He had recently been admitted on from 09/30/2020 to 10/04/2020 for sepsis due to UTI. He had been discharged back to his SNF on antibiotics. For this admission, he was brought from his [facility] with altered mental status and visual hallucinations as well as scrotal pain which is chronic. He denied any fever or chills. He was initially found to be hypotensive but this resolved with fluid administration. CT of the brain done was negative for any acute intracranial pathology. Chest x-ray showed no acute cardiopulmonary process. He was admitted to be managed for sepsis which was thought to be due to skin infection on his back. He was started on Zyvox and IV Zosyn. Blood cultures and wound cultures were obtained. Nephrology was also consulted on account of ESRD, for dialysis. Wound care was also consulted. Blood Cultures were negative and wound culture grew possible Enterococcus species as well as gram-negative lactose brick carrier which per discussion with microbiology, appeared to be ESBL E. coli. He also grew a yeastlike organism. Patient's white cell count trended down to 13.4 from 17.2 on admission. His other symptoms resolved and he felt much better. He was therefore discharged back to his [facility] on 10/13/2020 with a prescription for p.o. Augmentin 500 125 mg daily for the 7 days, with dosage adjusted for his ESRD. He was also discharged on p.o. doxycycline 100 milligrams twice daily for 5 days. He is follow-up with his primary care doctor and nephrology and also to follow-up with the wound care center. Patient seen and examined prior to discharge. He had no complaints. Review of sytems was otherwise negative. Labs and vitals reveiwed. Home medications reviewed and reconciled. O/E: Vital Signs Temp Pulse Resp BP Pulse Ox 98.5 F 77 18 102/59 L 94 10/13/20 14:49 10/13/20 14:49 10/13/20 14:49 10/13/20 14:49 10/13/20 14:50 General: Alert, Oriented x3, Cooperative, No apparent distress HEENT: Atraumatic, PERRLA, EOMI, Normocephalic Oral: Moist Mucosa Neck: Supple, No JVD, Negative Carotid Bruits Lungs: Clear to auscultation, Normal air movement Cardiovascular: Regular rate, Regular Rhythm, Normal S1, Normal S2, No murmurs Abdomen: Bowel Sounds Present, Soft, Non Tender, Non-Distended, No Hepato-splenomegaly Extremities: No clubbing, No cyanosis, No edema, Capillary Refill Less than 3 Seconds Skin: - - superficial ulceration in the middle of his back, with slough. Surrounding erythema, Musculoskeletal: No Tenderness to Palpation of Joints or Extremities Lymphatic: No Cervical, Supraclavicular, or Inguinal Adenopathy Neurological: Cranial nerves II-XII grossly intact, Neuro grossly intact, Motor Exam 5/5 strength throughout Psych/Mental Status: Normal Affect, Appropriate, Alert and oriented to time, place, person, mood and affect Plan is for DC back to SNF today Patient Problems: Active and Suspected Problems (Last Reviewed 10/10/20 @ 18:[address] Kathe Shaw, DO) Leukocytosis (Acute) Skin ulceration (Acute) Infectious encephalopathy (Acute) Severe sepsis (Acute) Acute encephalopathy (Acute) SECONDARY TO SEPSIS - Physical Exam Vitals/I&O's: Vital Signs Temp Pulse Resp BP Pulse Ox 98.8 F 81 18 105/54 L 93 10/13/20 14:24 10/13/20 14:24 10/13/20 14:24 10/13/20 14:24 10/13/20 14:24 Oxygen Flow Rate (L/min) 2 Oxygen Delivery Method Room Air Weight: 346 lb 5.539 oz Body Mass Index (BMI) 45.5 Finger Stick Blood Glucose 148 Intake and Output for Last 24 Hours 10/11/20 10/12/20 10/13/20 23:59 23:59 23:59 Intake Total 1090 / 1090 1400 / 1400 910 / 910 Output Total 0 / 0 1060 / 1060 Balance 1090 / 1090 340 / 340 910 / 910 Microbiology Past 72 Hours 10/11/20 11:10 Wound - Back Gram Stain - Final 10/11/20 11:10 Wound - Back Wound Culture - Preliminary GNR lactose brick carrier GPC Poss Enterococcus sp Yeast Like Organism 10/10/20 19:00 Blood Culture (Wb) - Arm Left Blood Culture - Preliminary No growth in 48 hours. 10/10/20 18:46 Blood Culture (Wb) - Left Forearm Blood Culture - Preliminary No growth in 48 hours. 10/10/20 15:50 Mucosa - Nose SARS-CoV-2 Antigen (Rapid) - Final Laboratory Results 10/12/20 17:03: POC Glucose 143 H 10/12/20 21:38: POC Glucose 154 H 10/13/20 06:35: PT 26.4 H, INR 2.5 10/13/20 06:35: WBC 13.4 H, RBC 3.08 L, Hgb 8.4 L, Hct 30.0 L, MCV 97.4 H, MCH 27.3, MCHC 28.0 L, RDW Std Deviation 53.8 H, RDW Coeff of Baljit 15.1 H, Plt Count 248, MPV 11.3, Immature Gran % (Auto) 1.100 H, Neut % (Auto) 83.1 H, Lymph % (Auto) 10.3 L, [place] % (Auto) 4.8, Eos % (Auto) 0.3, Baso % (Auto) 0.4, Absolute Neuts (auto) 11.2 H, Absolute Lymphs (auto) 1.39, Nucleated RBC % 0 10/13/20 06:35: Sodium 130 L, Potassium 4.6, Chloride 96 L, Carbon Dioxide 25.0, Anion Gap 9, BUN 34 H, Creatinine 6.09 H, Estim Creat Clear Calc 16.58, Est GFR (MDRD) Af Amer 13 L, Est GFR (MDRD) Non-Af 11 L, BUN/Creatinine Ratio 5.6 L, Glucose 182 H, Calcium 8.9 10/13/20 08:09: POC Glucose 195 H 10/13/20 11:11: POC Glucose 160 H Current Medications Acetaminophen (Acetaminophen 325 Mg Tablet) 650 mg PO Q6H PRN PRN PRN Reason: Pain Score 1-10/Temp > 100.7 F Last Admin: 10/13/20 09:37 Dose: 650 mg Documented by: Amitriptyline HCl (Amitriptyline 25 Mg Tablet) 25 mg PO QHS [facility] Last Admin: 10/12/20 21:28 Dose: 25 mg Documented by: Aspirin (Aspirin 81 Mg Tab.Chew) 81 mg PO DAILY@0800 [facility] Last Admin: 10/13/20 09:36 Dose: 81 mg Documented by: Epoetin Philip-epbx (Epoetin Philip Epbx 10,000 Units/Ml) 6,000 units IV MoWeFr [facility] Last Admin: 10/12/20 17:24 Dose: 6,000 units Documented by: Linezolid (Zyvox 600mg) 600 mg in 300 mls @ 200 mls/hr IV Q12 [facility] Last Infusion: 10/13/20 12:15 Dose: Infused Documented by: Piperacillin Sod/Tazobactam (Sod 3.375 gm/ Sodium Chloride) 50 mls @ 12.5 mls/hr IV Q12 [facility] Last Admin: 10/13/20 12:06 Dose: 12.5 mls/hr Documented by: Sodium Chloride () 250 mls @ 15 mls/hr IV .[id number] PRN PRN Reason: Saline Flush Insulin Glargine (Insulin Glargine 100 Units/Ml Pen) 20 units SC QHS [facility] Last Admin: 10/12/20 21:40 Dose: 20 u Documented by: Insulin Human Lispro (Insulin Lispro 100 Unit/Ml Insuln.Pen) 0 unit SC ACHS [facility]; Protocol Last Admin: 10/13/20 11:13 Dose: 1 u Documented by: Insulin Human Lispro (Insulin Lispro 100 Unit/Ml Insuln.Pen) 15 unit SC TIDAC [facility] Last Admin: 10/13/20 11:13 Dose: 15 units Documented by: Levothyroxine Sodium (Levothyroxine 50 Mcg Tablet) 50 mcg PO DAILY@0600 [facility] Last Admin: 10/13/20 05:20 Dose: 50 mcg Documented by: Midodrine (Midodrine Hcl 5 Mg Tablet) 5 mg PO TIDCM [facility] Last Admin: 10/13/20 12:06 Dose: 5 mg Documented by: Multivit/Ca Carb/B Cmplx/FA/Prenat (Folic Acid/Vitamin B Comp W-C 1 Capsule) 1 capsule PO DAILY [facility] Last Admin: 10/13/20 09:37 Dose: 1 capsule Documented by: Nystatin (Nystatin Powder 15gm Bottle) 1 applic TOPICAL TID [facility]; Protocol Last Admin: 10/13/20 05:20 Dose: 1 applic Documented by: Ondansetron HCl (Ondansetron 4 Mg/2 Ml Vial) 4 mg IV Q8H PRN PRN PRN Reason: NAUSEA/VOMITING Pantoprazole Sodium (Pantoprazole Sodium 40 Mg Tablet) 40 mg PO DAILY [facility] Last Admin: 10/13/20 09:38 Dose: 40 mg Documented by: Pregabalin (Pregabalin 50 Mg Capsule) 50 mg PO BID [facility] Last Admin: 10/13/20 09:37 Dose: 50 mg Documented by: Rizatriptan Benzoate (Rizatriptan Benzoate 10 Mg Tablet) 10 mg PO MOWEFR PRN PRN Reason: MIGRAINES Last Admin: 10/12/20 17:42 Dose: 10 mg Documented by: Senna/Docusate Sodium (Senna/Docusate Sodium 1 Tablet) 2 tablet PO BID PRN PRN PRN Reason: Constipation Sodium Chloride (0.9% Saline Lock 10 Ml Syringe) 10 - 40 ml IV UD PRN PRN Reason: SALINE FLUSH Last Admin: 10/12/20 20:13 Dose: 20 ml Documented by: Warfarin Sodium (Warfarin 2.5 Mg Tablet) 2.5 mg PO SuTuThSa@1700 [facility] Last Admin: 10/11/20 17:19 Dose: 2.5 mg Documented by: Warfarin Sodium (Warfarin 3 Mg Tablet) 3 mg PO MoWeFr@1700 [facility] Last Admin: 10/12/20 17:06 Dose: 3 mg Documented by: Discharge Diet: Low fat/ Low Cholesterol Discharge Activity: Return to Normal Activity Weight Bearing Status: Weight bearing as tolerated Call your doctor if you observe: Fever of 101 or Higher Home Medications: Medications to take at Discharge Amitriptyline HCl [Elavil] 25 mg PO QHS 03/11/20 Aspirin [Aspirin, Baby] 81 mg PO DAILY@0800 03/11/20 Calcium Acetate 1 cap PO TIDCM 03/11/20 Levothyroxine [Synthroid] 50 mcg PO DAILY 03/11/20 Pantoprazole Sodium [Protonix] 40 mg PO DAILY 03/11/20 Rizatriptan Benzoate [Rizatriptan] 1 tab PO MOWEFR PRN 03/11/20 Insulin Glargine,Hum.rec.anlog [Basaglar Kwikpen U-100] 20 unit SQ QHS 09/30/20 Insulin Lispro [Humalog KwikPen] 15 unit SQ TIDCM 09/30/20 Acetaminophen [Tylenol Tablet] 650 mg PO Q6H PRN PRN tablet 10/04/20 Midodrine HCl [Proamatine] 5 mg PO TIDCM tablet 10/04/20 Nystatin 500,000 unit PO 4X/DAY udc 10/04/20 Oxycodone HCl 5 mg PO PRN PRN 7 Days #10 capsule 10/04/20 Pregabalin [Lyrica] 50 mg PO BID #10 capsule 10/04/20 Warfarin [Coumadin] 2.5 mg PO SUTUTHSA 10/10/20 Warfarin [Coumadin] 3 mg PO MOWEFR 10/10/20 Amoxicillin/Potassium Clav [Amox-Clav 500-125 mg Tablet] 1 each PO DAILY #7 tablet 10/13/20 Doxycycline 100 mg PO BID #14 capsule 10/13/20 Following Prescriptions Were Given to Patient: Amoxicillin/Potassium Clav [Amox-Clav 500-125 mg Tablet] 1 each PO DAILY #7 tablet Prescription Printed Doxycycline 100 mg PO BID #14 capsule Prescription Printed Primary Care Physician: Jonathon Hitchcock MD [Primary Care Provider] - Please follow up with your Primary Care Physician in: 1-2 weeks Please Follow Up With: Schuyler Munoz MD When: within one week for scheduled outpatient procedure Disposition: [facility] facility Minutes spent on discharge:: 40 Patient Condition:: Stable Medical Necessity - Tobacco Use Smoking Status: Never smoker Meaningful Use Info Meaningful Use Diagnoses (Choose all that apply): None applicable Inpatient E&M: [id number] [facility]
--- NOTE | 2020-10-13 15:00 | CASEMGMT ---
Patient is ready for discharge back to [facility]. Awaiting orders. DARREL notified Brionna with [facility]. Charmaine Rollins MSW ELIZABETH
--- NOTE | 2020-10-13 15:25 | NURSING ---
Report called to Veena at [facility]. Patient pickup time set for 1829
--- NOTE | 2020-10-13 15:35 | CASEMGMT ---
DARREL arranged for patient to get picked up at 1830 via cot. DARREL notified Brionna with [facility] as well as RN and police department secretary. Once orders are received they will be faxed to [facility]. Plan: d/c back to [facility] under intermediate level of care. [facility] transported via cot. Charmaine JOHNSON
--- NOTE | 2020-10-13 15:48 | NURSING ---
Student nurse documentation reviewed.
[2020-10-13 16:26] LABS: Bedside Glucose 106 mg/dL (70-110)
[2020-10-16 15:21] LABS: Legionella Pneumoph.Abs < 0.91 OD ratio (0.00-0.90)
== END 2020-10-13 18:48 | disposition skilled nursing facility (03) | DRG 720 ==
LOC: ED 15:30 → ICU 18:53 → PCU 10-11 12:04
PROVIDERS: Admitting Provider Internal Medicine; Emergency Provider Emergency Medicine; PCP Family Medicine; Visit Provider Student in an Organized Health Care Education/Training Program
DX: A41.9 Sepsis, unspecified organism (principal); R65.20 Severe sepsis without septic shock; G93.41 Metabolic encephalopathy; B37.2 Candidiasis of skin and nail; I95.89 Other hypotension; N50.82 Scrotal pain; L03.312 Cellulitis of back [any part except buttock and flank]; G89.29 Other chronic pain; D63.1 Anemia in chronic kidney disease; E03.9 Hypothyroidism, unspecified; E11.22 Type 2 diabetes mellitus with diabetic chronic kidney disease; L98.429 Non-pressure chronic ulcer of back with unspecified severity; E66.01 Morbid (severe) obesity due to excess calories; E78.5 Hyperlipidemia, unspecified; E83.39 Other disorders of phosphorus metabolism; G43.909 Migraine, unspecified, not intractable, without status migrainosus; E87.1 Hypo-osmolality and hyponatremia; E11.40 Type 2 diabetes mellitus with diabetic neuropathy, unspecified; G47.33 Obstructive sleep apnea (adult) (pediatric); I12.0 Hypertensive chronic kidney disease with stage 5 chronic kidney disease or end stage renal disease; K21.9 Gastro-esophageal reflux disease without esophagitis; N18.6 End stage renal disease; Z68.42 Body mass index [BMI] 45.0-49.9, adult; Z79.01 Long term (current) use of anticoagulants; Z79.4 Long term (current) use of insulin; Z99.2 Dependence on renal dialysis; Z87.442 Personal history of urinary calculi; Z79.82 Long term (current) use of aspirin; Z87.440 Personal history of urinary (tract) infections; Z86.19 Personal history of other infectious and parasitic diseases; Z79.899 Other long term (current) drug therapy; Z95.828 Presence of other vascular implants and grafts; Z89.422 Acquired absence of other left toe(s)
CPT/HCPCS: 36415; 70450; 71045; 80048; 80053; 82533; 82962; 83605; 83735; 84100; 85025; 85610; 86713; 87040; 87070; 87077; 87186; 87205; 87426; 87641; 90937; 97110; 97161; 97166; 97530; 97535; 97802; 99251; 99285; J2020; J7030; J7040; J7120; A4216; G0257; G0463; Q5106

== ENCOUNTER 2020-10-14 11:43 | Day surgery (SDC) | payer MEDICAID, SELFPAY ==
[2020-10-10 20:55] VITALS: BMI 45.5
--- NOTE | 2020-10-14 07:37 | PCM.HP.STD ---
Problem List (1) Obstruction of right ureteropelvic junction due to stone Status: Resolved History of Present Illness Date of Admission: 10/14/20 Chief Complaint: Right UPJ stone The patient is a 50 year old male with multiple medical problems who underwent a cystoscopy and stent placement for stone on the right UPJ he was then transferred to outside hospital and finally is returned and now is going to come in for right ureteroscopy and laser of stone and removal of stent. Past Medical History Past Medical History (Chronic Problems): Chronic Problems (Last Reviewed 10/10/20 @ 18:[address] Kathe Shaw DO) PILAR (obstructive sleep apnea) (Chronic) Hypotension (Chronic) Hypertension (Chronic) GERD (gastroesophageal reflux disease) (Chronic) Hypothyroidism (Chronic) Diabetes mellitus type 2 in obese (Chronic) ESRD (end stage renal disease) on dialysis (Chronic) Medical History: Medical History (Last Reviewed 10/14/20 @ 07:[address] Schuyler Munoz MD) Problem with dialysis access (Resolved) T82.898A Hypertension (Chronic) I10 GERD (gastroesophageal reflux disease) (Chronic) K21.9 Hypothyroidism (Chronic) E03.9 Diabetes mellitus type 2 in obese (Chronic) E11.69, E66.9 ESRD (end stage renal disease) on dialysis (Chronic) N18.6, Z99.2 Difficulty swallowing (Resolved) R13.10 Allergies vancomycin Allergy (Verified 09/30/20 17:57) Other C/O BEING HOT Home Medications: Ambulatory Orders Medication Instructions Recorded Amitriptyline HCl [Elavil] 25 mg PO QHS 03/11/20 Aspirin [Aspirin, Baby] 81 mg PO DAILY@0800 03/11/20 Calcium Acetate 1 cap PO TIDCM 03/11/20 Levothyroxine [Synthroid] 50 mcg PO DAILY 03/11/20 Pantoprazole Sodium [Protonix] 40 mg PO DAILY 03/11/20 Rizatriptan Benzoate [Rizatriptan] 1 tab PO MOWEFR PRN 03/11/20 Insulin Glargine,Hum.rec.anlog 20 unit SQ QHS 09/30/20 [Basaglar Kwikpen U-100] Insulin Lispro [Humalog KwikPen] 15 unit SQ TIDCM 09/30/20 Acetaminophen [Tylenol Tablet] 650 mg PO Q6H PRN PRN tablet 10/04/20 Midodrine HCl [Proamatine] 5 mg PO TIDCM tablet 10/04/20 Nystatin 500,000 unit PO 4X/DAY udc 10/04/20 Oxycodone HCl 5 mg PO PRN PRN 7 Days #10 capsule 10/04/20 Pregabalin [Lyrica] 50 mg PO BID #10 capsule 10/04/20 Warfarin [Coumadin] 2.5 mg PO SUTUTHSA 10/10/20 Warfarin [Coumadin] 3 mg PO MOWEFR 10/10/20 Amoxicillin/Potassium Clav 1 each PO DAILY #7 tablet 10/13/20 [Amox-Clav 500-125 mg Tablet] Doxycycline 100 mg PO BID #14 capsule 10/13/20 Surgical History: Surgical History (Last Reviewed 10/10/20 @ 18:[address] 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 Psychiatric History: No pertinent psych hx Smoking Status: Never smoker Tobacco Use: Non-smoker - *Family History Maternal History Items: COPD Paternal History Items: - Sibling History Items: Diabetes Review of Systems Constitutional: Denies: Chills, Fever, Weight Change HEENT: Denies: Head Aches, Sinus Congestion, Sinus Drainage Cardiovascular: Denies: Chest Pain, Palpitations Respiratory: Denies: Cough, Shortness of breath at rest, Sputum production Gastrointestinal: Denies: Abdominal Pain, Nausea, Vomiting Genitourinary: Denies: Dysuria Musculoskeletal: Denies: Joint Pain, Joint Tenderness Skin: Denies: Rash, Wounds Neurological: Denies: Numbness, Tingling, Focal weakness Psychiatric: Denies: Anxiety, Depression, Homicidal Ideations, Suicidal Ideations Hematologic/ Lymphatic: Denies: Easy Bruising, Easy Bleeding VTE Information - Inpt Only VTE Present on Admission: No - Physical Exam Vitals/I&O's: Body Mass Index (BMI) 50.5 Finger Stick Blood Glucose 148 General: Alert, Oriented x3, Cooperative HEENT: Atraumatic, PERRLA, EOMI, Normocephalic Neck: Supple, No JVD, Negative Carotid Bruits Lungs: Clear to auscultation, Normal air movement Cardiovascular: Regular rate, No murmurs Abdomen: Bowel Sounds Present, Soft, Non Tender Extremities: No edema, Capillary Refill Less than 3 Seconds Skin: No rashes, No breakdown Musculoskeletal: No Tenderness to Palpation of Joints or Extremities Neurological: Cranial nerves II-XII grossly intact Psych/Mental Status: Normal Affect, Appropriate Current Medications Cefazolin Sodium 2 gm/ Sodium (Chloride) 110 mls @ 150 mls/hr IV PREOP ONE Stop: 10/14/20 12:38 Assessment/Plan All Active Problems (Last Reviewed 10/10/20 @ 18:[address] Kathe Shaw, DO) Leukocytosis (Acute) Skin ulceration (Acute) Infectious encephalopathy (Acute) Severe sepsis (Acute) Acute encephalopathy (Acute) Obstruction of right ureteropelvic junction due to stone (Resolved) Hydronephrosis of right kidney (Resolved) Problem with dialysis access (Resolved) AV fistula thrombosis (Resolved) Closed head injury (Resolved) Difficulty swallowing (Resolved) Urinary tract infection (Resolved) Plan to proceed with right ureteroscopy laser of stone.
--- NOTE | 2020-10-14 07:47 | DCINST_ITS ---
Discharge Diet: Light diet - advance as tolerated Discharge Activity: Return to Normal Activity Allergies/Adverse Reactions: Allergies vancomycin Allergy (Verified 09/30/20 17:57) Other C/O BEING HOT Medications to take at Discharge Amitriptyline HCl [Elavil] 25 mg PO QHS 03/11/20 Aspirin [Aspirin, Baby] 81 mg PO DAILY@0800 03/11/20 Calcium Acetate 1 cap PO TIDCM 03/11/20 Levothyroxine [Synthroid] 50 mcg PO DAILY 03/11/20 Pantoprazole Sodium [Protonix] 40 mg PO DAILY 03/11/20 Rizatriptan Benzoate [Rizatriptan] 1 tab PO MOWEFR PRN 03/11/20 Insulin Glargine,Hum.rec.anlog [Basaglar Kwikpen U-100] 20 unit SQ QHS 09/30/20 Insulin Lispro [Humalog KwikPen] 15 unit SQ TIDCM 09/30/20 Acetaminophen [Tylenol Tablet] 650 mg PO Q6H PRN PRN tablet 10/04/20 Midodrine HCl [Proamatine] 5 mg PO TIDCM tablet 10/04/20 Nystatin 500,000 unit PO 4X/DAY udc 10/04/20 Oxycodone HCl 5 mg PO PRN PRN 7 Days #10 capsule 10/04/20 Pregabalin [Lyrica] 50 mg PO BID #10 capsule 10/04/20 Warfarin [Coumadin] 2.5 mg PO SUTUTHSA 10/10/20 Warfarin [Coumadin] 3 mg PO MOWEFR 10/10/20 Amoxicillin/Potassium Clav [Amox-Clav 500-125 mg Tablet] 1 each PO DAILY #7 tablet 10/13/20 Doxycycline 100 mg PO BID #14 capsule 10/13/20 Primary Care Physician: Jonathon Hitchcock MD [Primary Care Provider] - Test Results: Test results from this visit will be discussed in further detail at your follow- up appointment, if applicable. Please Follow Up With: Schuyler Munoz MD When: in 2 weeks, please call to make an appointment.
[2020-10-14 12:21] VITALS: BP 95/39; PULSE 88; RESP 18; TEMP 38.3; O2SAT 99; BMI 47.2
[2020-10-14 14:02] LABS: International Normalized Ratio 2.4
--- NOTE | 2020-10-14 14:36 | OP.PCM_ITS ---
Problem List (1) Obstruction of right ureteropelvic junction due to stone Status: Resolved Report of Operation Date of Procedure: 10/14/20 Pre-Operative Diagnosis: Right ureteral calculi status post stent Post-Operative Diagnosis: Same Surgery/Procedure Performed:: Cystoscopy stent removal, ureteroscopy no stone Description of Surgical Findings:: This is a patient who presents to the hospital for treatment for an obstructing distal ureter calculi. I discussed with the patient how the surgery would be performed and we reviewed the risks and benefits of the surgery. The risk and benefits include the risk of failure to remove the stone completely and that the patient may need multiple procedures. We discussed the risk of an infection, the risk of bleeding. We discussed the very rare risk of serious complicated injury to the ureter. The patient understands that if the stone is not able to be removed safely that we may abort the procedure and place a stent. After full discussion and all questions address with the patient the consent form was signed the side was marked appropriately and the patient was taken back to the operating room for the procedure. The patient was taken back to the operating room. After induction of anesthesia by the anesthesiology team the patient was placed in dorsolithotomy position. The genitals were prepped and draped in usual sterile fashion. I went into the bladder with a 21 Ivor[place] rigid cystourethroscope through the urethra. Upon entering the bladder I inspected the trigone the left and right ureteral orifice and the bladder itself. I then removed the right stent and then cannulated the right ureteral orifice and advanced a 0.038 Glidewire up into the kidney. I was able to go inside with the 7.9Fr flexible utereroscope and I pulled out the working guidewire and then through the 7.9 fr flexible ureteroscope I ascended up the ureter with direct visualization and no stone was found and must of passed, I then backed out of the ureter, I then drained the patient's bladder and the cystoscope was removed and the patient was taken back to the recovery room in good position. The patient was given discharge instructions, no stent was left. Type of Anesthesia:: General
[2020-10-14 15:00] VITALS: BP 115/64; BP 95/39; PULSE 92; RESP 20; TEMP 36.7; O2SAT 100
[2020-10-14 15:06] LABS: INR Fingerstick 2.6; Prothrombin Time Fingerstick 28.9 SEC (11.9-14.4)
[2020-10-14 15:15] VITALS: BP 91/55; BP 95/39; PULSE 91; RESP 16; O2SAT 94
[2020-10-14 15:30] VITALS: BP 95/39; BP 98/32; PULSE 87; RESP 16; O2SAT 92
[2020-10-14 15:38] VITALS: BP 87/54; BP 95/39; PULSE 86; RESP 16; TEMP 36.4; O2SAT 97
[2020-10-14 16:18] VITALS: BP 95/39; BP 96/38; PULSE 87; RESP 16; TEMP 36.3; O2SAT 94
[2020-10-15 05:36] LABS: Bedside Glucose 209 mg/dL (70-110)
== END 2020-10-14 17:01 | disposition home or self-care (01) ==
LOC: SDC 11:46 → AC 11:47
PROVIDERS: PCP Family Medicine; Referring Provider Urology; Visit Provider Urology
PROC: 0TJ98ZZ Inspection of Ureter, Via Natural or Artificial Opening Endoscopic (ICD-10-PCS; CPT 52352; principal; 2020-10-14 11:45)
DX: Z46.6 Encounter for fitting and adjustment of urinary device (principal); N20.1 Calculus of ureter; I12.0 Hypertensive chronic kidney disease with stage 5 chronic kidney disease or end stage renal disease; E11.22 Type 2 diabetes mellitus with diabetic chronic kidney disease; N18.6 End stage renal disease; Z99.2 Dependence on renal dialysis; E66.9 Obesity, unspecified; Z68.43 Body mass index [BMI] 50.0-59.9, adult; K21.9 Gastro-esophageal reflux disease without esophagitis; E03.9 Hypothyroidism, unspecified; I95.9 Hypotension, unspecified; G47.33 Obstructive sleep apnea (adult) (pediatric); Z86.2 Personal history of diseases of the blood and blood-forming organs and certain disorders involving the immune mechanism; Z87.440 Personal history of urinary (tract) infections; Z86.19 Personal history of other infectious and parasitic diseases; Z86.73 Personal history of transient ischemic attack (TIA), and cerebral infarction without residual deficits; Z79.4 Long term (current) use of insulin; Z79.01 Long term (current) use of anticoagulants; Z79.82 Long term (current) use of aspirin; Z79.899 Other long term (current) drug therapy
CPT/HCPCS: 00910; 52310; 36415; 36416; 82962; 85610; J7040; C1769; J2405